=== PATIENT | male | born 1965 | race Caucasian/White ===

== ENCOUNTER 2021-03-14 15:19 | Outpatient (CLI) | payer BC, SELFPAY ==
--- NOTE | ~2021-03-14 | XR_ITS ---
XR shoulder LT min 2V DATE: 03/14/2021 15:55 INDICATION: Generalized left shoulder pain, limited range of motion TECHNIQUE: 4 views COMPARISON: None FINDINGS: No fracture or dislocation, periosteal reaction or bone destruction or abnormal soft tissue calcification. IMPRESSION: Negative left shoulder Reviewed, dictated and finalized at location B. IMPRESSION: Negative left shoulder
[2021-03-14 15:42] LABS: Hematocrit 42.2 % (40.0-54.0); Hemoglobin 14.7 g/dL (14.0-18.0); Mean Corpuscular HGB Conc 34.8 g/dL (32.0-36.0); Mean Corpuscular Hemoglobin 32.2 pg (27.0-31.0); Mean Corpuscular Volume 92.5 fL (78.0-102.0); Mean Platelet Volume 9.7 fl (8.7-11.0); Platelet Count Result 232 K/mm3 (150-420); Red Blood Count 4.56 M/mm3 (4.70-6.10); Red Cell Distribution Width 11.9 % (11.6-14.4); White Blood Count 10.5 K/mm3 (4.8-10.8)
[2021-03-14 17:17] LABS: Alanine Aminotransferase 24 U/L (16-63); Albumin Level 3.8 g/dL (3.4-5.0); Alkaline Phosphatase 96 U/L (46-116); Aspartate Amino Transferase 18 U/L (15-37); Bilirubin,Total 0.4 mg/dL (0.00-1.00); Blood Urea Nitrogen 13 mg/dL (7-18); Calcium 9.1 mg/dL (8.5-10.1); Cholesterol 177 mg/dL (0-200); Estimated Glomerular Filt Rate > 60; Glucose 88 mg/dL (70-99); HDL Direct 53 mg/dL (40-60); LDL Cholesterol Calculated 111 mg/dL (<130); Total Protein 6.8 g/dL (6.4-8.2); Triglycerides 63 mg/dL (0-150)
[2021-03-14 17:31] LABS: Anion Gap 9 mmol/L (8-16); Carbon Dioxide 27 mmol/L (21-32); Chloride 105 mmol/L (98-108); Osmolality Calculated 291 mOsm/kg (285-295); Potassium 4.1 mmol/L (3.5-5.1); Sodium 141 mmol/L (136-145)
== END 2021-03-14 15:20 | disposition home or self-care (01) ==
PROVIDERS: PCP Family Medicine; Visit Provider Family Medicine
DX: M25.512 Pain in left shoulder (principal); Z00.00 Encounter for general adult medical examination without abnormal findings; Z72.0 Tobacco use; Z12.12 Encounter for screening for malignant neoplasm of rectum; Z12.11 Encounter for screening for malignant neoplasm of colon
CPT/HCPCS: 36415; 73030; 80053; 80061; 85027

== ENCOUNTER 2024-04-15 06:55 | Outpatient (CLI) | payer BC, SELFPAY ==
[2024-04-15 07:21] LABS: Basophils Absolute Auto 0.03 K/mm3 (0.00-0.10); Basophils Percent Auto 0.2 % (0.0-1.0); Eosinophils Absolute Auto 0.18 K/mm3 (0.02-0.50); Eosinophils Percent Auto 1.5 % (1.0-6.0); Hematocrit 48.1 % (40.0-54.0); Hemoglobin 16.7 g/dL (14.0-18.0); Immature Granulocyte Absolute 0.06 K/mm3 (0.00-0.00); Immature Granulocyte Percent A 0.5 % (0.0-0.0); Lymphocytes Absolute Auto 1.78 K/mm3 (1.10-4.50); Lymphocytes Percent Auto 14.5 % (18.0-42.0); Mean Corpuscular HGB Conc 34.7 g/dL (32-36); Mean Corpuscular Hemoglobin 32.9 pg (27.0-31.0); Mean Corpuscular Volume 94.9 fL (78.0-102.0); Mean Platelet Volume 9.5 fl (8.7-11.0); Monocytes Absolute Auto 0.84 K/mm3 (0.10-0.90); Monocytes Percent Auto 6.9 % (2.0-11.0); Neutrophils Absolute Auto 9.35 K/mm3 (1.70-7.20); Neutrophils Percent Auto 76.4 % (50.0-70.0); Platelet Count Result 304 K/mm3 (150-420); Red Blood Count 5.07 M/mm3 (4.70-6.10); Red Cell Distribution Width 12.6 % (11.6-14.4); White Blood Count 12.2 K/mm3 (4.8-10.8)
[2024-04-15 08:47] LABS: Alanine Aminotransferase 25 U/L (16-63); Albumin Level 3.5 g/dL (3.4-5.0); Alkaline Phosphatase 91 U/L (46-116); Anion Gap 11 mmol/L (4-12); Aspartate Amino Transferase 28 U/L (15-37); Bilirubin,Total 0.6 mg/dL (0.00-1.00); Blood Urea Nitrogen 13 mg/dL (7-18); Calcium 9.2 mg/dL (8.5-10.1); Carbon Dioxide 26 mmol/L (21-32); Chloride 106 mmol/L (98-108); Cholesterol 208 mg/dL (0-200); Estimated Glomerular Filt Rate > 60; Free T3 3.02 pg/mL (2.18-3.98); Free T4 Free Thyroxine 0.97 ng/dL (0.76-1.46); Glucose 93 mg/dL (70-99); HDL Direct 49 mg/dL (40-60); LDL Cholesterol Calculated 139 mg/dL (<130); Osmolality Calculated 296 mOsm/kg (285-295); Potassium 4.5 mmol/L (3.5-5.1); Prostate Specific Antigen 1.5 ng/mL (< OR = 4.0); Sodium 143 mmol/L (136-145); Thyroid Stimulating Hormone 1.52 uIU/mL (0.36-3.74); Total Protein 6.8 g/dL (6.4-8.2); Triglycerides 100 mg/dL (0-150)
== END 2024-04-15 06:56 | disposition home or self-care (01) ==
LOC: CHSLAB 06:59
PROVIDERS: PCP Internal Medicine; Visit Provider Internal Medicine
DX: Z00.00 Encounter for general adult medical examination without abnormal findings (principal); I48.91 Unspecified atrial fibrillation; J44.9 Chronic obstructive pulmonary disease, unspecified
CPT/HCPCS: 36415; 80053; 80061; 84153; 84439; 84443; 84481; 85025; G0103

== ENCOUNTER 2024-04-17 08:40 | Outpatient (CLI) | payer BC, SELFPAY ==
--- NOTE | ~2024-04-17 | CT_ITS ---
CT Scan of the Chest without Contrast: Clinical Indication: Lung cancer screening, nicotine dependence Technique: Contiguous sections were acquired throughout the chest without intravenous contrast. Dose reduction technique was used on this scan by utilizing automated exposure control and iterative recon struction technique. The dose-length product (DLP) was 79.24 mGy-cm. Findings: There is no evidence of any significant mediastinal, hilar or axillary lymphadenopathy. The mediastin al soft tissues appear normal. There is no evidence of pleural or pericardial effusion. There is consolidation involving the posterior medial left upper lobe extending to the medial aspect of the left lower lobe, with mild surrounding groundglass opacity. Findings are most compatible with pneumonia. 3 mm right middle lobe pulmonary nodule present (axial images 80). Images through the upper abdomen reveal no abnormalities. Impression: Lung RADS 2-S: Benign appearance. 12 month follow-up screening CT advised. Probable pneumonia involving the left upper and lower lobes, as detailed above. Follow-up to radiogra phic resolution recommended to exclude underlying mass. Reviewed, dictated and finalized at location . Impression: Lung RADS 2-S: Benign appearance. 12 month follow-up screening CT advised. Probable pneumonia involving the left upper and lower lobes, as detailed above. Follow-up to radiographic resolution recommended to exclude underlying mass.
== END 2024-04-17 08:41 | disposition home or self-care (01) ==
LOC: CHSIMG 08:41
PROVIDERS: PCP Internal Medicine; Visit Provider Internal Medicine
DX: Z12.2 Encounter for screening for malignant neoplasm of respiratory organs (principal); Z87.891 Personal history of nicotine dependence; R91.8 Other nonspecific abnormal finding of lung field
CPT/HCPCS: 71271

== ENCOUNTER 2024-06-20 21:31 | Observation (INO) | payer BC, SELFPAY ==
[2024-06-20] VITALS (12 sets, daily range): BP systolic 113–156; BP diastolic 58–87; PULSE 60–92; RESP 16–29; TEMP 36.8; O2SAT 90–96
--- NOTE | ~2024-06-20 | CT_ITS ---
CTA chest PE protocol Ordering provider: Dameon Pierre MD History: 59 years Male with . PNEUMONIA, COUGH, SOB, R/O PE. EVALUATE MASS. . Comparison: None. Technique: CT angiogram chest was performed following timed intravenous injection of contrast. Thin s lice axial images and reformatted coronal images were obtained. Three dimensional reformatted images of the chest were also obtained using a [employer] workstation. . Automated exposure control and iterati ve reconstruction technique were employed. The dose-length product was 207.11 mGy-cm. 100 mL Omnipaqu e 350 was given IV. Findings: PULMONARY ARTERIES: No pulmonary embolus. VISUALIZED THORACIC INLET: Normal. MEDIASTINUM: Aorta/coronary arteries: The thoracic aorta is normal. Heart/other: The heart is not enlarged. Lymph nodes: No mediastinal or hilar adenopathy. LUNGS: Consolidation seen in the left upper and lower lobe.. No pulmonary nodules or masses. No effusions. N o pneumothorax. VISUALIZED UPPER ABDOMEN: the visualized upper abdomen is normal. MUSCULOSKELETAL: Soft tissues: The superficial soft tissues are normal. Bones: Age appropriate degenerative changes of the spine. IMPRESSION: 1. Consolidation in the left upper and lower lobe suggestive of pneumonia. Other differential includ e hemorrhage.. 2. No pulmonary embolism. Reviewed, dictated and finalized at location A. XML DEVELOPER IMPRESSION: 1. Consolidation in the left upper and lower lobe suggestive of pneumonia. Oth er differential include hemorrhage.. 2. No pulmonary embolism.
--- NOTE | ~2024-06-20 | XR_ITS ---
XR chest 2V Ordering provider: Dameon Pierre MD History: 59 years Male with . SHORTNESS OF BREATH. HX OF PNEUMONIA. COUGH . Comparison: None. FINDINGS: MEDIASTINUM: The cardiac silhouette is not enlarged. Prominent left hilum. Opacification in the left perihilar and left upper and lower lobes is seen sugg estive of pneumonia. Follow-up to resolution and further evaluation of the left hilum is advised to e xclude a mass. LUNGS: No effusions or pneumothorax. OTHER: No free air under the diaphragm. IMPRESSION: Left upper and lower lobes and left perihilar pneumonia. Prominent left hilum. Reviewed, dictated and finalized at location A. LE TIER
--- NOTE | 2024-06-20 21:36 | ED_ITS ---
HPI - SOB/Dyspnea General Chief Complaint: Upper Respiratory Infection Stated Complaint: upper respiratory Time Seen by Provider: 06/20/24 21:35 Source: patient Mode of arrival: ambulatory Limitations: no limitations History of Present Illness HPI Narrative: patient is a 59-year-old male with cough and congestion for the past week. He had a pneumonia a few weeks ago and was treated as an outpatient. He was post have a CT scan repeat for a mass seen on the initial radiography. MD elicited complaint: shortness of breath, cough and pain with inspiration ( Right chest wall) Pertinent past history: other ( AFib without anticoagulation) Onset (ago): week(s) (1) Context: recent illness Timing: constant Severity: moderate Exacerbating factors: exertion, movement, coughing and deep breaths Relieving factors: oxygen and rest Known history of: other ( AFib paroxysmal) Associated symptoms: pain with inspiration, cough and chest congestion Treatment prior to arrival: none Related Data Home oxygen amount: none Home Medications ?Medication ?Instructions ?Recorded ?Confirmed ?Last Taken ?Type flecainide 100 mg tablet 100 mg PO Q12H PRN afib 01/10/22 06/20/24 Unknown History aspirin 325 mg tablet,delayed 325 mg PO DAILY 05/19/24 06/20/24 Unknown History release Allergies Allergy/AdvReac Type Severity Reaction Status Date / Time No Known Allergies Allergy Unknown Verified 06/20/24 21:55 Review of Systems 2 Review of Systems: All systems reviewed & are unremarkable except as noted in HPI and below Constitutional: Constitutional: Reports no additional constitutional complaints Eyes: Eyes: Reports no additional eye complaints ENT: Reports system reviewed and no additional complaints, except as documented Cardiovascular: Cardiovascular: Reports no additional cardiovascular complaints Respiratory: Respiratory: Reports no additional respiratory complaints Gastrointestinal: Gastrointestinal: Reports no additional gastrointestinal complaints Genitourinary: Genitourinary: Reports no additional male genitourinary complaints Musculoskeletal: Musculoskeletal: Reports no additional musculoskeletal complaints Integumentary/Breasts: Skin/Breast: Reports system reviewed and no additional complaints, except as docu Neurologic: Reports system reviewed and no additional complaints, except as documented Psychiatric: Psychiatric: Reports no additional psychiatric complaints Endocrine: Endocrine: Reports no additional endocrine complaints Hematologic/Lymphatic: Hematologic/Lymphatic: Reports no additional hematologic/lymphatic complaints Allergic/Immunologic: Allergic/Immunologic: Reports no additional allergic/immunologic complaints [facility] Past Medical History Medical History Bipolar 1 disorder JEFFREY (generalized anxiety disorder) Atrial fibrillation Surgical History Surgical History No history of previous surgery Family History Family History Mother Hypertension Father , Age 43. 4 PPD smoker. Acute myocardial infarction Social History Social History Smoking packs per day: 0.5 Smoking cigarettes per day: 10.0 Years smoked: 30 Smoking pack-years: 15.00 Smoking status: Current every day smoker Tobacco type: cigarettes Exam 2 Const: General: ill appearing Nutritional Appearance: well nourished O rientation/consciousness: patient oriented x3 Limitations: no limitations HENMT: Head: normal to inspection Ears: external ears normal F ana maria/Nose/Sinus: Normal external nose present Eyes: Conjunctivae: conjunctivae normal Pupils: Equal, round and reactive pupils present EOM: EOMs intact bilaterally Neck: Neck: normal visual inspection Chest: Chest palpation & inspection: normal inspection of the chest Resp: Effort & Inspection: normal respiratory effort and not labored A uscultation: clear to auscultation bilaterally, crackles on the left, no rales, no rhonchi, no wheezes, breath sounds present and diminished lung sounds Cardio: Rate: regular rate Rhythm: regular rhythm Heart sounds: no murmurs GI: Inspection: non-distended GI Palp: Yes Soft to palpation and No Tenderness to palpation present (GI) Auscultation: normal bowel sounds : General: Yes bladder normal to palpation Back/Spine/Pelvis: Back: no CVA tenderness Skin: General skin exam: normal color Rashes: no rashes Wounds: no wounds Neuro: General: patient oriented x3 Cranial nerves: Yes Nystagmus not present Speech: normal speech Gait exam (Neuro): Normal gait present Extrem: General: normal to inspection Psych: Mental Status: mental status grossly normal Affect: normal affect Attitude: cooperative Course Vital Signs Vital signs: Vital Signs Oxygen Delivery Room Air 06/20/24 21:31 Temperature 36.8 C 06/20/24 21:34 Pulse Rate 69 06/21/24 00:01 Respiratory Rate 26 H 06/21/24 00:01 Blood Pressure 113/60 06/21/24 00:01 Pulse Oximetry 96 06/21/24 00:01 Oxygen Delivery Nasal Cannula 06/21/24 00:05 Oxygen Flow Rate 2 06/21/24 00:05 MDM - SOB/Dyspnea MDM Narrative Medical decision making narrative: patient is a 59-year-old male with cough and congestion with recent pneumonia. We will do a respiratory workup at this time. Lab Data Attestation: I reviewed the patient's lab results. 06/20/24 22:39 06/20/24 22:39 Labs: Lab Results 06/20/24 06/20/24 Range/Units 21:36 22:39 WBC 8.6 (4.8-10.8) K/mm3 RBC 4.66 L (4.70-6.10) M/mm3 Hgb 14.9 (14.0-18.0) g/dL Hct 43.3 (40.0-54.0) % MCV 92.9 (78.0-102.0) fL MCH 32.0 H (27.0-31.0) pg MCHC 34.4 (32-36) g/dL RDW 12.0 (11.6-14.4) % Plt Count 254 (150-420) K/mm3 MPV 9.5 (8.7-11.0) fl Immature Gran % (Auto) 0.2 H (0.0-0.0) % Neut % (Auto) 58.2 (50.0-70.0) % Lymph % (Auto) 31.4 (18.0-42.0) % [place] % (Auto) 8.4 (2.0-11.0) % Eos % (Auto) 1.6 (1.0-6.0) % Baso % (Auto) 0.2 (0.0-1.0) % Lymph # (Auto) 2.69 (1.10-4.50) K/mm3 [place] # (Auto) 0.72 (0.10-0.90) K/mm3 Eos # (Auto) 0.14 (0.02-0.50) K/mm3 Baso # (Auto) 0.02 (0.00-0.10) K/mm3 Abs Immat Gran (auto) 0.02 H (0.00-0.00) K/mm3 Absolute Neuts (auto) 4.97 (1.70-7.20) K/mm3 Absolute Nucleated RBC 0.00 (0.00-0.00) K/mm3 Nucleated RBC % 0.0 (0-0.0) % PT 10.1 (9.50-12.1) Seconds INR 0.9 APTT 25.1 (23.9-30.70) Sec Sodium 140 (136-145) mmol/L Potassium 4.4 (3.5-5.1) mmol/L Chloride 107 (98-108) mmol/L Carbon Dioxide 26 (21-32) mmol/L Anion Gap 7 (4-12) mmol/L BUN 18 (7-18) mg/dL Creatinine 1.05 (0.70-1.30) mg/dL Estim Creat Clear Calc 63 ml/min Estimated GFR > 60 (59 - ) Glucose 126 H (70-99) mg/dL Calculated Osmolality 293 (285-295) mOsm/kg Lactic Acid 1.0 (0.4-2.0) mmol/L Calcium 9.0 (8.5-10.1) mg/dL Total Bilirubin 0.3 (0.00-1.00) mg/dL AST 16 (15-37) U/L ALT 18 (16-63) U/L Alkaline Phosphatase 119 H (46-116) U/L Troponin I 4.5 (0.00-60.4) ng/L NT-Pro-B Natriuret Pep 75 (0-125) pg/mL Total Protein 6.8 (6.4-8.2) g/dL Albumin 3.6 (3.4-5.0) g/dL Influenza A (RT-PCR) Negative (Negative) Influenza B (RT-PCR) Negative (Negative) RSV (RT-PCR) Negative (Negative) SARS-CoV-2 RNA (RT-PCR) Negative (Negative) Imaging Data Attestation: I personally reviewed and interpreted this imaging study as follows: Radiologist's impression: CT scan of the chest PE rule out shows IMPRESSION: 1. Consolidation in the left upper and lower lobe suggestive of pneumonia. Other differential include hemorrhage.. 2. No pulmonary embolism. chest x-ray shows IMPRESSION: Left upper and lower lobes and left perihilar pneumonia. Prominent left hilum. ECG Data EKG #1: Attestation: I personally reviewed and interpreted this ECG as follows: ECG completion date: 06/21/24 ECG completion time: 00:39 EKG Interpretation: normal rate, sinus rhythm, non-specific ST changes, normal QRS, normal QT and NL axis Discharge Plan Discharge Clinical Impression: Hypoxia Pneumonia Qualifiers: Pneumonia type: due to unspecified organism Laterality: left Lung location: u nspecified part of lung Qualified Code(s): J18.9 - Pneumonia, unspecified organism Chest wall muscle strain Qualifiers: Encounter type: initial encounter Qualified Code(s): S29.011A - Strain of muscle and tendon of front wall of thorax, initial encounter Patient Disposition: Acute Care Hospital [facility] Condition: Improved Time of Disposition: 00:32
[2024-06-20] MEDS: ACETAMINOPHEN 500 MG TABLET 1000 MG PO (22:05)
[2024-06-20 22:18] LABS: SARS-CoV-2 RNA PCR Negative (Negative)
[2024-06-20 22:21] LABS: Influenza A QL RT-PCR Negative (Negative); Influenza B QL RT-PCR Negative (Negative); RSV RNA, RT-PCR Negative (Negative)
[2024-06-20 22:42] LABS: Basophils Absolute Auto 0.02 K/mm3 (0.00-0.10); Basophils Percent Auto 0.2 % (0.0-1.0); Eosinophils Absolute Auto 0.14 K/mm3 (0.02-0.50); Eosinophils Percent Auto 1.6 % (1.0-6.0); Hematocrit 43.3 % (40.0-54.0); Hemoglobin 14.9 g/dL (14.0-18.0); Immature Granulocyte Absolute 0.02 K/mm3 (0.00-0.00); Immature Granulocyte Percent A 0.2 % (0.0-0.0); Lymphocytes Absolute Auto 2.69 K/mm3 (1.10-4.50); Lymphocytes Percent Auto 31.4 % (18.0-42.0); Mean Corpuscular HGB Conc 34.4 g/dL (32-36); Mean Corpuscular Volume 92.9 fL (78.0-102.0); Mean Platelet Volume 9.5 fl (8.7-11.0); Monocytes Absolute Auto 0.72 K/mm3 (0.10-0.90); Monocytes Percent Auto 8.4 % (2.0-11.0); Neutrophils Absolute Auto 4.97 K/mm3 (1.70-7.20); Neutrophils Percent Auto 58.2 % (50.0-70.0); Platelet Count Result 254 K/mm3 (150-420); Red Blood Count 4.66 M/mm3 (4.70-6.10); White Blood Count 8.6 K/mm3 (4.8-10.8)
[2024-06-20 23:01] LABS: INR 0.9; Partial Thromboplastin Time 25.1 Sec (23.9-30.70); Prothrombin Time 10.1 Seconds (9.50-12.1)
[2024-06-20 23:05] LABS: Alanine Aminotransferase 18 U/L (16-63); Albumin Level 3.6 g/dL (3.4-5.0); Alkaline Phosphatase 119 U/L (46-116); Anion Gap 7 mmol/L (4-12); Aspartate Amino Transferase 16 U/L (15-37); Bilirubin,Total 0.3 mg/dL (0.00-1.00); Blood Urea Nitrogen 18 mg/dL (7-18); Carbon Dioxide 26 mmol/L (21-32); Chloride 107 mmol/L (98-108); Estimated CRCL calculation 63 ml/min; Estimated Glomerular Filt Rate > 60; Glucose 126 mg/dL (70-99); Osmolality Calculated 293 mOsm/kg (285-295); Potassium 4.4 mmol/L (3.5-5.1); Sodium 140 mmol/L (136-145); Total Protein 6.8 g/dL (6.4-8.2); Troponin I 4.5 ng/L (0.00-60.4)
[2024-06-20 23:06] LABS: NT Pro B Type Natriuretic Pept 75 pg/mL (0-125)
[2024-06-20] MEDS: PIPERACILLN/TAZ 3.375GM/NS50ML 3.375 GM/50 ML BAG IVPB (23:11)
[2024-06-21] VITALS (11 sets, daily range): BP systolic 106–138; BP diastolic 60–81; PULSE 56–77; RESP 19–26; TEMP 36.4–36.8; O2SAT 95–98; BMI 23.1
--- NOTE | 2024-06-21 00:31 | ECG_ITS ---
Test Date: 2024-06-21 00:40:44 Measurements Intervals [place] Rate: 66 P: 58 DE: 126 QRS: 82 QRSD: 98 T: 61 QT: 396 QTc: 415 Interpretive Statements SINUS RHYTHM No previous ECG available for comparison Electronically Signed On 06-24-2024 17:39:38 FUNERAL DIRECTOR/EMBALMER by Roula Fuller M.D.
[2024-06-21] MEDS: IBUPROFEN 400 MG TABLET PO (01:24)
[2024-06-21] MEDS: SODIUM CHLORIDE 0.9% IV 1,000 ML 100 ML IV CONT (01:32)
--- NOTE | 2024-06-21 01:32 | ADMGEN ---
This patient, Alen Spain, was admitted to 2nd Floor Room 203-2. Patient/family oriented to hospital policies and general routines including ID bracelet, bed and alarms, visiting hours, pain management, procedures, bathroom and other care routines, personal items, smoking policy, room service/diet, and visiting hours. Information on how to activate the Rapid Response Team has been discussed. Patient/Family are encouraged to report perceived risks to care and to ask questions if they do not understand what they are told or what they should do.
--- NOTE | 2024-06-21 04:38 | PC.NURSE ---
urine specimen collected and taken to lab
[2024-06-21 04:45] LABS: Add Urine Microscopic? YES; Appearance Urine Clear (Clear); Bilirubin Urine Negative (Negative); Blood Urine Negative (Negative); Color Urine Yellow (Yellow); Glucose Urine UA Negative (Negative); Ketones Urine Negative (Negative); Leukocyte Esterase Ur Negative LEU/UL (Negative); Nitrate Urine Negative (Negative); Protein Urine Trace (Negative); Urobilinogen Urine 0.2 mg/dL (0.2-1.0); pH Urine 5.5 (5.0-8.0)
[2024-06-21 04:49] LABS: Bacteria Urine Trace /hpf; RBC Urine 0-2 /hpf (0-2); Squamous Epithelial Cell Urine Rare /hpf (Few); WBC Urine 0-3 /hpf (0-3)
[2024-06-21] MEDS: ACETAMINOPHEN 325 MG TABLET 650 MG PO (04:51)
[2024-06-21] MEDS: PIPERACILLN/TAZ 3.375GM/NS50ML 3.375 GM/50 ML BAG IVPB (05:19)
[2024-06-21 05:22] LABS: Basophils Absolute Auto 0.02 K/mm3 (0.00-0.10); Basophils Percent Auto 0.3 % (0.0-1.0); Eosinophils Absolute Auto 0.17 K/mm3 (0.02-0.50); Eosinophils Percent Auto 2.2 % (1.0-6.0); Hematocrit 40.7 % (40.0-54.0); Hemoglobin 13.9 g/dL (14.0-18.0); Immature Granulocyte Absolute 0.03 K/mm3 (0.00-0.00); Immature Granulocyte Percent A 0.4 % (0.0-0.0); Lymphocytes Percent Auto 29.3 % (18.0-42.0); Mean Corpuscular HGB Conc 34.2 g/dL (32-36); Mean Corpuscular Hemoglobin 31.8 pg (27.0-31.0); Mean Corpuscular Volume 93.1 fL (78.0-102.0); Mean Platelet Volume 9.7 fl (8.7-11.0); Monocytes Absolute Auto 0.76 K/mm3 (0.10-0.90); Monocytes Percent Auto 9.7 % (2.0-11.0); Neutrophils Absolute Auto 4.58 K/mm3 (1.70-7.20); Neutrophils Percent Auto 58.1 % (50.0-70.0); Platelet Count Result 231 K/mm3 (150-420); Red Blood Count 4.37 M/mm3 (4.70-6.10); Red Cell Distribution Width 12.3 % (11.6-14.4); White Blood Count 7.9 K/mm3 (4.8-10.8)
[2024-06-21 05:40] LABS: Alanine Aminotransferase 23 U/L (16-63); Albumin Level 3.1 g/dL (3.4-5.0); Alkaline Phosphatase 132 U/L (46-116); Anion Gap 8 mmol/L (4-12); Aspartate Amino Transferase 14 U/L (15-37); Bilirubin,Total 0.3 mg/dL (0.00-1.00); Blood Urea Nitrogen 19 mg/dL (7-18); Calcium 8.4 mg/dL (8.5-10.1); Carbon Dioxide 23 mmol/L (21-32); Chloride 110 mmol/L (98-108); Estimated CRCL calculation 55 ml/min; Estimated Glomerular Filt Rate > 60; Glucose 115 mg/dL (70-99); Osmolality Calculated 295 mOsm/kg (285-295); Potassium 4.2 mmol/L (3.5-5.1); Sodium 141 mmol/L (136-145); Total Protein 6.1 g/dL (6.4-8.2)
--- NOTE | 2024-06-21 08:16 | P.HP_ITS ---
H&P: HPI History of Present Illness Date/Time: 06/21/24 08:16 Chief Complaint: SOB/ productive cough Narrative: Patient is a 59-year-old male who presented to the emergency department with worsening shortness of breath and productive cough. Patient states he had been treated for pneumonia back in March presented today with increased shortness of breath and continued cough however he came to the emergency department because right-sided chest pain and was concerned he may have broken a rib from coughing. patient reports past medical history of proximal atrial fib, anxiety, and long-time smoker. patient's labs were fairly unremarkable but he was hypoxic at low 90 on arrival and was placed on 2 L supplemental oxygen which he responded well to. CTA showed negative for PE however had consolidation in the left upper and lower lobe suggestive of pneumonia. patient was admitted to the medical unit for acute respiratory failure secondary to pneumonia possible COPD exacerbation however patient has never been diagnosed with COPD. Review of Systems Review of Systems: All systems reviewed & are unremarkable except as noted in HPI and below PMFSH Past Medical History Medical History Bipolar 1 disorder JEFFREY (generalized anxiety disorder) Atrial fibrillation Surgical History Surgical History No history of previous surgery Family History Family History Mother Hypertension Father , Age 43. 4 PPD smoker. Acute myocardial infarction Social History Social History Smoking packs per day: 0.75 Smoking cigarettes per day: 15.0 Years smoked: 30 Smoking pack-years: 22.50 Smoking status: Current every day smoker Tobacco type: cigarettes Second hand tobacco smoke exposure: Yes Alcohol intake: never Substance use: never Substance use type: marijuana Last use: 06/18/2024 Do You Feel Safe in your Home?: Yes Lack of Transportation: No Lack of Food: Never True Current Housing: I Have Housing Concerned About Future Housing: No Difficulty Paying Gas/Electric Bills: No Difficulty Paying for Meds: No Currently Unemployed: No Education: High School Diploma/GED Difficulty w/ Childcare or Family Care: No Spiritual care concerns: No Meds Home Medications and Allergies Home Medications ?Medication ?Instructions ?Recorded ?Confirmed ?Type flecainide 100 mg tablet 100 mg PO Q12H PRN afib 01/10/22 06/20/24 History escitalopram oxalate 5 mg tablet 5 mg PO DAILY #90 tabs 01/11/22 06/20/24 Rx (Lexapro) aspirin 325 mg tablet,delayed 325 mg PO DAILY 05/19/24 06/20/24 History release flecainide 100 mg tablet 100 mg PO .twice #30 tabs 05/19/24 06/20/24 Rx Allergies Allergy/AdvReac Type Severity Reaction Status Date / Time No Known Allergies Allergy Unknown Verified 06/20/24 21:55 Vital Signs Vital Signs - 24 hr 06/20/24 21:31 06/20/24 21:31 06/20/24 21:34 Temperature 98.2 F Pulse Rate 79 Respiratory Rate 18 Blood Pressure 156/87 H Pulse Oximetry 94 Oxygen Delivery Room Air Room Air Room Air Oxygen Flow Rate 06/20/24 22:29 06/20/24 22:30 06/20/24 22:45 Temperature Pulse Rate 78 66 75 Respiratory Rate 26 H 20 23 H Blood Pressure Pulse Oximetry 91 92 Oxygen Delivery Oxygen Flow Rate 06/20/24 22:53 06/20/24 23:00 06/20/24 23:01 Temperature Pulse Rate 69 83 68 Respiratory Rate 16 26 H Blood Pressure 113/58 L 131/86 Pulse Oximetry 92 90 90 Oxygen Delivery Nasal Cannula Oxygen Flow Rate 2 06/20/24 23:02 06/20/24 23:05 06/20/24 23:23 Temperature Pulse Rate 60 92 73 Respiratory Rate 24 H 21 H Blood Pressure Pulse Oximetry 92 96 95 Oxygen Delivery Nasal Cannula Oxygen Flow Rate 2 06/20/24 23:30 06/20/24 23:45 06/21/24 00:01 Temperature Pulse Rate 83 69 Respiratory Rate 29 H 26 H Blood Pressure 113/60 Pulse Oximetry 96 96 Oxygen Delivery Nasal Cannula Nasal Cannula Nasal Cannula Oxygen Flow Rate 2 2 2 06/21/24 00:05 06/21/24 00:30 06/21/24 00:34 Temperature Pulse Rate 77 Respiratory Rate 19 Blood Pressure Pulse Oximetry 95 95 Oxygen Delivery Nasal Cannula Nasal Cannula Nasal Cannula Oxygen Flow Rate 2 2 2 06/21/24 01:34 06/21/24 04:00 06/21/24 04:00 Temperature 98.3 F 98.3 F Pulse Rate 66 66 66 Respiratory Rate 20 20 Blood Pressure 138/81 106/64 Pulse Oximetry 95 98 Oxygen Delivery Nasal Cannula Nasal Cannula Oxygen Flow Rate 2 1 06/21/24 04:51 Temperature 98.3 F Pulse Rate Respiratory Rate Blood Pressure Pulse Oximetry Oxygen Delivery Oxygen Flow Rate Exam Narrative: * GENERAL: Alert and oriented x 3. Male up in chair with No acute distress. * EYES: EOMI. No scleral icterus. PERRLA. * HEENT: Moist mucous membranes. * LUNGS: Rhonchi L>R bilaterally. No accessory muscle use. * CARDIOVASCULAR: Regular rate and rhythm. No murmur. S1-S2 * ABDOMEN: Soft, non tenderness and non-distended. No palpable masses. * EXTREMITIES: No edema. Non-tender * SKIN: No rashes or lesions. Skin warm, dry. * NEUROLOGIC: No focal neurological deficits. CN II-XII grossly intact * PSYCHIATRIC: Appropriate mood and affect. Good judgement and insight. H&P: Results Labs Labs: Short CBC 06/20/24 06/21/24 Range/Units 22:39 05:07 WBC 8.6 7.9 (4.8-10.8) K/mm3 Hgb 14.9 13.9 L (14.0-18.0) g/dL Hct 43.3 40.7 (40.0-54.0) % Plt Count 254 231 (150-420) K/mm3 BMP 06/20/24 06/21/24 22:39 05:07 Sodium 140 141 Potassium 4.4 4.2 Chloride 107 110 H Carbon Dioxide 26 23 BUN 18 19 H Creatinine 1.05 1.21 Glucose 126 H 115 H Calcium 9.0 8.4 L Cardiac Enzymes 06/20/24 Range/Units 22:39 Troponin I 4.5 (0.00-60.4) ng/L Liver Function 06/20/24 06/21/24 Range/Units 22:39 05:07 Total Bilirubin 0.3 0.3 (0.00-1.00) mg/dL AST 16 14 L (15-37) U/L ALT 18 23 (16-63) U/L Alkaline Phosphatase 119 H 132 H (46-116) U/L Albumin 3.6 3.1 L (3.4-5.0) g/dL Urine 06/21/24 Range/Units 04:30 Urine Color Yellow (Yellow) Urine Appearance Clear (Clear) Urine pH 5.5 (5.0-8.0) Ur Specific [place] 1.020 (1.010-1.020) Urine Protein Trace H (Negative) Urine Glucose (UA) Negative (Negative) Assessment and Plan Assessment and plan (1) Acute respiratory failure with hypoxia: Code(s): J96.01 - Acute respiratory failure with hypoxia Status: Acute Assessment and Plan: patient presented to the emergency department with worsening shortness of breath and productive cough was found to be hypoxic at 90 in the emergency department chest x-ray showing multi lobular pneumonia and likely COPD e xacerbation however patient reports he has never been diagnosed with COPD long- term smoker * started levalbuterol patient with history of proximal atrial fibrillation * CTA: Negative PE/ consolidation in the left upper and lower lobe suggestive of pneumonia * incentive spirometry while awake. * influenza/COVID/RSV negative * azithromycin p.o./ Rocephin IV * prednisone 40 mg p.o. patient likely has COPD exacerbation but has never been formally diagnosed with COPD * supplemental oxygen therapy to maintain oxygen 92% * mucolytic * Pain Management for cough * Smoking cessation counseling done L (2) Pneumonia: Qualifiers: Laterality: left Lung location: unspecified part of lung Pneumonia type: due to unspecified organism Qualified Code(s): J18.9 - Pneumonia, unspecified organism Code(s): J18.9 - Pneumonia, unspecified organism Status: Acute Assessment and Plan: SEE ABOVE (3) Tobacco abuse: Code(s): Z72.0 - Tobacco use Status: Acute Assessment and Plan: * nicotine patch p.r.n. * remove at night * encouraged immediate smoking cessation * recommended PFT testing outpatient (4) PAF (paroxysmal atrial fibrillation): Code(s): I48.0 - Paroxysmal atrial fibrillation Status: Acute Assessment and Plan: patient currently in sinus rhythm controlled * patient has less than I would p.r.n. (5) JEFFREY (generalized anxiety disorder): Code(s): F41.1 - Generalized anxiety disorder Status: Acute Assessment and Plan: * resume Lexapro Plan Code status: Full code per patient DVT prophylaxis: Lovenox Stress ulcer prophylaxis: NA PT/OT notes: ambulatory Disposition: patient was admitted to the medical unit for further evaluation and treatment of acute respiratory failure with hypoxia secondary to pneumonia and likely COPD exacerbation. continue with antibiotics, nebulizers mucolytics and wean oxygen as tolerated. patient plans to discharge back to home when medically stable. did recommend to follow-up with primary and referral to brewing director for PFT testing. Quality VTE Prophylaxis VTE prophylaxis: pharmacologic ordered -Patient's previous records reviewed on admission -ER notes reviewed in detail on admission -discussed all findings and current treatment plan with patient/Family/POA -Consultations reviewed for recommendations -Patient's disposition for safe discharge discussed with community case manager Dictation performed by [employer] direct speech recognition software, therefore windscreen fitter variants and typographical errors may occur. Hospitalist JOVANNA Advance Care Plan I have confirmed that the patient's Advanced Care Plan is present, code status is documented, or surrogate decision maker is listed in patient medical record.: Yes Medication Reconciliation I have utilized all available resources to obtain, update and review the patients current medications (includes all prescriptions, OTC, herbals, cannabis, and nutritional supplements).: Yes The patient is not eligible for med reconciliation; the patient is in a emergent medical situation where delaying treatment would jeopardize the patients health.: No
[2024-06-21] MEDS: KETOROLAC 30 MG/ML VIAL (*BKC) IV PUSH (09:48)
[2024-06-21] MEDS: guaiFENesin 12 HR 600 MG TABCR 1200 MG PO ×2 (09:52→20:15)
[2024-06-21] MEDS: AZITHROMYCIN 250 MG TABLET 500 MG PO (09:53)
[2024-06-21] MEDS: predniSONE 20 MG TABLET 40 MG PO (09:53)
[2024-06-21] MEDS: ESCITALOPRAM OXALATE 5 MG TABLET PO (09:53)
[2024-06-21] MEDS: ASPIRIN 325 MG ENTERIC TABLET PO (09:53)
[2024-06-21] MEDS: ENOXAPARIN 40 MG/0.4 ML SYRINGE SUB-Q (09:53)
[2024-06-21] MEDS: HYDROcodone/acetaminophen (*CRX) 5-325 MG TABLET 1 TAB PO (20:15)
[2024-06-22] VITALS (7 sets, daily range): BP systolic 129–142; BP diastolic 70–79; PULSE 55–76; RESP 16–20; TEMP 36.5–36.8; O2SAT 94–97
[2024-06-22 07:19] LABS: Hematocrit 41.1 % (40.0-54.0); Hemoglobin 13.9 g/dL (14.0-18.0); Mean Corpuscular HGB Conc 33.8 g/dL (32-36); Mean Corpuscular Volume 94.7 fL (78.0-102.0); Mean Platelet Volume 9.8 fl (8.7-11.0); Platelet Count Result 243 K/mm3 (150-420); Red Blood Count 4.34 M/mm3 (4.70-6.10); Red Cell Distribution Width 12.4 % (11.6-14.4); White Blood Count 11.5 K/mm3 (4.8-10.8)
[2024-06-22 07:47] LABS: Alanine Aminotransferase 21 U/L (16-63); Albumin Level 3.3 g/dL (3.4-5.0); Alkaline Phosphatase 103 U/L (46-116); Anion Gap 8 mmol/L (4-12); Aspartate Amino Transferase 15 U/L (15-37); Bilirubin,Total 0.3 mg/dL (0.00-1.00); Blood Urea Nitrogen 13 mg/dL (7-18); Calcium 8.5 mg/dL (8.5-10.1); Carbon Dioxide 25 mmol/L (21-32); Chloride 111 mmol/L (98-108); Estimated CRCL calculation 82 ml/min; Estimated Glomerular Filt Rate > 60; Glucose 100 mg/dL (70-99); Osmolality Calculated 298 mOsm/kg (285-295); Potassium 3.9 mmol/L (3.5-5.1); Sodium 144 mmol/L (136-145); Total Protein 6.4 g/dL (6.4-8.2)
[2024-06-22] MEDS: ESCITALOPRAM OXALATE 5 MG TABLET PO (09:19)
[2024-06-22] MEDS: AZITHROMYCIN 250 MG TABLET 500 MG PO (09:19)
[2024-06-22] MEDS: guaiFENesin 12 HR 600 MG TABCR 1200 MG PO (09:19)
[2024-06-22] MEDS: HYDROcodone/acetaminophen (*CRX) 5-325 MG TABLET 1 TAB PO (09:19)
[2024-06-22] MEDS: ASPIRIN 325 MG ENTERIC TABLET PO (09:19)
[2024-06-22] MEDS: predniSONE 20 MG TABLET 40 MG PO (09:19)
--- NOTE | 2024-06-22 10:08 | P.DS_ITS ---
DS: Admitting Diagnosis Discharge Date 06/22/2024 Admitting Diagnosis acute respiratory failure with hypoxia secondary to pneumonia and likely COPD exacerbation DS: Discharge Diagnosis Discharge Diagnosis (1) Acute respiratory failure with hypoxia: Code(s): J96.01 - Acute respiratory failure with hypoxia Status: Acute Assessment and Plan: patient presented to the emergency department with worsening shortness of breath and productive cough was found to be hypoxic at 90 in the emergency department chest x-ray showing multi lobular pneumonia and likely COPD exacerbation however patient reports he has never been diagnosed with COPD long-term smoker * Discharged on Augmentin/steroids/ mucolytics * follow-up with pulmonology for PFT testing * immediate smoking cessation (2) Pneumonia: Qualifiers: Laterality: left Lung location: unspecified part of lung Pneumonia type: due to unspecified organism Qualified Code(s): J18.9 - Pneumonia, unspecified organism Code(s): J18.9 - Pneumonia, unspecified organism Status: Acute Assessment and Plan: SEE ABOVE (3) Tobacco abuse: Code(s): Z72.0 - Tobacco use Status: Acute Assessment and Plan: * smoking cessation * recommended PFT testing outpatient (4) PAF (paroxysmal atrial fibrillation): Code(s): I48.0 - Paroxysmal atrial fibrillation Status: Acute Assessment and Plan: patient currently in sinus rhythm controlled * patient has less than I would p.r.n. (5) JEFFREY (generalized anxiety disorder): Code(s): F41.1 - Generalized anxiety disorder Status: Acute Assessment and Plan: * resume Lexapro Plan Disposition: Discharged to home DS: Summary Hospital Course Reason for hospitalization: acute respiratory failure with hypoxia secondary to pneumonia and COPD exacerbation Hospital Course: Patient was a 59-year-old male who presented to the emergency department with worsening shortness of breath and productive cough. Patient states he had been treated for pneumonia back in March presented today with increased shortness of breath and continued cough however he came to the emergency department because right-sided chest pain and was concerned he may have broken a rib from coughing. patient reports past medical history of proximal atrial fib, anxiety, and long-time smoker. patient's labs were fairly unremarkable but he was hypoxic at low 90 on arrival and was placed on 2 L supplemental oxygen which he responded well to. CTA showed negative for PE however had consolidation in the left upper and lower lobe suggestive of pneumonia. patient was admitted to the medical unit for acute respiratory failure secondary to pneumonia possible COPD exacerbation however patient has never been diagnosed with COPD. Patient was wean off oxygen and had overall improvement to symptoms. Patient denied SOB, CP, N/V , Fever or chills day of discharge. It was recommended he have follow-up with pulmonology outpatient for PFT testing and immediate smoking cessation. Patient was discharged to home or oral antibiotics and steroids. Discharge and exam was completed using Virtual video with RN due to inclement weather and patient gave informed consent to proceed. Status at Discharge Functional status at discharge: independent ambulation Overall status at discharge: patient is back to baseline Time Spent with Patient Time attestation: Total time spent providing and/or coordinating discharge services: Time spent: Greater than 30 minutes Exam Narrative: Exam was completed using virtual video with RN and patient. Patient was informed and gave consent prior to video. Assessment done by visual appearance and subjective from patient as well as RN. * GENERAL: Alert and oriented x 3. Male up in chair appeared in No acute distress. * EYES: PERRLA. * HEENT: Moist mucous membranes. * LUNGS: No accessory muscle use. Unable to assess breath sounds, no tachypnea or SOB seen and productive cough improved * CARDIOVASCULAR: Regular rate and rhythm per vitals recorded * ABDOMEN: no distention visual seen, patient denied any ABD pain * EXTREMITIES: No edema. * SKIN: No rashes or lesions. Skin warm, dry. * NEUROLOGIC: No focal neurological deficits visualized * PSYCHIATRIC: Appropriate mood and affect. Good judgement and insight. DS: Data Data Completed and Pending Labs on day of discharge: Labs from last 24 hours 06/22/24 07:12 WBC 11.5 H RBC 4.34 L Hgb 13.9 L Hct 41.1 MCV 94.7 MCH 32.0 H MCHC 33.8 RDW 12.4 Plt Count 243 MPV 9.8 Sodium 144 Potassium 3.9 Chloride 111 H Carbon Dioxide 25 Anion Gap 8 BUN 13 Creatinine 0.80 Estim Creat Clear Calc 82 Estimated GFR > 60 Glucose 100 H Calculated Osmolality 298 H Calcium 8.5 Total Bilirubin 0.3 AST 15 ALT 21 Alkaline Phosphatase 103 Total Protein 6.4 Albumin 3.3 L Preliminary micro results at discharge 06/20/24 22:49 Blood Culture - Preliminary Blood 06/20/24 22:39 Blood Culture - Preliminary Blood Imaging Radiologist's impression: CTA chest PE protocol Ordering provider: Dameon Pierre MD History: 59 years Male with . PNEUMONIA, COUGH, SOB, R/O PE. EVALUATE MASS. . Comparison: None. Technique: CT angiogram chest was performed following timed intravenous injection of contrast. Thin slice axial images and reformatted coronal images were obtained. Three dimensional reformatted images of the chest were also obtai keara using a [employer] workstation. . Automated exposure control and iterative reconstruction technique were employed. The dose-length product was 207.11 mGy- cm. 100 mL Omnipaque 350 was given IV. Findings: PULMONARY ARTERIES: No pulmonary embolus. VISUALIZED THORACIC INLET: Normal. MEDIASTINUM: Aorta/coronary arteries: The thoracic aorta is normal. Heart/other: The heart is not enlarged. Lymph nodes: No mediastinal or hilar adenopathy. LUNGS: Consolidation seen in the left upper and lower lobe.. No pulmonary nodules or masses. No effusions. No pneumothorax. VISUALIZED UPPER ABDOMEN: the visualized upper abdomen is normal. MUSCULOSKELETAL: Soft tissues: The superficial soft tissues are normal. Bones: Age appropriate degenerative changes of the spine. IMPRESSION: 1. Consolidation in the left upper and lower lobe suggestive of pneumonia. Other differential include hemorrhage.. 2. No pulmonary embolism. Discharge Plan Discharge Attending physician on discharge: Tu Thorne Consulting providers: Ariadne Nesbitt Discharging Clinician: Ariadne Nesbitt Anticipated Discharge Date/Time: 06/22/24 08:52 Patient Disposition: Home, Self-Care Activity: may shower, unlimited and as tolerated Diet: regular Discharge Instructions: You were treated for Pneumonia and likely COPD exacerbation * Please take oral antibiotics as prescribed and complete even if feeling better * continue to use your Incentive spirometer * I recommend follow-up with a Tree Sapper for further PFT testing * I recommend immediate smoking cessation How can you care for yourself at home? ? Keep track of any new symptoms or changes in your symptoms. ? Rest until you feel better. ? Be safe with medicines. Take your medicines exactly as prescribed. Call your doctor if you think you are having a problem with your medicine. ? Do not drive after taking a prescription pain medicine. ? Ensure to follow-up with primary care physician as indicated and provide updated medication list provided to you at discharge. When should you call for help? Call 911 anytime you think you may need emergency care. For example, call if: ? You passed out (lost consciousness). Call your doctor now or seek immediate medical care if: ? You have new symptoms like fever, difficulty breathing, Chest pain, vomiting, or rash. ? You have new or different pain. ? You are confused and are having trouble thinking clearly. ? Your symptoms are getting worse. Watch closely for changes in your health, and be sure to contact your doctor if: ? You do not get better as expected. Patient Instructions: Antibiotic Form, Amoxicillin (By mouth), How to Stop Smoking (DC), Community Acquired Pneumonia (DC) Patient Language: Ugandan Stand Alone Forms: General Discharge Information Follow-up/Referrals: Iasiah Ruano MD [Primary Care Provider] - 4 Weeks Discharge Medications: New hydrocodone-acetaminophen 5-325 mg Tablet 1 tablet PO Q4H PRN (Reason: Moderate Pain (4-6)) Qty: 10 0RF prednisone 20 mg Tablet 40 mg PO DAILY@0800 Qty: 8 0RF guaifenesin [Mucus Relief ER] 600 mg Tablet Extended Release 12hr 1,200 mg PO Q12HR Qty: 14 0RF amoxicillin-pot clavulanate 875-125 mg tablet 1 tablet PO Q12H Qty: 12 0RF Continued aspirin 325 mg tablet,delayed release (DR/EC) 325 mg PO DAILY flecainide 100 mg tablet 100 mg PO .twice Qty: 30 0RF Rx Instructions: Take 1 tab prn for atrial fib, and 1 hour later if still in it, take second tab. flecainide 100 mg tablet 100 mg PO Q12H PRN (Reason: afib) Rx Instructions: Only takes PRN if in A-fib. escitalopram oxalate [Lexapro] 5 mg tablet 5 mg PO DAILY Qty: 90 0RF Date of admission: 06/21/24 00:33 Primary Care Provider: Isaiah Ruano Admitting Provider: Tu Thorne Attending physician on admission: Ariadne Nesbitt Condition: Stable Quality VTE Prophylaxis VTE prophylaxis: pharmacologic ordered -Patient's previous records reviewed on admission -ER notes reviewed in detail on admission -discussed all findings and current treatment plan with patient/Family/POA -Consultations reviewed for recommendations -Patient's disposition for safe discharge discussed with case investigator Dictation performed by [employer]per[employer]iki direct speech recognition software, therefore slat basket maker machine variants and typographical errors may occur. Hospitalist MIPS Heart Failure (Exclusion) Patient has history of Heart Transplant or Left Ventricular Assistive Device?: No IF YES, STOP HERE Heart Failure (Qualifier) Patient has current or prior documentation of LVEF less than or equal to 40%, or mod/servere depressed LVSF?: No IF NO, STOP HERE
--- NOTE | 2024-06-22 10:45 | PC.NURSE ---
Discharge instructions and prescriptions reviewed with patient. Verbalized understanding. Patient taken off floor per wheelchair.
--- NOTE | 2024-06-24 10:08 | PC.NURSE ---
Discharge call back attempted, no answer
== END 2024-06-22 10:45 | disposition home or self-care (01) ==
LOC: CHSED 22:13 → CHS2ND 06-21 00:33
PROVIDERS: Admitting Provider Internal Medicine; Emergency Provider Emergency Medicine; PCP Internal Medicine; Visit Provider Nurse Practitioner Family
DX: J18.9 Pneumonia, unspecified organism (principal); J96.01 Acute respiratory failure with hypoxia; I48.0 Paroxysmal atrial fibrillation; F41.1 Generalized anxiety disorder; F31.9 Bipolar disorder, unspecified; F17.210 Nicotine dependence, cigarettes, uncomplicated; S29.011A Strain of muscle and tendon of front wall of thorax, initial encounter; X58.XXXA Exposure to other specified factors, initial encounter; Z20.822 Contact with and (suspected) exposure to COVID-19; Z79.82 Long term (current) use of aspirin; Z79.899 Other long term (current) drug therapy
CPT/HCPCS: 36415; 71046; 71275; 80053; 81001; 83605; 83880; 84484; 85025; 85027; 85610; 85730; 87040; 87637; 93005; 94640; 96361; 96365; 96367; 96372; 96375; 99285; A9270; G0378; J0696; J1650; J1885; J2543; J7030; J7512; Q9967

== ENCOUNTER 2024-07-08 10:01 | Outpatient (CLI) | payer BC, SELFPAY ==
[2024-07-08 10:17] LABS: Basophils Absolute Auto 0.02 K/mm3 (0.00-0.10); Basophils Percent Auto 0.2 % (0.0-1.0); Eosinophils Absolute Auto 0.06 K/mm3 (0.02-0.50); Eosinophils Percent Auto 0.6 % (1.0-6.0); Hematocrit 45.9 % (40.0-54.0); Hemoglobin 15.6 g/dL (14.0-18.0); Immature Granulocyte Absolute 0.02 K/mm3 (0.00-0.00); Immature Granulocyte Percent A 0.2 % (0.0-0.0); Lymphocytes Absolute Auto 1.63 K/mm3 (1.10-4.50); Lymphocytes Percent Auto 16.3 % (18.0-42.0); Mean Corpuscular Hemoglobin 31.8 pg (27.0-31.0); Mean Corpuscular Volume 93.5 fL (78.0-102.0); Mean Platelet Volume 9.5 fl (8.7-11.0); Monocytes Absolute Auto 0.51 K/mm3 (0.10-0.90); Monocytes Percent Auto 5.1 % (2.0-11.0); Neutrophils Absolute Auto 7.76 K/mm3 (1.70-7.20); Neutrophils Percent Auto 77.6 % (50.0-70.0); Platelet Count Result 290 K/mm3 (150-420); Red Blood Count 4.91 M/mm3 (4.70-6.10); Red Cell Distribution Width 12.1 % (11.6-14.4)
[2024-07-08 11:14] LABS: Alanine Aminotransferase 24 U/L (16-63); Albumin Level 3.6 g/dL (3.4-5.0); Alkaline Phosphatase 106 U/L (46-116); Anion Gap 6 mmol/L (4-12); Aspartate Amino Transferase 21 U/L (15-37); Bilirubin,Total 0.4 mg/dL (0.00-1.00); Blood Urea Nitrogen 15 mg/dL (7-18); CRP < 0.5 mg/dL (0.0-0.9); Carbon Dioxide 28 mmol/L (21-32); Chloride 106 mmol/L (98-108); Estimated Glomerular Filt Rate > 60; Glucose 91 mg/dL (70-99); Osmolality Calculated 290 mOsm/kg (285-295); Potassium 4.2 mmol/L (3.5-5.1); Sodium 140 mmol/L (136-145); Total Protein 6.7 g/dL (6.4-8.2)
[2024-07-08 11:38] LABS: Add Urine Microscopic? NO; Appearance Urine Clear (Clear); Bilirubin Urine Negative (Negative); Blood Urine Negative (Negative); Color Urine Yellow (Yellow); Glucose Urine UA Negative (Negative); Ketones Urine Negative (Negative); Leukocyte Esterase Ur Negative (Negative); Nitrate Urine Negative (Negative); Protein Urine Negative (Negative); Specific Grav Ur >= 1.030 (1.010-1.020); Urobilinogen Urine 0.2 mg/dL (0.2-1.0); pH Urine 5.5 (5.0-8.0)
[2024-07-10 12:24] LABS: NIL 0.02 IU/mL; Quantiferon TB Plus, 1T NEGATIVE (NEGATIVE)
--- OUTSIDE RECORDS SUMMARY | 2024-07-10 17:11 | XMS_ITS | Clinical Summary ---
Author Organization [facility] Address [address] [facility]. [place], [place] [address] [place] [address] Care Team Providers Care Driver Manager Name Role Phone Lucas Renteria MD Primary Care Provider [phone] Eduardo Love MD Unavailable [phone] Allergies No known active allergies Medications * This document contains information received from the source organization and may not represent a complete record from that organization. aspirin 81 MG tablet Take 1 tablet by mouth daily. 07/08/2012 Active flecainide 100 MG tablet Take 1 tablet (100 mg total) by mouth 2 (two) times daily. 60 tablet 5 05/21/2017 Active Active Problems Problem Noted Date Diagnosed Date Encounter for monitoring flecainide therapy 08/16 Paroxysmal atrial fibrillation ([facility]) Family History Medical History Relation Comments [place] Father [place] Paternal Grandfather Relation Status Comments Father Paternal Grandfather Social History Tobacco Use Types Packs/Day Years Used Date Smoking Tobacco: Every Day Smokeless Tobacco: Never Comments:less pack per day Alcohol Use Standard Drinks/Week Comments No 0 (1 standard drink = 0.6 oz pur e alcohol) Sex and Gender Information Value Date Recorded Sex Assigned at Not on file Legal Sex Male 11:01 PM CDT Gender Identity Not on file Sexual Orientation Not on file 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 Not on file Not on file Last Filed Vital Signs Vital Sign Reading Time Taken Comments Blood Pressure 120/70 08/28/2016 1:01 PM CDT Pulse 77 08/28/2016 1:01 PM CDT Temperature - - Respiratory Rate 16 08/28/2016 1:01 PM CDT Oxygen Saturation - - Inhaled Oxygen Concentration - - Weight 72.6 kg (160 lb) 08/28/2016 1:01 PM CDT Height 172.7 cm (5' 8 ) 08/28/2016 1:01 PM CDT Body Mass Index 24.33 08/28/2016 1:01 PM CDT Plan of Treatment Health Maintenance Due Date Last Done Comments Colorectal Cancer Screening Colonoscopy (10 Years) 1963 Annual Physical 1966 Pneumococcal Vaccine: Pediat rics (0 to 5 Years) and At-Risk Patients (6 to 64 Years) (1 of 2 - PCV) 1969 Hepatitis C 1981 DTaP, Tdap and Td Vaccines ( 1 - Tdap) 1982 Zoster Vaccines (1 of 2) 2013 RSV Immunization or 60+ Years (1 - Risk 60-74 years 1-dose series) 2023 COVID-19 Vaccine ( - 2023-2 5 season) 2024 Influenza Adult (#1) 2024 Meningococcal B Vaccine Aged Out No l onger eligible based on patient's age to complete this topic Meningococcal Vaccine Aged Out No marisol terry eligible based on patient's age to complete this topic RSV Immunizations Under 20 Months Aged Out No longer eligible based on patient's age to complete this topic Insurance [facility] Care Teams Driver Manager Relationship Specialty Start Date End Date Lucas Renteria MD [address] [place] [address] PCP - General FAMILY PRACTICE 12/22/15 Eduardo Love MD [address] [facility] [address] [place] [id number] CLINICAL CARDIAC ELECTROPHYSIOLOGY 12/22/15
--- OUTSIDE RECORDS SUMMARY | 2024-07-10 17:11 | XMS_ITS | Encounter Summary ---
Author Organization [facility] Address [address] [place] [address] [place] [address] Care Team Providers Care Consulting Technical Manager Name Role Phone Lucas Renteria MD Primary Care Provider [phone] Eduardo Love MD Unavailable [phone] Encounter Details Date Type Department Care Team (Late st Contact Info) Description 02/25/2015 Abstract [facility] [address] [place] [address] Eduardo Love MD [address] [facility] [address] [place] [address] Social History Tobacco Use Types Packs/Day Years Used Date Smoking Tobacco: Every Day Comments:less pack per day Alcohol Use Standard Drinks/Week Comments No 0 (1 standard drink = 0.6 oz pur e alcohol) Sex and Gender Information Value Date Recorded Sex Assigned at Not on file Legal Sex Male 11:01 PM CDT Gender Identity Not on file Sexual Orientation Not on file 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
== END 2024-07-08 10:02 | disposition home or self-care (01) ==
PROVIDERS: PCP Internal Medicine; Visit Provider Internal Medicine
DX: J18.9 Pneumonia, unspecified organism (principal)
CPT/HCPCS: 36415; 80053; 81003; 85025; 86036; 86140; 86480; 86606; 86612; 86628; 86635; 86698

== ENCOUNTER 2024-10-06 13:31 | Outpatient (CLI) | payer BC, SELFPAY ==
--- NOTE | ~2024-10-06 | CT_ITS ---
CT Scan of the Chest without Contrast: Clinical Indication: Pneumonia Technique: Contiguous sections were acquired throughout the chest without intravenous contrast. Dose reduction technique was used on this scan by utilizing automated exposure control and iterative recon struction technique. The dose-length product (DLP) was 136.18 mGy-cm. COMPARISON: 06/20/2024 Findings: There is no evidence of any significant mediastinal, hilar or axillary lymphadenopathy. Coronary ildefonso ry calcifications are present. There is no evidence of pleural or pericardial effusion. There is extensive consolidation involving the posterior left upper lobe extending into the superior segment left lower lobe as well as the more posterior medial left lower lobe and left lung base. Exte nt of involvement is probably worsened as compared to prior exam, particularly at the left lower lobe . Images through the upper abdomen reveal no abnormalities. Impression: Extensive left lung pneumonia involving both left upper and lower lobes, with more extensive involvem ent as compared to prior exam, especially the left lung base. Consider alternative etiologies other t evans typical bacterial pneumonia given persistence since June. Consider tissue sampling as indicate d. Reviewed, dictated and finalized at location M. Impression: Extensive left lung pneumonia involving both left upper and lower lobes, with m ore extensive involvement as compared to prior exam, especially the left lung b ase. Consider alternative etiologies other than typical bacterial pneumonia giv en persistence since June. Consider tissue sampling as indicated.
--- OUTSIDE RECORDS SUMMARY | 2024-10-06 15:15 | XMS_ITS | Clinical Summary ---
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 on file [...] Colonoscopy (10 Years) 1963 Annual Physical 1966 Hepatitis C 1981 DTaP, Tdap and Td Vaccines ( 1 - Tdap) 1982 Pneumococcal Vaccine: 50+ Ye ars (1 of 2 - PCV) 1982 Zoster Vaccines (1 of 2) 2013 RSV Immunization or 60+ Years (1 - Risk 60-74 years 1-dose series) 2023 COVID-19 Vaccine ( - 2023-2 5 season) 2024 Meningococcal B Vaccine Aged Out No l onger eligible based on patient's age to complete this topic Meningococcal Vaccine Aged Out No marisol terry eligible based on patient's age to complete this topic RSV Immunizations Under 20 Months Aged Out No longer eligible based on patient's age to complete this topic Insurance Care Teams Rn Visiting Relationship Specialty Start Date End Date Lucas Renteria MD [address] [place] [address] PCP - General FAMILY PRACTICE 12/22/15 Eduardo Love MD [address] [facility] [address] [place] [address] CLINICAL CARDIAC ELECTROPHYSIOLOGY 12/22/15
--- OUTSIDE RECORDS SUMMARY | 2024-10-06 15:15 | XMS_ITS | Encounter Summary ---
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
== END 2024-10-06 13:32 | disposition home or self-care (01) ==
LOC: CHSIMG 13:32
PROVIDERS: PCP Internal Medicine; Visit Provider Physician Assistant
DX: J18.9 Pneumonia, unspecified organism (principal); Z72.0 Tobacco use; J96.01 Acute respiratory failure with hypoxia
CPT/HCPCS: 71250

== ENCOUNTER 2024-10-20 08:34 | Outpatient (CLI) | payer BC, SELFPAY ==
--- OUTSIDE RECORDS SUMMARY | 2024-10-20 08:53 | XMS_ITS | Encounter Summary ---
Author Organization [facility] Address [address] [place] [address] Care Team Providers Care Licensed Home Inspector Name Role Phone Lucas Renteria MD Primary Care Provider [phone] Eduardo Love MD Unavailable [phone] Encounter Details Date Type Department Care Team (Late Contact Info) Description 02/25/2015 Abstract [facility] AT [facility] [address] [place] [address] Eduardo Love MD [address] [facility] [address] [place] [address] Social History Tobacco Use Types [...] on filedocumented in this encounter Care Teams Licensed Home Inspector Relationship Specialty Start Date End Date Lucas Renteria MD [address] [place] [address] PCP - General FAMILY PRACTICE 12/22/15 Eduardo Love MD [address] [place] [address] CLINICAL CARDIAC ELECTROPHYSIOLOGY 12/22/15 documented as of this encounter
--- OUTSIDE RECORDS SUMMARY | 2024-10-20 08:53 | XMS_ITS | Clinical Summary ---
Author Organization [facility] Address [address] [place] [address] Care Team Providers Care Theatre Arts Professor Name Role Phone Lucas Renteria MD Primary Care Provider [phone] Eduardo Love MD Unavailable [phone] Allergies No known active allergies Medications * [...] monitoring flecainide therapy 08/16 Paroxysmal atrial fibrillation (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
--- NOTE | 2024-10-20 16:27 | P.PCNPFT_ITS ---
PFT Procedure Performed PFT Procedure Performed Spirometry with Pre/Post Bronchodilator Plethysmography (Lung Vol) Diffusing Cap (DLCO) Flow Vol Loop PFT Interpretation This is a pulmonary function test with pre and post-bronchodilator spirometry, plethysmography and diffusing capacity. The test was performed and results interpreted in accordance with the 2019 and 2005 ATS/ERS Task Force guidelines respectively using the Global Lung Function Initiative-2012 reference equations. Patient demonstrated good effort and cooperation. Reproducibility criteria were met. The quality of the pre bronchodilator spirometry maneuver was Grade B and post bronchodilator spirometry maneuver was Grade A. Findings: Spirometry: The contour the inspiratory and expiratory flow tracing are normal. The pre bronchodilator FVC is 3.83 L, 86% predicted. The pre bronchodilator FEV1 is 2.76 L, 80% predicted. The pre bronchodilator FEV1: FVC ratio 72%. The post bronchodilator FVC is 4.03 L, representing a 5% increase. The post bronchodilator FEV1 is 2.39 L, representing a 13% increase. The post bronchodilator FEV1: FVC ratio 60%. Plethysmography: The total lung capacity 7.15 L, 105% predicted. The functional residual capacity is 4.30 L, 122% predicted. The residual volume is 3.22 L, 151% predicted. The residual volume: Total lung capacity ratio is 46%. Diffusing capacity: The diffusing capacity unadjusted for hemoglobin and carboxyhemoglobin is 15.8, 57% predicted. The diffusing capacity adjusted for alveolar volume is 2.99, 70% predicted. Impression: The spirometry is normal without evidence of an obstructive abnormality. There is no significant improvement after inhaling a single dose of albuterol. The lung volumes are normal. The diffusing capacity is normal. Impression: There is a severe obstructive abnormality. There is a significant Decrease in the post bronchodilator FEV1 but not the post bronchodilator FVC resulting in a post bronchodilator FEV1: FVC ratio of 60% which is below the lower limit of normal and is classified as a mild obstructive abnormality. The increase in residual volume to total lung volume ratio is consistent with hyperinflation. The diffusing capacity unadjusted for hemoglobin and carboxyhemoglobin is moderately decreased and remains mildly decreased when adjusted for alveolar volume. There is a significant decrease in the post bronchodilator FEV1 consistent with a possible paradoxical bronchoconstriction after inhaled albuterol. Consider r epeating pre and post bronchodilator spirometry. Clinical correlation is recommended. There are no prior studies for comparison
== END 2024-10-20 08:35 | disposition home or self-care (01) ==
PROVIDERS: PCP Internal Medicine; Visit Provider Physician Assistant
DX: J18.9 Pneumonia, unspecified organism (principal); J96.01 Acute respiratory failure with hypoxia; Z72.0 Tobacco use; R94.2 Abnormal results of pulmonary function studies
CPT/HCPCS: 94060; 94726; 94729

== ENCOUNTER 2024-11-04 18:34 | Outpatient (CLI) | payer BC, SELFPAY ==
--- NOTE | ~2024-11-04 | XR_ITS ---
EXAMINATION: XR chest 2V Exam Date/Time: 11/04/2024 18:48 CDT HISTORY: J18.9 - Pneumonia, unspecified organism Comparison: CT chest 10/06/2024; CTPA 06/20/2024. RESULT: Lines, tubes, and devices: None. Lungs and pleura: Worsening chronic left lung airspace disease, with more confluent opacities in the medial upper and midlung, and increasing left lower lobe opacities. Cardiomediastinal silhouette: Stable. Other: No acute osseous or upper abdominal finding. IMPRESSION: Worsening chronic left lung airspace disease. The differential for chronic airspace disease includes bronchoalveolar carcinoma, chronic aspiration, TB, lymphoma, and lipoid pneumonia. Postobstructive pn eumonia should also be considered in the differential. Reviewed, dictated and finalized at location K. IMPRESSION: Worsening chronic left lung airspace disease. The differential for chronic airs pace disease includes bronchoalveolar carcinoma, chronic aspiration, TB, lympho ma, and lipoid pneumonia. Postobstructive pneumonia should also be considered i n the differential.
== END 2024-11-04 18:35 | disposition home or self-care (01) ==
LOC: CHSIMG 18:38
PROVIDERS: PCP Internal Medicine; Visit Provider Physician Assistant
DX: R06.02 Shortness of breath (principal); J18.9 Pneumonia, unspecified organism; J98.4 Other disorders of lung; R91.8 Other nonspecific abnormal finding of lung field
CPT/HCPCS: 71046

== ENCOUNTER 2024-11-05 18:55 | Outpatient (CLI) | payer BC, SELFPAY ==
[2024-11-05 19:06] LABS: Basophils Absolute Auto 0.04 K/mm3 (0.00-0.10); Basophils Percent Auto 0.3 % (0.0-1.0); Eosinophils Absolute Auto 0.31 K/mm3 (0.02-0.50); Eosinophils Percent Auto 2.4 % (1.0-6.0); Hematocrit 42.8 % (40.0-54.0); Hemoglobin 14.1 g/dL (14.0-18.0); Immature Granulocyte Absolute 0.03 K/mm3 (0.00-0.00); Immature Granulocyte Percent A 0.2 % (0.0-0.0); Lymphocytes Absolute Auto 2.84 K/mm3 (1.10-4.50); Lymphocytes Percent Auto 22.3 % (18.0-42.0); Mean Corpuscular HGB Conc 32.9 g/dL (32-36); Mean Corpuscular Volume 97.1 fL (78.0-102.0); Mean Platelet Volume 9.3 fl (8.7-11.0); Monocytes Absolute Auto 0.84 K/mm3 (0.10-0.90); Monocytes Percent Auto 6.6 % (2.0-11.0); Neutrophils Absolute Auto 8.65 K/mm3 (1.70-7.20); Neutrophils Percent Auto 68.2 % (50.0-70.0); Platelet Count Result 259 K/mm3 (150-420); Red Blood Count 4.41 M/mm3 (4.70-6.10); Red Cell Distribution Width 12.2 % (11.6-14.4); White Blood Count 12.7 K/mm3 (4.8-10.8)
[2024-11-05 19:21] LABS: INR 0.9; Partial Thromboplastin Time 29.3 Sec (23.9-30.70)
[2024-11-05 20:00] LABS: Alanine Aminotransferase 16 U/L (6-50); Albumin Level 3.5 g/dL (3.5-5.1); Alkaline Phosphatase 110 U/L (38-126); Anion Gap 4 mmol/L (4-12); Aspartate Amino Transferase 27 U/L (17-59); Bilirubin,Total 0.5 mg/dL (0.2-1.3); Blood Urea Nitrogen 15 mg/dL (9-20); Calcium 9.2 mg/dL (8.4-10.2); Carbon Dioxide 27 mmol/L (22-30); Chloride 107 mmol/L (98-107); Estimated Glomerular Filt Rate > 60; Glucose 78 mg/dL (65-110); Osmolality Calculated 285 mOsm/kg (285-295); Potassium 4.6 mmol/L (3.4-5.0); Sodium 138 mmol/L (137-145); Total Protein 6.1 g/dL (6.3-8.2)
== END 2024-11-05 18:56 | disposition home or self-care (01) ==
LOC: CHSLAB 18:56
PROVIDERS: PCP Internal Medicine; Visit Provider Internal Medicine Critical Care Medicine
DX: R91.8 Other nonspecific abnormal finding of lung field (principal)
CPT/HCPCS: 36415; 80053; 85025; 85610; 85730

== ENCOUNTER 2024-11-06 14:31 | Observation (INO) | payer BC, SELFPAY ==
[2024-11-06] VITALS (19 sets, daily range): BP systolic 75–145; BP diastolic 51–88; PULSE 68–100; RESP 16–20; TEMP 35.9–36.7; O2SAT 94–100; BMI 20.2
--- NOTE | 2024-11-06 | ECHO_ITS ---
Patient Info Name: Alen Spain Age: 59 years : 1965 Gender: Male Ht: 68 in Wt: 133 lbs BSA: 1.70 m2 HR: 72 bpm BP: 98 / 62 mmHg Heart Rhythm: Sinus Rhythm Technical Quality: Good Exam Date: 11/06/2024 4:36 PM Patient Status: unknown Admit Date: 11/06/2024 Exam Type: CA echo doppler color flow Complete two-dimensional, color flow and Doppler transthoracic echocardiogram is performed. Staff Referring Physician: Teresa Toro MD Manager Life Sciences: Michelle Gardner Attending Provider: Nahun Foster Summary 1. Complete two-dimensional, color flow and Doppler transthoracic echocardiogram is performed. 2. Left ventricular chamber dimension is normal. 3. Left ventricular systolic function is normal, estimated at 65-70. 4. The left ventricular diastolic function is grade I diastolic dysfunction. 5. E/e' 6 is not elevated. 6. Left atrial chamber dimension is mildly enlarged. 7. No pulmonary hypertension, estimated pulmonary arterial systolic pressure is 22 mmHg. Left Ventricle Left ventricular chamber dimension is normal. Left ventricular systolic function is normal, estimated at 65-70. The left ventricular diastolic function is grade I diastolic dysfunction. E/e' 6 is not elevated. Right Ventricle Right ventricular chamber dimension is normal. Right ventricular systolic function is normal and with normal TAPSE 2.5 cm. Left Atria Left atrial chamber dimension is mildly enlarged. Right Atria Right atrial chamber dimension is normal. Aortic Valve The aortic valve is trileaflet. There is no aortic valve stenosis. There is no aortic valve regurgitation. Pulmonic Valve There is no pulmonic regurgitation. Mitral Valve There is no mitral valve stenosis. There is no mitral valve regurgitation. Tricuspid Valve There is no tricuspid valve regurgitation. No pulmonary hypertension, estimated pulmonary arterial systolic pressure is 22 mmHg. Pericardium/Pleural There is no pericardial effusion. Inferior Vena Cava Normal inferior vena cava with >50% collapse upon inspiration consistent with normal right atrial pressure, 5 mmHg. Aorta The aortic root size at the sinus of Valsalva is normal. Left Ventricular Outflow Tract Name Value Normal LVOT 2D LVOT Diameter 2.0 cm LVOT Doppler LVOT Peak Velocity 122 cm/s LVOT Peak Gradient 6 mmHg LVOT Mean Gradient 3 mmHg LVOT VTI 24 cm LVOT VTI/AV VTI Ratio 0.7 LVOT Stroke Volume 75 ml Pulmonic Valve Name Value Normal RVOT Doppler RVOT Peak Velocity 63 cm/s RVOT Peak Gradient 2 mmHg PV Doppler PV Peak Velocity 80 cm/s PV Peak Gradient 3 mmHg Mitral Valve Name Value Normal MV Diastolic Function MV E Peak Velocity 73 cm/s MV A Peak Velocity 89 cm/s MV E/A 0.8 MV Decel Time (PW) 212 ms MV Annular TDI MV E/e' (Septal) 6.3 MV E/e' (Lateral) 6.6 MV E/e' (Average) 6.4 Tricuspid Valve Name Value Normal TV Regurgitation Doppler TR Peak Velocity 204 cm/s TR Peak Gradient 17 mmHg Estimated PAP/RSVP RA Pressure 5 mmHg <=5 PA Systolic Pressure 22 mmHg <36 RV Systolic Pressure 22 mmHg <36 TV Annular TDI TV Lateral Rachele s' Velocity 15.2 cm/s >=9.5 Aortic Valve Name Value Normal AV Doppler AV Peak Velocity 187 cm/s AV Peak Gradient 14 mmHg AV Mean Gradient 8 mmHg AV VTI 34 cm AV Area (Cont Eq VTI) 2.2 cm2 >=3.0 AV Area (Cont Eq Jase) 2.0 cm2 AV DI (Jase) 0.65 AV Regurgitation 2D LVOT Area 3.1 cm2 Ventricles Name Value Normal LV Dimensions 2D/MM IVS Diastolic Thickness (2D) 0.9 cm 0.6-1.0 LVID Diastole (2D) 4.2 cm 4.2-5.8 LVIW Diastolic Thickness (2D) 0.8 cm 0.6-1.0 LVID Systole (2D) 2.8 cm 2.5-4.0 LVOT Diameter 2.0 cm LV Mass (2D Cubed) 112.18 g 88.00-224.00 LV Mass Index (2D Cubed) 66 g/m2 49-115 Relative Wall Thickness (2D) 0.40 <=0.42 LV Fractional Shortening/Ejection Fraction 2D/MM LV Fractional Shortening (2D) 34 % 25-43 LV EF (2D Teichholz) 63 % LV Diastolic Volume (4C MOD) 155 ml LV EF (4C MOD) 63 % LV Diastolic Volume (2C MOD) 158 ml LV EF (2C MOD) 72 % LV Diastolic Volume (BP MOD) 158 ml 62-150 LV Diastolic Volume Index (BP MOD) 93 ml/m2 34-74 LV Systolic Volume (BP MOD) 55 ml 21-61 LV Systolic Volume Index (BP MOD) 32 ml/m2 11-31 LV EF (BP MOD) 65 % 52-72 LV Diastolic Length (4C) 8.6 cm LV Systolic Length (4C) 7.2 cm LV Stroke Volume (4C MOD) 98 ml Atria Name Value Normal LA Dimensions LA Volume (4C A-L) 45 ml LA Volume (BP A-L) 65 ml RA Dimensions RA Systolic Major [place] Length (4C) 4.8 cm 2.1-2.7 RA Area (4C) 14.9 cm2 <=18.0 Report Signatures
--- NOTE | ~2024-11-06 | XR_ITS ---
XR chest 1V portable 11/06/2024 13:21 Indication: Post bronchoscopy. Chronic pneumonia. Procedure: AP portable chest Comparison: Comparison to multiple prior studies sequentially, with oldest reviewed study dated 08/2024. Findings: There is chronic left-sided asymmetric airspace disease, consistent with pneumonia, possibl e atypical pneumonia. Consider underlying obstructing endobronchial lesion. No significant effusion. Right lung clear. The lungs are hyperinflated which is consistent with, but not diagnostic of chronic obstructive pulmonary disease. No pneumothorax. Impression: 1: Chronic unchanged asymmetric left-sided airspace disease, consistent with pneumonia. Cannot exclud e centrally obstructing mass. Reviewed, dictated and finalized at location B. Impression: 1: Chronic unchanged asymmetric left-sided airspace disease, consistent with pn eumonia. Cannot exclude centrally obstructing mass.
--- NOTE | 2024-11-06 08:49 | P.PNAN_ITS ---
Anes - Initial Pre Proc Eval Procedure: Operation Date: 11/06/24 10:00 Proposed Procedures p Flexible Bronchoscopy - Teresa Toro MD Date/Time: 11/06/24 08:49 Surgeon: Nahun Foster MD Pre Op Diagnosis: Pneumonia Patient Data Age: 59 Gender: M Height: Weight: Allergies Allergy/AdvReac Type Severity Reaction Status Date / Time No Known Allergies Allergy Unknown Verified 11/06/24 10:03 Home Medications ?Medication ?Instructions ?Recorded ?Confirmed ?Type flecainide 100 mg tablet 100 mg PO .twice #30 tabs 05/19/24 11/06/24 Rx albuterol sulfate 2.5 mg/3 mL 2.5 mg (3 mL) inhalation Q4-6H PRN 08/29/24 11/06/24 Rx (0.083 %) solution for nebulization shortness of breath or wheezing #90 mL albuterol sulfate 90 mcg/actuation 1 - 2 puff inhalation Q4-6H PRN 08/29/24 11/06/24 Rx aerosol inhaler shortness of breath or wheezing #8.5 grams budesonide 160 mcg-glycopyr 9 2 inh inhalation BID #10.7 grams 08/29/24 11/06/24 Rx mcg-formot 4.8 mcg/actuation HFA inhaler (Breztri Aerosphere) doxycycline hyclate 100 mg tablet 100 mg PO BID 7 days #14 tabs 11/03/24 11/06/24 Rx Patient hx anesthesia problems: none Family hx anesthesia problems: none Results Review: All pre-operative results and documents have been reviewed as part of the pre- operative evaluation. [facility] Past Medical History Medical History (Updated 11/06/24 @ 09:54 by Teresa Toro MD) Multiple pulmonary nodules determined by computed tomography of lung Bipolar 1 disorder JEFFREY (generalized anxiety disorder) Atrial fibrillation Surgical History Surgical History No history of previous surgery Family History Family History Mother Hypertension Father , Age 43. 4 PPD smoker. Acute myocardial infarction Social History Social History Smoking packs per day: 1 Smoking cigarettes per day: 20.0 Years smoked: 50 Smoking pack-years: 50.00 Smoking status: Current every day smoker Tobacco type: cigarettes Second hand tobacco smoke exposure: Yes Alcohol intake: former Substance use: current Substance use type: marijuana Other substance usage details: smokes/drinks Last use: 11/05/24 Do You Feel Safe in your Home?: Yes Lack of Transportation: No Lack of Food: Never True Current Housing: I Have Housing Concerned About Future Housing: No Difficulty Paying Gas/Electric Bills: No Difficulty Paying for Meds: No Currently Unemployed: No Education: Decline to Answer Difficulty w/ Childcare or Family Care: Decline to Answer Spiritual care concerns: No Anes - Eval Final PreProcedure Day of Procedure 11/06/24 08:49 Patient weight: normal Heart: regular rate and rhythm Lungs: clear to auscultation Airway: Mallampati scale class II Neurological: alert and oriented Last oral intake: >/= 8 hours ASA classification: III Emergent: no Anesthetic plan: proceed Anesthesia type and monitoring: general ETT and standard monitoring Results Review: All pre-operative results and documents have been reviewed as part of the pre- operative evaluation. Informed Consent: The patient's anesthetic plan and its attendant risks and benefits were discuss ed with the patient/family/POA. Questions were solicited and answers provided to the satisfaction of the patient/family/POA.
--- NOTE | 2024-11-06 09:17 | P.CONPL_ITS ---
Assessment and Plan Assessment and plan (1) Recurrent pneumonia: Code(s): J18.9 - Pneumonia, unspecified organism Status: Acute Assessment and Plan: Recurrent pneumonia, initial CT scan March 2024 has worsened, most recent CT scan 08/07/2024 shows likely underlying mass in the segment to the left lower lobe. Persistent infiltrates in the KENNETH and LLL. Plan is for bronchoscopy due to worsening scan and intractable coughing, shortness of breath. At times patient feels that he is suffocating. Last night he woke 5 times coughing and felt that there was a pillow over his face. (2) Tobacco abuse: Code(s): Z72.0 - Tobacco use Status: Acute Assessment and Plan: 45 pack years, now 1/2 ppd (3) Marijuana smoker, continuous: Code(s): F12.90 - Cannabis use, unspecified, uncomplicated Status: Acute Assessment and Plan: Smoked 5 times a day for the last year Plan plan: Bronchoscopy with biopsy, brushing, BAL, concern is for malignancy but also possible underlying infection. He is not immunocompromised. He does smoke but no evidence of emphysema on his imaging. Bronchodilator, empiric antibiotics for pneumonia, eventual PFTs and COPD evaluation and management Nicotine replacement therapy with nicotine gum, does not want patches. Bronchoscopy risk and benefits explained the patient wants to proceed today. History of Present Illness History of Present Illness Consult date: 11/06/24 Chief complaint: Pneumonia Narrative: November 06, 2024 9:15 in Room 320 NEW: Alen Spain is a 59-year-old man with non-resolving pneumonia, had a chest CT Oct with concern for an underlying mass. This was low does chest CT on 06/17. He tells me that he developed a cough in February and his who is a nurse insisted on evaluation. April 17, 2020 for low-dose chest CT showed consolidation in the medial left upper lobe extending to the medial aspect of the left lower lobe with ground-glass opacities, consistent with pneumonia with a concern for an underlying mass and follow-up recommended. His symptoms worsen, in June he was admitted at [facility] for pneumonia. On 06/20/2024 he had a CTA that showed no pulmonary embolus, he had consolidation in the left upper and left lower lobe suggestive of pneumonia. Over the next few months he had waxing and waning of symptoms. He was on antibiotics twice in the last few weeks, each time improve but he has persistent nagging cough with scant clear sputum and shortness of breath, can only walk 50-75 yd without having to stop to rest. 20 lb unintentional weight loss in the last 8 months. He has a intermittent wheezing. No hemoptysis. No family history of cancer. 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 He had 2 episodes of quitting for year, the last quit was attempt was several years ago, he and his stopped together, and she started smoking again. Other smoking: He smokes marijuana 5 times a day for the benefit of his mood. He could not smoke for decades because he was in aviation. 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 Alcohol: none for 18 years Social: , has 1 living child, daughter 2017 after accidental heroin OD age 19 after of baby, and went home on pain meds reactivated substance abuse which she had had years earlier. * 04/17/2024, LDCT @[facility]; There is consolidation involving the posterior medial left upper lobe extending to the medial aspect of the left lower lobe, with mild surrounding groundglass opacity. Findings are most compatible with pneumonia. 3 mm right middle lobe pulmonary nodule present (axial images 80). Images through the upper abdomen reveal no abnormalities.Impression: Lung RADS 2-S: Benign appearance. 12 month follow-up screening CT advised. Probable pneumonia involving the left upper and lower lobes, as detailed above. Follow-up to radiographic resolution recommended to exclude underlying mass. * 06/20/24 CTA @[facility]: IMPRESSION: 1. Consolidation in the left upper and lower lobe suggestive of pneumonia. Other differential include hemorrhage. 2. No pulmonary embolism * 10/06/24; chest CT @[facility]; Impression: Extensive left lung pneumonia involving both left upper and lower lobes, with more extensive involvement as compared to prior exam, especially the left lung base. Consider alternative etiologies other than typical bacterial pneumonia given persistence since June. Consider tissue sampling as indicated. * 11/04/2024 CXR :IMPRESSION: Worsening chronic left lung airspace disease. The differential for chronic airspace disease includes bronchoalveolar carcinoma, chronic aspiration, TB, lymphoma, and lipoid pneumonia. Postobstructive pneumonia should also be considered in the differential. * 11/05/24 white blood cell count 12.7; H and H 14.1/42.8%, platelet [id number] BUN 15, creatinine 0.82 sodium 138. Protime 10, PTT 29.3. Review of Systems Review of Systems: All systems reviewed & are unremarkable except as noted in HPI and below Constitutional: Comments: He is weaker over the last few months. [facility] Past Medical History Medical History (Updated 11/06/24 @ 09:54 by Teresa Toro MD) Multiple pulmonary nodules determined by computed tomography of lung Bipolar 1 disorder JEFFREY (generalized anxiety disorder) Atrial fibrillation Surgical History Surgical History No history of previous surgery Family History Family History Mother Hypertension Father , Age 43. 4 PPD smoker. Acute myocardial infarction Social History Social History Smoking packs per day: 0.75 Smoking cigarettes per day: 15.0 Years smoked: 30 Smoking pack-years: 22.50 Smoking status: Current every day smoker Tobacco type: cigarettes Second hand tobacco smoke exposure: Yes Alcohol intake: never Substance use: never Substance use type: marijuana Last use: 06/18/2024 Do You Feel Safe in your Home?: Yes Lack of Transportation: No Lack of Food: Never True Current Housing: I Have Housing Concerned About Future Housing: No Difficulty Paying Gas/Electric Bills: No Difficulty Paying for Meds: No Currently Unemployed: No Education: High School Diploma/GED Difficulty w/ Childcare or Family Care: No Spiritual care concerns: No Meds Home Medications and Allergies Home Medications ?Medication ?Instructions ?Recorded ?Confirmed ?Type flecainide 100 mg tablet 100 mg PO .twice #30 tabs 05/19/24 08/29/24 Rx albuterol sulfate 2.5 mg/3 mL 2.5 mg (3 mL) inhalation Q4-6H PRN 08/29/24 08/29/24 Rx (0.083 %) solution for nebulization shortness of breath or wheezing #90 mL albuterol sulfate 90 mcg/actuation 1 - 2 puff inhalation Q4-6H PRN 08/29/24 08/29/24 Rx aerosol inhaler shortness of breath or wheezing #8.5 grams budesonide 160 mcg-glycopyr 9 2 inh inhalation BID #10.7 grams 08/29/24 08/29/24 Rx mcg-formot 4.8 mcg/actuation HFA inhaler (Breztri Aerosphere) doxycycline hyclate 100 mg tablet 100 mg PO BID 7 days #14 tabs 11/03/24 Rx Allergies Allergy/AdvReac Type Severity Reaction Status Date / Time No Known Allergies Allergy Unknown Verified 08/29/24 11:15 Exam Narrative: GEN: Alert, oriented, not in distress. HEENT: pupils are equal, EOMI, symmetrical face; oral membranes moist, Mallampati II airway, dentition in excellent repair, no lesions NECK: Trachea is midline CHEST: Equal air entry, symmetric excursion, diminished breath sounds in the left lower lobe, occasional rhonchi CV: Regular S1S2 no m/g/r ABD : (+) bowel sounds Extremities : no clubbing, cyanosis, or edema; no calf tenderness; skin: Psoriasis right knee. He has this at times on elbows. PSYCH: normal thought and speech
--- NOTE | 2024-11-06 09:23 | ADMGEN ---
This patient, Alen Spain, was admitted to 3 [facility] Surg Room 320-01. Patient/family oriented to hospital policies and general routines including ID bracelet, bed and alarms, visiting hours, pain management, procedures, bathroom and other care routines, personal items, smoking policy, room service/diet, and visiting hours. Information on how to activate the Rapid Response Team has been discussed. Patient/Family are encouraged to report perceived risks to care and to ask questions if they do not understand what they are told or what they should do.
[2024-11-06] MEDS: LACTATED RINGERS 1,000 ML 150 ML IV CONT (10:06)
[2024-11-06] MEDS: ALBUTEROL SULFATE NEB 2.5 MG/3 ML INH INHALATION ×2 (10:10→13:42)
[2024-11-06] MEDS: SODIUM CHLORIDE 0.9% IV 500 ML BAG IRRIGATION (11:36)
[2024-11-06] MEDS: LIDOCAINE 2% JELLY 5 ML TUBE 1 APPLIC MUCOUS MEM (11:39)
[2024-11-06] MEDS: LIDOCAINE 2% LOCAL INJ 20 ML VIAL 6 ML INFILTRATE (11:44)
[2024-11-06] MEDS: SODIUM CHLORIDE 0.9% IV 250 ML IV CONT (12:55)
--- NOTE | 2024-11-06 13:02 | ECG_ITS ---
Test Date: 2024-11-06 13:14:57 Measurements Intervals [place] Rate: 74 P: 80 NM: 133 QRS: 77 QRSD: 106 T: 73 QT: 393 QTc: 437 Interpretive Statements SINUS RHYTHM POSSIBLE LEFT ATRIAL ENLARGEMENT [-0.1mV P-WAVE IN V1/V2] Compared to ECG 06/21/2024 00:40:44 No significant changes Electronically Signed On 11-06-2024 14:14:42 CDT by Gomez Greenfield M.D.
[2024-11-06 13:08] LABS: Appearance Bronchial Fluid Hazy; Color Bronchial Fluid Red; Eosinophils Bronchial Fluid 0 %; Lymphocytes Bronchial Fluid 63 %; Macrophages Bronchial Fluid 10; Neutrophils Bronchial Fluid 27 %; Other Cells Bronchial Fluid 0 %; Source Bronchial Fluid Bronchial Washings
[2024-11-06 13:09] LABS: Monocytes Bronchial Fluid 0 %
[2024-11-06 13:24] LABS: Lactic Acid Reflex 1.1 mmol/L (0.7-2.0)
[2024-11-06] MEDS: SODIUM CHLORIDE 0.9% IV 1,000 ML 100 ML IV CONT ×2 (13:30→22:41)
[2024-11-06] MEDS: ACETYLCYSTEINE 20% INHAL SOLN 800 MG/4 ML VIAL 200 MG INHALATION (13:42)
--- NOTE | 2024-11-06 16:55 | PM.IMHP ---
H&P: HPI History of Present Illness Date/Time: 11/06/24 16:55 Chief Complaint: Cough Narrative: 59 M with PMHx bipolar, AFib and recurrent pneumonia was a direct admit for bronchoscopy for biopsy of the suspicious mass. Patient has a recurrent pneumonia was treated with doxycycline which did not resolve. Chest CT 10/06/2024:Extensive left lung pneumonia involving both left upper and lower lobes, with more extensive involvement as compared to prior exam, especially the left lung base. Consider alternative etiologies other than typical bacterial pneumonia given persistence since June. Consider tissue sampling as indicated Chest x-ray 11/06/2024:1: Chronic unchanged asymmetric left-sided airspace disease, consistent with pneumonia. Cannot exclude centrally obstructing mass. Pertinent labs: WBC 12.7, hemoglobin 14.1, hematocrit 42.8, platelet 259, sodium 138, potassium 4.6, creatinine 0.8, glucose 78, lactic acid 1.1 Echocardiogram pending EKG: Sinus rhythm, possible left atrial enlargement QTC interval 437 Today patient underwent bronchoscopy with a biopsy, brushing, BA, concern for malignancy versus underlying infection. Patient reports lately he was not able to walk 50 yd without catching breath. Patient also has an unintentional 20 lb weight loss in past 8 months. Patient independent for ADL and chronic smoker 1 pack per day. Patient reports borderline hypotension. After returning from the bronchoscopy patient had blood pressure systolic in 70s. Patient was given 250 mL bolus and started maintenance at 100 mL/hr. Echocardiogram ordered . Normal lactic acid. Patient started on Mucinex and Mucomyst for cough. Review of Systems Review of Systems: All systems reviewed & are unremarkable except as noted in HPI and below PMFSH Past Medical History Medical History (Updated 11/06/24 @ 09:54 by Teresa Toro MD) Multiple pulmonary nodules determined by computed tomography of lung Bipolar 1 disorder JEFFREY (generalized anxiety disorder) Atrial fibrillation Surgical History Surgical History No history of previous surgery Family History Family History Mother Hypertension Father , Age 43. 4 PPD smoker. Acute myocardial infarction Social History Social History Smoking packs per day: 1 Smoking cigarettes per day: 20.0 Years smoked: 50 Smoking pack-years: 50.00 Smoking status: Current every day smoker Tobacco type: cigarettes Second hand tobacco smoke exposure: Yes Alcohol intake: former Substance use: current Substance use type: marijuana Other substance usage details: smokes/drinks Last use: 11/05/24 Do You Feel Safe in your Home?: Yes Lack of Transportation: No Lack of Food: Never True Current Housing: I Have Housing Concerned About Future Housing: No Difficulty Paying Gas/Electric Bills: No Difficulty Paying for Meds: No Currently Unemployed: No Education: Decline to Answer Difficulty w/ Childcare or Family Care: Decline to Answer Spiritual care concerns: No Meds Home Medications and Allergies Home Medications ?Medication ?Instructions ?Recorded ?Confirmed ?Type flecainide 100 mg tablet 100 mg PO .twice #30 tabs 05/19/24 11/06/24 Rx albuterol sulfate 2.5 mg/3 mL 2.5 mg (3 mL) inhalation Q4-6H PRN 08/29/24 11/06/24 Rx (0.083 %) solution for nebulization shortness of breath or wheezing #90 mL albuterol sulfate 90 mcg/actuation 1 - 2 puff inhalation Q4-6H PRN 08/29/24 11/06/24 Rx aerosol inhaler shortness of breath or wheezing #8.5 grams budesonide 160 mcg-glycopyr 9 2 inh inhalation BID #10.7 grams 08/29/24 11/06/24 Rx mcg-formot 4.8 mcg/actuation HFA inhaler (Breztri Aerosphere) doxycycline hyclate 100 mg tablet 100 mg PO BID 7 days #14 tabs 11/03/24 11/06/24 Rx Allergies Allergy/AdvReac Type Severity Reaction Status Date / Time No Known Allergies Allergy Unknown Verified 11/06/24 10:03 Vital Signs Vital Signs - 24 hr 11/06/24 09:09 11/06/24 10:03 11/06/24 10:10 Temperature 97.5 F L 97.2 F L Pulse Rate 80 73 69 Respiratory Rate 20 18 20 Blood Pressure 133/87 145/88 H Pulse Oximetry 96 96 Oxygen Delivery Room Air Oxygen Flow Rate 11/06/24 10:20 11/06/24 11:20 11/06/24 11:30 Temperature 98.0 F Pulse Rate 78 68 74 Respiratory Rate 20 18 18 Blood Pressure 84/51 L 84/54 L Pulse Oximetry 95 95 Oxygen Delivery Simple Face Mask Simple Face Mask Oxygen Flow Rate 4 4 11/06/24 11:40 11/06/24 11:50 11/06/24 11:57 Temperature Pulse Rate 74 76 72 Respiratory Rate 18 18 18 Blood Pressure 89/53 L 89/58 L 90/60 L Pulse Oximetry 95 96 96 Oxygen Delivery Simple Face Mask Simple Face Mask Room Air Oxygen Flow Rate 4 2 11/06/24 12:07 11/06/24 12:32 11/06/24 12:42 Temperature 97.3 F L Pulse Rate 74 78 Respiratory Rate 18 20 Blood Pressure 91/54 L 84/51 L 75/54 L Pulse Oximetry 97 95 Oxygen Delivery Room Air Oxygen Flow Rate 11/06/24 12:58 11/06/24 13:46 11/06/24 13:53 Temperature 97.3 F L Pulse Rate 78 82 78 Respiratory Rate 20 20 20 Blood Pressure 76/54 L Pulse Oximetry 95 Oxygen Delivery Room Air Oxygen Flow Rate 11/06/24 13:54 11/06/24 14:00 Temperature 96.7 F L Pulse Rate 84 Respiratory Rate 20 Blood Pressure 98/62 L 114/61 Pulse Oximetry 100 Oxygen Delivery Oxygen Flow Rate Exam Narrative: GEN: Alert, oriented, not in distress. HEENT: pupils are equal, EOMI, symmetrical face; oral membranes moist, Mallampati II airway, dentition in excellent repair, no lesions NECK: Trachea is midline CHEST: Equal air entry, symmetric excursion, diminished breath sounds in the left lower lobe, occasional rhonchi CV: Regular S1S2 no m/g/r ABD : (+) bowel sounds Extremities : no clubbing, cyanosis, or edema; no calf tenderness; skin: Psoriasis right knee. He has this at times on elbows. PSYCH: normal thought and speech Assessment and Plan Assessment and plan (1) Recurrent pneumonia: Code(s): J18.9 - Pneumonia, unspecified organism Status: Acute Assessment and Plan: (2) Tobacco abuse: Code(s): Z72.0 - Tobacco use Status: Acute Assessment and Plan: 45 pack years, now 1/2 ppd (3) Marijuana smoker, continuous: Code(s): F12.90 - Cannabis use, unspecified, uncomplicated Status: Acute Assessment and Plan: Smoked 5 times a day for the last year Plan Lung mass suspicious for mass versus infection Underwent bronchoscopy with biopsy, brushing, BAL, concern is for malignancy but also possible underlying infection. Continue Trelegy Ellipta Vital signs improved and stable RSV COVID flu pending Started on Amoxil/ clav monitor biopsy results MRSA pending encourage oral intake Oncology consulted Pulmonology following Chronic smoker Nicotine replacement therapy with nicotine gum, does not want patches. DVT prophylaxis Lovenox 40 mg subQ daily Code status: Full code Hospitalist MIPS Advance Care Plan I have confirmed that the patient's Advanced Care Plan is present, code status is documented, or surrogate decision maker is listed in patient medical record.: Yes Medication Reconciliation I have utilized all available resources to obtain, update and review the patients current medications (includes all prescriptions, OTC, herbals, cannabis, and nutritional supplements).: Yes
[2024-11-06] MEDS: guaiFENesin/CODEINE (*CRX) 200/20 MG 10 ML SYRUP PO (17:44)
--- NOTE | 2024-11-06 18:27 | P.CONONC_ITS ---
Assessment and Plan Assessment and plan (1) Multiple pulmonary nodules determined by computed tomography of lung: Code(s): R91.8 - Other nonspecific abnormal finding of lung field Status: Acute Assessment and Plan: Patient is a pleasant 59-year-old male with history of smoking 1 pack per day for more than 30 years duration has been dealing with recurrent pneumonia for the last 8 months duration. He has lost almost 50 lb weight since then. He has some cough without any hemoptysis. He denies any bone pain. Denies any headaches and seizures. He was recently admitted with recurrent of pneumonia. CT scan done on October 06 showed extensive left lung pneumonia involving both upper and lower lobes. Previous CT scan from from July 2024 showed underlying mass in the segment of the left lower lobe. Patient underwent bronchoscopy today and pathology is currently pending. I have provided him my office information for follow-up for further workup and evaluation that would include PET scan once the diagnosis of malignancy is confirmed. I have answered all the questions to patient and the satisfaction. [facility] Data of Consult Date/Time: 11/06/24 18:27 Requesting Physician: Nahun Foster MD Primary Care Provider: Isaiah Ruano MD Consult Narrative Narrative: Alen Spain is a 59 year old male with history of smoking 1 pack per day for more than 30 years duration along with atrial fibrillation, generalized anxiety disorder, bipolar disorder and multiple pulmonary nodules initially diagnosed 8 months ago came into the hospital with generalized weakness and recurrent pneumonia. CT scan from October 06 showed extensive left lung pneumonia involving both left upper and lower lobe with more extensive involvement as compared to previous examination. Patient had bronchoscopy done today and pathology report is pending. He has lost almost 50 lb weight in last 8 months duration with poor appetite. He denies any headaches and seizures. Denies any bone pain. Denies any previous history of malignancy. Patient CT scan done in July 2024 showed likely underlying mass in left lower lobe. He denies any other complaints. Review of Systems Review of Systems: Review of system as per HPI [facility] Past Medical History Medical History (Updated 11/06/24 @ 09:54 by Teresa Toro MD) Multiple pulmonary nodules determined by computed tomography of lung Bipolar 1 disorder JEFFREY (generalized anxiety disorder) Atrial fibrillation Surgical History Surgical History No history of previous surgery Family History Family History Mother Hypertension Father , Age 43. 4 PPD smoker. Acute myocardial infarction Social History Social History Smoking packs per day: 1 Smoking cigarettes per day: 20.0 Years smoked: 50 Smoking pack-years: 50.00 Smoking status: Current every day smoker Tobacco type: cigarettes Second hand tobacco smoke exposure: Yes Alcohol intake: former Substance use: current Substance use type: marijuana Other substance usage details: smokes/drinks Last use: 11/05/24 Do You Feel Safe in your Home?: Yes Lack of Transportation: No Lack of Food: Never True Current Housing: I Have Housing Concerned About Future Housing: No Difficulty Paying Gas/Electric Bills: No Difficulty Paying for Meds: No Currently Unemployed: No Education: Decline to Answer Difficulty w/ Childcare or Family Care: Decline to Answer Spiritual care concerns: No Meds Home Medications and Allergies Home Medications ?Medication ?Instructions ?Recorded ?Confirmed ?Type flecainide 100 mg tablet 100 mg PO .twice #30 tabs 05/19/24 11/06/24 Rx albuterol sulfate 2.5 mg/3 mL 2.5 mg (3 mL) inhalation Q4-6H PRN 08/29/24 11/06/24 Rx (0.083 %) solution for nebulization shortness of breath or wheezing #90 mL albuterol sulfate 90 mcg/actuation 1 - 2 puff inhalation Q4-6H PRN 08/29/24 11/06/24 Rx aerosol inhaler shortness of breath or wheezing #8.5 grams budesonide 160 mcg-glycopyr 9 2 inh inhalation BID #10.7 grams 08/29/24 11/06/24 Rx mcg-formot 4.8 mcg/actuation HFA inhaler (Breztri Aerosphere) doxycycline hyclate 100 mg tablet 100 mg PO BID 7 days #14 tabs 11/03/24 11/06/24 Rx Allergies Allergy/AdvReac Type Severity Reaction Status Date / Time No Known Allergies Allergy Unknown Verified 11/06/24 10:03 Vital Signs Vital Signs - 24 hr 11/06/24 09:09 11/06/24 10:03 11/06/24 10:10 Temperature 36.4 C L 36.2 C L Pulse Rate 80 73 69 Respiratory Rate 20 18 20 Blood Pressure 133/87 145/88 H Pulse Oximetry 96 96 Oxygen Delivery Room Air Oxygen Flow Rate 11/06/24 10:20 11/06/24 11:20 11/06/24 11:30 Temperature 36.7 C Pulse Rate 78 68 74 Respiratory Rate 20 18 18 Blood Pressure 84/51 L 84/54 L Pulse Oximetry 95 95 Oxygen Delivery Simple Face Mask Simple Face Mask Oxygen Flow Rate 4 4 11/06/24 11:40 11/06/24 11:50 11/06/24 11:57 Temperature Pulse Rate 74 76 72 Respiratory Rate 18 18 18 Blood Pressure 89/53 L 89/58 L 90/60 L Pulse Oximetry 95 96 96 Oxygen Delivery Simple Face Mask Simple Face Mask Room Air Oxygen Flow Rate 4 2 11/06/24 12:07 11/06/24 12:32 11/06/24 12:42 Temperature 36.3 C L Pulse Rate 74 78 Respiratory Rate 18 20 Blood Pressure 91/54 L 84/51 L 75/54 L Pulse Oximetry 97 95 Oxygen Delivery Room Air Oxygen Flow Rate 11/06/24 12:58 11/06/24 13:46 11/06/24 13:53 Temperature 36.3 C L Pulse Rate 78 82 78 Respiratory Rate 20 20 20 Blood Pressure 76/54 L Pulse Oximetry 95 Oxygen Delivery Room Air Oxygen Flow Rate 11/06/24 13:54 11/06/24 14:00 Temperature 35.9 C L Pulse Rate 84 Respiratory Rate 20 Blood Pressure 98/62 L 114/61 Pulse Oximetry 100 Oxygen Delivery Oxygen Flow Rate Exam Narrative: Lungs are clear to auscultation bilaterally Cardiovascular regular rate rhythm no murmurs Abdomen soft nontender nondistended Extremities no edema
[2024-11-06] MEDS: NICOTINE (*PBKC) 2 MG GUM PO (18:36)
[2024-11-06] MEDS: guaiFENesin 12 HR 600 MG TABCR 1200 MG PO (20:56)
[2024-11-06 23:16] LABS: Influenza A QL RT-PCR Negative (Negative); Influenza B QL RT-PCR Negative (Negative); RSV RNA, RT-PCR Negative (Negative); SARS-CoV-2 RNA PCR Negative (Negative)
[2024-11-06 23:51] LABS: MRSA (PCR) NOT DETECTED (NOT DETECTE)
[2024-11-07] VITALS (7 sets, daily range): BP systolic 129–141; BP diastolic 70–92; PULSE 66–96; RESP 16–20; TEMP 36–36.6; O2SAT 96–98
[2024-11-07] MEDS: guaiFENesin/CODEINE (*CRX) 200/20 MG 10 ML SYRUP PO (00:43)
[2024-11-07] MEDS: HYDROcodone/acetaminophen (*CRX) 5-325 MG TABLET 1 TAB PO (04:25)
[2024-11-07] MEDS: FLUTICASONE/UMECLIDIN/VILANTER 100-62.5-25 MCG ELLIPTA 1 PUFF INHALATION (08:43)
[2024-11-07] MEDS: guaiFENesin 12 HR 600 MG TABCR 1200 MG PO (08:56)
[2024-11-07] MEDS: SODIUM CHLORIDE 0.9% IV 1,000 ML 100 ML IV CONT (09:04)
--- NOTE | 2024-11-07 09:16 | P.PNPL_ITS ---
Progress Note: A&P Assessment and Plan (1) Recurrent pneumonia: Code(s): J18.9 - Pneumonia, unspecified organism Status: Acute Assessment and Plan: 11/06/24: Recurrent pneumonia, initial CT scan March 2024 has worsened, most recent CT scan 08/07/2024 shows likely underlying mass in the segment to the left lower lobe. Persistent infiltrates in the KENNETH and LLL. Plan is for bronchoscopy due to worsening scan and intractable coughing, shortness of breath. At times patient feels that he is suffocating. Last night he woke 5 times coughing and felt that there was a pillow over his face. plan: Bronchoscopy with biopsy, brushing, BAL, concern is for malignancy but also possible underlying infection. He is not immunocompromised. He does smoke but no evidence of emphysema on his imaging. Bronchodilator, empiric antibiotics for pneumonia, eventual PFTs and COPD evaluation and management. Nicotine replacement therapy with nicotine gum, does not want patches. Bronchoscopy risk and benefits explained the patient wants to proceed today. 11/07/24: Post bronchoscopy be patient had low blood pressure, he tells me he always runs low 110/70. Patient received IV fluids and blood pressure improved. Patient remained on room air post the procedure. Said he slept well. He has a sore throat and some pain when he takes a deep breath in the mid chest to left chest. His cough overall has an but improved. He is walking the room with no problems. Room air saturations 97%. Feels good and requesting to go home. He tells me he had improved with a doxycycline for 2 days but this has been held for greater than 24 hours due to the bronchoscopy. wash cell count differential is neutrophils 27%, lymphocytes 63%, macrophages 10%. Wash bacterial, fungal and AFB cultures pending. BAL bacterial, fungal and AFB cultures pending. pathology pending. Plan: From a pulmonary perspective patient is ready to be discharged on these pulmonary medicines: Augmentin 875-125 b.i.d. x7 days Doxycycline 100 mg p.o. b.i.d. x7 days breztri at 2 puffs b.i.d.. Rescue albuterol 2 puffs q.4-6 hours p.r.n. shortness of breath or wheezing. Rescue albuterol nebulizer 2.5 mg q.4-6 hours p.r.n. shortness of breath or wheezing. Bronchoscopy results will be followed up as an outpatient And patient will be informed. Patient has pulmonary follow-up scheduled on 11/28/2024. Patient was also provided oncology follow-up information. Discussed with Dr. Foster, will sign off, call with questions. (2) Tobacco abuse: Code(s): Z72.0 - Tobacco use Status: Acute Assessment and Plan: 45 pack years, now 1/2 to 1 ppd. Last use 11/06/2024. 11/07/24: Greater than 12 minutes tobacco cessation counseling was performed including informing the patient that smoking is detrimental to their health, education on motor techniques to mimic cigarette smoking, behavioral modification of stress to combat the cravings, and positive reinforcement for not smoking. (3) Marijuana smoker, continuous: Code(s): F12.90 - Cannabis use, unspecified, uncomplicated Status: Acute Assessment and Plan: Smoked 5 times a day for the last year. 11/07/24: cessation was discussed. Subjective Date/time seen: 11/07/24 09:16 Interval history: NEW: Alen Spain is a 59-year-old man with non-resolving pneumonia, had a chest CT Oct with concern for an underlying mass. This was low does chest CT on 06/17. He tells me that he developed a cough in February and his who is a nurse insisted on evaluation. April 17, 2020 for low-dose chest CT showed consolidation in the medial left upper lobe extending to the medial aspect of the left lower lobe with ground-glass opacities, consistent with pneumonia with a concern for an underlying mass and follow-up recommended. His symptoms worsen, in June he was admitted at [facility] for pneumonia. On 06/20/2024 he had a CTA that showed no pulmonary embolus, he had consolidation in the left upper and left lower lobe suggestive of pneumonia. Over the next few months he had waxing and waning of symptoms. He was on antibiotics twice in the last few weeks, each time improve but he has persistent nagging cough with scant clear sputum and shortness of breath, can only walk 50-75 yd without having to stop to rest. 20 lb unintentional weight loss in the last 8 months. He has a intermittent wheezing. No hemoptysis. No family history of cancer. 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 He had 2 episodes of quitting for year, the last quit was attempt was several years ago, he and his stopped together, and she started smoking again. Other smoking: He smokes marijuana 5 times a day for the benefit of his mood. He could not smoke for decades because he was in aviation. 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 Alcohol: none for 18 years Social: , has 1 living child, daughter 2016 after accidental heroin OD age 19 after of baby, and went home on pain meds reactivated substance abuse which she had had years earlier. 11/07/24: Post bronch ox could be patient had low blood pressure, he tells me he always runs low 110/70. Patient received IV fluids and blood pressure improved. Patient remained on room air post the procedure. Said he slept well. He has a sore throat and some pain when he takes a deep breath in the mid chest to left chest. His cough overall has an but improved. He is walking the room with no problems. Room air saturations 97%. Feels good and requesting to go home. DATA: * 04/17/2024, LDCT @[facility]; There is consolidation involving the posterior medial left upper lobe extending to the medial aspect of the left lower lobe, with mild surrounding groundglass opacity. Findings are most compatible with pneumonia. 3 mm right middle lobe pulmonary nodule present (axial images 80). Images through the upper abdomen reveal no abnormalities.Impression: Lung RADS 2-S: Benign appearance. 12 month follow-up screening CT advised. Probable pneumonia involving the left upper and lower lobes, as detailed above. Follow-up to radiographic resolution recommended to exclude underlying mass. * 06/20/24 CTA @[facility]: IMPRESSION: 1. Consolidation in the left upper and lower lobe suggestive of pneumonia. Other differential include hemorrhage. 2. No pulmonary embolism * 10/06/24; chest CT @[facility]; Impression: Extensive left lung pneumonia involving both left upper and lower lobes, with m ore extensive involvement as compared to prior exam, especially the left lung base. Consider alternative etiologies other than typical bacterial pneumonia given persistence since June. Consider tissue sampling as indicated. * 11/04/2024 CXR :IMPRESSION: Worsening chronic left lung airspace disease. The differential for chronic airspace disease includes bronchoalveolar carcinoma, chronic aspiration, TB, lymphoma, and lipoid pneumonia. Postobstructive pneumonia should also be considered in the differential. * 11/05/24 white blood cell count 12.7; H and H 14.1/42.8%, platelet [id number] BUN 15, creatinine 0.82 sodium 138. Protime 10, PTT 29.3. Review of Systems Constitutional: Constitutional: Reports no additional constitutional complaints Eyes: Eyes: Reports no additional eye complaints ENT: Reports system reviewed and no additional complaints, except as documented Cardiovascular: Cardiovascular: Reports no additional cardiovascular com plaints Respiratory: Respiratory: Reports no additional respiratory complaints Gastrointestinal: Gastrointestinal: Reports no additional gastrointestinal complaints Musculoskeletal: Musculoskeletal: Reports no additional musculoskeletal c omplaints Neurologic: Reports system reviewed and no additional complaints, except as documented Psychiatric: Psychiatric: Reports no additional psychiatric complaints Endocrine: Endocrine: Reports no additional endocrine complaints Hematologic/Lymphatic: Hematologic/Lymphatic: Reports no additional hematologic/lymphatic complaints Allergic/Immunologic: Allergic/Immunologic: Reports no additional allergic/immunologic complaints Exam Const: General: cooperative, healthy appearing and comfortable Orientation/consciousness: oriented to person, oriented to place and oriented to time HENMT: Head: normal to inspection Ears: hearing grossly normal bilaterally Eyes: General: appearance normal, both eyes and all related structures Neck: Neck: normal visual inspection Chest: Chest palpation & inspection: normal inspection of the chest Resp: Effort & Inspection: normal respiratory effort and able to speak in complete sentences Auscultation: crackles, no rales, no rhonchi, no wheezes and diminished lung sounds Other: Left lung Cardio: Jugular venous distension: no JVD GI: Inspection: normal to inspection GI Palp: No abdominal tenderness Skin: General skin exam: normal color Neuro: General: oriented to person, oriented to place and oriented to time Extrem: General: normal to inspection Psych: Appearance: grossly normal Objective Data Vital Signs Vital Signs: Vital Signs - 24 hr 11/06/24 10:03 11/06/24 10:10 11/06/24 10:20 Temperature 36.2 C L Pulse Rate 73 69 78 Respiratory Rate 18 20 20 Blood Pressure 145/88 H Pulse Oximetry 96 Oxygen Delivery Room Air Oxygen Flow Rate 11/06/24 11:20 11/06/24 11:30 11/06/24 11:40 Temperature 36.7 C Pulse Rate 68 74 74 Respiratory Rate 18 18 18 Blood Pressure 84/51 L 84/54 L 89/53 L Pulse Oximetry 95 95 95 Oxygen Delivery Simple Face Mask Simple Face Mask Simple Face Mask Oxygen Flow Rate 4 4 4 11/06/24 11:50 11/06/24 11:57 11/06/24 12:07 Temperature Pulse Rate 76 72 74 Respiratory Rate 18 18 18 Blood Pressure 89/58 L 90/60 L 91/54 L Pulse Oximetry 96 96 97 Oxygen Delivery Simple Face Mask Room Air Room Air Oxygen Flow Rate 2 11/06/24 12:32 11/06/24 12:42 11/06/24 12:58 Temperature 36.3 C L 36.3 C L Pulse Rate 78 78 Respiratory Rate 20 20 Blood Pressure 84/51 L 75/54 L 76/54 L Pulse Oximetry 95 95 Oxygen Delivery Room Air Oxygen Flow Rate 11/06/24 13:46 11/06/24 13:53 11/06/24 13:54 Temperature Pulse Rate 82 78 Respiratory Rate 20 20 Blood Pressure 98/62 L Pulse Oximetry Oxygen Delivery Oxygen Flow Rate 11/06/24 14:00 11/06/24 17:03 11/06/24 20:00 Temperature 35.9 C L Pulse Rate 84 100 Respiratory Rate 20 Blood Pressure 114/61 Pulse Oximetry 100 Oxygen Delivery Room Air Oxygen Flow Rate 11/06/24 21:05 11/07/24 00:00 11/07/24 01:15 Temperature 36.6 C 36.0 C L Pulse Rate 80 72 74 Respiratory Rate 16 20 Blood Pressure 119/75 129/70 Pulse Oximetry 94 97 Oxygen Delivery Oxygen Flow Rate 11/07/24 04:00 11/07/24 04:30 Temperature 36.6 C Pulse Rate 66 96 Respiratory Rate 18 Blood Pressure 141/88 H Pulse Oximetry 96 Oxygen Delivery Oxygen Flow Rate Intake/Output Intake/Output: Intake & Output 0511/05/24 11/06/24 11/07/24 23:59 23:59 23:59 23:59 Intake Total 2748.3 1390 Balance 2748.3 1390 Meds/Results Medications: Active Medications Generic Name Dose Route Start Last Admin Trade Name Freq PRN Reason Stop Dose Admin Acetaminophen 650 mg 11/07/24 03:57 Acetaminophen 325 Mg Tablet PO Q4H PRN Pain Rated 5 or Less/Fever Hydrocodone Bitart/Acetaminophen 1 tab 11/07/24 03:57 11/07/24 04:25 Hydrocodone/Acetaminophen (*Crx) 5-325 Mg Tablet PO 1 tab Q4H PRN Administration Pain Rated 6 or Greater Albuterol 2.5 mg 11/06/24 12:03 11/06/24 13:42 Albuterol Sulfate Neb 2.5 Mg/3 Ml Inh INHALATION 2.5 mg Q4HRT PRN Administration shortness of breath or wheezing Bisacodyl 5 mg 11/06/24 17:14 Bisacodyl 5 Mg Tablet Ec PO ONCE PRN Constipation Enoxaparin Sodium 40 mg 11/07/24 09:00 11/07/24 08:59 Enoxaparin 40 Mg/0.4 Ml Syringe SUB-Q Not Given DAILY CARMEN Flecainide Acetate 100 mg 11/06/24 12:05 Flecainide Acetate 100 Mg Tablet PO Q1H PRN FOR A-FIB Fluticasone/Umeclidinium/Vilanterol 1 puff 11/07/24 09:00 11/07/24 08:43 Fluticasone/Umeclidin/Vilanter 100-62.5-25 Mcg Ellipta INHALATION 1 puff DAILY CARMEN Administration Guaifenesin 1,200 mg 11/06/24 21:00 11/07/24 08:56 Guaifenesin 12 Hr 600 Mg Tabcr PO 1,200 mg Q12HR CARMEN Administration Guaifenesin/Codeine Phosphate 10 ml 11/06/24 13:02 11/07/24 00:43 Guaifenesin/Codeine (*Crx) 200/20 Mg 10 Ml Syrup PO 10 ml Q6HR PRN Administration Cough Sodium Chloride 1,000 mls @ 100 mls/hr 11/06/24 12:55 11/07/24 09:04 Normal Saline Iv IV CONT 100 mls/hr .Q10H CARMEN Administration Ceftriaxone Sodium 1 gm in 50 mls @ 100 mls/hr 11/06/24 18:00 11/06/24 18:14 Rocephin 1 Gm/Ns 50 Ml IVPB Infused Q24H CARMEN Infusion Nicotine Polacrilex 2 mg 11/06/24 09:14 11/06/24 18:36 Nicotine (*Pbkc) 2 Mg Gum PO 2 mg PRN PRN Administration Nicotine Cravings Perflutren Lipid Microsphere 0 ml 11/06/24 12:55 Perflutren Lipid Microspheres 1.5 Ml Vial Diluted To 10 Ml Total Volume IV PUSH 11/09/24 12:55 ONCE PRN adequate visualization Protocol Radiology Results: ITS Impressions Chest X-Ray 11/06/24 15:06 Impression: 1: Chronic unchanged asymmetric left-sided airspace disease, consistent with pneumonia. Cannot exclude centrally obstructing mass. Labs Labs: Laboratory Results - last 24 hr 11/06/24 11/06/24 11/06/24 10:49 13:07 22:31 Lactic Acid 1.1 Nasal MRSA (PCR) Not detected Bronch Specimen Source Bronchial washings Bronchial Fluid Color Red Bronchial Fluid Appearance Hazy Bronchial Neutrophils 27 Bronchial Lymphocytes 63 Bronchial Monocytes 0 Bronchial Eosinophils 0 Bronchial Macrophages 10 Bronchial Other Cells 0 Influenza A (RT-PCR) Influenza B (RT-PCR) RSV (RT-PCR) SARS-CoV-2 RNA (RT-PCR) 11/06/24 22:32 Lactic Acid Nasal MRSA (PCR) Bronch Specimen Source Bronchial Fluid Color Bronchial Fluid Appearance Bronchial Neutrophils Bronchial Lymphocytes Bronchial Monocytes Bronchial Eosinophils Bronchial Macrophages Bronchial Other Cells Influenza A (RT-PCR) Negative Influenza B (RT-PCR) Negative RSV (RT-PCR) Negative SARS-CoV-2 RNA (RT-PCR) Negative
--- NOTE | 2024-11-07 09:27 | P.DS_ITS ---
DS: Admitting Diagnosis Discharge Date 11/07/2024 Admitting Diagnosis Suspicious lung mass DS: Discharge Diagnosis Discharge Diagnosis (1) Recurrent pneumonia: Code(s): J18.9 - Pneumonia, unspecified organism Status: Acute Assessment and Plan: (2) Tobacco abuse: Code(s): Z72.0 - Tobacco use Status: Acute Assessment and Plan: 45 pack years, now / ppd (3) Marijuana smoker, continuous: Code(s): F12.90 - Cannabis use, unspecified, uncomplicated Status: Acute Assessment and Plan: Smoked 5 times a day for the last year Plan Lung mass suspicious for mass versus infection Underwent bronchoscopy with biopsy, brushing, BAL, concern is for malignancy but also possible underlying infection. Continue Trelegy Ellipta Vital signs improved and stable RSV COVID flu pending Started on Amoxil/ clav monitor biopsy results MRSA pending encourage oral intake Oncology consulted Pulmonology following Chronic smoker Nicotine replacement therapy with nicotine gum, does not want patches. DVT prophylaxis Lovenox 40 mg subQ daily Code status: Full code DS: Summary Hospital Course Hospital Course: 59 M with PMHx bipolar, AFib and recurrent pneumonia was a direct admit for bronchoscopy for biopsy of the suspicious mass. Patient has a recurrent pneumonia was treated with doxycycline which did not resolve. Chest CT 10/06/2024:Extensive left lung pneumonia involving both left upper and lower lobes, with more extensive involvement as compared to prior exam, especially the left lung base. Consider alternative etiologies other than typical bacterial pneumonia given persistence since June. Consider tissue sampling as indicated Chest x-ray 11/06/2024:1: Chronic unchanged asymmetric left-sided airspace disease, consistent with pneumonia. Cannot exclude centrally obstructing mass. Pertinent labs: WBC 12.7, hemoglobin 14.1, hematocrit 42.8, platelet 259, sodium 138, potassium 4.6, creatinine 0.8, glucose 78, lactic acid 1.1 Echocardiogram pending EKG: Sinus rhythm, possible left atrial enlargement QTC interval 437 Today patient underwent bronchoscopy with a biopsy, brushing, BA, concern for malignancy versus underlying infection. Patient reports lately he was not able to walk 50 yd without catching breath. Patient also has an unintentional 20 lb weight loss in past 8 months. Patient independent for ADL and chronic smoker 1 pack per day. Patient reports borderline hypotension. After returning from the bronchoscopy patient had blood pressure systolic in 70s. Patient was given 250 mL bolus and started maintenance at 100 mL/hr. Echocardiogram ordered . Normal lactic acid. Patient started on Mucinex and Mucomyst for cough. Patient is currently doing well. Patient needs to follow-up with Dr. Mcclain in the clinic after the biopsy results. Patient will be discharged with doxycycline and Augmentin for 7 days. On the day of discharge, the patient was seen and examined. Vital signs were stable. Physical exam were stable and labs were reviewed at length. Discharge instructions, medications, and follow-up appointments were discussed with the patient at length and all day questions were answered. ER warnings were given. Status at Discharge Cognitive/behavioral status at discharge: Stable Time Spent with Patient Time attestation: Total time spent providing and/or coordinating discharge services: 45 minute Exam Narrative: GEN: Alert, oriented, not in distress. HEENT: pupils are equal, EOMI, symmetrical face; oral membranes moist, Mallampati II airway, dentition in excellent repair, no lesions NECK: Trachea is midline CHEST: Equal air entry, symmetric excursion, diminished breath sounds in the left lower lobe, occasional rhonchi CV: Regular S1S2 no m/g/r ABD : (+) bowel sounds Extremities : no clubbing, cyanosis, or edema; no calf tenderness; skin: Psoriasis right knee. He has this at times on elbows. PSYCH: normal thought and speech DS: Data Data Completed and Pending Pending studies at discharge: Pending at discharge 11/06/24 11:18 Cytology [PTH] Routine Cytology [PTH] Routine Labs on day of discharge: Labs from last 24 hours 11/06/24 11/06/24 11/06/24 22:32 22:31 13:07 Lactic Acid 1.1 Nasal MRSA (PCR) Not detected Bronch Specimen Source Bronchial Fluid Color Bronchial Fluid Appearance Bronchial Neutrophils Bronchial Lymphocytes Bronchial Monocytes Bronchial Eosinophils Bronchial Macrophages Bronchial Other Cells Influenza A (RT-PCR) Negative Influenza B (RT-PCR) Negative L. pneumophila DFA RSV (RT-PCR) Negative SARS-CoV-2 RNA (RT-PCR) Negative 11/06/24 10:49 Lactic Acid Nasal MRSA (PCR) Bronch Specimen Source Bronchial washings Bronchial Fluid Color Red Bronchial Fluid Appearance Hazy Bronchial Neutrophils 27 Bronchial Lymphocytes 63 Bronchial Monocytes 0 Bronchial Eosinophils 0 Bronchial Macrophages 10 Bronchial Other Cells 0 Influenza A (RT-PCR) Influenza B (RT-PCR) L. pneumophila DFA Pending RSV (RT-PCR) SARS-CoV-2 RNA (RT-PCR) Additional Comments Additional comments: ITS Impressions Chest X-Ray 11/06/24 15:06 Impression: 1: Chronic unchanged asymmetric left-sided airspace disease, consistent with pneumonia. Cannot exclude centrally obstructing mass. Discharge Plan Discharge Attending physician on discharge: Nahun Foster Consulting providers: Thomas Matamoros; Teresa Toro; Dinesh Keys; Jose Manuel Mccain; Farshad Snell; Gomez Greenfield; Milind Baumann; Dheeraj Muniz Discharging Clinician: Nahun Foster Anticipated Discharge Date/Time: 11/07/24 09:29 Patient Disposition: Home Activity: as tolerated Diet: as tolerated Discharge Instructions: Please follow-up with statistical engineer and visual specialist/oncologist for the biopsy results. Check blood pressure 1 to 2 times a day. Record and bring into your doctor for review. Call your doctor if your blood pressure is greater than 180/110 or less than 90/45. Walk with cane or other assist device. Take precautions to avoid falls. Rise slowly from a lying or sitting position. Pause before standing or walking. Contact your doctor or call 911 and come to the Emergency Room if you have any type of trauma, lightheadedness with standing or other worrisome symptoms. Avoid NSAIDs (ibuprofen, naproxen, Aleve). Tylenol is safe to take. Follow-up with your primary care provider in 1-2 weeks. Please call for appointment. Follow-up with Cardiology in 2-4 weeks. Please call for an appointment. Thank you for using [facility] for your health care needs. Patient Instructions: Antibiotic Form, How to Stop Smoking (DC), Cigarette Smoking and Your Health (GEN) Patient Language: Congolese Stand Alone Forms: General Discharge Information Follow-up/Referrals: Thomas Matamoros MD [Physician] - Isaiah Ruano MD [Primary Care Provider] - Jose Manuel Mccain MD [Physician] - 11/28/24 Discharge Medications: New nicotine (polacrilex) 2 mg Gum 2 mg PO PRN PRN (Reason: Nicotine Cravings) Qty: 30 0RF guaifenesin [Mucus Relief ER] 600 mg Tablet Extended Release 12hr 1,200 mg PO Q12HR Qty: 30 0RF amoxicillin-pot clavulanate 875-125 mg tablet 1 tablet PO Q12H Qty: 14 0RF Rx Instructions: Please complete the course for 7 days Continued flecainide 100 mg tablet 100 mg PO .twice Qty: 30 0RF Rx Instructions: Take 1 tab prn for atrial fib, and 1 hour later if still in it, take second tab. Breztri Aerosphere 160-9-4.8 mcg/actuation HFA aerosol inhaler 2 inh inhalation BID Qty: 10.7 2RF Rx Instructions: Rinse mouth and spit after each use. albuterol sulfate 90 mcg/actuation HFA aerosol inhaler 1 - 2 puff inhalation Q4-6H PRN (Reason: shortness of breath or wheezing) Qty: 8.5 2RF albuterol sulfate 2.5 mg /3 mL (0.083 %) solution for nebulization 2.5 mg inhalation Q4-6H PRN (Reason: shortness of breath or wheezing) Qty: 90 3RF doxycycline hyclate 100 mg tablet 100 mg PO BID 7 Days Qty: 14 0RF Date of admission: 11/06/24 14:31 Primary Care Provider: Isaiah Ruano Admitting Provider: Nahun Foster Attending physician on admission: Nahun Foster Condition: Stable
== END 2024-11-07 12:25 | disposition home or self-care (01) ==
PROVIDERS: Internal Medicine Critical Care Medicine; Admitting Provider General Practice; PCP Internal Medicine; Visit Provider General Practice
PROC: 0BJ08ZZ Inspection of Tracheobronchial Tree, Via Natural or Artificial Opening Endoscopic (ICD-10-PCS; CPT 31622; principal; 2024-11-06 10:00)
DX: C34.32 Malignant neoplasm of lower lobe, left bronchus or lung (principal); J18.9 Pneumonia, unspecified organism; F17.210 Nicotine dependence, cigarettes, uncomplicated; F12.90 Cannabis use, unspecified, uncomplicated; I48.91 Unspecified atrial fibrillation; F31.9 Bipolar disorder, unspecified; F41.1 Generalized anxiety disorder; Z20.822 Contact with and (suspected) exposure to COVID-19; Z79.51 Long term (current) use of inhaled steroids; Z79.899 Other long term (current) drug therapy
CPT/HCPCS: 31623; 36415; 71045; 83605; 85999; 87015; 87070; 87102; 87116; 87205; 87206; 87279; 87637; 87641; 88108; 88160; 88305; 88342; 93005; 93306; 94640; 94667; A9270; G0378; J0330; J0696; J1100; J1650; J2003; J2004; J2405; J2704; J7030; J7040; J7050; J7120

== ENCOUNTER 2024-11-27 10:31 | Outpatient (CLI) | payer BC, SELFPAY ==
--- NOTE | ~2024-11-27 | PE_ITS ---
EXAMINATION: PET skull to mid thigh DATE: 11/27/2024 12:27 INDICATION: Malignant neoplasm of the left lung TECHNIQUE: Blood glucose level was 99 mg/dL. 10.139 mCi of 18-fluorodeoxyglucose (18-FDG) was adminis tered i.v. Low dose computed tomography (CT) images were acquired from the base of the brain to the p roximal thighs for attenuation correction and anatomic localization. Positron emission tomography (PE T) images were acquired in the same distribution beginning 66 minutes after injection. Images includi ng fused PET/CT images were reconstructed in axial, coronal, and sagittal planes. Automated exposure control technique was employed. The dose-length product was 481.20mGy-cm. COMPARISON: None FINDINGS: Head/neck: There is symmetric increased activity in the oral cavity, palatine tonsils, parotid glands, submandi bular glands, laryngeal muscles, scalene muscles and ocular muscles without CT correlate, likely phys iologic. No pathologically enlarged cervical lymphadenopathy or suspicious foci of increased FDG upta ke in the visualized head or neck. Chest: There is diffuse increased uptake with maximal SUV measuring up to 6.7 associated with a large region of consolidation at the posterior medial aspect of the left upper and lower lobes with patchy ground glass opacities and small centrilobular groundglass nodules with tree-in-bud pattern extending throug hout much of the remaining left lower lobe consistent with pneumonia most consistent with pneumonia. Difficult to exclude and underlying malignancy obscured by the pneumonia. Additional patchy groundgla ss opacities without significant increased FDG uptake in the right upper, middle and lower lobes also consistent with pneumonia. No pleural effusion. Heart size is normal. Atherosclerotic coronary arter y calcific location. No pericardial effusion. Thoracic aorta is normal in caliber. No pathologically enlarged or FDG avid thoracic lymphadenopathy. There is mild diffuse likely physiologic uptake in the bilateral upper thoracic intercostal musculature. Abdomen/pelvis/proximal thighs: Physiologic renal accumulation and excretion of FDG activity in the kidneys, bladder and along portio ns of ureters. There are calcifications in the enlarged prostate which measures 4.9 x 4.7 cm. Normal degree and heterogenous pattern of increased uptake throughout the liver without radiologic correlate or dominant FDG avid lesion. The gallbladder, pancreas, spleen and bilateral adrenal glands are norm al. Mild uptake scattered throughout the bowels without radiologic correlate, also likely physiologic . No other abnormal foci of increased FDG uptake or pathologically enlarged lymphadenopathy in the ab domen, pelvis or proximal thighs. Musculoskeletal: There is mild increased uptake associated with healing fractures of the anterolateral right fifth-sev enth ribs. And lumbar and mild thoracic spondylosis. A few sclerotic bone islands without abnormal FD G uptake in the pelvis. No other suspicious lytic, blastic or abnormally FDG avid bone lesions. IMPRESSION: 1. Diffuse mild increased FDG uptake throughout a large region of dense consolidation in the posterio r medial right upper and lower lobes with extensive less dense groundglass opacities and small centri lobular groundglass nodules in both lungs consistent with multifocal pneumonia. Difficult to exclude an underlying malignancy obscured by the pneumonia. No lesions suspicious for metastatic disease. Reviewed, dictated and finalized at location A. IMPRESSION: 1. Diffuse mild increased FDG uptake throughout a large region of dense consoli dation in the posterior medial right upper and lower lobes with extensive less dense groundglass opacities and small centrilobular groundglass nodules in both lungs consistent with multifocal pneumonia. Difficult to exclude an underlying malignancy obscured by the pneumonia. No lesions suspicious for metastatic dis ease.
[2024-11-27 10:56] LABS: Glucose Point of Care 99 mg/dl (65-105)
--- OUTSIDE RECORDS SUMMARY | 2024-11-27 11:35 | XMS_ITS | Encounter Summary ---
Author Organization [facility] Address [address] [place] [address] Care Team Providers Care [employer] As[employer]er Name Role Phone Unavailable Primary Care Provider Unavailabl e Encounter Details Date Type Department Care Team (Late st Contact Info) Description 11/25/2024 External Device Data [facility] ABSTRACTION Provider, Abstract NO ADDRESS ON FILE Social History Tobacco Use Types Packs/Day Years Used Date Smoking Tobacco: Every Day Cigarettes 0.5 45.4 Started: 06/18/1979 Smokeless Tobacco: Never Alcohol Use Standard Drinks/Week Comments Never 0 (1 standard drink = 0.6 oz pur e alcohol) Sex and Gender Information Value Date Recorded Sex Assigned at Not on file Legal Sex Male 12:17 PM CDT Gender Identity Not on file Sexual Orientation Not on file documented as of this encounter Plan of Treatment Upcoming Encounters Date Type Department Care Team (Late st Contact Info) Description 12/03/2024 4:30 PM CDT Telephone Check Up [facility] [place] [address] [place] [address] [facility] [address] [place] [address] Thomas Matamoros MD [address] [facility] [address] [place] [address] documented as of this encounter Visit Diagnoses Not on filedocumented in this encounter
--- OUTSIDE RECORDS SUMMARY | 2024-11-27 11:35 | XMS_ITS | Clinical Summary ---
[facility] Organization [facility] Address [address] [place] [address] [place] [address] Care Team Providers Care Braid Folder Name Role Phone Unavailable Primary Care Provider Unavailabl e Allergies No known active allergies Medications ALBUTEROL SULFATE ORAL Take by mouth. Active budesonide/glyco pyr/formoterol (BREZTRI AEROSPHERE INHALATION) Take by inhalation . Active Active Problems No known active problems Encounters Date Type Department Care Team Description 11/25/2024 External Device Data [facility] ABSTRACTION Provider, Abstract 11/25/2024 External Device Data [facility] ABSTRACTION Provider, Abstract 11/25/2024 External Device Data [facility] ABSTRACTION Provider, Abstract 11/19/2024 3:00 PM CDT Office Visit [facility] Oncology and Hematology - [place] [address] [facility] [address] [facility] [address] [place] [address] Thomas Matamoros MD Malignant neoplasm of lower lobe of left lung (CMS/HCC) (Primary Dx) from Last 3 Months Family History Medical History Relation Name Comments No Known Problems Brother 1 No Known Problems Brother 2 No Known Problems Brother 3 No Known Problems Child 2 Heart Disease Father No Known Problems Mother Relation Name Status Comments Brother 1 Alive Brother 2 Alive Brother 3 Alive Child 1 Alive Child 2 Father Mother Alive Social History Tobacco Use Types Packs/Day Years [...] on file Sexual Orientation Not on file Last Filed Vital Signs Vital Sign Reading Time Taken Comments Blood Pressure 114/73 11/19/2024 3:07 PM CDT Pulse 88 11/19/2024 3:07 PM CDT Temperature 36.2 C (97.1 F) 11/19/2024 3:07 PM CDT Respiratory Rate 15 11/19/2024 3:07 PM CDT Oxygen Saturation 92% 11/19/2024 3:07 PM CDT Inhaled Oxygen Concentration - - Weight 61.1 kg (134 lb 12.8 oz) 11/19/2024 3:07 PM CDT Height 175.3 cm (5' 9) 11/19/2024 3:07 PM CDT Body Mass Index 19.91 11/19/2024 3:07 PM CDT Plan of Treatment Upcoming Encounters Date Type Department Care Team (Late st Contact Info) Description 12/03/2024 4:30 PM CDT Telephone Check Up [facility] Oncology and Hematology [facility] [address] [facility] [address] [facility] [address] [place] [address] Thomas Matamoros MD [address] [facility] [address] [place] [address] Health Maintenance Due Date Last Done Comments DTAP/TDAP/TD VACCINES (1 - Tdap) 1982 COLORECTAL SCREENING 2008 Colorectal Cancer Screening 2008 FIT-DNA Q 3 years 2008 FIT/FOBT Q 1 year 2008 Flex Sig/CT Colonography Q 5 years 2008 ZOSTER VACCINE (1 of 2) 2013 INFLUENZA VACCINE (#1) 2024 RSV VACCINE (60+ or ) (1 - 1-dose 75+ series) 2038 [facility]TRUE BLUE PPO [facility]
== END 2024-11-27 10:32 | disposition home or self-care (01) ==
PROVIDERS: PCP Internal Medicine; Visit Provider Internal Medicine Hematology & Oncology
DX: C34.32 Malignant neoplasm of lower lobe, left bronchus or lung (principal)
CPT/HCPCS: 78815; A9552

== ENCOUNTER 2025-01-19 12:18 | Emergency (ER) | payer BC, SELFPAY ==
[2025-01-19] VITALS (36 sets, daily range): BP systolic 94–147; BP diastolic 64–96; PULSE 60–106; RESP 16–29; TEMP 36.5–36.8; O2SAT 88–97
--- NOTE | ~2025-01-19 | XR_ITS ---
XR chest 1V portable 01/19/2025 12:43 Indication: Shortness of breath Procedure: AP portable chest Comparison: 11/06/2024 Findings: There is asymmetric left-sided airspace disease, compatible with pneumonia. Small left pleu ral effusion. No pneumothorax. Impression: 1: Asymmetric left-sided airspace disease, compatible with pneumonia which has progressed since 2024. Asymmetric edema less favored. Reviewed, dictated and finalized at location A. Impression: 1: Asymmetric left-sided airspace disease, compatible with pneumonia which has progressed since 11/06/2024. Asymmetric edema less favored.
--- OUTSIDE RECORDS SUMMARY | 2025-01-19 12:26 | XMS_ITS | Encounter Summary ---
Author Organization [facility] Address [address] [place] [address] Care Team Providers Care Student Loan Counselor Name Role Phone Lucas Renteria MD Primary Care Provider [phone] Eduardo Love MD Unavailable [phone] Encounter Details Date Type Department Care Team (Late Contact Info) Description 02/25/2015 Abstract [facility] [address] [place] [address] Eduardo Love MD [address] 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
--- OUTSIDE RECORDS SUMMARY | 2025-01-19 12:26 | XMS_ITS | Clinical Summary ---
Author Organization [facility] Address [address] [place] [address] Care Team Providers Care Parliamentary Counsel Name Role Phone Lucas Renteria MD Primary Care Provider [phone] Eduardo Love MD Unavailable [phone] Allergies No known active allergies Medications * [...] monitoring flecainide therapy 08/16 Paroxysmal atrial fibrillation ([facility]) Family History Medical History Relation Comments DC Father DC Paternal Grandfather Relation Status Comments Father Paternal [...] 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
--- OUTSIDE RECORDS SUMMARY | 2025-01-19 12:26 | XMS_ITS | Encounter Summary ---
Author Organization [facility] Address [address] [place] [address] Care Team Providers Care Small Equipment Operator Name Role Phone Unavailable Primary Care Provider Unavailabl e Reason for Visit * Reason Onset Date Comments Procedure 01/14/2025 Encounter Details Date Type Department Care Team (Late st Contact Info) Description 01/14/2025 Telephone [facility] Pulmonology [facility] [address] [place] [address] Dewayne West MD [address] [place] [address] Procedure Social History Tobacco Use Types Packs/Day Years Used Date Smoking Tobacco: Every Day Cigarettes 1 45.6 Started: 06/18/1979 Smokeless Tobacco: Never Alcohol Use Standard Drinks/Week Comments Never 0 (1 standard drink = 0.6 oz pur e alcohol) Sex and Gender Information Value Date Recorded Sex Assigned at Not on file Legal Sex Male 12:17 PM CDT Gender Identity Not on file Sexual Orientation Not on file documented as of this encounter Miscellaneous Notes * Telephone Encounter - Ariadne Martinez - 01/16/2025 1:28 PM CDT LMOM for patient to call me back to go over Bronch Instructions * Telephone Encounter - Chen Martinez - 01/15/2025 7:35 AM CDT Bronch Linear and radial EBUS with Fluoro and SAM scheduled 02/16/25 at 1:30. * Telephone Encounter - Dewayne West MD - 01/14/2025 3:12 PM CDT Please call patient and schedule a bronchoscopy linear and radial EBUS with fluoroscopy and SAM on02/16/2025 at 1.30 pm. NPO from 7:30 AM on day of procedure, may take morning medications with breakfast before 7:30 AM that day documented in this encounter Plan of Treatment Upcoming Encounters Date Type Department Care Team (Late st Contact Info) Description 01/27/2025 10:45 AM CDT Appointment [facility] Nuclear Medicine [address] [place] [address] [id number] Thomas Matamoros MD [address] [place] [address] documented as of this encounter Visit Diagnoses Not on filedocumented in this encounter
--- OUTSIDE RECORDS SUMMARY | 2025-01-19 12:26 | XMS_ITS | Clinical Summary ---
Author Organization [facility] Tejal Amaya Address [address] [place] [address] Care Team Providers Care Project Intern Name Role Phone Unavailable Primary Care Provider Unavailabl e Allergies No known active allergies Medications ALBUTEROL SULFATE ORAL Take by mouth. Ac tive fluticasone-um eclidinium-cooper anterol (Trelegy Ellipta) 100-62.5-25 mcg Disk with Device Take 1 Puff by inhalation daily. Active flecainide (TAMBOCOR) 100 mg tablet Take 100 mg by mouth 2 times daily. Pt takes PRN Active DOXYCYCLINE CALCIUM ORAL Take by mouth. Ac tive prednisoLONE 5 mg tablet Take 30 mg by mouth daily. Active budesonide/gly copyr/formoter ol (BREZTRI AEROSPHERE INHALATION) Take by inhalation. 01/01/20 25 Discontinu ed(Alterna te therapy prescribed ) Active Problems Problem Noted Date Diagnosed Date Multilobar lung infiltrate 01/16/2025 Cancer of lower lobe of left lung 01/16/2025 Mediastinal lymphadenopathy 01/16/2025 Paroxysmal atrial fibrillation 12/31/2024 Chronic pneumonia 04/01/2024 Overview (12/31/2024): Started with bad cough. My finally got me to go to Doctor sometime in April for the first diagnosis of pneumonia. Encounter for monitoring flecainide therapy 08/16 Encounters Date Type Department Care Team Description 01/16/2025 1:20 PM CDT - 01/16/2025 6:00 PM CDT Hospital Encounter [facility] Interventional Care [facility] [place] [address] Dewayne West MD Multilobar lung infiltrate Discharge Disposition: Home or Self Care 01/14/2025 Telephone [facility] Pulmonology [address] [facility] [place] [address] Dewayne West MD Procedure 01/13/2025 Telephone [facility] Cardiovas and Thor Surg at [address] [phone] Jc Duran MD Question 01/09/2025 9:30 AM CDT Office Visit [facility] Pulmonology [address] [place] [phone] Dewayne West MD Adenocarcinoma, lung, left (CMS/HCC) (Primary Dx); Recurrent pneumonia; PAF (paroxysmal atrial fibrillation) (CMS/HCC); Tobacco abuse disorder 01/05/2025 Telephone [facility] Cardiovas and Thor Surg at [address] [address] Jc Duran MD Question 12/31/2024 12:45 PM CDT Office Visit [facility] Cardiovas and Thor Surg at [address] [phone] Jc Duran MD Chronic pneumonia (Primary Dx) 12/31/2024 External Device Data STL ABSTRACTION Provider, Abstract 12/03/2024 4:30 PM CDT Telephone Check Up [facility] Oncology and Hematology - [address] [place] [address] Thomas Matamoros MD Malignant neoplasm of lower lobe of left lung (CMS/HCC) (Primary Dx) 12/01/2024 Orders Only [facility] Oncology and Hematology - [address] [place] [phone] Thomas Matamoros MD 11/25/2024 External Device Data STL ABSTRACTION Provider, Abstract 11/25/2024 External Device Data STL ABSTRACTION Provider, Abstract 11/25/2024 External Device Data STL ABSTRACTION Provider, Abstract 11/19/2024 3:00 PM CDT Office Visit [facility] Oncology and Hematology [facility] [address] [place] [address] Thomas Matamoros MD Malignant neoplasm [...] 1 45.6 Started: 06/18/1979 Smokeless Tobacco: Never Tobacco Cessation:Ready to Q uit: No; Counseling Given: Yes Alcohol Use Standard Drinks/Week Comments Never 0 (1 standard drink = 0.6 oz pur e alcohol) Sex and Gender Information Value Date Recorded Sex Assigned at Not on file Legal Sex Male 12:17 PM CDT Gender Identity Not on file Sexual Orientation Not on file Last Filed Vital Signs Vital Sign Reading Time Taken Comments Blood Pressure 99/71 01/16/2025 5:30 PM CDT Pulse 53 01/16/2025 5:43 PM CDT Temperature 36.2 C (97.1 F) 11/19/2024 3:07 PM CDT Respiratory Rate 19 01/16/2025 5:43 PM CDT Oxygen Saturation 90% 01/16/2025 5:43 PM CDT Inhaled Oxygen Concentration - - Weight 60.8 kg (134 lb) 01/09/2025 9:28 AM CDT Height 172.7 cm (5' 8) 01/09/2025 9:28 AM CDT Body Mass Index 20.37 01/09/2025 9:28 AM CDT Plan of Treatment Upcoming Encounters Date Type Department Care Team (Late st Contact Info) Description 01/27/2025 10:45 AM CDT Appointment [facility] Nuclear Medicine [address] [place] [phone] Thomas Matamoros MD [address] [facility] [address] [place] [phone] Health Maintenance Due Date Last Done Comments DTAP/TDAP/TD VACCINES (1 - Tdap) 1982 COLORECTAL SCREENING 2008 Colorectal Cancer Screening 2008 FIT-DNA Q 3 years 2008 FIT/FOBT Q 1 year 2008 Flex Sig/CT Colonography Q 5 years 2008 ZOSTER VACCINE (1 of 2) 2013 Preventative Visit- Commercial 06/18/2024 INFLUENZA VACCINE (#1) 2025 RSV VACCINE (60+ or ) (1 - 1-dose 75+ series) 2038 Procedures Procedure Name Priority Date/Time Associated Diagnosis Comments PROCEDURE REPORT 01/16/2025 4:47 PM CDT XR CHEST PA OR AP 1 VW Stat 01/16/2025 3:40 PM CDT FUNGUS STAIN Routine 01/16/2025 3:31 PM CDT FUNGUS CULTURE, OTHER Routine 01/16/2025 3:31 PM CDT RESPIRATORY CULTURE WITH GRAM STAIN Routine 01/16/2025 3:31 PM CDT FUNGUS STAIN Routine 01/16/2025 3:31 PM CDT PNEUMONIA PATHOGEN PCR PANEL Routine 01/16/2025 3:31 PM CDT FUNGUS CULTURE, OTHER Routine 01/16/2025 3:31 PM CDT FUNGUS CULTURE, OTHER Routine 01/16/2025 3:31 PM CDT RESPIRATORY CULTURE WITH GRAM STAIN Routine 01/16/2025 3:31 PM CDT RESPIRATORY CULTURE WITH GRAM STAIN Routine 01/16/2025 3:31 PM CDT XR FLUORO LESS THAN 1 HOUR Routine 01/16/2025 3:14 PM CDT PET BONE IMG W CT SKL BSE MID THG Routine 11/28/2024 10:47 AM CDT from Last 3 Months Results * PROCEDURE REPORT (01/16/2025 4:47 PM CDT) Narrative Procedure Note Dewayne West MD - 01/16/2025 4:47 PM CDT [facility] Pulmonology Patient Name: Alen Spain Procedure Date: 01/16/2025 Date of : 1965 Admit Type: Outpatient Attending MD: Dewayne West MD, Procedure: Bronchoscopy Indications: Bilateral infiltrates, Known lung cancer of the left lower lobe Providers: Dewayne West MD (Doctor) Referring MD: Jc Duran MD Requesting Physician: Medicines: Midazolam 18 mg IV, Fentanyl 450 mcg IV Complications: No immediate complications Procedure: Informed consent was obtained for the procedure, including sedation. Risks of hypoxia, dental injury, lung injury/perforation, hemorrhage, infection, arrhythmia, and adverse drug reaction were discussed. A time-out process was performed and verified patient identification, procedure, correct patient position, as well as special equipment available. The patient was brought to the bronchoscopy suite. 2% lidocaine was used for topical anesthesia of the tracheobronchial tree. Oxygen saturation and vital signs were monitored continuously. The scope was introduced through the mouth, via the endotracheal tube (the patient was intubated for the procedure) and advanced to the tracheobronchial tree. The procedure was accomplished without difficulty. The patient tolerated the procedure fairly well. Moderate sedation start time 2:24 PM Moderate sedation end time 3:21 PM Findings: The jorge itself was sharp with no mucosal abnormalities, thereafter a comprehensive inspection of the entire bronchial tree was performed to the subsegmental level without any visualized endobronchial lesions or mucosal irregularities. A radial ultrasound probe was introduced into the apicoposterior segment of the left upper lobe and radial ultrasound imaging was performed to localize an area of abnormal echogenicity. The probe was withdrawn following which a bronchoalveolar lavage, cytology brushings, multiple transbronchial needle aspirates as well as multiple transbronchial forceps biopsies were obtained under fluoroscopic guidance; additional transbronchial needle aspirates, transbronchial forceps biopsies and a bronchoalveolar lavage were obtained from the left lower lobe under fluoroscopic guidance after localization with radial ultrasound imaging. Multiple therapeutic modalities were utilized to improve the diagnostic yield. Finally, a third bronchoalveolar lavage was obtained from the anterior basilar segment of the right lower lobe following which the bronchoscope was withdrawn without incident. An EBUS-bronchoscope was inserted via the indwelling airway and advanced to the left secondary jorge; linear ultrasound imaging demonstrated lymphadenopathy corresponding to station 11L. Multiple EBUS-guided needle aspirations were performed. The bronchoscope was sequentially retracted at which time further ultrasound imaging demonstrated lymphadenopathy at stations 7 and 10R, additional needle aspirates were obtained. Specimens: 1.Transbronchial needle aspirates from the KENNETH and LLL 2.Bronchoalveolar lavage from the KENNETH, LLL and RLL 3.Cytology brushings from the KENNETH 4.Transbronchial forceps biopsies from the KENNETH and LLL 5.Needle aspirates from lymph node stations 11L, 7 and 10R Impression: - Bilateral infiltrates - Known lung cancer of the left lower lobe - Mediastinal adenopathy Recommendation: - Await test results. - Chest X-ray post-procedure. Dewayne West MD 01/16/2025 4:43:06 PM Number of Addenda: 0 Note Initiated On: 01/16/2025 11:[address]; [place] [address] Dewayne West MD PROCEDURE/MINOR SURGICAL ORDE RABRADHA Final Result * XR CHEST PA OR AP 1 VW (01/16/2025 3:40 PM CDT) Anatomical Region Laterality Modality Chest Computed Radiogr aphy 01/16/2025 3:43 PM CDT Impressions 01/16/2025 3:54 PM CDT IMPRESSION: 1. Diffuse lung disease, left worse than right, consistent with pulmonary edema versus pneumonia. DICTATION LOCATION: Location 4. Narrative 01/16/2025 3:54 PM CDT EXAMINATION: XR CHEST PA OR AP 1 VW DATE: 01/16/2025 3:40 PM INDICATION: Postoperative. TECHNIQUE: A single frontal view of the chest was obtained. COMPARISON: None. FINDINGS: There is a diffuse interstitial pattern in the lungs. There are airspace opacities in all left lung zones. No pleural effusion or pneumothorax. The heart is normal. The endotracheal tube tip is 5.9 cm above the jorge. Procedure Note Biju Palm MD - 01/16/2025 EXAMINATION: XR CHEST PA OR AP 1 VW DATE: 01/16/2025 3:40 PM INDICATION: Postoperative. TECHNIQUE: A single frontal view of the chest was obtained. COMPARISON: None. FINDINGS: There is a diffuse interstitial pattern in the lungs. There are airspace opacities in all left lung zones. No pleural effusion or pneumothorax. The heart is normal. The endotracheal tube tip is 5.9 cm above the jorge. IMPRESSION: 1. Diffuse lung disease, left worse than right, consistent with pulmonary edema versus pneumonia. DICTATION LOCATION: Location 4. Dewayne West MD DIAGNOSTIC IMAGING ORDERABLES Final Result * PNEUMONIA PATHOGEN PCR PANEL (01/16/2025 3:31 PM CDT) Pathologist [facility] Pneumonia Pathogen PCR Panel NOT DETECTED No nucleic acids detected. 01/16/2025 7:05 PM CDT [facility] Wash[place] (Lung, bilateral) Collection / Unknown 01/16/2025 3:31 PM CDT 01/16/2025 3:49 PM CDT Narrative [facility] - 01/16/2025 7:05 PM CDT A negative result does not exclude the possibility of infection. A semi-quantitative (copies/mL) result is provided for bacteria. This panel does not distinguish between nucleic acid from live or bacteria or virus. Culture is needed for recovery of bacterial isolates and antimicrobial susceptibility testing. The Film Array Pneumonia Pathogen PCR Panel is a multiplexed nucleic acid detection test for 33 targets of bacteria, viruses, and resistance markers in respiratory specimens that cause pneumonia. Bacteria: Acinetobacter calcoaceticus-baumannii complex Enterobacter cloacae complex Escherichia coli Haemophilus influenzae Klebsiella aerogenes Klebsiella oxytoca Klebsiella pneumoniae group Moraxella catarrhalis Proteus spp. Pseudomonas aeruginosa Serratia marcescens Staphylococcus aureus Streptococcus agalactiae Streptococcus pneumoniae Streptococcus pyogenes Atypical Bacteria: Chlamydia pneumoniae Legionella pneumophila Mycoplasma pneumoniae Viruses: Adenovirus Coronavirus (229E, OC43, HKU1, NL63) Human Metapneumovirus Human Rhinovirus/Enterovirus Influenza A Influenza B Parainfluenza Virus Respiratory Syncytial Virus Antimicrobial Resistance Genes: CTX-M IMP KPC NDM OXA-48-like VIM mecA/C and MREJ Dewayne West MD MICROBIOLOGY - GENERAL ORDERA BLES Final Result Performing Organization Address City/[facility]/ZIP Co de Phone Number [facility]# [id number] [address] [place] [address] * RESPIRATORY CULTURE WITH GRAM STAIN (01/16/2025 3:31 PM CDT) Only the most recent of3 resultswithin the time period is included. CULTURE <10,000 cfu/mL Normal upper respiratory kamryn 01/18/2025 7:35 AM CDT [facility] GRAM STAIN Non diagnostic pattern 01/18/2025 7:35 AM CDT [facility] GRAM STAIN 2+ (Few) Polymorphonuclear WBC 01/18/2025 7:35 AM CDT [facility] GRAM STAIN Intracellular organisms absent 01/18/2025 7:35 AM CDT [facility] BAL (Lung, RLL) Collection / Unknown 01/16/2025 3:31 PM CDT 01/16/2025 3:48 PM CDT Dewayne West MD MICROBIOLOGY - GENERAL ORDERA BLES Final Result Performing Organization Address [facility]/ZIP Co de Phone Number [facility]# [id number] [address] [place], [place] [id number] * FUNGUS STAIN (01/16/2025 3:31 PM CDT) Only the most recent of2 resultswithin the time period is included. FUNGUS STAIN No fungal elements observed No yeast or fungal elements observed 01/16/2025 5:19 PM CDT [facility] BAL (Lung, RLL) Collection / Unknown 01/16/2025 3:31 PM CDT 01/16/2025 3:48 PM CDT Result [facility] Dewayne West MD MICROBIOLOGY - GENERAL ORDERA BLES Final Result [facility] [place] [facility] CLIA# [id number] [address] [facility] [place] [address] * XR FLUORO LESS THAN 1 HOUR (01/16/2025 3:14 PM CDT) Narrative 01/16/2025 3:14 PM CDT Order information only. Exam was auto-finalized. Result [facility] Dewayne West MD DIAGNOSTIC IMAGING ORDERABLES Final Result * PET BONE IMG W CT SKB MD (11/28/2024 10:47 AM CDT) Anatomical Region Laterality Modality Positron Emissio n Tomography (PET) Thomas Matamoros MD PE ORDERABLES Final Result from Last 3 Months Insurance BCBS BLUE ACCESS/TRUE BLUE PPO BCBS [facility]
--- NOTE | 2025-01-19 12:32 | ECG_ITS ---
Test Date: 2025-01-19 12:42:01 Measurements Intervals [place] Rate: 89 P: 79 CO: 128 QRS: 74 QRSD: 89 T: 60 QT: 357 QTc: 437 Interpretive Statements SINUS RHYTHM POSSIBLE LEFT ATRIAL ENLARGEMENT BASELINE ARTIFACT- I, II, III BORDERLINE ECG Compared to ECG 11/06/2024 13:14:57 No significant changes Electronically Signed On 01-19-2025 12:51:11 CDT by Farshad Snell D.O.
--- NOTE | 2025-01-19 12:33 | ED_ITS ---
HPI - SOB/Dyspnea General Chief Complaint: Shortness of Breath/Dyspnea Stated Complaint: shortness of breath Time Seen by Provider: 01/19/25 12:32 History of Present Illness HPI Narrative: Pt presents with worsening SOB over last few weeks. Pt says he is having trouble lying flat now due to SOB. Pt has clear sputum production but no LE swelling or CP. Pt says he says he had a bronchoscopy by Dr Rothman at [facility] kl week and it showed pulmonary edema. 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 Pt deneis fever. Pt called Dr Toro today due to SOB and was instructed to come here. Pt also has Stage 1 lung cancer in his LLL also being treated at [facility]. Related Data Home Medications ?Medication ?Instructions ?Recorded ?Confirmed ?Last Taken ?Type hydrocodone 5 mg-acetaminophen 325 tablet 01/19/25 Unknown History mg tablet Allergies Allergy/AdvReac Type Severity Reaction Status Date / Time No Known Allergies Allergy Unknown Verified 01/19/25 12:26 Review of Systems 2 Review of Systems: All systems reviewed & are unremarkable except as noted in HPI and below PMFSH Past Medical History Medical History Multiple pulmonary nodules determined by computed tomography of lung Bipolar 1 disorder JEFFREY (generalized anxiety disorder) Atrial fibrillation Surgical History Surgical History No history of previous surgery Family History Family History Mother Hypertension Father , Age 43. 4 PPD smoker. Acute myocardial infarction Social History Social History Smoking packs per day: 1 Smoking cigarettes per day: 20.0 Years smoked: 50 Smoking pack-years: 50.00 Smoking status: Current every day smoker Tobacco type: cigarettes Second hand tobacco smoke exposure: Yes Alcohol intake: former Substance use: current Substance use type: marijuana Other substance usage details: smokes/drinks Last use: 11/05/24 Do You Feel Safe in your Home?: Yes Lack of Transportation: No Lack of Food: Never True Current Housing: I Have Housing Concerned About Future Housing: No Difficulty Paying Gas/Electric Bills: No Difficulty Paying for Meds: No Currently Unemployed: No Education: Decline to Answer Difficulty w/ Childcare or Family Care: Decline to Answer Spiritual care concerns: No Exam 2 Const: General: no acute distress Nutritional Appearance: thin O rientation/consciousness: patient oriented x3 Limitations: no limitations HENMT: Mouth: Yes Normal oral and palatal mucosa present Throat: posterior oropharynx normal Eyes: EOM: EOMs intact bilaterally Neck: Neck: normal visual inspection and no lymphadenopathy Chest: Chest palpation & inspection: normal inspection of the chest Resp: Effort & Inspection: labored and tachypneic Auscultation: crackles and diminished lung sounds Cardio: Rate: regular rate Rhythm: regular rhythm GI: GI Palp: Yes Soft to palpation Auscultation: normal bowel sounds Skin: General skin exam: normal color Wounds: no wounds Neuro: General: patient oriented x3, moves all extremities, no meningeal signs, no focal motor deficits and CN's II-XI intact bilaterally Speech: n ormal speech Extrem: General: normal to inspection and no clubbing, cyanosis or edema Psych: Mental Status: mental status grossly normal Affect: normal affect Attitude: cooperative Course Vital Signs Vital signs: Vital Signs Temperature 97.7 F 01/19/25 12:18 Pulse Rate 90 01/19/25 12:18 Respiratory Rate 22 H 01/19/25 12:18 Blood Pressure 105/80 01/19/25 12:18 Pulse Oximetry 89 L 01/19/25 12:18 Oxygen Delivery Room Air 01/19/25 12:18 Temperature 97.7 F 01/19/25 12:18 Pulse Rate 72 01/19/25 18:01 Respiratory Rate 24 H 01/19/25 18:01 Blood Pressure 121/75 01/19/25 18:01 Pulse Oximetry 91 01/19/25 18:01 Oxygen Delivery Nasal Cannula 01/19/25 12:28 Oxygen Flow Rate 3 01/19/25 12:28 MDM - SOB/Dyspnea MDM Narrative Medical decision making narrative: Pt had recent bronchoscopy at [facility] and diagnosed with pulmonary edema non cardiac. Pt initial oxygen sat here 88 up to 93% on 3 L. will assess degree of pulmonary edema with cxr and get some labs and ekg to assess renal function and infectious possibility like pneumonia. will call Dr Toro after results and determine if pt needs transfer to [facility] or [facility]. Dr Toro said that the broch at [facility] did not show pulmonary edema. Dr Toro said she would consult on him at [facility] so will contact about transfer to [facility].She did not recommend antibiotics at this time due to findings on recent bronchoscopy. will defer to accepting providers. Discussed with James Saleh, MOBILITY MANAGER at [facility] who accepts for observation. he said he talked with Dr Toro and they do want to start antibiotics cefipime and zithromax and add procalcitonin. Will turn over to Dr Erazo at 1900 awaiting bed at [facility]. Lab Data 01/19/25 12:45 01/19/25 12:45 Labs: Lab Results 01/19/25 01/19/25 Range/Units 12:33 12:45 WBC 12.0 H (4.8-10.8) K/mm3 RBC 4.57 L (4.70-6.10) M/mm3 Hgb 14.4 (14.0-18.0) g/dL Hct 42.3 (40.0-54.0) % MCV 92.6 (78.0-102.0) fL MCH 31.5 H (27.0-31.0) pg MCHC 34.0 (32-36) g/dL RDW 13.1 (11.6-14.4) % Plt Count 403 (150-420) K/mm3 MPV 9.0 (8.7-11.0) fl Immature Gran % (Auto) 0.5 H (0.0-0.0) % Neut % (Auto) 81.9 H (50.0-70.0) % Lymph % (Auto) 12.2 L (18.0-42.0) % Sullivan % (Auto) 5.2 (2.0-11.0) % Eos % (Auto) 0.1 L (1.0-6.0) % Baso % (Auto) 0.1 (0.0-1.0) % Lymph # (Auto) 1.47 (1.10-4.50) K/mm3 Sullivan # (Auto) 0.63 (0.10-0.90) K/mm3 Eos # (Auto) 0.01 L (0.02-0.50) K/mm3 Baso # (Auto) 0.01 (0.00-0.10) K/mm3 Abs Immat Gran (auto) 0.06 H (0.00-0.00) K/mm3 Absolute Neuts (auto) 9.84 H (1.70-7.20) K/mm3 Absolute Nucleated RBC 0.00 (0.00-0.00) K/mm3 Nucleated RBC % 0.0 (0-0.0) % Sodium 138 (137-145) mmol/L Potassium 4.0 (3.4-5.0) mmol/L Chloride 109 H (98-107) mmol/L Carbon Dioxide 22 (22-30) mmol/L Anion Gap 7 (4-12) mmol/L BUN 17 (9-20) mg/dL Creatinine 0.91 (0.7-1.3) mg/dL Estim Creat Clear Calc 63 ml/min Estimated GFR > 60 (59 - ) Glucose 125 H (65-110) mg/dL Calculated Osmolality 288 (285-295) mOsm/kg Calcium 9.1 (8.4-10.2) mg/dL Magnesium 1.9 (1.6-2.3) mg/dL Total Bilirubin 0.5 (0.2-1.3) mg/dL AST 31 (17-59) U/L ALT 25 (6-50) U/L Alkaline Phosphatase 121 (38-126) U/L Troponin I < 0.012 (0.000-0.034) ng/mL NT-Pro-B Natriuret Pep 74 (19.9-100) pg/mL Total Protein 7.1 (6.3-8.2) g/dL Albumin 4.0 (3.5-5.1) g/dL Procalcitonin 0.0 ng/mL ECG Data EKG #1: Interpretation: nsr rate [address] axis no st or t wave changes Discharge Plan Discharge Clinical Impression: Hypoxia, Recurrent pneumonia Patient Disposition: Acute Care [facility] Condition: Improved Patient Language: Citizen Of [place] Prescriptions: No Action hydrocodone-acetaminophen 5-325 mg tablet albuterol sulfate 90 mcg/actuation HFA aerosol inhaler 1 - 2 puff inhalation Q4-6H PRN (Reason: shortness of breath or wheezing) Qty: 8.5 2RF albuterol sulfate 2.5 mg /3 mL (0.083 %) solution for nebulization 2.5 mg inhalation Q4-6H PRN (Reason: shortness of breath or wheezing) Qty: 90 3RF flecainide 100 mg tablet 100 mg PO .twice Qty: 30 0RF Rx Instructions: Take 1 tab prn for atrial fib, and 1 hour later if still in it, take second tab. nicotine (polacrilex) 2 mg Gum 2 mg PO PRN PRN (Reason: Nicotine Cravings) Qty: 30 0RF Trelegy Ellipta 100-62.5-25 mcg blister with device 1 inh inhalation Q24H 30 Days Qty: 60 5RF Rx Instructions: Take one puff same time daily, rinse and spit after use. Follow-up/Referrals: Isaiah Ruano MD [Primary Care Provider] -
[2025-01-19 12:50] LABS: Hematocrit 42.3 % (40.0-54.0); Hemoglobin 14.4 g/dL (14.0-18.0); Immature Granulocyte Percent A 0.5 % (0.0-0.0); Lymphocytes Absolute Auto 1.47 K/mm3 (1.10-4.50); Mean Corpuscular HGB Conc 34.0 g/dL (32-36); Mean Corpuscular Hemoglobin 31.5 pg (27.0-31.0); Mean Corpuscular Volume 92.6 fL (78.0-102.0); Nucleated Red Blood Cells Absolute Auto 0.00 K/mm3 (0.00-0.00); Nucleated Red Blood Cells Perc 0.0 % (0-0.0); Platelet Count Result 403 K/mm3 (150-420); Red Blood Count 4.57 M/mm3 (4.70-6.10); White Blood Count 12.0 K/mm3 (4.8-10.8)
--- OUTSIDE RECORDS SUMMARY | 2025-01-19 12:54 | XMS_ITS | Clinical Summary ---
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
--- OUTSIDE RECORDS SUMMARY | 2025-01-19 12:54 | XMS_ITS | Encounter Summary ---
Author Organization 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
--- OUTSIDE RECORDS SUMMARY | 2025-01-19 12:54 | XMS_ITS | Encounter Summary ---
Author Organization [facility] Address [address] [place] [address] Care Team Providers Care Ton Container Shipper Name Role Phone Unavailable Primary Care Provider Unavailabl e Reason for Visit * Reason Onset Date Comments Procedure 01/14/2025 Encounter Details Date Type Department Care Team (Late st Contact Info) Description 01/14/2025 Telephone [facility] Pulmonology [facility] [address] [place] [address] Dewayen West MD [address] [place] [address] Procedure Social History Tobacco Use [...] [facility] [address] [place] [address] [id number] Thomas Matamoros MD [address] [place] [phone] documented as of this encounter Visit Diagnoses Not on filedocumented in this encounter
--- OUTSIDE RECORDS SUMMARY | 2025-01-19 12:54 | XMS_ITS | Clinical Summary ---
Author Organization [facility] Tejal Amaya Address [address] [place] [address] Care Team Providers Care Vegetable Inspector Name Role Phone Unavailable Primary Care Provider [...] - 01/16/2025 6:00 PM CDT Hospital Encounter [facility] Interventional Care [facility] [place] [address] Dewayne West MD Multilobar lung infiltrate Discharge Disposition: Home or Self Care 01/14/2025 Telephone [facility] Pulmonology [address] [facility] [place] [address] Dewayne West MD Procedure 01/13/2025 Telephone [facility] Cardiovas and Thor Surg at [address] [address] Jc Duran MD Question 01/09/2025 9:30 AM CDT Office Visit [facility] Pulmonology [address] [place] [address] Dewayne West MD Adenocarcinoma, lung, left (CMS/HCC) (Primary Dx); Recurrent pneumonia; PAF (paroxysmal atrial fibrillation) (CMS/HCC); Tobacco abuse disorder 01/05/2025 Telephone [facility] Cardiovas and Thor Surg at [address] [address] Jc Duran MD Question 12/31/2024 12:45 PM CDT Office Visit [facility] Cardiovas and Thor Surg at [address] [address] Jc Duran MD Chronic pneumonia (Primary Dx) 12/31/2024 External Device Data STL ABSTRACTION Provider, Abstract 12/03/2024 4:30 PM CDT Telephone Check Up [facility] Oncology and Hematology - [address] [place] [address] Thomas Matamoros MD Malignant neoplasm of lower lobe of left lung (CMS/HCC) (Primary Dx) 12/01/2024 Orders Only [facility] Oncology and Hematology - [address] [place] [address] Thomas Matamoros MD 11/25/2024 External Device Data STL ABSTRACTION Provider, Abstract 11/25/2024 External Device Data STL ABSTRACTION Provider, Abstract 11/25/2024 External Device Data STL ABSTRACTION Provider, Abstract 11/19/2024 3:00 PM CDT Office Visit [facility] Oncology and Hematology [facility] [address] [place] [address] Thomas Matamoros MD Malignant neoplasm [...] [facility] [address] [place] [address] [id number] Thomas Matamoros MD [address] [facility] [address] [place] [address] Health Maintenance Due Date Last Done [...] West MD - 01/16/2025 4:47 PM CDT [facility] Pulmonology Patient Name: Alen Spain Procedure Date: [...] 01/16/2025 11:[address]; [place] [address] Dewayne West MD PROCEDURE/MINOR SURGICAL ORDE RABRADHA [...] PCR PANEL (01/16/2025 3:31 PM CDT) Pathologist [facility] Pneumonia Pathogen PCR Panel NOT DETECTED No nucleic acids detected. 01/16/2025 7:05 PM CDT [facility] Washings (Lung, bilateral) Collection / Unknown 01/16/2025 3:31 PM CDT 01/16/2025 3:49 PM CDT Narrative [facility] - 01/16/2025 7:05 PM CDT A negative [...] ORDERA BLES Final Result Performing Organization Address City/[facility]/ZIP Co de Phone Number [facility]# [id number] [address] [place] [address] * RESPIRATORY CULTURE WITH GRAM STAIN (01/16/2025 3:31 PM CDT) Only the most recent of3 resultswithin the time period is included. CULTURE <10,000 cfu/mL Normal upper respiratory kamryn 01/18/2025 7:[address] [facility] GRAM STAIN Non diagnostic pattern 01/18/2025 7:[address] [facility] GRAM STAIN 2+ (Few) Polymorphonuclear WBC 01/18/2025 7:[address] [facility] GRAM STAIN Intracellular organisms absent 01/18/2025 7:[address] [facility] BAL (Lung, RLL) Collection / Unknown 01/16/2025 3:31 PM CDT 01/16/2025 3:48 PM CDT Dewayne West MD MICROBIOLOGY - GENERAL ORDERA BLES Final Result Performing Organization Address [facility]/ZIP Co de Phone Number [facility]# [id number] [address] [place], [place] [id number] * FUNGUS STAIN (01/16/2025 3:31 PM CDT) Only the most recent of2 resultswithin the time period is included. FUNGUS STAIN No fungal elements observed No yeast or fungal elements observed 01/16/2025 5:[address] [facility] BAL (Lung, RLL) Collection / Unknown 01/16/2025 3:31 PM CDT 01/16/2025 3:[address] [facility] Dewayne West MD MICROBIOLOGY - GENERAL ORDERA BLES Final Result [facility] [employer] [facility] CLIA# [id number] [address] [facility] [place] [address] * XR FLUORO LESS THAN 1 HOUR (01/16/2025 3:14 PM CDT) Narrative 01/16/2025 3:14 PM CDT Order information only. Exam was auto-finalized. Result [facility] Dewayne West MD DIAGNOSTIC IMAGING ORDERABLES Final Result * PET BONE IMG W CT SKB MD (11/28/2024 10:47 AM CDT) Anatomical Region Laterality Modality Positron Emissio n Tomography (PET) Thomas Matamoros MD PE ORDERABLES Final Result from Last 3 Months Insurance BCBS BLUE ACCESS/TRUE BLUE PPO [facility]BS [facility]
[2025-01-19 13:03] LABS: Alanine Aminotransferase 25 U/L (6-50); Albumin Level 4.0 g/dL (3.5-5.1); Alkaline Phosphatase 121 U/L (38-126); Anion Gap 7 mmol/L (4-12); Aspartate Amino Transferase 31 U/L (17-59); Bilirubin,Total 0.5 mg/dL (0.2-1.3); Blood Urea Nitrogen 17 mg/dL (9-20); Calcium 9.1 mg/dL (8.4-10.2); Carbon Dioxide 22 mmol/L (22-30); Chloride 109 mmol/L (98-107); Estimated CRCL calculation 63 ml/min; Estimated Glomerular Filt Rate > 60; Glucose 125 mg/dL (65-110); Magnesium 1.9 mg/dL (1.6-2.3); Osmolality Calculated 288 mOsm/kg (285-295); Potassium 4.0 mmol/L (3.4-5.0); Sodium 138 mmol/L (137-145); Total Protein 7.1 g/dL (6.3-8.2)
[2025-01-19 13:19] LABS: NT Pro B Type Natriuretic Pept 74 pg/mL (19.9-100); Troponin I < 0.012 ng/mL (0.000-0.034)
[2025-01-19] MEDS: BENZONATATE 100 MG CAPSULE 200 MG PO (17:25)
[2025-01-19] MEDS: CEFEPIME 2 GM in SODIUM CHLORIDE 0.9% IV 50 ML 100 ML IVPB (17:28)
[2025-01-19 17:58] LABS: Procalcitonin 0.0 ng/mL
[2025-01-19] MEDS: AZITHROMYCIN IV 500 MG in SODIUM CHLORIDE 0.9% IV 250 ML IVPB (18:00)
--- NOTE | 2025-01-19 19:01 | PC.NURSE ---
Report given to AUDELIA Crum
--- NOTE | 2025-01-19 19:22 | PC.NURSE ---
Pt assisted to readjusting his bed and placed in gown. Pt VSS, explained to pt and family still awaiting call back for a bed assignment. Pt resting and watching TV, continuing to monitor.
--- NOTE | 2025-01-19 20:05 | PC.NURSE ---
Report given to AUDELIA Wilson at [facility]. Paged for [facility] for transfer.
== END 2025-01-19 20:31 | disposition short-term general hospital (02) ==
PROVIDERS: Emergency Provider Emergency Medicine; PCP Internal Medicine
DX: J18.9 Pneumonia, unspecified organism (principal); R09.02 Hypoxemia; I48.91 Unspecified atrial fibrillation; F17.210 Nicotine dependence, cigarettes, uncomplicated; Z79.891 Long term (current) use of opiate analgesic; Z79.899 Other long term (current) drug therapy
CPT/HCPCS: 36415; 71045; 80053; 83735; 83880; 84145; 84484; 85025; 93005; 96365; 96367; 99285; A9270; J0456; J0692; J7050

== ENCOUNTER 2025-01-19 21:42 | Inpatient (IN) | payer BC, SELFPAY ==
--- NOTE | ~2025-01-19 | XR_ITS ---
XR chest 1V portable 01/22/2025 09:07 Indication: Lung cancer. Pneumonia. Procedure: AP portable chest Comparison: Comparison to multiple prior studies sequentially, with oldest reviewed study dated 08/2024. Findings: Heart size normal. There is asymmetric left-sided airspace disease, compatible with pneumon ia which has progressed over time. Cannot exclude bronchioloalveolar cell carcinoma. Prominent left h ilum, suspicious for lymphadenopathy. No significant effusion. No pneumothorax. Impression: 1: Chronic progressive unilateral left-sided airspace disease with likely associated left hilar lymph adenopathy. Findings raises concern for underlying neoplastic process including bronchogenic carcinom a particularly adenocarcinoma or squamous cell carcinoma. Differential diagnosis includes chronic gra nulomatous infection (e.g. tuberculosis, fungal infection) or less likely organizing pneumonia. Diffe rential diagnosis includes lymphoma, post obstructive pneumonitis and chronic ileus and a filling pne umonia. Consider tissue diagnosis with bronchoscopy. PET/CT for metabolic activity and staging if mal ignancy is a concern. Reviewed, dictated and finalized at location A. Impression: 1: Chronic progressive unilateral left-sided airspace disease with likely assoc iated left hilar lymphadenopathy. Findings raises concern for underlying neopla stic process including bronchogenic carcinoma particularly adenocarcinoma or sq uamous cell carcinoma. Differential diagnosis includes chronic granulomatous in fection (e.g. tuberculosis, fungal infection) or less likely organizing pneumon ia. Differential diagnosis includes lymphoma, post obstructive pneumonitis and chronic ileus and a filling pneumonia. Consider tissue diagnosis with bronchosc opy. PET/CT for metabolic activity and staging if malignancy is a concern.
--- NOTE | ~2025-01-19 | CT_ITS ---
EXAMINATION: CT diagnostic chest wo con DATE: 01/20/2025 10:27 INDICATION: Left pneumonia. TECHNIQUE: Computed tomography (CT) of the chest was performed without intravenous contrast. The dose -length product was 138.60 mGy-cm. Automated exposure control and iterative reconstruction technique were employed. COMPARISON: CT dated 10/06/2014 FINDINGS: There is extensive consolidation of the left upper and lower lobe which has progressed sinc e prior examination. There are developing groundglass opacities in the right upper, middle and lower lobe as well, consistent with multifocal pneumonia. No endobronchial lesions. No significant pleural or pericardial effusion. Multiple healed right rib fractures. No focal lytic or blastic lesions. No t horacic lymphadenopathy. IMPRESSION: 1. Significant progression of multifocal pneumonia bilaterally most confluent in the left upper and l ower lobe. Reviewed, dictated and finalized at location A. IMPRESSION: 1. Significant progression of multifocal pneumonia bilaterally most confluent i n the left upper and lower lobe.
--- NOTE | ~2025-01-19 | XR_ITS ---
CHEST RADIOGRAPH CLINICAL HISTORY: POST INSERTION PORT CATH . COMPARISON: 01/22/2025 TECHNIQUE: Single portable view of the chest. FINDINGS Interval placement of a right internal jugular central venous power port catheter, in good position w ith its tip projecting over the cavoatrial junction and the catheter demonstrating a smooth curve cou rsing towards the reservoir. The remainder of the cardiomediastinal silhouette is otherwise unremarkable. Redemonstration of hazy opacification of the left hemithorax with dense opacification of the paraspin ous soft tissues, to the left of midline, unchanged from prior imaging. The right hemithorax is clear. Redemonstration of multiple prior right-sided lateral rib fractures with expansile callus formation. IMPRESSION: Power port catheter in good position and ready for immediate use. Redemonstration of medial left-sided consolidation with hazy opacification of the remainder of the le ft hemithorax. The right hemithorax is clear. Reviewed, dictated and finalized at location A. IMPRESSION: Power port catheter in good position and ready for immediate use. Redemonstration of medial left-sided consolidation with hazy opacification of t he remainder of the left hemithorax. The right hemithorax is clear.
--- NOTE | ~2025-01-19 | XR_ITS ---
INTRAOPERATIVE FLUOROSCOPY: CLINICAL HISTORY: 59 years old Male; INSERTION MERARY CATH PROCEDURE COMMENTS: Limited intraoperative fluoroscopy of the chest was performed. CUMULATIVE DOSE: 2.15 mGy FLUOROSCOPY TIME: 22 seconds FINDINGS/IMPRESSION: Please refer to operative note for further details. Reviewed, dictated and finalized at location A.
--- OUTSIDE RECORDS SUMMARY | 2025-01-19 21:18 | XMS_ITS | Clinical Summary ---
Author Organization [facility] Tejal Amaya Address [address] [place] [address] Care Team Providers Care Hired Hand Name Role Phone Unavailable Primary Care Provider [...] - 01/16/2025 6:00 PM CDT Hospital Encounter [facility] Interventional Care [facility] [place] [address] Dewayne West MD Multilobar lung infiltrate Discharge Disposition: Home or Self Care 01/14/2025 Telephone [facility] Pulmonology [address] [facility] [place] [address] Dewayne West MD Procedure 01/13/2025 Telephone [facility] Cardiovas and Thor Surg at [address] [address] Jc Duran MD Question 01/09/2025 9:30 AM CDT Office Visit [facility] Pulmonology [address] [place] [phone] Dewayne West MD Adenocarcinoma, lung, left (CMS/HCC) (Primary Dx); Recurrent pneumonia; PAF (paroxysmal atrial fibrillation) (CMS/HCC); Tobacco abuse disorder 01/05/2025 Telephone [facility] Cardiovas and Thor Surg at [address] [address] Jc Duran MD Question 12/31/2024 12:45 PM CDT Office Visit [facility] Cardiovas and Thor Surg at [address] [address] Jc Duran MD Chronic pneumonia (Primary Dx) 12/31/2024 External Device Data STL ABSTRACTION Provider, Abstract 12/03/2024 4:30 PM CDT Telephone Check Up [facility] Oncology and Hematology - [address] [place] [address] Thomas Matamoros MD Malignant neoplasm of lower lobe of left lung (CMS/HCC) (Primary Dx) 12/01/2024 Orders Only [facility] Oncology and Hematology - [address] [place] [address] Thomas Matamoros MD 11/25/2024 External Device Data STL ABSTRACTION Provider, Abstract 11/25/2024 External Device Data STL ABSTRACTION Provider, Abstract 11/25/2024 External Device Data STL ABSTRACTION Provider, Abstract 11/19/2024 3:00 PM CDT Office Visit [facility] Oncology and Hematology [facility] [address] [place] [address] Thomas Matamoros MD Malignant neoplasm [...] [facility] [address] [place] [address] [id number] Thomas Matamoros MD [address] [facility] [address] [place] [address] Health Maintenance Due Date Last Done [...] CULTURE, OTHER Routine 01/16/2025 3:31 PM CDT AFB CULTURE WITH STAIN Routine 01/16/2025 3:31 PM CDT RESPIRATORY CULTURE WITH GRAM STAIN Routine 01/16/2025 3:31 PM CDT FUNGUS STAIN Routine 01/16/2025 3:31 PM CDT PNEUMONIA PATHOGEN PCR PANEL Routine 01/16/2025 3:31 PM CDT FUNGUS CULTURE, OTHER Routine 01/16/2025 3:31 PM CDT FUNGUS CULTURE, OTHER Routine 01/16/2025 3:31 PM CDT AFB CULTURE WITH STAIN Routine 01/16/2025 3:31 PM CDT AFB CULTURE WITH STAIN Routine 01/16/2025 3:31 PM CDT RESPIRATORY [...] West MD - 01/16/2025 4:47 PM CDT [facility] Pulmonology Patient Name: Alen Spain Procedure Date: [...] Note Initiated On: 01/16/2025 11:[address]; [place] [address] Dewayne West MD PROCEDURE/MINOR SURGICAL ORDE RABLES Final Result * XR CHEST PA OR [...] PATHOGEN PCR PANEL (01/16/2025 3:31 PM CDT) Pneumonia Pathogen PCR Panel NOT DETECTED No nucleic acids detected. 01/16/2025 7:05 PM CDT [facility] Washings (Lung, bilateral) Collection / Unknown 01/16/2025 3:31 PM CDT 01/16/2025 3:49 PM CDT Narrative [facility] - 01/16/2025 7:05 PM CDT A [...] ORDERA BLES Final Result Performing Organization Address City/[facility]/ZIP Co de Phone Number [facility]# [id number] [address] [place] [address] * RESPIRATORY CULTURE WITH GRAM STAIN (01/16/2025 3:31 PM CDT) Only the most recent of3 resultswithin the time period is included. CULTURE <10,000 cfu/mL Normal upper respiratory kamryn 01/18/2025 7:35 AM CDT [facility] GRAM STAIN Non diagnostic pattern 01/18/2025 7:35 AM CDT [facility] GRAM STAIN 2+ (Few) Polymorphonuclear WBC 01/18/2025 7:35 AM CDT [facility] GRAM STAIN Intracellular organisms absent 01/18/2025 7:35 AM CDT [facility] BAL (Lung, RLL) Collection / Unknown 01/16/2025 3:31 PM CDT 01/16/2025 3:48 PM CDT Dewayne West MD MICROBIOLOGY - GENERAL ORDERA BLES Final Result Performing Organization Address [facility]/ZIP Co de Phone Number [facility]# [id number] [address] [place] [address] * FUNGUS STAIN (01/16/2025 3:31 PM CDT) Only the most recent of2 resultswithin the time period is included. FUNGUS STAIN No fungal elements observed No yeast or fungal elements observed 01/16/2025 5:19 PM CDT [facility] BAL (Lung, RLL) Collection / Unknown 01/16/2025 3:31 PM CDT 01/16/2025 3:48 PM CDT Dewayne West MD MICROBIOLOGY - GENERAL ORDERA BLES Final Result [facility] CLIA# [id number] [address] [place] [address] * XR FLUORO LESS THAN 1 HOUR (01/16/2025 3:14 PM CDT) Narrative 01/16/2025 3:14 PM CDT Order information only. Exam was auto-finalized. Dewayne West MD DIAGNOSTIC IMAGING ORDERABLES Final Result * PET BONE IMG W CT SKB MD (11/28/2024 10:47 AM CDT) Anatomical Region Laterality Modality Positron Emissio n Tomography (PET) Thomas Matamoros MD PE ORDERABLES Final Result from Last 3 Months Insurance BCBS BLUE ACCESS/TRUE BLUE PPO BCBS OUT OF STATE
--- OUTSIDE RECORDS SUMMARY | 2025-01-19 21:18 | XMS_ITS | Encounter Summary ---
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
--- OUTSIDE RECORDS SUMMARY | 2025-01-19 21:18 | XMS_ITS | Encounter Summary ---
Author Organization [facility] Address [address] [place] [address] Care Team Providers Care Backend Tester Name Role Phone Unavailable Primary Care Provider Unavailabl e Reason for Visit * Reason Onset Date Comments Procedure 01/14/2025 Encounter Details Date Type Department Care Team (Late st Contact Info) Description 01/14/2025 Telephone [facility] Pulmonology [facility] [address] [facility] [address] [facility] [address] [place] [address] Dewayne West MD [address] [address] [place] [address] Procedure Social History Tobacco Use [...] [facility] [address] [place] [address] [id number] Thomas Matamoros MD [address] [place] [phone] documented as of this encounter Visit Diagnoses Not on filedocumented in this encounter
--- OUTSIDE RECORDS SUMMARY | 2025-01-19 21:18 | XMS_ITS | Clinical Summary ---
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
--- NOTE | 2025-01-19 21:19 | ADMGEN ---
This patient, Alen Spain, was admitted to Medical Room 347-. Patient/family oriented to hospital policies and general routines including ID bracelet, bed and alarms, visiting hours, pain management, procedures, bathroom and other care routines, personal items, smoking policy, room service/diet, and visiting hours. Information on how to activate the Rapid Response Team has been discussed. Patient/Family are encouraged to report perceived risks to care and to ask questions if they do not understand what they are told or what they should do.
[2025-01-19 21:32] VITALS: BMI 19.4
[2025-01-19 21:35] VITALS: O2SAT 92
[2025-01-19 21:47] VITALS: PULSE 83
--- OUTSIDE RECORDS SUMMARY | 2025-01-19 21:54 | XMS_ITS | Clinical Summary ---
Author Organization [facility] Tejal Amaya Address [address] [place] [address] Care Team Providers Care Market Survey Representative Name Role Phone Unavailable Primary Care Provider [...] - 01/16/2025 6:00 PM CDT Hospital Encounter [facility] Interventional Care [facility] [place] [address] Dewayne West MD Multilobar lung infiltrate Discharge Disposition: Home or Self Care 01/14/2025 Telephone [facility] Pulmonology [address] [facility] [facility] [place] [address] Dewayne West MD Procedure 01/13/2025 Telephone [facility] Cardiovas and Thor Surg at [address] [address] Jc Duran MD Question 01/09/2025 9:30 AM CDT Office Visit [facility] Pulmonology [address] [place] [address] Dewayne West MD Adenocarcinoma, lung, left (CMS/HCC) (Primary Dx); Recurrent pneumonia; PAF (paroxysmal atrial fibrillation) (CMS/HCC); Tobacco abuse disorder 01/05/2025 Telephone [facility] Cardiovas and Thor Surg at [address] [address] Jc Duran MD Question 12/31/2024 12:45 PM CDT Office Visit [facility] Cardiovas and Thor Surg at [address] [address] Jc Duran MD Chronic pneumonia (Primary Dx) 12/31/2024 External Device Data STL ABSTRACTION Provider, Abstract 12/03/2024 4:30 PM CDT Telephone Check Up [facility] Oncology and Hematology - [address] [place] [address] Thomas Matamoros MD Malignant neoplasm of lower lobe of left lung (CMS/HCC) (Primary Dx) 12/01/2024 Orders Only [facility] Oncology and Hematology - [address] [place] [address] Thomas Matamoros MD 11/25/2024 External Device Data STL ABSTRACTION Provider, Abstract 11/25/2024 External Device Data STL ABSTRACTION Provider, Abstract 11/25/2024 External Device Data STL ABSTRACTION Provider, Abstract 11/19/2024 3:00 PM CDT Office Visit [facility] Oncology and Hematology [facility] [address] [place] [address] Thomas Matamoros MD Malignant neoplasm [...] [facility] [address] [place] [address] [id number] Thomas Matamoros MD [address] [facility] [address] [place] [phone] Health Maintenance Due Date Last Done [...] West MD - 01/16/2025 4:47 PM CDT [facility] Pulmonology Patient Name: Alen Spain Procedure Date: 01/16/2025 Date of : 1965 Admit Type: Outpatient Attending MD: Dewayne West MD, Procedure: Bronchoscopy Indications: Bilateral infiltrates, Known lung cancer of the left lower lobe Providers: eDwayne West MD (Doctor) Referring MD: Jc Duran [...] 01/16/2025 11:[address]; [place] [address] Dewayne Wset MD PROCEDURE/MINOR SURGICAL ORDE RABLES Final Result [...] nucleic acids detected. 01/16/2025 7:05 PM CDT [facility] Washings (Lung, bilateral) Collection / Unknown 01/16/2025 3:31 PM CDT 01/16/2025 3:[address] [facility] - 01/16/2025 7:05 PM CDT A negative [...] ORDERA BLES Final Result Performing Organization Address City/[facility]/ZIP Co de Phone Number [facility]# [id number] [address] [place] [address] * RESPIRATORY CULTURE WITH GRAM STAIN (01/16/2025 3:31 PM CDT) Only the most recent of3 resultswithin the time period is included. CULTURE <10,000 cfu/mL Normal upper respiratory kamryn 01/18/2025 7:[address] [facility] GRAM STAIN Non diagnostic pattern 01/18/2025 7:[address] [facility] GRAM STAIN 2+ (Few) Polymorphonuclear WBC 01/18/2025 7:[address] [facility] GRAM STAIN Intracellular organisms absent 01/18/2025 7:[address] [facility] BAL (Lung, RLL) Collection / Unknown 01/16/2025 3:31 PM CDT 01/16/2025 3:48 PM CDT Dewayne West MD MICROBIOLOGY - GENERAL ORDERA BLES Final Result Performing Organization Address [facility]/ZIP Co de Phone Number [facility]# [id number] [address] [place] [address] * FUNGUS STAIN (01/16/2025 3:31 PM CDT) Only the most recent of2 resultswithin the time period is included. FUNGUS STAIN No fungal elements observed No yeast or fungal elements observed 01/16/2025 5:[address] [facility] BAL (Lung, RLL) Collection / Unknown 01/16/2025 3:31 PM CDT 01/16/2025 3:48 PM CDT Dewayne West MD MICROBIOLOGY - GENERAL ORDERA BLES Final Result [facility] CLIA# [id number] [address] [place] [address] * XR FLUORO LESS THAN 1 HOUR [...]
--- OUTSIDE RECORDS SUMMARY | 2025-01-19 21:54 | XMS_ITS | Clinical Summary ---
Author Organization [facility] Address [address] [place] [address] Care Team Providers Care Logistics Manager Name Role Phone Lucas Renteria MD Primary Care Provider Eduardo Love MD Unavailable [phone] Allergies No known active allergies Medications * [...] monitoring flecainide therapy 08/16 Paroxysmal atrial fibrillation (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
--- OUTSIDE RECORDS SUMMARY | 2025-01-19 21:54 | XMS_ITS | Encounter Summary ---
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
--- OUTSIDE RECORDS SUMMARY | 2025-01-19 21:54 | XMS_ITS | Encounter Summary ---
Author Organization [facility] Address [address] [place] [address] Care Team Providers Care Sand Molder Name Role Phone Unavailable Primary Care Provider Unavailabl e Reason for Visit * Reason Onset Date Comments Procedure 01/14/2025 Encounter Details Date Type Department Care Team (Late st Contact Info) Description 01/14/2025 Telephone [facility] Pulmonology [facility] [address] [place] [address] Dewayne West MD [address] [place] [address] Procedure Social History Tobacco Use [...] over Bronch Instructions * Telephone Encounter - Cehn Martinez - 01/15/2025 7:35 AM CDT Bronch [...] [facility] [address] [place] [address] [id number] Thomas Matamoros MD [address] [place] [phone] documented as of this encounter Visit Diagnoses Not on filedocumented in this encounter
[2025-01-19 22:42] VITALS: BP 122/87; PULSE 76; RESP 22; TEMP 36.4; O2SAT 95
[2025-01-20] VITALS (17 sets, daily range): BP systolic 103–128; BP diastolic 55–91; PULSE 61–97; RESP 18–24; TEMP 36.4–36.8; O2SAT 90–95; BMI 19.4
--- NOTE | 2025-01-20 | ECHO_ITS ---
Patient Info Name: Alen Spain Age: 59 years : 1965 Gender: Male Ht: 69 in Wt: 131 lbs BSA: 1.69 m2 HR: 66 bpm BP: 122 / 87 mmHg Heart Rhythm: Sinus Rhythm Technical Quality: Fair Exam Date: 01/20/2025 8:29 AM Patient Status: I Admit Date: 01/19/2025 Exam Type: CA echo doppler color flow Complete two-dimensional, color flow and Doppler transthoracic echocardiogram is performed. Staff Referring Physician: Jose Manuel Mccain Chronometer Repairer: Kallie Jane Attending Provider: Lucía Hanna Summary 1. Complete two-dimensional, color flow and Doppler transthoracic echocardiogram is performed. 2. Left ventricular chamber dimension is normal. 3. Left ventricular systolic function is normal, estimated at 60-65. 4. The left ventricular diastolic function is grade I diastolic dysfunction. 5. E/e' 12 is mildly elevated. 6. There is mild aortic valve sclerosis. 7. No pulmonary hypertension, estimated pulmonary arterial systolic pressure is 17 mmHg. Left Ventricle E/e' 12 is mildly elevated. Left ventricular chamber dimension is normal. Left ventricular systolic function is normal, estimated at 60-65. The left ventricular diastolic function is grade I diastolic dysfunction. Right Ventricle Right ventricular chamber dimension is not well visualized. Left Atria Left atrial chamber dimension is normal. Right Atria Right atrial chamber dimension is normal. Aortic Valve The aortic valve is probable trileaflet. There is mild aortic valve sclerosis. There is no aortic valve stenosis. There is no aortic valve regurgitation. Pulmonic Valve There is no pulmonic regurgitation. Mitral Valve There is no mitral valve stenosis. There is no mitral valve regurgitation. Tricuspid Valve There is no tricuspid valve regurgitation. No pulmonary hypertension, estimated pulmonary arterial systolic pressure is 17 mmHg. Pericardium/Pleural There is no pericardial effusion. Inferior Vena Cava Normal inferior vena cava with >50% collapse upon inspiration consistent with normal right atrial pressure, 5 mmHg. Aorta The aortic root size at the sinus of Valsalva is normal. Left Ventricular Outflow Tract Name Value Normal LVOT 2D LVOT Diameter 2.0 cm LVOT Doppler LVOT Peak Velocity 102 cm/s LVOT Peak Gradient 4 mmHg LVOT Mean Gradient 2 mmHg LVOT VTI 15 cm LVOT VTI/AV VTI Ratio 0.9 LVOT Stroke Volume 48 ml LVOT CO 3.9 l/min LVOT CI 2.3 l/min/m2 Pulmonic Valve Name Value Normal RVOT Doppler RVOT Peak Velocity 63 cm/s RVOT Peak Gradient 2 mmHg PV Doppler PV Peak Velocity 93 cm/s PV Peak Gradient 3 mmHg Mitral Valve Name Value Normal MV Diastolic Function MV E Peak Velocity 61 cm/s MV A Peak Velocity 69 cm/s MV E/A 0.9 MV Decel Time (PW) 153 ms MV Annular TDI MV E/e' (Septal) 11.5 MV E/e' (Lateral) 13.6 MV E/e' (Average) 12.6 Tricuspid Valve Name Value Normal TV Regurgitation Doppler TR Peak Velocity 171 cm/s TR Peak Gradient 12 mmHg Estimated PAP/RSVP RA Pressure 5 mmHg <=5 PA Systolic Pressure 17 mmHg <36 RV Systolic Pressure 17 mmHg <36 TV Annular TDI TV Lateral Rachele s' Velocity 4.1 cm/s >=9.5 Aortic Valve Name Value Normal AV Doppler AV Peak Velocity 132 cm/s AV Peak Gradient 7 mmHg AV Mean Gradient 3 mmHg AV VTI 17 cm AV Area (Cont Eq VTI) 2.9 cm2 >=3.0 AV Area (Cont Eq Jase) 2.5 cm2 AV DI (Jase) 0.78 AV Regurgitation 2D LVOT Area 3.2 cm2 Ventricles Name Value Normal LV Dimensions 2D/MM IVS Diastolic Thickness (2D) 0.8 cm 0.6-1.0 LVID Diastole (2D) 4.2 cm 4.2-5.8 LVIW Diastolic Thickness (2D) 0.7 cm 0.6-1.0 LVID Systole (2D) 2.6 cm 2.5-4.0 LVOT Diameter 2.0 cm LV Mass (2D Cubed) 86.59 g 88.00-224.00 LV Mass Index (2D Cubed) 51 g/m2 49-115 Relative Wall Thickness (2D) 0.32 <=0.42 LV Fractional Shortening/Ejection Fraction 2D/MM LV Fractional Shortening (2D) 38 % 25-43 LV EF (2D Teichholz) 68 % LV Diastolic Volume (4C MOD) 73 ml LV EF (4C MOD) 69 % LV Diastolic Volume (2C MOD) 71 ml LV EF (2C MOD) 65 % LV Diastolic Volume (BP MOD) 72 ml 62-150 LV Diastolic Volume Index (BP MOD) 43 ml/m2 34-74 LV Systolic Volume (BP MOD) 26 ml 21-61 LV Systolic Volume Index (BP MOD) 15 ml/m2 11-31 LV EF (BP MOD) 65 % 52-72 LV Diastolic Length (4C) 7.3 cm LV Systolic Length (4C) 5.4 cm LV Stroke Volume (4C MOD) 50 ml Atria Name Value Normal LA Dimensions LA Volume (4C A-L) 15 ml Report Signatures
[2025-01-20] MEDS: IPRATROPIUM 0.5 MG/ALBUTEROL SULFATE 2.5 MG AMPUL.NEB 3 ML INHALATION ×4 (02:36→20:08)
--- NOTE | 2025-01-20 02:37 | PCRTNOTE ---
Pt refused breathing treatment. States they don't do anything for him.
[2025-01-20] MEDS: HYDROcodone/acetaminophen (*CRX) 5-325 MG TABLET 2 TAB PO ×2 (05:14→22:04)
[2025-01-20 05:52] LABS: Hematocrit 44.6 % (42.0-52.0); Hemoglobin 15.3 g/dL (14.0-18.0); Immature Granulocyte Percent A 0.5 % (0-0.5); Lymphocytes Absolute Auto 2.81 K/mm3 (0.9-3.2); Mean Corpuscular HGB Conc 34.3 g/dl (32-36); Mean Corpuscular Hemoglobin 32.1 pg (26-34); Mean Corpuscular Volume 93.5 fl (80-100); Nucleated Red Blood Cells Absolute Auto 0.000 K/mm3 (0.0-0.012); Nucleated Red Blood Cells Perc 0.0 % (0.0-0.2); Platelet Count Result 391 k/mm3 (150-375); Red Blood Count 4.77 M/mm3 (4.6-6.20); White Blood Count 13.2 K/mm3 (4.5-10.0)
[2025-01-20 06:12] LABS: Anion Gap 7 mmol/L (4-12); Blood Urea Nitrogen 16 mg/dL (9-20); Calcium 9.6 mg/dL (8.4-10.2); Carbon Dioxide 22 mmol/L (22-30); Chloride 110 mmol/L (98-107); Estimated CRCL calculation 65 ml/min; Estimated Glomerular Filt Rate > 60; Glucose 98 mg/dL (65-110); Potassium 4.0 mmol/L (3.4-5.0); Sodium 139 mmol/L (137-145)
[2025-01-20 06:17] LABS: CRP < 0.5 mg/dL (<1.0)
--- OUTSIDE RECORDS SUMMARY | 2025-01-20 07:24 | XMS_ITS | Patient Health Record ---
Author Organization [facility] Address [address] [address] Support Name Relationship Address Phone PONCHO SALDANA Guarantor Unknown [phone] Reason For Referral No Information Plan Of Treatment No Information
--- OUTSIDE RECORDS SUMMARY | 2025-01-20 07:24 | XMS_ITS | Encounter Summary ---
Author Organization [facility] Address [address] [place] [address] Care Team Providers Care Java Spring Developer Name Role Phone Lucas Renteria MD Primary Care Provider [phone] Eduardo Love MD Unavailable [phone] Encounter Details Date Type Department Care Team (Late Contact Info) Description 02/25/2015 Abstract [facility] [address] [place] [address] Eduardo Love MD [address] [facility] [address] [place] [address] Social History Tobacco Use Types [...] 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
--- OUTSIDE RECORDS SUMMARY | 2025-01-20 07:24 | XMS_ITS | Encounter Summary ---
Author Organization [facility] Address [address] [place] [address] Care Team Providers Care Digital Marketing Associate Name Role Phone Unavailable Primary Care Provider Unavailabl e Reason for Visit * Reason Onset Date Comments Procedure 01/14/2025 Encounter Details Date Type Department Care Team (Late st Contact Info) Description 01/14/2025 Telephone [facility] Pulmonology [facility] [address] [place] [address] Dewayne West MD [address] [place] [address] Procedure Social History Tobacco Use [...] [facility] [address] [place] [address] [id number] Thomas Matamoros MD [address] [place] [phone] documented as of this encounter Visit Diagnoses Not on filedocumented in this encounter
--- OUTSIDE RECORDS SUMMARY | 2025-01-20 07:25 | XMS_ITS | Clinical Summary ---
Author Organization [facility] Tejal Amaya Address [address] [place] [address] Care Team Providers Care Sanding Machine Operator Name Role Phone Unavailable Primary Care [...] (BREZTRI AEROSPHERE INHALATION) Take by inhalation. 01/01/20 Discontinu ed(Alterna te therapy prescribed ) Active [...] - 01/16/2025 6:00 PM CDT Hospital Encounter [facility] Interventional Care [facility] [place] [address] Dewayne West MD Multilobar lung infiltrate Discharge Disposition: Home or Self Care 01/14/2025 Telephone [facility] Pulmonology [address] [facility] [place] [address] Dewayne West MD Procedure 01/13/2025 Telephone [facility] Cardiovas and Thor Surg at [address] [address] Jc Duran MD Question 01/09/2025 9:30 AM CDT Office Visit [facility] Pulmonology [address] [place] [phone] Dewayne West MD Adenocarcinoma, lung, left (CMS/HCC) (Primary Dx); Recurrent pneumonia; PAF (paroxysmal atrial fibrillation) (CMS/HCC); Tobacco abuse disorder 01/05/2025 Telephone [facility] Cardiovas and Thor Surg at [address] [address] Jc Duran MD Question 12/31/2024 12:45 PM CDT Office Visit [facility] Cardiovas and Thor Surg at [address] [address] Jc Duran MD Chronic pneumonia (Primary Dx) 12/31/2024 External Device Data STL ABSTRACTION Provider, Abstract 12/03/2024 4:30 PM CDT Telephone Check Up [facility] Oncology and Hematology - [address] [place] [address] Thomas Matamoros MD Malignant neoplasm of lower lobe of left lung (CMS/HCC) (Primary Dx) 12/01/2024 Orders Only [facility] Oncology and Hematology - [address] [place] [address] Thomas Matamoros MD 11/25/2024 External Device Data STL ABSTRACTION Provider, Abstract 11/25/2024 External Device Data STL ABSTRACTION Provider, Abstract 11/25/2024 External Device Data STL ABSTRACTION Provider, Abstract 11/19/2024 3:00 PM CDT Office Visit [facility] Oncology and Hematology [facility] [address] [place] [address] Thomas Matamoros MD Malignant neoplasm [...] [facility] [address] [place] [address] [id number] Thomas Matamoros MD [address] [facility] [address] [place] [phone] Health Maintenance Due Date Last Done [...] West MD - 01/16/2025 4:47 PM CDT [facility] Pulmonology Patient Name: Alen Spain [...] 01/16/2025 11:[address]; [place] [address] Dewayne West MD PROCEDURE/MINOR SURGICAL ORDE RABLES [...] nucleic acids detected. 01/16/2025 7:05 PM CDT [facility] Washings (Lung, bilateral) Collection / Unknown 01/16/2025 3:31 PM CDT 01/16/2025 3:49 PM CDT Narrative [facility] - 01/16/2025 7:05 PM CDT A [...] ORDERA BLES Final Result Performing Organization Address City/[facility]/ZIP Co de Phone Number [facility]# [id number] [address] [place] [address] * RESPIRATORY CULTURE WITH GRAM STAIN (01/16/2025 3:31 PM CDT) Only the most recent of3 resultswithin the time period is included. CULTURE <10,000 cfu/mL Normal upper respiratory kamryn 01/18/2025 7:35 AM CDT [facility] SERVICES [facility] GRAM STAIN Non diagnostic pattern 01/18/2025 7:35 AM CDT [facility] GRAM STAIN 2+ (Few) Polymorphonuclear WBC 01/18/2025 7:35 AM CDT [facility] GRAM STAIN Intracellular organisms absent 01/18/2025 7:35 AM CDT [facility] BAL (Lung, RLL) Collection / Unknown 01/16/2025 3:31 PM CDT 01/16/2025 3:48 PM CDT Dewayne West MD MICROBIOLOGY - GENERAL ORDERA BLES Final Result Performing Organization Address [facility]/ZIP Co de Phone Number [facility]# [id number] [address] [place] [address] * FUNGUS STAIN (01/16/2025 3:31 PM CDT) Only the most recent of2 resultswithin the time period is included. FUNGUS STAIN No fungal elements observed No yeast or fungal elements observed 01/16/2025 5:19 PM CDT [facility] BAL (Lung, RLL) Collection / Unknown 01/16/2025 3:31 PM CDT 01/16/2025 3:48 PM CDT Dewayne West MD MICROBIOLOGY - GENERAL ORDERA BLES Final Result [facility] CLIA# [id number] [address] [place] [address] * XR FLUORO LESS THAN 1 HOUR [...]
--- OUTSIDE RECORDS SUMMARY | 2025-01-20 07:25 | XMS_ITS | Clinical Summary ---
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
--- NOTE | 2025-01-20 07:38 | P.HP_ITS ---
H&P: HPI History of Present Illness Date/Time: 01/20/25 07:38 Chief Complaint: Shortness of Breath Narrative: Alen Spain is a 59-year-old male with a past medical history of adenocarcinoma of the left lung, atrial fibrillation, recurrent pneumonia, 30-year smoking history and bipolar disorder who presents to the hospital with shortness of breath. Recently diagnosed with adenocarcinoma of the left lower lung. Patient follows with the pulmonology clinic and was last seen on 11/28/2024. At that time he was switched from [facility] to [facility]. On 01/16/2025 he had a bronchoscopy with EB EUS at [facility] for staging of adenocarcinoma of the left lower lobe. On 01/18 he started feeling tired, worse than usual with worsening dyspnea on exertion and shortness of breath. On 01/19 he struck his elbow and lost his breath and has not been able to feel as though he can fully breathe since then. Endorses chills at home. For the past 2 days he has also complained of a productive white cough with white phlegm, denies any hemoptysis. Denies any chest pain, nausea/vomiting, abdominal pain, or urinary/bowel changes. He recently finished a course of prednisone and antibiotics on 01/16 for recurrent pneumonia. Denies any recent travel, known sick contacts. Patient states that he called Dr. Toro who recommended that he come in for treatment of pneumonia. Recommended starting cefepime and azithromycin for empiric treatment of recurrent pneumonia. ED workup: 97.7? F, 90 HR, 22 RR, 105/80, 89% on room air, placed on 3 L NC, increased to 93% WBC 12.0, HGB 14.4, HCT 42.3, PLT count 403, Na 138, K 4.0, carbon dioxide 22, anion gap 7, creatinine 0.91, LFTs were WNL Troponin negative, BNP WNL EKG: NSR rate of 89, LAD normal axis, no ST/T wave changes Chest XR: Asymmetric left-sided airspace disease, compatible with pneumonia which has progressed since 11/06/2024. Asymmetric edema less favored Chest CT: Significant progression of multifocal pneumonia bilaterally most confluent in the left upper and lower lobe. Review of Systems Review of Systems: All systems reviewed & are unremarkable except as noted in HPI and below PMFSH Past Medical History Medical History Multiple pulmonary nodules determined by computed tomography of lung Bipolar 1 disorder JEFFREY (generalized anxiety disorder) Atrial fibrillation Surgical History Surgical History No history of previous surgery Family History Family History Mother Hypertension Father , Age 43. 4 PPD smoker. Acute myocardial infarction Social History Social History Smoking packs per day: 1 Smoking cigarettes per day: 20.0 Years smoked: 50 Smoking pack-years: 50.00 Smoking status: Current every day smoker Tobacco type: cigarettes Second hand tobacco smoke exposure: Yes Alcohol intake: former Substance use: current Substance use type: marijuana Other substance usage details: THC Last use: 11/05/24 Do You Feel Safe in your Home?: Yes Lack of Transportation: No Lack of Food: Never True Current Housing: I Have Housing Concerned About Future Housing: No Difficulty Paying Gas/Electric Bills: No Difficulty Paying for Meds: No Currently Unemployed: No Education: High School Diploma/GED Difficulty w/ Childcare or Family Care: No Spiritual care concerns: No Meds Home Medications and Allergies Home Medications ?Medication ?Instructions ?Recorded ?Confirmed ?Type albuterol sulfate 2.5 mg/3 mL 2.5 mg (3 mL) inhalation Q4-6H PRN 08/29/24 01/19/25 Rx (0.083 %) solution for nebulization shortness of breath or wheezing #90 mL albuterol sulfate 90 mcg/actuation 1 - 2 puff inhalation Q4-6H PRN 08/29/24 01/19/25 Rx aerosol inhaler shortness of breath or wheezing #8.5 grams fluticasone fur. 100 mcg-umeclid 1 inh inhalation Q24H COPD 1 month 11/26/24 01/19/25 Rx 62.5 mcg-vilant 25 mcg #60 ea inhalat.powder (Trelegy Ellipta) hydrocodone 5 mg-acetaminophen 325 2 tablet PO Q6-8H PRN pain 01/19/25 01/19/25 History mg tablet Allergies Allergy/AdvReac Type Severity Reaction Status Date / Time No Known Allergies Allergy Unknown Verified 01/19/25 12:26 Vital Signs Vital Signs - 24 hr 01/19/25 21:35 01/19/25 21:47 01/19/25 22:42 Temperature 97.5 F L Pulse Rate 83 76 Respiratory Rate 22 H Blood Pressure 122/87 Pulse Oximetry 92 95 Oxygen Delivery Nasal Cannula Oxygen Flow Rate 3 01/20/25 00:00 01/20/25 04:00 Temperature Pulse Rate 63 66 Respiratory Rate Blood Pressure Pulse Oximetry Oxygen Delivery Oxygen Flow Rate Exam Narrative: Gen - Chronically ill appearing male in no acute respiratory distress who is nontoxic-appearing lying semi recumbent in bed HEENT - normocephalic. Atraumatic. Pupils equal round and reactive. Extraocular motions intact. Sclera clear and anicteric. Nares patent. Oropharynx was clear. Moist mucous membranes. No facial asymmetry. Neck - neck was supple. No dominant adenopathy, thyromegaly or masses. Chest - normal respiratory effort and able to speak in complete sentences crackles and diminished lung sounds throughout. CV - heart was regular rate and rhythm. S1-S2. No murmurs gallops or rubs. Abd - abdomen was soft. Nontender. Nondistended. Positive bowel sounds. No organomegaly or masses. Ext - no clubbing, cyanosis or edema. 2+ DP pulses bilaterally. Neuro - patient is alert and oriented x4. Strength is 5/5 in both upper and lower extremities. Cranial nerves 2-12 are intact. Speech is clear. Psych - normal mood and affect. Patient is pleasant and cooperative. Skin - warm and dry. No rashes noted. H&P: Results Labs Labs: Short CBC 01/20/25 Range/Units 05:34 WBC 13.2 H (4.5-10.0) K/mm3 Hgb 15.3 (14.0-18.0) g/dL Hct 44.6 (42.0-52.0) % Plt Count 391 H (150-375) k/mm3 [facility] 01/20/25 05:34 Sodium 139 Potassium 4.0 Chloride 110 H Carbon Dioxide 22 BUN 16 Creatinine 0.88 Glucose 98 Calcium 9.6 Assessment and Plan Assessment and plan (1) Acute respiratory failure with hypoxia: Code(s): J96.01 - Acute respiratory failure with hypoxia Status: Acute Assessment and Plan: * Symptoms: Tachypnea, SOB * SpO2: 95% * Oxygen supplementation: 3L NC * EKHR, sinus rhythm, possible LA enlargement * Chest XR: Asymmetric left-sided airspace disease, compatible with pneumonia which has progressed since 11/06/2024. Asymmetric edema less favored. (2) Pneumonia: Qualifiers: Laterality: left Lung location: unspecified part of lung Pneumonia type: due to unspecified organism Qualified Code(s): J18.9 - Pneumonia, unspecified organism Code(s): J18.9 - Pneumonia, unspecified organism Status: Acute Assessment and Plan: * CXR: Asymmetric left-sided airspace disease, compatible with pneumonia which has progressed since 11/06/2024. Asymmetric edema less favored. * Chest CT: Significant progression of multifocal pneumonia bilaterally most confluent in the left upper and lower lobe * Risk Factors: Hx of recurrent pneumonia * Complicating Factors: Adenocarcinoma of left lung * started on Cefepime & Azithromax * Viral PCR: negative for Flu/COVID/RSV * Ordering legionella, mycoplasma and pneumococcal * Currently on 3L NC * supportive treatment * trend labs * Monitor vital signs, I&Os, neuro status and patient is a fall risk * Follow WBC, serum electrolytes, temperature curves and cultures * Send sputum cultures * Gentle IV fluid resuscitation. * Continue IV antibiotics (3) Adenocarcinoma of left lung: Code(s): C34.92 - Malignant neoplasm of unspecified part of left bronchus or lung Status: Acute Assessment and Plan: * Had Bronchoscopy performed on 11/06/2024 which showed adenocarcinoma of the left lower lobe * Saw Dr. Matamoros on 11/19/2024 and had PET scan * Counseled on the importance of abstinence from tobacco smoking (4) PAF (paroxysmal atrial fibrillation): Code(s): I48.0 - Paroxysmal atrial fibrillation Status: Acute Assessment and Plan: * Keep serum potassium >4 and keep magnesium >2 * Not current requiring rate/rhythm control * EKG: NSR (5) Severe protein-calorie malnutrition: Code(s): E43 - Unspecified severe protein-calorie malnutrition Status: Acute Assessment and Plan: * Per Dietary: Severe Protein Calorie Malnutrition as related to inadequate protein energy intake with increased protein-energy needs in setting of chronic disease or condition as evidenced by significant weight loss of 18 ibs (12%) in 7 months; moderate subcutaneous fat loss (orbital fat pads) and moderate muscle wasting (temporalis/clavicle). Please specify severity if known: Quality VTE Prophylaxis VTE prophylaxis: mechanical ordered
[2025-01-20] MEDS: FLUTICASONE/UMECLIDIN/VILANTER 100-62.5-25 MCG ELLIPTA 1 PUFF INHALATION (09:00)
--- NOTE | 2025-01-20 09:17 | P.CONPL_ITS ---
Assessment and Plan Assessment and plan (1) Pneumonia: Qualifiers: Laterality: left Lung location: unspecified part of lung Pneumonia type: due to unspecified organism Qualified Code(s): J18.9 - Pneumonia, unspecified organism Code(s): J18.9 - Pneumonia, unspecified organism Status: Acute Assessment and Plan: 01/20/25: Patient with a history of left lung adenocarcinoma, COPD exacerbation finished prednisone, doxycycline and Augmentin on 01/16/2025. status post bronchoscopy with EBUS on 01/16/2025. on 01/18/2025 developed fatigue, shortness of breath, sweating. Presented to the emergency department on 01/20 with worsening respiratory symptoms, cough, wet cough with white phlegm, leukocytosis of 12,000, and chest x-ray with left lung infiltrate. Currently on 1 L with saturation 92%. Plan: Agree with treatment for pneumonia in patient with cancer, recent bronchoscopy and recent outpatient antibiotics with cefepime, flagyl and azithromycin. I will obtain CT scan of the chest to further assess infiltrates. I will order COVID, RSV, influenza RT PCR and extended respiratory pathogen panel. Urine for Legionella, urine for pneumococcal and serum mycoplasma IgM. Goal saturation 90-94%, wean as tolerated. Discussed with Dr. Howe, will follow with you (2) Adenocarcinoma of left lung: Code(s): C34.92 - Malignant neoplasm of unspecified part of left bronchus or lung Status: Acute Assessment and Plan: Patient with left lung adenocarcinoma status post bronchoscopy with EBUS on 01/16/2025 for further staging. Follows with Oncology, Dr. Matamoros. History of Present Illness History of Present Illness Consult date: 01/20/25 Chief complaint: Acute resp. failure Narrative: 01/20/2025: This is a new pulmonary consult for lung cancer and hypoxemia 59-year-old with a history of adenocarcinoma left lower lobe, COPD, PAF. patient is followed in the Pulmonary Clinic in last seen on 11/28/2024. at that time he was changed from breztri to trelegy, still coughing up clear sputum with a few bubbles no blood. on 01/09/2025 patient called the clinic stating he was getting sick again and was prescribed prednisone taper, doxycycline and Augmentin. On 01/16/2025 patient had bronchoscopy with EBUS at [facility] To further stage the patient. patient did well with the bronchoscopy and was discharged on that day. On 01/18/2025 patient felt exhausted, worsening dyspnea on exertion and shortness of breath and sweating episode. On 01/19/2025 the patient hit his elbow and has severe pain in this initiated shortness of breath which then got worse. He also developed worsening dyspnea on exertion from his baseline at 50 ft to 20 ft, rest shortness of breath, wet cough with white phlegm and no hemoptysis. He had finished his prednisone and antibiotics on 01/16. 01/19/2025: Patient presented to the emergency room with shortness of breath. Blood pressure 105/80, respiratory rate 22, heart rate 90, room air saturations 89%. Placed on 3 L with saturations 91%. Crackles with diminished breath sounds. White blood cell count 12.0 eosinophils 0.1% creatinine 0.91 BNP 74, procalcitonin 0.0. Chest x-ray with diffuse left infiltrate. patient started on cefepime and azithromycin and transferred to [facility]. 01/20/2025: The patient tells me that overall he feels better. His cough is better 90% back to his normal. His foot phlegm volume has decreased and he feels that his back to his normal. He still has dyspnea on exertion walking to the bathroom. When I enter the room he was on 2 L with saturations 94%. I decreased him to 1 L and his saturations were 92%. White blood cell count 13.2, creatinine 0.88, CRP less than 0.5. DATA: 11/27/24: EXAMINATION: PET skull to mid thigh INDICATION: Malignant neoplasm of the left lung TECHNIQUE: Blood glucose level was 99 mg/dL. 10.139 mCi of 18-fluorodeoxyglucose (18-FDG) was administered i.v. Low dose computed tomography (CT) images were acquired from the base of the brain to the proximal thighs for attenuation correction and anatomic localization. Positron emission tomography (PET) images were acquired in the same distribution beginning 66 minutes after injection. Images including fused PET/CT images were reconstructed in axial, coronal, and sagittal planes. Automated exposure control technique was employed. The dose- length product was 481.20mGy-cm. COMPARISON: None FINDINGS: Head/neck: There is symmetric increased activity in the oral cavity, palatine tonsils, parotid glands, submandibular glands, laryngeal muscles, scalene muscles and ocular muscles without CT correlate, likely physiologic. No pathologically enlarged cervical lymphadenopathy or suspicious foci of increased FDG uptake in the visualized head or neck. Chest: There is diffuse increased uptake with maximal SUV measuring up to 6.7 associated with a large region of consolidation at the posterior medial aspect of the left upper and lower lobes with patchy groundglass opacities and small centrilobular groundglass nodules with tree-in-bud pattern extending throughout much of the remaining left lower lobe consistent with pneumonia most consistent with pneumonia. Difficult to exclude and underlying malignancy obscured by the pneumonia. Additional patchy groundglass opacities without significant increased FDG uptake in the right upper, middle and lower lobes also consistent with pneumonia. No pleural effusion. Heart size is normal. Atherosclerotic coronary artery calcific location. No pericardial effusion. Thoracic aorta is normal in caliber. No pathologically enlarged or FDG avid thoracic lymphadenopathy. There is mild diffuse likely physiologic uptake in the bilateral upper thoracic intercostal musculature. Abdomen/pelvis/proximal thighs: Physiologic renal accumulation and excretion of FDG activity in the kidneys, bladder and along portions of ureters. There are calcifications in the enlarged prostate which measures 4.9 x 4.7 cm. Normal degree and heterogenous pattern of increased uptake throughout the liver without radiologic correlate or dominant FDG avid lesion. The gallbladder, pancreas, spleen and bilateral adrenal glands are normal. Mild uptake scattered throughout the bowels without radiologic correlate, also likely physiologic. No other abnormal foci of increased FDG uptake or pathologically enlarged lymphadenopathy in the abdomen, pelvis or proximal thighs. Musculoskeletal: There is mild increased uptake associated with healing fractures of the anterolateral right fifth-seventh ribs. And lumbar and mild thoracic spondylosis. A few sclerotic bone islands without abnormal FDG uptake in the pelvis. No other suspicious lytic, blastic or abnormally FDG avid bone lesions. IMPRESSION: 1. Diffuse mild increased FDG uptake throughout a large region of dense consolidation in the posterior medial right upper and lower lobes with extensive less dense groundglass opacities and small centrilobular groundglass nodules in both lungs consistent with multifocal pneumonia. Difficult to exclude an underlying malignancy obscured by the pneumonia. No lesions suspicious for metastatic disease. Path = (+) adenocarcinoma from bronchoscopy on 11/06/2024, left lower lobe * Additional marker from [facility] 11/25/24: Negative for EGFR mutation No rearrangement of ROS1 gene was detected. PD-L1 22C3 immunohistochemistry analysis: Not evaluable Negative for RET gene rearrangement Negative for aV600 BRAF mutation No evidence of ALK gene rearrangement detected by FISH nuc yi(ALKx2) KRAS mutation detection by PCR-snapshot analysis Interpretation: Positive- KRAS mutation was detected in Exon 2 [id number](35G>C) Comment: Results should be interpreted in conjunction with clinical and other laboratory findings for the most accurate interpretation. * 04/17/2024, LDCT @[facility]; There is consolidation involving the posterior medial left upper lobe extending to the medial aspect of the left lower lobe, with mild surrounding groundglass opacity. Findings are most compatible with pneumonia. 3 mm right middle lobe pulmonary nodule present (axial images 80). Images through the upper abdomen reveal no abnormalities.Impression: Lung RADS 2-S: Benign appearance. 12 month follow-up screening CT advised. Probable pneumonia involving the left upper and lower lobes, as detailed above. Follow-up to radiographic resolution recommended to exclude underlying mass. * 06/20/24 CTA @[facility]: IMPRESSION: 1. Consolidation in the left upper and lower lobe suggestive of pneumonia. Other differential include hemorrhage. 2. No pulmonary embolism * 10/06/24; chest CT @[facility]; Impression: Extensive left lung pneumonia involving both left upper and lower lobes, with more extensive involvement as compared to prior exam, especially the left lung base. Consider alternative etiologies other than typical bacterial pneumonia given persistence since June. Consider tissue sampling as indicated. * 11/04/2024 CXR : IMPRESSION: Worsening chronic left lung airspace disease. The differential for chronic airspace disease includes bronchoalveolar carcinoma, chronic aspiration, TB, lymphoma, and lipoid pneumonia. Postobstructive pneumonia should also be considered in the differential. * 11/05/24 white blood cell count 12.7; H and H 14.1/42.8%, platelet [id number] BUN 15, creatinine 0.82 sodium 138. Protime 10, PTT 29.3. Review of Systems 2 Constitutional: Constitutional: Reports no additional constitutional complaints Eyes: Eyes: Reports no additional eye complaints ENT: Reports system reviewed and no additional complaints, except as documented Cardiovascular: Cardiovascular: Reports no additional cardiovascular complaints Respiratory: Respiratory: Reports no additional respiratory complaints Gastrointestinal: Gastrointestinal: Reports no additional gastrointestinal complaints Musculoskeletal: Musculoskeletal: Reports no additional musculoskeletal complaints Neurologic: Reports system reviewed and no additional complaints, except as documented Psychiatric: Psychiatric: Reports no additional psychiatric complaints Endocrine: Endocrine: Reports no additional endocrine complaints Hematologic/Lymphatic: Hematologic/Lymphatic: Reports no additional hematologic/lymphatic complaints Allergic/Immunologic: Allergic/Immunologic: Reports no additional allergic/immunologic complaints [facility] Past Medical History Medical History Multiple pulmonary nodules determined by computed tomography of lung Bipolar 1 disorder JEFFREY (generalized anxiety disorder) Atrial fibrillation Surgical History Surgical History No history of previous surgery Family History Family History Mother Hypertension Father , Age 43. 4 PPD smoker. Acute myocardial infarction Social History Social History Smoking packs per day: 1 Smoking cigarettes per day: 20.0 Years smoked: 50 Smoking pack-years: 50.00 Smoking status: Current every day smoker Tobacco type: cigarettes Second hand tobacco smoke exposure: Yes Alcohol intake: former Substance use: current Substance use type: marijuana Other substance usage details: THC Last use: 11/05/24 Do You Feel Safe in your Home?: Yes Lack of Transportation: No Lack of Food: Never True Current Housing: I Have Housing Concerned About Future Housing: No Difficulty Paying Gas/Electric Bills: No Difficulty Paying for Meds: No Currently Unemployed: No Education: High School Diploma/GED Difficulty w/ Childcare or Family Care: No Spiritual care concerns: No Meds Home Medications and Allergies Home Medications ?Medication ?Instructions ?Recorded ?Confirmed ?Type albuterol sulfate 2.5 mg/3 mL 2.5 mg (3 mL) inhalation Q4-6H PRN 08/29/24 01/19/25 Rx (0.083 %) solution for nebulization shortness of breath or wheezing #90 mL albuterol sulfate 90 mcg/actuation 1 - 2 puff inhalation Q4-6H PRN 08/29/24 01/19/25 Rx aerosol inhaler shortness of breath or wheezing #8.5 grams fluticasone fur. 100 mcg-umeclid 1 inh inhalation Q24H COPD 1 month 11/26/24 01/19/25 Rx 62.5 mcg-vilant 25 mcg #60 ea inhalat.powder (Trelegy Ellipta) hydrocodone 5 mg-acetaminophen 325 2 tablet PO Q6-8H PRN pain 01/19/25 01/19/25 History mg tablet Allergies Allergy/AdvReac Type Severity Reaction Status Date / Time No Known Allergies Allergy Unknown Verified 01/19/25 12:26 Vital Signs Vital Signs - 24 hr 01/19/25 21:35 01/19/25 21:47 01/19/25 22:42 Temperature 36.4 C L Pulse Rate 83 76 Respiratory Rate 22 H Blood Pressure 122/87 Pulse Oximetry 92 95 Oxygen Delivery Nasal Cannula Oxygen Flow Rate 3 01/20/25 00:00 01/20/25 04:00 01/20/25 06:00 Temperature 36.4 C L Pulse Rate 63 66 63 Respiratory Rate 24 H Blood Pressure 128/91 H Pulse Oximetry 90 Oxygen Delivery Oxygen Flow Rate 01/20/25 09:00 Temperature Pulse Rate 66 Respiratory Rate 19 Blood Pressure Pulse Oximetry Oxygen Delivery Oxygen Flow Rate Exam 2 Const: General: cooperative, healthy appearing and comfortable O rientation/consciousness: oriented to person, oriented to place and oriented to time HENMT: Head: normal to inspection Ears: hearing grossly normal bilaterally Eyes: General: appearance normal, both eyes and all related structures Neck: Neck: normal visual inspection Chest: Chest palpation & inspection: normal inspection of the chest Resp: Effort & Inspection: normal respiratory effort and able to speak in complete sentences Auscultation: crackles, no rales, no rhonchi, no wheezes and lung sounds not diminished Other: left lung Cardio: Jugular venous distension: no JVD GI: Inspection: normal to inspection GI Palp: No abdominal tenderness Skin: General skin exam: normal color Neuro: General: oriented to person, oriented to place and oriented to time Extrem: General: normal to inspection and no edema Psych: Appearance: grossly normal Results Laboratory Findings 01/20/25 05:34 01/20/25 05:34 Abnormal lab findings: Abnormal Labs 01/20/25 05:34 WBC 13.2 H Plt Count 391 H [place] # (Auto) 1.0 H Eos # (Auto) 0.4 H Abs Immat Gran (auto) 0.06 H Absolute Neuts (auto) 8.9 H ESR 29 H Chloride 110 H Diagnostic Findings Additional studies: Impression: 1: Asymmetric left-sided airspace disease, compatible with pneumonia which has progressed since 11/06/2024. Asymmetric edema less favored.
[2025-01-20] MEDS: ENOXAPARIN 40 MG/0.4 ML SYRINGE SUB-Q (09:45)
[2025-01-20 10:56] LABS: Influenza A QL RT-PCR Negative (Negative); Influenza B QL RT-PCR Negative (Negative); RSV RNA, RT-PCR Negative (Negative); SARS-CoV-2 RNA PCR Negative (Negative)
[2025-01-20 11:33] LABS: MRSA (PCR) NOT DETECTED (NOT DETECTE)
[2025-01-20] MEDS: CEFEPIME 2 GM in SODIUM CHLORIDE 0.9% IV 50 ML 100 ML IVPB ×2 (12:06→20:23)
[2025-01-20] MEDS: AZITHROMYCIN IV 500 MG in SODIUM CHLORIDE 0.9% IV 250 ML IVPB (12:07)
--- NOTE | 2025-01-20 13:28 | P.CDI_ITS ---
CDI Query Clarification Request BMI: 19.4 Nutritional Diagnostic Statement: Please refer to the comprehensive nutrition assessment for further information. If you agree with diagnosis of Severe Protein Calorie Malnutrition as related to inadequate protein energy intake with increased protein-energy needs in setting of chronic disease or condition as evidenced by significant weight loss of 18 ibs (12%) in 7 months; moderate subcutaneous fat loss (orbital fat pads) and moderate muscle wasting (temporalis/clavicle). Please specify severity if known: * Mild * Moderate * Severe * Other/Unknown <Rosey Neville RN - Last Filed: 01/20/25 13:28> Clarified Diagnosis Clarified Diagnosis: Agree with diagnosis of Severe Protein Calorie Malnutrition - follow dietary recommendations <Abdulaziz Howe PA-C - Last Filed: 01/20/25 14:34>
[2025-01-20] MEDS: metroNIDAZOLE 500 MG/ISO 100ML 500 MG/100 ML BAG 100 MG IVPB ×2 (14:14→21:00)
[2025-01-21] VITALS (21 sets, daily range): BP systolic 113–138; BP diastolic 60–91; PULSE 55–82; RESP 16–22; TEMP 36.1–37.2; O2SAT 92–98
[2025-01-21] MEDS: IPRATROPIUM 0.5 MG/ALBUTEROL SULFATE 2.5 MG AMPUL.NEB 3 ML INHALATION ×4 (01:36→20:19)
[2025-01-21] MEDS: metroNIDAZOLE 500 MG/ISO 100ML 500 MG/100 ML BAG 100 MG IVPB ×3 (05:26→21:36)
--- NOTE | 2025-01-21 07:48 | P.PNIM_ITS ---
Progress Note: A&P Assessment and Plan (1) Acute respiratory failure with hypoxia: Code(s): J96.01 - Acute respiratory failure with hypoxia Status: Acute Assessment and Plan: * Symptoms: Tachypnea, SOB * SpO2: 95% * Oxygen supplementation: 3L NC * EKHR, sinus rhythm, possible LA enlargement * Chest XR: Asymmetric left-sided airspace disease, compatible with pneumonia which has progressed since 11/06/2024. Asymmetric edema less favored. * Viral panel (-) * MRSA (-) * Monitor vital signs, I&Os, neuro status and patient is a fall risk * Follow WBC, serum electrolytes, temperature curves and cultures * Continue IV abx - Cefepime, flagyl, azithromycin * Weaned off O2 supplementation - % in the 90s on RA Resolved (2) Pneumonia: Qualifiers: Laterality: left Lung location: unspecified part of lung Pneumonia type: due to unspecified organism Qualified Code(s): J18.9 - Pneumonia, unspecified organism Code(s): J18.9 - Pneumonia, unspecified organism Status: Acute Assessment and Plan: * CXR: Asymmetric left-sided airspace disease, compatible with pneumonia which has progressed since 11/06/2024. Asymmetric edema less favored. * Chest CT: Significant progression of multifocal pneumonia bilaterally most confluent in the left upper and lower lobe * Risk Factors: Hx of recurrent pneumonia * Complicating Factors: Adenocarcinoma of left lung * started on Cefepime & Azithromax * Viral PCR: negative for Flu/COVID/RSV * Legionella, mycoplasma and pneumococcal - pending * supportive treatment * Monitor vital signs, I&Os, neuro status and patient is a fall risk * Follow WBC, serum electrolytes, temperature curves and cultures * Sputum/blood cultures pending * Gentle IV fluid resuscitation. * Continue IV antibiotics - will switch to Oral upon discharge (3) Adenocarcinoma of left lung: Code(s): C34.92 - Malignant neoplasm of unspecified part of left bronchus or lung Status: Acute Assessment and Plan: * Had Bronchoscopy performed on 11/06/2024 which showed adenocarcinoma of the left lower lobe * Saw Dr. Matamoros on 11/19/2024 and had PET scan * Counseled on the importance of abstinence from tobacco smoking (4) PAF (paroxysmal atrial fibrillation): Code(s): I48.0 - Paroxysmal atrial fibrillation Status: Acute Assessment and Plan: * Keep serum potassium >4 and keep magnesium >2 * Not current requiring rate/rhythm control * EKG: NSR (5) Severe protein-calorie malnutrition: Code(s): E43 - Unspecified severe protein-calorie malnutrition Status: Acute Assessment and Plan: * Per Dietary: Severe Protein Calorie Malnutrition as related to inadequate protein energy intake with increased protein-energy needs in setting of chronic disease or condition as evidenced by significant weight loss of 18 ibs (12%) in 7 months; moderate subcutaneous fat loss (orbital fat pads) and moderate muscle wasting (temporalis/clavicle). * Consult to warehouse driver - appreciate further recommendations Subjective Date/time seen: 01/21/25 07:48 Interval history: 59-year-old male with a past medical history of adenocarcinoma of the left lung, atrial fibrillation, recurrent pneumonia, 30-year smoking history and bipolar disorder who presents to the hospital with shortness of breath. Recently diagnosed with adenocarcinoma of the left lower lung. 3 01/21/2025 Patient sitting comfortably in bed at time of exam. States that he feels much better today. Still has some crackles at bases of lungs bilaterally, cough still present but less frequent. Remains afebrile but WBC still elevated @ 12.2. Sputum/blood cultures, legionella, strept ag screenings still pending. No major electrolyte abnormalities. Physical exam is reassuring but given concurrent cancer diagnosis we will look to remain cautious and continue IV antibiotics until cultures can come back. Pt in good spirits though and feels better today. Review of Systems Review of Systems: All systems reviewed & are unremarkable except as noted in HPI and below Exam Narrative: Gen - Chronically ill appearing male in no acute respiratory distress who is nontoxic-appearing lying semi recumbent in bed HEENT - normocephalic. Atraumatic. Pupils equal round and reactive. Extraocular motions intact. Sclera clear and anicteric. Nares patent. Oropharynx was clear. Moist mucous membranes. No facial asymmetry. Neck - neck was supple. No dominant adenopathy, thyromegaly or masses. Chest - normal respiratory effort and able to speak in complete sentences, crackles now only noticeable in lower lobes. cough still present CV - heart was regular rate and rhythm. S1-S2. No murmurs gallops or rubs. Abd - abdomen was soft. Nontender. Nondistended. Positive bowel sounds. No organomegaly or masses. Ext - no clubbing, cyanosis or edema. 2+ DP pulses bilaterally. Neuro - patient is alert and oriented x4. Strength is 5/5 in both upper and lower extremities. Cranial nerves 2-12 are intact. Speech is clear. Psych - normal mood and affect. Patient is pleasant and cooperative. Skin - warm and dry. No rashes noted. Objective Data Vital Signs Vital Signs: Vital Signs - 24 hr 01/20/25 09:00 01/20/25 09:15 01/20/25 09:20 Temperature Pulse Rate 66 65 65 Respiratory Rate 19 19 Blood Pressure Pulse Oximetry 94 Oxygen Delivery Nasal Cannula Oxygen Flow Rate 1 Fraction of Inspired Oxygen 24 01/20/25 09:20 01/20/25 09:27 01/20/25 09:51 Temperature 98.2 F Pulse Rate 82 Respiratory Rate 18 Blood Pressure 118/63 Pulse Oximetry 93 92 93 Oxygen Delivery Room Air Room Air Oxygen Flow Rate Fraction of Inspired Oxygen 21 01/20/25 09:51 01/20/25 12:00 01/20/25 12:00 Temperature 97.9 F Pulse Rate 97 80 76 Respiratory Rate 18 Blood Pressure 104/70 Pulse Oximetry 92 Oxygen Delivery Oxygen Flow Rate Fraction of Inspired Oxygen 01/20/25 14:15 01/20/25 14:22 01/20/25 16:00 Temperature 98.2 F Pulse Rate 82 76 68 Respiratory Rate 20 20 18 Blood Pressure 104/68 Pulse Oximetry 93 Oxygen Delivery Oxygen Flow Rate Fraction of Inspired Oxygen 01/20/25 16:00 01/20/25 20:00 01/20/25 20:08 Temperature Pulse Rate 70 61 80 Respiratory Rate 20 Blood Pressure Pulse Oximetry Oxygen Delivery Oxygen Flow Rate Fraction of Inspired Oxygen 01/20/25 20:09 01/20/25 20:19 01/20/25 22:06 Temperature 97.9 F Pulse Rate 80 82 81 Respiratory Rate 20 20 18 Blood Pressure 103/55 L Pulse Oximetry 95 95 Oxygen Delivery Nasal Cannula Oxygen Flow Rate 1 Fraction of Inspired Oxygen 01/21/25 00:00 01/21/25 00:55 01/21/25 01:37 Temperature 97.0 F L Pulse Rate 69 63 80 Respiratory Rate 16 20 Blood Pressure 126/72 Pulse Oximetry 93 Oxygen Delivery Oxygen Flow Rate Fraction of Inspired Oxygen 01/21/25 04:00 01/21/25 05:55 Temperature 97.7 F Pulse Rate 61 69 Respiratory Rate 16 Blood Pressure 134/73 Pulse Oximetry 93 Oxygen Delivery Oxygen Flow Rate Fraction of Inspired Oxygen Intake/Output Intake/Output: Intake & Output 01/18/25 01/19/25 01/20/25 01/21/25 23:59 23:59 23:59 23:59 Intake Total 2190 500 Output Total 3 Balance 2190 497 Meds/Results Medications: Active Medications Generic Name Dose Route Start Last Admin Trade Name Freq PRN Reason Stop Dose Admin Acetaminophen 650 mg 01/19/25 21:42 Acetaminophen 325 Mg Tablet PO Q4H PRN Mild Pain (1-3) or Fever Hydrocodone Bitart/Acetaminophen 2 tab 01/19/25 21:50 01/20/25 22:04 Hydrocodone/Acetaminophen (*Crx) 5-325 Mg Tablet PO 2 tab Q6H PRN Administration Pain 4-10 Al Hydrox/Mg Hydrox/Simethicone 30 ml 01/19/25 21:42 Mag Hydrox/Al Hydrox/Simeth 30 Ml Udc PO QID PRN Dyspepsia Albuterol/Ipratropium 3 ml 01/20/25 02:00 01/21/25 01:36 Ipratropium 0.5 Mg/Albuterol Sulfate 2.5 Mg Ampul.Neb 3 Ml INHALATION 3 ml Q6HRT CARMEN Administration Bisacodyl 5 mg 01/19/25 21:42 Bisacodyl 5 Mg Tablet Ec PO DAILY PRN Constipation Enoxaparin Sodium 40 mg 01/20/25 09:00 01/20/25 09:45 Enoxaparin 40 Mg/0.4 Ml Syringe SUB-Q 40 mg DAILY CARMEN Administration Metronidazole 500 mg in 100 mls @ 100 mls/hr 01/20/25 12:00 01/21/25 05:26 Flagyl 500 Mg/Iso Soln 100 Ml IVPB 100 mls/hr Q8HR CARMEN Administration Azithromycin 500 mg/ Sodium 250 mls @ 250 mls/hr 01/20/25 11:00 01/20/25 13:07 Chloride IVPB Infused Q24H CARMEN Infusion Cefepime HCl 2 gm/ Sodium 50 mls @ 100 mls/hr 01/20/25 10:05 01/20/25 20:53 Chloride IVPB Infused Q12HR CARMEN Infusion Ondansetron HCl 4 mg 01/19/25 21:42 Ondansetron Inj 4 Mg/2 Ml Vial IV PUSH Q6H PRN Nausea And Vomiting Perflutren Lipid Microsphere 0 ml 01/19/25 21:52 Perflutren Lipid Microspheres 1.5 Ml Vial Diluted To 10 Ml Total Volume IV PUSH 01/22/25 21:52 ONCE PRN adequate visualization Protocol Radiology Results: ITS Impressions Chest CT 01/20/25 11:51 IMPRESSION: 1. Significant progression of multifocal pneumonia bilaterally most confluent in the left upper and lower lobe. Labs Labs: Laboratory Results - last 24 hr 01/20/25 01/20/25 08:57 09:48 Nasal MRSA (PCR) Not detected Influenza A (RT-PCR) Negative Influenza B (RT-PCR) Negative RSV (RT-PCR) Negative SARS-CoV-2 RNA (RT-PCR) Negative Urine Pneumococcal Ag Cancelled Quality VTE Prophylaxis VTE prophylaxis: mechanical ordered
[2025-01-21 08:06] LABS: Hematocrit 41.7 % (42.0-52.0); Hemoglobin 14.2 g/dL (14.0-18.0); Immature Granulocyte Percent A 0.4 % (0-0.5); Lymphocytes Absolute Auto 1.83 K/mm3 (0.9-3.2); Mean Corpuscular HGB Conc 34.1 g/dl (32-36); Mean Corpuscular Hemoglobin 32.3 pg (26-34); Mean Corpuscular Volume 94.8 fl (80-100); Nucleated Red Blood Cells Absolute Auto 0.000 K/mm3 (0.0-0.012); Nucleated Red Blood Cells Perc 0.0 % (0.0-0.2); Platelet Count Result 367 k/mm3 (150-375); Red Blood Count 4.40 M/mm3 (4.6-6.20); White Blood Count 12.2 K/mm3 (4.5-10.0)
[2025-01-21] MEDS: CEFEPIME 2 GM in SODIUM CHLORIDE 0.9% IV 50 ML 100 ML IVPB ×2 (08:21→20:46)
[2025-01-21] MEDS: ENOXAPARIN 40 MG/0.4 ML SYRINGE SUB-Q (08:22)
[2025-01-21 09:51] LABS: Alanine Aminotransferase 22 U/L (6-50); Albumin Level 3.3 g/dL (3.5-5.1); Alkaline Phosphatase 127 U/L (38-126); Anion Gap 9 mmol/L (4-12); Aspartate Amino Transferase 28 U/L (17-59); Bilirubin,Total 0.3 mg/dL (0.2-1.3); Blood Urea Nitrogen 14 mg/dL (9-20); Calcium 9.1 mg/dL (8.4-10.2); Carbon Dioxide 21 mmol/L (22-30); Chloride 109 mmol/L (98-107); Estimated CRCL calculation 72 ml/min; Estimated Glomerular Filt Rate > 60; Glucose 103 mg/dL (65-110); Potassium 4.0 mmol/L (3.4-5.0); Sodium 139 mmol/L (137-145); Total Protein 6.3 g/dL (6.3-8.2)
--- NOTE | 2025-01-21 10:30 | P.PNPL_ITS ---
Progress Note: A&P Assessment and Plan (1) Pneumonia: Qualifiers: Laterality: left Lung location: unspecified part of lung Pneumonia type: due to unspecified organism Qualified Code(s): J18.9 - Pneumonia, unspecified organism Code(s): J18.9 - Pneumonia, unspecified organism Status: Acute Assessment and Plan: 01/20/25: Patient with a history of left lung adenocarcinoma, COPD exacerbation finished prednisone, doxycycline and Augmentin on 01/16/2025. status post bronchoscopy with EBUS on 01/16/2025. on 01/18/2025 developed fatigue, shortness of breath, sweating. Presented to the emergency department on 01/20 with worsening respiratory symptoms, cough, wet cough with white phlegm, leukocytosis of 12,000, and chest x-ray with left lung infiltrate. Currently on 1 L with saturation 92%. Plan: Agree with treatment for pneumonia in patient with cancer, recent bronchoscopy and recent outpatient antibiotics with cefepime, flagyl and azithromycin. I will obtain CT scan of the chest to further assess infiltrates. I will order COVID, RSV, influenza RT PCR and extended respiratory pathogen panel. Urine for Legionella, urine for pneumococcal and serum mycoplasma IgM. Goal saturation 90-94%, wean as tolerated. Later in the day patient had a CT scan of the chest and compared to 10/06/2024 that demonstrated progressive consolidation left upper lobe and superior segment of the left lower lobe with progressive patchy nodular and consolidative infiltrates in the left lower lobe and ground-glass opacities in the right upper middle and lower lobe. later in the day patient had echocardiogram demonstrating LVEF 60 65%, grade 1 diastolic dysfunction, normal right atrial size, RV could not be assessed, PASP 17. 8: Patient tells me overall he is feeling better. His appetite is better. He is breathing back to a baseline of 1 month ago. He denies fever, his phlegm production is normal with no hemoptysis. He is afebrile. Room air saturation 95%. White blood cell count 12.2, creatinine 0.82. Plan: Patient has progressive consolidation at the side of his primary lung cancer with progressive nodular patchy consolidative infiltrates in the left lower lobe and now patchy ground-glass infiltrates peripherally in airway centered location on the right lung. Most likely consistent with a pneumonia. He has received multiple courses of antibiotics without clearance. Continue cefepime and azithromycin, both day 3 and Flagyl, day 2. Respiratory pathogen panel pending, urine for Legionella, urine for pneumococcal, mycoplasma IgM pending. Reviewed CT scans with Radiology and this does not appear to be lymphangitic spread of his cancer. 11/06/2024: BAL: AFB smear negative, culture negative at 6 weeks. 11/06/2024: BAL fungal smear negative, no fungal growth at 4 weeks. 11/06/2024: Bronchial wash AFB smear negative, culture negative at 6 weeks 11/06/2024: Second BAL specimen: no fungal elements seen, penicillium species isolated. 11/06/2024: BAL Gram stain moderate white blood cells, rare epithelial cells, no organism seen, growth of normal kamryn 11/06/2024: Sputum Gram stain white blood cells, no epithelial cells, no organisms, no growth. QuantiFERON gold is negative on 07/08/2024 and will repeat. Will induce sputum for AFB q.day x3. Will send sputum for Gram stain and culture. Will send sputum for Fungal stain and culture. Will order histo plasma galactomannan urine antigen. Discussed with Dr. Howe, will follow with you (2) Adenocarcinoma of left lung: Code(s): C34.92 - Malignant neoplasm of unspecified part of left bronchus or lung Status: Acute Assessment and Plan: Patient with left lung adenocarcinoma status post bronchoscopy with EBUS on 01/16/2025 for further staging. Follows with Oncology, Dr. Matamoros. Subjective Date/time seen: 01/21/25 10:30 Interval history: 01/20/2025: This is a new pulmonary consult for lung cancer and hypoxemia 59-year-old with a history of adenocarcinoma left lower lobe, COPD, PAF. patient is followed in the Pulmonary Clinic in last seen on 11/28/2024. at that time he was changed from breztri to trelegy, still coughing up clear sputum with a few bubbles no blood. on 01/09/2025 patient called the clinic stating he was getting sick again and was prescribed prednisone taper, doxycycline and Augmentin. On 01/16/2025 patient had bronchoscopy with EBUS at [facility] To further stage the patient. patient did well with the bronchoscopy and was discharged on that day. On 01/18/2025 patient felt exhausted, worsening dyspnea on exertion and shortness of breath and sweating episode. On 01/19/2025 the patient hit his elbow and has severe pain in this initiated shortness of breath which then got worse. He also developed worsening dyspnea on exertion from his baseline at 50 ft to 20 ft, rest shortness of breath, wet cough with white phlegm and no hemoptysis. He had finished his prednisone and antibiotics on 01/16. 01/19/2025: Patient presented to the emergency room with shortness of breath. Blood pressure 105/80, respiratory rate 22, heart rate 90, room air saturations 89%. Placed on 3 L with saturations 91%. Crackles with diminished breath sounds. White blood cell count 12.0 eosinophils 0.1% creatinine 0.91 BNP 74, procalcitonin 0.0. Chest x-ray with diffuse left infiltrate. patient started on cefepime and azithromycin and transferred to [facility]. 01/20/2025: The patient tells me that overall he feels better. His cough is better 90% back to his normal. His foot phlegm volume has decreased and he feels that his back to his normal. He still has dyspnea on exertion walking to the bathroom. When I enter the room he was on 2 L with saturations 94%. I decreased him to 1 L and his saturations were 92%. White blood cell count 13.2, creatinine 0.88, CRP less than 0.5. Later in the day patient had a CT scan of the chest and compared to 10/06/2024 that demonstrated progressive consolidation left upper lobe and superior segment of the left lower lobe with progressive patchy nodular and consolidative infiltrates in the left lower lobe and ground-glass opacities in the right upper middle and lower lobe. later in the day patient had echocardiogram demonstrating LVEF 60 65%, grade 1 diastolic dysfunction, normal right atrial size, RV could not be assessed, PASP 17. 01/21/25: Patient tells me overall he is feeling better. His appetite is better. He is breathing back to a baseline of 1 month ago. He denies fever, his phlegm production is normal with no hemoptysis. He is afebrile. Room air saturation 95%. White blood cell count 12.2, creatinine 0.82. DATA: 01/20/25: EXAMINATION: CT diagnostic chest wo con INDICATION: Left pneumonia. COMPARISON: CT dated 10/06/2014 FINDINGS: There is extensive consolidation of the left upper and lower lobe which has progressed since prior examination. There are developing groundglass opacities in the right upper, middle and lower lobe as well, consistent with multifocal pneumonia. No endobronchial lesions. No significant pleural or pericardial effusion. Multiple healed right rib fractures. No focal lytic or blastic lesions. No thoracic lymphadenopathy. IMPRESSION: 1. Significant progression of multifocal pneumonia bilaterally most confluent in the left upper and lower lobe. 01/20/25: Summary 1. Complete two-dimensional, color flow and Doppler transthoracic echocardiogram is performed. 2. Left ventricular chamber dimension is normal. 3. Left ventricular systolic function is normal, estimated at 60-65. 4. The left ventricular diastolic function is grade I diastolic dysfunction. 5. E/e' 12 is mildly elevated. 6. There is mild aortic valve sclerosis. 7. No pulmonary hypertension, estimated pulmonary arterial systolic pressure is 17 mmHg. Left Ventricle E/e' 12 is mildly elevated. Left ventricular chamber dimension is normal. Left ventricular systolic function is normal, estimated at 60-65. The left ventricular diastolic function is grade I diastolic dysfunction. Right Ventricle Right ventricular chamber dimension is not well visualized. Left Atria Left atrial chamber dimension is normal. Right Atria Right atrial chamber dimension is normal. 11/27/24: EXAMINATION: PET skull to mid thigh INDICATION: Malignant neoplasm of the left lung TECHNIQUE: Blood glucose level was 99 mg/dL. 10.139 mCi of 18-fluorodeoxyglucose (18-FDG) was administered i.v. Low dose computed tomography (CT) images were acquired from the base of the brain to the proximal thighs for attenuation correction and anatomic localization. Positron emission tomography (PET) images were acquired in the same distribution beginning 66 minutes after injection. Images including fused PET/CT images were reconstructed in axial, coronal, and sagittal planes. Automated exposure control technique was employed. The dose- length product was 481.20mGy-cm. COMPARISON: None FINDINGS: Head/neck: There is symmetric increased activity in the oral cavity, palatine tonsils, parotid glands, submandibular glands, laryngeal muscles, scalene muscles and ocular muscles without CT correlate, likely physiologic. No pathologically enlarged cervical lymphadenopathy or suspicious foci of increased FDG uptake in the visualized head or neck. Chest: There is diffuse increased uptake with maximal SUV measuring up to 6.7 associated with a large region of consolidation at the posterior medial aspect of the left upper and lower lobes with patchy groundglass opacities and small centrilobular groundglass nodules with tree-in-bud pattern extending throughout much of the remaining left lower lobe consistent with pneumonia most consistent with pneumonia. Difficult to exclude and underlying malignancy obscured by the pneumonia. Additional patchy groundglass opacities without significant increased FDG uptake in the right upper, middle and lower lobes also consistent with pneumonia. No pleural effusion. Heart size is normal. Atherosclerotic coronary artery calcific location. No pericardial effusion. Thoracic aorta is normal in caliber. No pathologically enlarged or FDG avid thoracic lymphadenopathy. There is mild diffuse likely physiologic uptake in the bilateral upper thoracic intercostal musculature. Abdomen/pelvis/proximal thighs: Physiologic renal accumulation and excretion of FDG activity in the kidneys, bladder and along portions of ureters. There are calcifications in the enlarged prostate which measures 4.9 x 4.7 cm. Normal degree and heterogenous pattern of increased uptake throughout the liver without radiologic correlate or dominant FDG avid lesion. The gallbladder, pancreas, spleen and bilateral adrenal glands are normal. Mild uptake scattered throughout the bowels without radiologic correlate, also likely physiologic. No other abnormal foci of increased FDG uptake or pathologically enlarged lymphadenopathy in the abdomen, pelvis or proximal thighs. Musculoskeletal: There is mild increased uptake associated with healing fractures of the anterolateral right fifth-seventh ribs. And lumbar and mild thoracic spondylosis. A few sclerotic bone islands without abnormal FDG uptake in the pelvis. No other suspicious lytic, blastic or abnormally FDG avid bone lesions. IMPRESSION: 1. Diffuse mild increased FDG uptake throughout a large region of dense consolidation in the posterior medial right upper and lower lobes with extensive less dense groundglass opacities and small centrilobular groundglass nodules in both lungs consistent with multifocal pneumonia. Difficult to exclude an underlying malignancy obscured by the pneumonia. No lesions suspicious for metastatic disease. Path = (+) adenocarcinoma from bronchoscopy on 11/06/2024, left lower lobe * Additional marker from [facility] 11/25/24: Negative for EGFR mutation No rearrangement of ROS1 gene was detected. PD-L1 22C3 immunohistochemistry analysis: Not evaluable Negative for RET gene rearrangement Negative for aV600 BRAF mutation No evidence of ALK gene rearrangement detected by FISH nuc yi(ALKx2) KRAS mutation detection by PCR-snapshot analysis Interpretation: Positive- KRAS mutation was detected in Exon 2 [id number](35G>C) Comment: Results should be interpreted in conjunction with clinical and other laboratory findings for the most accurate interpretation. * 04/17/2024, LDCT @[place] [facility]; There is consolidation involving the posterior medial left upper lobe extending to the medial aspect of the left lower lobe, with mild surrounding groundglass opacity. Findings are most compatible with pneumonia. 3 mm right middle lobe pulmonary nodule present (axial images 80). Images through the upper abdomen reveal no abnormalities.Impression: Lung RADS 2-S: Benign appearance. 12 month follow-up screening CT advised. Probable pneumonia involving the left upper and lower lobes, as detailed above. Follow-up to radiographic resolution recommended to exclude underlying mass. * 06/20/24 CTA @[place] [facility]: IMPRESSION: 1. Consolidation in the left upper and lower lobe suggestive of pneumonia. Other differential include hemorrhage. 2. No pulmonary embolism * 10/06/24; chest CT @[place] [facility]; Impression: Extensive left lung pneumonia involving both left upper and lower lobes, with more extensive involvement as compared to prior exam, especially the left lung base. Consider alternative etiologies other than typical bacterial pneumonia given persistence since June. Consider tissue sampling as indicated. * 11/04/2024 CXR : IMPRESSION: Worsening chronic left lung airspace disease. The differential for chronic airspace disease includes bronchoalveolar carcinoma, chronic aspiration, TB, lymphoma, and lipoid pneumonia. Postobstructive pneumonia should also be considered in the differential. * 11/05/24 white blood cell count 12.7; H and H 14.1/42.8%, platelet [id number] BUN 15, creatinine 0.82 sodium 138. Protime 10, PTT 29.3. Review of Systems Constitutional: Constitutional: Reports no additional constitutional complaints Eyes: Eyes: Reports no additional eye complaints ENT: Reports system reviewed and no additional complaints, except as documented Cardiovascular: Cardiovascular: Reports no additional cardiovascular complaints Respiratory: Respiratory: Reports no additional respiratory complaints Gastrointestinal: Gastrointestinal: Reports no additional gastrointestinal complaints Musculoskeletal: Musculoskeletal: Reports no additional musculoskeletal complaints Neurologic: Reports system reviewed and no additional complaints, except as documented Psychiatric: Psychiatric: Reports no additional psychiatric complaints Endocrine: Endocrine: Reports no additional endocrine complaints Hematologic/Lymphatic: Hematologic/Lymphatic: Reports no additional hematologic/lymphatic complaints Allergic/Immunologic: Allergic/Immunologic: Reports no additional allergic/immunologic complaints Exam Const: General: cooperative, healthy appearing and comfortable Orientation/consciousness: oriented to person, oriented to place and oriented to time HENMT: Head: normal to inspection Ears: hearing grossly normal bilaterally Eyes: General: appearance normal, both eyes and all related structures Neck: Neck: normal visual inspection Chest: Chest palpation & inspection: normal inspection of the chest Resp: Effort & Inspection: normal respiratory effort and able to speak in complete sentences Auscultation: crackles, no rales, no rhonchi, no wheezes and lung sounds not diminished Other: left lung Cardio: Jugular venous distension: no JVD GI: Inspection: normal to inspection Skin: General skin exam: normal color Neuro: General: oriented to person, oriented to place and oriented to time Extrem: General: normal to inspection and no edema Psych: Appearance: grossly normal Objective Data Vital Signs Vital Signs: Vital Signs - 24 hr 01/20/25 12:00 01/20/25 12:00 01/20/25 14:15 Temperature 36.6 C Pulse Rate 80 76 82 Respiratory Rate 18 20 Blood Pressure 104/70 Pulse Oximetry 92 Oxygen Delivery Oxygen Flow Rate Fraction of Inspired Oxygen 01/20/25 14:22 01/20/25 16:00 01/20/25 16:00 Temperature 36.8 C Pulse Rate 76 68 70 Respiratory Rate 20 18 Blood Pressure 104/68 Pulse Oximetry 93 Oxygen Delivery Oxygen Flow Rate Fraction of Inspired Oxygen 01/20/25 20:00 01/20/25 20:08 01/20/25 20:09 Temperature Pulse Rate 61 80 80 Respiratory Rate 20 20 Blood Pressure Pulse Oximetry 95 Oxygen Delivery Nasal Cannula Oxygen Flow Rate 1 Fraction of Inspired Oxygen 24 01/20/25 20:19 01/20/25 22:06 01/21/25 00:00 Temperature 36.6 C Pulse Rate 82 81 69 Respiratory Rate 20 18 Blood Pressure 103/55 L Pulse Oximetry 95 Oxygen Delivery Oxygen Flow Rate Fraction of Inspired Oxygen 01/21/25 00:55 01/21/25 01:37 01/21/25 04:00 Temperature 36.1 C L Pulse Rate 63 80 61 Respiratory Rate 16 20 Blood Pressure 126/72 Pulse Oximetry 93 Oxygen Delivery Oxygen Flow Rate Fraction of Inspired Oxygen 01/21/25 05:55 01/21/25 07:56 01/21/25 07:56 Temperature 36.5 C Pulse Rate 69 77 Respiratory Rate 16 20 Blood Pressure 134/73 Pulse Oximetry 93 95 Oxygen Delivery Room Air Oxygen Flow Rate Fraction of Inspired Oxygen 01/21/25 08:00 01/21/25 08:04 01/21/25 08:05 Temperature 37.2 C Pulse Rate 82 73 55 L Respiratory Rate 20 20 Blood Pressure 138/60 Pulse Oximetry 96 Oxygen Delivery Oxygen Flow Rate Fraction of Inspired Oxygen 01/21/25 08:20 Temperature Pulse Rate Respiratory Rate Blood Pressure Pulse Oximetry 98 Oxygen Delivery Room Air Oxygen Flow Rate Fraction of Inspired Oxygen Intake/Output Intake/Output: Intake & Output 01/18/25 01/19/25 01/20/25 01/21/25 23:59 23:59 23:59 23:59 Intake Total 2190 500 Output Total 3 Balance 2190 497 Meds/Results Medications: Active Medications Generic Name Dose Route Start Last Admin Trade Name Freq PRN Reason Stop Dose Admin Acetaminophen 650 mg 01/19/25 21:42 Acetaminophen 325 Mg Tablet PO Q4H PRN Mild Pain (1-3) or Fever Hydrocodone Bitart/Acetaminophen 2 tab 01/19/25 21:50 01/20/25 22:04 Hydrocodone/Acetaminophen (*Crx) 5-325 Mg Tablet PO 2 tab Q6H PRN Administration Pain 4-10 Al Hydrox/Mg Hydrox/Simethicone 30 ml 01/19/25 21:42 Mag Hydrox/Al Hydrox/Simeth 30 Ml Udc PO QID PRN Dyspepsia Albuterol/Ipratropium 3 ml 01/20/25 02:00 01/21/25 07:56 Ipratropium 0.5 Mg/Albuterol Sulfate 2.5 Mg Ampul.Neb 3 Ml INHALATION 3 ml Q6HRT CARMEN Administration Bisacodyl 5 mg 01/19/25 21:42 Bisacodyl 5 Mg Tablet Ec PO DAILY PRN Constipation Enoxaparin Sodium 40 mg 01/20/25 09:00 01/21/25 08:22 Enoxaparin 40 Mg/0.4 Ml Syringe SUB-Q 40 mg DAILY COUNTS INCLUDE 234 BEDS AT THE [facility] Administration Metronidazole 500 mg in 100 mls @ 100 mls/hr 01/20/25 12:00 01/21/25 05:26 Flagyl 500 Mg/Iso Soln 100 Ml IVPB 100 mls/hr Q8HR CARMEN Administration Azithromycin 500 mg/ Sodium 250 mls @ 250 mls/hr 01/20/25 11:00 01/20/25 13:07 Chloride IVPB Infused Q24H CARMEN Infusion Cefepime HCl 2 gm/ Sodium 50 mls @ 100 mls/hr 01/20/25 10:05 01/21/25 08:21 Chloride IVPB 100 mls/hr Q12HR CARMEN Administration Ondansetron HCl 4 mg 01/19/25 21:42 Ondansetron Inj 4 Mg/2 Ml Vial IV PUSH Q6H PRN Nausea And Vomiting Perflutren Lipid Microsphere 0 ml 01/19/25 21:52 Perflutren Lipid Microspheres 1.5 Ml Vial Diluted To 10 Ml Total Volume IV PUSH 01/22/25 21:52 ONCE PRN adequate visualization Protocol Sodium Chloride 6 ml 01/22/25 05:00 Sodium Chlor 3% 15 Ml Neb (Respiratory Therapy) INHALATION 01/24/25 05:01 DAILY@0500 COUNTS INCLUDE 234 BEDS AT THE [facility] Radiology Results: ITS Impressions Chest CT 01/20/25 11:51 IMPRESSION: 1. Significant progression of multifocal pneumonia bilaterally most confluent in the left upper and lower lobe. Labs Labs: Laboratory Results - last 24 hr 01/20/25 01/21/25 09:48 06:00 WBC 12.2 H RBC 4.40 L Hgb 14.2 Hct 41.7 L MCV 94.8 MCH 32.3 MCHC 34.1 RDW 13.6 Plt Count 367 MPV 9.6 Immature Gran % (Auto) 0.4 Neut % (Auto) 74.8 H Lymph % (Auto) 15.0 L Hettinger % (Auto) 7.0 Eos % (Auto) 2.6 Baso % (Auto) 0.2 Lymph # (Auto) 1.83 Het[place]er # (Auto) 0.9 H Eos # (Auto) 0.3 Baso # (Auto) 0.0 Abs Immat Gran (auto) 0.05 H Absolute Neuts (auto) 9.1 H Absolute Nucleated RBC 0.000 Nucleated RBC % 0.0 Sodium 139 Potassium 4.0 Chloride 109 H Carbon Dioxide 21 L Anion Gap 9 BUN 14 Creatinine 0.82 Estim Creat Clear Calc 72 Estimated GFR > 60 Glucose 103 Calcium 9.1 Total Bilirubin 0.3 AST 28 ALT 22 Alkaline Phosphatase 127 H Total Protein 6.3 Albumin 3.3 L Nasal MRSA (PCR) Not detected Influenza A (RT-PCR) Negative Influenza B (RT-PCR) Negative RSV (RT-PCR) Negative SARS-CoV-2 RNA (RT-PCR) Negative
[2025-01-21] MEDS: AZITHROMYCIN IV 500 MG in SODIUM CHLORIDE 0.9% IV 250 ML IVPB (11:00)
[2025-01-21] MEDS: HYDROcodone/acetaminophen (*CRX) 5-325 MG TABLET 2 TAB PO (18:02)
--- NOTE | 2025-01-21 18:48 | P.CONONC_ITS ---
Assessment and Plan Assessment and plan (1) Adenocarcinoma of left lung: Code(s): C34.92 - Malignant neoplasm of unspecified part of left bronchus or lung Status: Acute Assessment and Plan: Metastatic lung cancer with bilateral lung involvement status post bronchoscopy and biopsy that showed extensive adenocarcinoma involving the left upper lobe, left lower lobe, right lower lobe and bilateral hilar lymph nodes. PET scan was done on November 29 that showed no extrathoracic metastasis. I have discussed these finding with patient and the in detail today. I have also discussed this finding with today. Patient is interested in getting palliative chemotherapy. We will order MediPort placement and start chemotherapy with carboplatin Alimta and Keytruda as an outpatient. We will consult surgery for port placement. HPI Data of Consult Date/Time: 01/21/25 18:48 Requesting Physician: Lucía Hanna MD Primary Care Provider: Isaiah Ruano MD Consult Narrative Narrative: Alen Spain is a 59 year old male with history of recurrent pneumonia head CT scan chest done in March 2024 showed consolidation in the medial left upper lobe extending to the medial aspect of the left lower lobe consistent with pneumonia with underlying mass. In June [address] chest done that showed no evidence of pulmonary embolism but consolidation in the left upper lobe and left lower lobe suggestive of pneumonia. Patient had bronchoscopy and biopsy done on November 06, 2024 came back positive for adenocarcinoma from the left lower lobe mass. I referred this patient for surgery consultation but due to the extensive consolidation and concern for the bilateral lung involvement patient was referred to Dr. Hinkle for biopsy. Patient had bronchoscopy and biopsy done that showed extensive adenocarcinoma involving the left upper lobe, left lower lobe, right lower lobe and bilateral hilar lymph nodes. He has been admitted to the hospital with shortness of breath. CT chest showed significant progression of the multifocal pneumonia. Patient had PET scan done on November 29 that showed diffuse mild increased FDG uptake throughout the large region of the dense consolidation in the posterior medial right upper lobe and lower lobes. There was no other suspicious lesion for metastatic disease. Review of Systems 2 Review of Systems: Twelve point review of system was reviewed [facility] Past Medical History Medical History Multiple pulmonary nodules determined by computed tomography of lung Bipolar 1 disorder JEFFREY (generalized anxiety disorder) Atrial fibrillation Surgical History Surgical History No history of previous surgery Family History Family History Mother Hypertension Father , Age 43. 4 PPD smoker. Acute myocardial infarction Social History Social History Smoking packs per day: 1 Smoking cigarettes per day: 20.0 Years smoked: 50 Smoking pack-years: 50.00 Smoking status: Current every day smoker Tobacco type: cigarettes Second hand tobacco smoke exposure: Yes Alcohol intake: former Substance use: current Substance use type: marijuana Other substance usage details: THC Last use: 11/05/24 Do You Feel Safe in your Home?: Yes Lack of Transportation: No Lack of Food: Never True Current Housing: I Have Housing Concerned About Future Housing: No Difficulty Paying Gas/Electric Bills: No Difficulty Paying for Meds: No Currently Unemployed: No Education: High School Diploma/GED Difficulty w/ Childcare or Family Care: No Spiritual care concerns: No Meds Home Medications and Allergies Home Medications ?Medication ?Instructions ?Recorded ?Confirmed ?Type albuterol sulfate 2.5 mg/3 mL 2.5 mg (3 mL) inhalation Q4-6H PRN 08/29/24 01/19/25 Rx (0.083 %) solution for nebulization shortness of breath or wheezing #90 mL albuterol sulfate 90 mcg/actuation 1 - 2 puff inhalation Q4-6H PRN 08/29/24 01/19/25 Rx aerosol inhaler shortness of breath or wheezing #8.5 grams fluticasone fur. 100 mcg-umeclid 1 inh inhalation Q24H COPD 1 month 11/26/24 01/19/25 Rx 62.5 mcg-vilant 25 mcg #60 ea inhalat.powder (Trelegy Ellipta) hydrocodone 5 mg-acetaminophen 325 2 tablet PO Q6-8H PRN pain 01/19/25 01/19/25 History mg tablet Allergies Allergy/AdvReac Type Severity Reaction Status Date / Time No Known Allergies Allergy Unknown Verified 01/19/25 12:26 Vital Signs Vital Signs - 24 hr 01/20/25 20:00 01/20/25 20:08 01/20/25 20:09 Temperature Pulse Rate 61 80 80 Respiratory Rate 20 20 Blood Pressure Pulse Oximetry 95 Oxygen Delivery Nasal Cannula Oxygen Flow Rate 1 Fraction of Inspired Oxygen 24 01/20/25 20:19 01/20/25 22:06 01/21/25 00:00 Temperature 36.6 C Pulse Rate 82 81 69 Respiratory Rate 20 18 Blood Pressure 103/55 L Pulse Oximetry 95 Oxygen Delivery Oxygen Flow Rate Fraction of Inspired Oxygen 01/21/25 00:55 01/21/25 01:37 01/21/25 04:00 Temperature 36.1 C L Pulse Rate 63 80 61 Respiratory Rate 16 20 Blood Pressure 126/72 Pulse Oximetry 93 Oxygen Delivery Oxygen Flow Rate Fraction of Inspired Oxygen 01/21/25 05:55 01/21/25 07:56 01/21/25 07:56 Temperature 36.5 C Pulse Rate 69 77 Respiratory Rate 16 20 Blood Pressure 134/73 Pulse Oximetry 93 95 Oxygen Delivery Room Air Oxygen Flow Rate Fraction of Inspired Oxygen 01/21/25 08:00 01/21/25 08:04 01/21/25 08:05 Temperature 37.2 C Pulse Rate 82 73 55 L Respiratory Rate 20 20 Blood Pressure 138/60 Pulse Oximetry 96 Oxygen Delivery Oxygen Flow Rate Fraction of Inspired Oxygen 01/21/25 08:20 01/21/25 12:00 01/21/25 12:05 Temperature 36.5 C Pulse Rate 80 80 Respiratory Rate 20 Blood Pressure 122/82 Pulse Oximetry 98 96 Oxygen Delivery Room Air Oxygen Flow Rate Fraction of Inspired Oxygen 01/21/25 14:20 01/21/25 14:26 01/21/25 16:00 Temperature 37.0 C Pulse Rate 63 75 81 Respiratory Rate 20 20 19 Blood Pressure 113/91 H Pulse Oximetry 94 Oxygen Delivery Oxygen Flow Rate Fraction of Inspired Oxygen 01/21/25 16:05 Temperature Pulse Rate 77 Respiratory Rate Blood Pressure Pulse Oximetry Oxygen Delivery Oxygen Flow Rate Fraction of Inspired Oxygen Exam 2 Narrative: Lungs congested with some occasional wheezing Cardiovascular regular rate rhythm no murmurs Abdomen soft nontender nondistended bowel sounds are positive Extremities no edema Results Labs 01/21/25 06:00 01/21/25 06:00 Labs: Short CBC 01/21/25 Range/Units 06:00 WBC 12.2 H (4.5-10.0) K/mm3 Hgb 14.2 (14.0-18.0) g/dL Hct 41.7 L (42.0-52.0) % Plt Count 367 (150-375) k/mm3 BMP 01/21/25 06:00 Sodium 139 Potassium 4.0 Chloride 109 H Carbon Dioxide 21 L BUN 14 Creatinine 0.82 Glucose 103 Calcium 9.1 Liver Function 01/21/25 Range/Units 06:00 Total Bilirubin 0.3 (0.2-1.3) mg/dL AST 28 (17-59) U/L ALT 22 (6-50) U/L Alkaline Phosphatase 127 H (38-126) U/L Albumin 3.3 L (3.5-5.1) g/dL
[2025-01-22] VITALS (11 sets, daily range): BP systolic 129–138; BP diastolic 78–83; PULSE 67–85; RESP 16–24; TEMP 36.5–36.7; O2SAT 90–96
[2025-01-22] MEDS: HYDROcodone/acetaminophen (*CRX) 5-325 MG TABLET 2 TAB PO ×2 (02:18→23:33)
[2025-01-22] MEDS: IPRATROPIUM 0.5 MG/ALBUTEROL SULFATE 2.5 MG AMPUL.NEB 3 ML INHALATION ×4 (02:55→21:22)
[2025-01-22] MEDS: metroNIDAZOLE 500 MG/ISO 100ML 500 MG/100 ML BAG 100 MG IVPB (05:14)
[2025-01-22 05:47] LABS: Hematocrit 43.7 % (42.0-52.0); Hemoglobin 14.5 g/dL (14.0-18.0); Immature Granulocyte Percent A 0.3 % (0-0.5); Lymphocytes Absolute Auto 2.02 K/mm3 (0.9-3.2); Mean Corpuscular HGB Conc 33.2 g/dl (32-36); Mean Corpuscular Hemoglobin 31.7 pg (26-34); Mean Corpuscular Volume 95.6 fl (80-100); Nucleated Red Blood Cells Absolute Auto 0.000 K/mm3 (0.0-0.012); Nucleated Red Blood Cells Perc 0.0 % (0.0-0.2); Platelet Count Result 343 k/mm3 (150-375); Red Blood Count 4.57 M/mm3 (4.6-6.20); White Blood Count 12.0 K/mm3 (4.5-10.0)
[2025-01-22 06:03] LABS: Alanine Aminotransferase 20 U/L (6-50); Albumin Level 3.6 g/dL (3.5-5.1); Alkaline Phosphatase 105 U/L (38-126); Anion Gap 9 mmol/L (4-12); Aspartate Amino Transferase 29 U/L (17-59); Bilirubin,Total 0.5 mg/dL (0.2-1.3); Blood Urea Nitrogen 12 mg/dL (9-20); Calcium 9.1 mg/dL (8.4-10.2); Carbon Dioxide 19 mmol/L (22-30); Chloride 111 mmol/L (98-107); Estimated CRCL calculation 77 ml/min; Estimated Glomerular Filt Rate > 60; Glucose 98 mg/dL (65-110); Potassium 4.3 mmol/L (3.4-5.0); Sodium 139 mmol/L (137-145); Total Protein 6.8 g/dL (6.3-8.2)
[2025-01-22] MEDS: ENOXAPARIN 40 MG/0.4 ML SYRINGE SUB-Q (09:07)
[2025-01-22] MEDS: CEFEPIME 2 GM in SODIUM CHLORIDE 0.9% IV 50 ML 100 ML IVPB (09:07)
--- NOTE | 2025-01-22 09:42 | P.PNPL_ITS ---
Progress Note: A&P Assessment and Plan (1) Pneumonia: Qualifiers: Laterality: left Lung location: unspecified part of lung Pneumonia type: due to unspecified organism Qualified Code(s): J18.9 - Pneumonia, unspecified organism Code(s): J18.9 - Pneumonia, unspecified organism Status: Acute Assessment and Plan: 01/20/25: Patient with a history of left lung adenocarcinoma, COPD exacerbation finished prednisone, doxycycline and Augmentin on 01/16/2025. status post bronchoscopy with EBUS on 01/16/2025. on 01/18/2025 developed fatigue, shortness of breath, sweating. Presented to the emergency department on 01/20 with worsening respiratory symptoms, cough, wet cough with white phlegm, leukocytosis of 12,000, and chest x-ray with left lung infiltrate. Currently on 1 L with saturation 92%. Plan: Agree with treatment for pneumonia in patient with cancer, recent bronchoscopy and recent outpatient antibiotics with cefepime, flagyl and azithromycin. I will obtain CT scan of the chest to further assess infiltrates. I will order COVID, RSV, influenza RT PCR and extended respiratory pathogen panel. Urine for Legionella, urine for pneumococcal and serum mycoplasma IgM. Goal saturation 90-94%, wean as tolerated. Later in the day patient had a CT scan of the chest and compared to 10/06/2024 that demonstrated progressive consolidation left upper lobe and superior segment of the left lower lobe with progressive patchy nodular and consolidative infiltrates in the left lower lobe and ground-glass opacities in the right upper middle and lower lobe. later in the day patient had echocardiogram demonstrating LVEF 60 65%, grade 1 diastolic dysfunction, normal right atrial size, RV could not be assessed, PASP 17. 8: Patient tells me overall he is feeling better. His appetite is better. He is breathing back to a baseline of 1 month ago. He denies fever, his phlegm production is normal with no hemoptysis. He is afebrile. Room air saturation 95%. White blood cell count 12.2, creatinine 0.82. Plan: Patient has progressive consolidation at the side of his primary lung cancer with progressive nodular patchy consolidative infiltrates in the left lower lobe and now patchy ground-glass infiltrates peripherally in airway centered location on the right lung. Most likely consistent with a pneumonia. He has received multiple courses of antibiotics without clearance. Continue cefepime and azithromycin, both day 3 and Flagyl, day 2. Respiratory pathogen panel pending, urine for Legionella, urine for pneumococcal, mycoplasma IgM pending. Reviewed CT scans with Radiology and this does not appear to be lymphangitic spread of his cancer. 11/06/2024: BAL: AFB smear negative, culture negative at 6 weeks. 11/06/2024: BAL fungal smear negative, no fungal growth at 4 weeks. 11/06/2024: Bronchial wash AFB smear negative, culture negative at 6 weeks 11/06/2024: Second BAL specimen: no fungal elements seen, penicillium species isolated. 11/06/2024: BAL Gram stain moderate white blood cells, rare epithelial cells, no organism seen, growth of normal kamryn 11/06/2024: Sputum Gram stain white blood cells, no epithelial cells, no organisms, no growth. QuantiFERON gold is negative on 07/08/2024 and will repeat. Will induce sputum for AFB q.day x3. Will send sputum for Gram stain and culture. Will send sputum for Fungal stain and culture. Will order histo plasma galactomannan urine antigen. Later in the day found out patient had bronchoscopy with extensive cancer involving left upper lobe, left lower lobe, right lower lobe and bilateral hilar adenopathy. Extensive infiltrates likely representing cancer and not fungal or mycobacterial disease. 01/22/2025: Patient tells me that he is breathing better than he has in the last 3 months. No dyspnea on exertion walking 50 ft. Denied fever, chills, rigors. His phlegm is normal. He is afebrile. Room air saturation 95%. White blood cell count 12.9, creatinine 0.77. Weight 62 kg. Respiratory pathogen panel neg ative. States he is ready to go home today. From a pulmonary perspective patient is ready to be discharged on these pulmonary medications: Levaquin 750 mg p.o. q.day x7 days Flagyl 500 mg p.o. q.day x7 days Trelegy 100 at 1 puff q.day Rescue albuterol 2 puffs q.4 hours p.r.n. shortness of breath or wheezing Rescue albuterol nebulizer 2.5 mg q.4 hours p.r.n. shortness of breath or wheezing. Follow-up in the Pulmonary Clinic in 3-4 weeks. I gave him our business card and informed our senior scheduler. Discussed with Kimberlyn Keen, will sign off, call with questions. (2) Adenocarcinoma of left lung: Code(s): C34.92 - Malignant neoplasm of unspecified part of left bronchus or lung Status: Acute Assessment and Plan: Patient with left lung adenocarcinoma status post bronchoscopy with EBUS on 01/16/2025 for further staging. Follows with Oncology, Dr. Matamoros. 01/21/25: Additional information obtained from oncology consult: Metastatic lung cancer with bilateral lung involvement status post bronchoscopy and biopsy that showed extensive adenocarcinoma involving the left upper lobe, left lower lobe, right lower lobe and bilateral hilar lymph nodes. PET scan was done on November 29 that showed no extrathoracic metastasis. I have discussed these finding with patient and the in detail today. I have also discussed this finding with today. Patient is interested in getting palliative chemotherapy. We will order MediPort placement and start chemotherapy with carboplatin Alimta and Keytruda as an outpatient. We will consult surgery for port placement. 01/22/25: Follow-up with Dr. Matamoros. Subjective Date/time seen: 01/22/25 09:42 Interval history: 01/20/2025: This is a new pulmonary consult for lung cancer and hypoxemia 59-year-old with a history of adenocarcinoma left lower lobe, COPD, PAF. patient is followed in the Pulmonary Clinic in last seen on 11/28/2024. at that time he was changed from breztri to trelegy, still coughing up clear sputum with a few bubbles no blood. on 01/09/2025 patient called the clinic stating he was getting sick again and was prescribed prednisone taper, doxycycline and Augmentin. On 01/16/2025 patient had bronchoscopy with EBUS at [facility] To further stage the patient. patient did well with the bronchoscopy and was discharged on that day. On 01/18/2025 patient felt exhausted, worsening dyspnea on exertion and shortness of breath and sweating episode. On 01/19/2025 the patient hit his elbow and has severe pain in this initiated shortness of breath which then got worse. He also developed worsening dyspnea on exertion from his baseline at 50 ft to 20 ft, rest shortness of breath, wet cough with white phlegm and no hemoptysis. He had finished his prednisone and antibiotics on 01/16. 01/19/2025: Patient presented to the emergency room with shortness of breath. Blood pressure 105/80, respiratory rate 22, heart rate 90, room air saturations 89%. Placed on 3 L with saturations 91%. Crackles with diminished breath sounds. White blood cell count 12.0 eosinophils 0.1% creatinine 0.91 BNP 74, procalcitonin 0.0. Chest x-ray with diffuse left infiltrate. patient started on cefepime and azithromycin and transferred to [facility]. 01/20/2025: The patient tells me that overall he feels better. His cough is better 90% back to his normal. His foot phlegm volume has decreased and he feels that his back to his normal. He still has dyspnea on exertion walking to the bathroom. When I enter the room he was on 2 L with saturations 94%. I decreased him to 1 L and his saturations were 92%. White blood cell count 13.2, creatinine 0.88, CRP less than 0.5. Later in the day patient had a CT scan of the chest and compared to 10/06/2024 that demonstrated progressive consolidation left upper lobe and superior segment of the left lower lobe with progressive patchy nodular and consolidative infiltrates in the left lower lobe and ground-glass opacities in the right upper middle and lower lobe. later in the day patient had echocardiogram demonstrating LVEF 60 65%, grade 1 diastolic dysfunction, normal right atrial size, RV could not be assessed, PASP 17. 8/12/10: Patient tells me overall he is feeling better. His appetite is better. He is breathing back to a baseline of 1 month ago. He denies fever, his phlegm production is normal with no hemoptysis. He is afebrile. Room air saturation 95%. White blood cell count 12.2, creatinine 0.82. Additional information obtained from oncology consult note later in the day: Metastatic lung cancer with bilateral lung involvement status post bronchoscopy and biopsy that showed extensive adenocarcinoma involving the left upper lobe, left lower lobe, right lower lobe and bilateral hilar lymph nodes. PET scan was done on November 29 that showed no extrathoracic metastasis. I have discussed these finding with patient and the in detail today. I have also discussed this finding with today. Patient is interested in getting palliative chemotherapy. We will order MediPort placement and start chemotherapy with carboplatin Alimta and Keytruda as an outpatient. We will consult surgery for port placement. 01/22/2025: Patient tells me that he is breathing better than he has in the last 3 months. No dyspnea on exertion walking 50 ft. Denied fever, chills, rigors. His phlegm is normal. He is afebrile. Room air saturation 95%. White blood cell count 12.9, creatinine 0.77. Weight 62 kg. Respiratory pathogen panel negative. States he is ready to go home today. DATA: 01/20/25: EXAMINATION: CT diagnostic chest wo con INDICATION: Left pneumonia. COMPARISON: CT dated 10/06/2014 FINDINGS: There is extensive consolidation of the left upper and lower lobe which has progressed since prior examination. There are developing groundglass opacities in the right upper, middle and lower lobe as well, consistent with multifocal pneumonia. No endobronchial lesions. No significant pleural or pericardial effusion. Multiple healed right rib fractures. No focal lytic or blastic lesions. No thoracic lymphadenopathy. IMPRESSION: 1. Significant progression of multifocal pneumonia bilaterally most confluent in the left upper and lower lobe. 01/20/25: Summary 1. Complete two-dimensional, color flow and Doppler transthoracic echocardiogram is performed. 2. Left ventricular chamber dimension is normal. 3. Left ventricular systolic function is normal, estimated at 60-65. 4. The left ventricular diastolic function is grade I diastolic dysfunction. 5. E/e' 12 is mildly elevated. 6. There is mild aortic valve sclerosis. 7. No pulmonary hypertension, estimated pulmonary arterial systolic pressure is 17 mmHg. Left Ventricle E/e' 12 is mildly elevated. Left ventricular chamber dimension is normal. Left ventricular systolic function is normal, estimated at 60-65. The left ventricular diastolic function is grade I diastolic dysfunction. Right Ventricle Right ventricular chamber dimension is not well visualized. Left Atria Left atrial chamber dimension is normal. Right Atria Right atrial chamber dimension is normal. 11/27/24: EXAMINATION: PET skull to mid thigh INDICATION: Malignant neoplasm of the left lung TECHNIQUE: Blood glucose level was 99 mg/dL. 10.139 mCi of 18-fluorodeoxyglucose (18-FDG) was administered i.v. Low dose computed tomography (CT) images were acquired from the base of the brain to the proximal thighs for attenuation correction and anatomic localization. Positron emission tomography (PET) images were acquired in the same distribution beginning 66 minutes after injection. Images including fused PET/CT images were reconstructed in axial, coronal, and sagittal planes. Automated exposure control technique was employed. The dose- length product was 481.20mGy-cm. COMPARISON: None FINDINGS: Head/neck: There is symmetric increased activity in the oral cavity, palatine tonsils, parotid glands, submandibular glands, laryngeal muscles, scalene muscles and ocular muscles without CT correlate, likely physiologic. No pathologically enlarged cervical lymphadenopathy or suspicious foci of increased FDG uptake in the visualized head or neck. Chest: There is diffuse increased uptake with maximal SUV measuring up to 6.7 associated with a large region of consolidation at the posterior medial aspect of the left upper and lower lobes with patchy groundglass opacities and small centrilobular groundglass nodules with tree-in-bud pattern extending throughout much of the remaining left lower lobe consistent with pneumonia most consistent with pneumonia. Difficult to exclude and underlying malignancy obscured by the pneumonia. Additional patchy groundglass opacities without significant increased FDG uptake in the right upper, middle and lower lobes also consistent with pneumonia. No pleural effusion. Heart size is normal. Atherosclerotic coronary artery calcific location. No pericardial effusion. Thoracic aorta is normal in caliber. No pathologically enlarged or FDG avid thoracic lymphadenopathy. There is mild diffuse likely physiologic uptake in the bilateral upper thoracic intercostal musculature. Abdomen/pelvis/proximal thighs: Physiologic renal accumulation and excretion of FDG activity in the kidneys, bladder and along portions of ureters. There are calcifications in the enlarged prostate which measures 4.9 x 4.7 cm. Normal degree and heterogenous pattern of increased uptake throughout the liver without radiologic correlate or dominant FDG avid lesion. The gallbladder, pancreas, spleen and bilateral adrenal glands are normal. Mild uptake scattered throughout the bowels without radiologic correlate, also likely physiologic. No other abnormal foci of increased FDG uptake or pathologically enlarged lymphadenopathy in the abdomen, pelvis or proximal thighs. Musculoskeletal: There is mild increased uptake associated with healing fractures of the anterolateral right fifth-seventh ribs. And lumbar and mild thoracic spondylosis. A few sclerotic bone islands without abnormal FDG uptake in the pelvis. No other suspicious lytic, blastic or abnormally FDG avid bone lesions. IMPRESSION: 1. Diffuse mild increased FDG uptake throughout a large region of dense consolidation in the posterior medial right upper and lower lobes with extensive less dense groundglass opacities and small centrilobular groundglass nodules in both lungs consistent with multifocal pneumonia. Difficult to exclude an underlying malignancy obscured by the pneumonia. No lesions suspicious for me tastatic disease. Path = (+) adenocarcinoma from bronchoscopy on 11/06/2024, left lower lobe * Additional marker from [facility] 11/25/24: Negative for EGFR mutation No rearrangement of ROS1 gene was detected. PD-L1 22C3 immunohistochemistry analysis: Not evaluable Negative for RET gene rearrangement Negative for aV600 BRAF mutation No evidence of ALK gene rearrangement detected by FISH nuc yi(ALKx2) KRAS mutation detection by PCR-snapshot analysis Interpretation: Positive- KRAS mutation was detected in Exon 2 [id number](35G>C) Comment: Results should be interpreted in conjunction with clinical and other laboratory findings for the most accurate interpretation. * 04/17/2024, LDCT @[place] [facility]; There is consolidation involving the posterior medial left upper lobe extending to the medial aspect of the left lower lobe, with mild surrounding groundglass opacity. Findings are most compatible with pneumonia. 3 mm right middle lobe pulmonary nodule present (axial images 80). Images through the upper abdomen reveal no abnormalities.Impression: Lung RADS 2-S: Benign appearance. 12 month follow-up screening CT advised. Probable pneumonia involving the left upper and lower lobes, as detailed above. Follow-up to radiographic resolution recommended to exclude underlying mass. * 06/20/24 CTA @[place] [facility]: IMPRESSION: 1. Consolidation in the left upper and lower lobe suggestive of pneumonia. Other differential include hemorrhage. 2. No pulmonary embolism * 10/06/24; chest CT @[place]; Impression: Extensive left lung pneumonia involving both left upper and lower lobes, with more extensive involvement as compared to prior exam, especially the left lung base. Consider alternative etiologies other than typical bacterial pneumonia given persistence since June. Consider tissue sampling as indicated. * 11/04/2024 CXR : IMPRESSION: Worsening chronic left lung airspace disease. The differential for chronic airspace disease includes bronchoalveolar carcinoma, chronic aspiration, TB, lymphoma, and lipoid pneumonia. Postobstructive pneumonia should also be considered in the differential. * 11/05/24 white blood cell count 12.7; H and H 14.1/42.8%, platelet [id number] BUN 15, creatinine 0.82 sodium 138. Protime 10, PTT 29.3. Review of Systems Constitutional: Constitutional: Reports no additional constitutional complaints Eyes: Eyes: Reports no additional eye complaints ENT: Reports system reviewed and no additional complaints, except as documented Cardiovascular: Cardiovascular: Reports no additional cardiovascular complaints Respiratory: Respiratory: Reports no additional respiratory complaints Gastrointestinal: Gastrointestinal: Reports no additional gastrointestinal complaints Musculoskeletal: Musculoskeletal: Reports no additional musculoskeletal complaints Neurologic: Reports system reviewed and no additional complaints, except as documented Psychiatric: Psychiatric: Reports no additional psychiatric complaints Endocrine: Endocrine: Reports no additional endocrine complaints Hematologic/Lymphatic: Hematologic/Lymphatic: Reports no additional hematologic/lymphatic complaints Allergic/Immunologic: Allergic/Immunologic: Reports no additional allergic/immunologic complaints Exam Const: General: cooperative, healthy appearing and comfortable Orientation/consciousness: oriented to person, oriented to place and oriented to time HENMT: Head: normal to inspection Ears: hearing grossly normal bilaterally Eyes: General: appearance normal, both eyes and all related structures Neck: Neck: normal visual inspection Chest: Chest palpation & inspection: normal inspection of the chest Resp: Effort & Inspection: normal respiratory effort and able to speak in complete sentences Auscultation: crackles, no rales, no rhonchi, no wheezes and lung sounds not diminished Other: left lung Cardio: Jugular venous distension: no JVD GI: Inspection: normal to inspection Skin: General skin exam: normal color Neuro: General: oriented to person, oriented to place and oriented to time Extrem: General: normal to inspection and no edema Psych: Appearance: grossly normal Objective Data Vital Signs Vital Signs: Vital Signs - 24 hr 01/21/25 12:00 01/21/25 12:05 01/21/25 14:20 Temperature 36.5 C Pulse Rate 80 80 63 Respiratory Rate 20 20 Blood Pressure 122/82 Pulse Oximetry 96 Oxygen Delivery 01/21/25 14:26 01/21/25 16:00 01/21/25 16:05 Temperature 37.0 C Pulse Rate 75 81 77 Respiratory Rate 20 19 Blood Pressure 113/91 H Pulse Oximetry 94 Oxygen Delivery 01/21/25 20:00 01/21/25 20:20 01/21/25 20:27 Temperature Pulse Rate 66 77 79 Respiratory Rate 20 22 H Blood Pressure Pulse Oximetry Oxygen Delivery 01/21/25 20:30 01/21/25 21:13 01/22/25 00:00 Temperature 36.6 C Pulse Rate 77 65 73 Respiratory Rate 20 16 Blood Pressure 119/67 Pulse Oximetry 93 92 Oxygen Delivery Room Air 01/22/25 02:56 01/22/25 04:00 01/22/25 05:24 Temperature 36.5 C Pulse Rate 85 67 83 Respiratory Rate 24 H 18 Blood Pressure 138/83 Pulse Oximetry 96 Oxygen Delivery 01/22/25 08:38 01/22/25 08:48 Temperature Pulse Rate 76 76 Respiratory Rate 16 16 Blood Pressure Pulse Oximetry Oxygen Delivery Intake/Output Intake/Output: Intake & Output 01/19/25 01/20/25 01/21/25 01/22/25 23:59 23:59 23:59 23:59 Intake Total 2190 3490 650 Output Total 3 Balance 2190 3487 650 Meds/Results Medications: Active Medications Generic Name Dose Route Start Last Admin Trade Name Freq PRN Reason Stop Dose Admin Acetaminophen 650 mg 01/19/25 21:42 Acetaminophen 325 Mg Tablet PO Q4H PRN Mild Pain (1-3) or Fever Hydrocodone Bitart/Acetaminophen 2 tab 01/19/25 21:50 01/22/25 02:18 Hydrocodone/Acetaminophen (*Crx) 5-325 Mg Tablet PO 2 tab Q6H PRN Administration Pain 4-10 Al Hydrox/Mg Hydrox/Simethicone 30 ml 01/19/25 21:42 Mag Hydrox/Al Hydrox/Simeth 30 Ml Udc PO QID PRN Dyspepsia Albuterol/Ipratropium 3 ml 01/20/25 02:00 01/22/25 08:42 Ipratropium 0.5 Mg/Albuterol Sulfate 2.5 Mg Ampul.Neb 3 Ml INHALATION 3 ml Q6HRT CARMEN Administration Bisacodyl 5 mg 01/19/25 21:42 Bisacodyl 5 Mg Tablet Ec PO DAILY PRN Constipation Enoxaparin Sodium 40 mg 01/20/25 09:00 01/22/25 09:07 Enoxaparin 40 Mg/0.4 Ml Syringe SUB-Q 40 mg DAILY REPLACED BY [facility] Administration Levofloxacin 750 mg 01/22/25 21:00 Levofloxacin 750 Mg Tablet PO 01/28/25 21:01 QHS REPLACED BY [facility] Metronidazole 500 mg 01/22/25 14:00 Metronidazole 500 Mg Tablet PO 01/28/25 22:01 Q8HR REPLACED BY [facility] Ondansetron HCl 4 mg 01/19/25 21:42 Ondansetron Inj 4 Mg/2 Ml Vial IV PUSH Q6H PRN Nausea And Vomiting Perflutren Lipid Microsphere 0 ml 01/19/25 21:52 Perflutren Lipid Microspheres 1.5 Ml Vial Diluted To 10 Ml Total Volume IV PU SH 01/22/25 21:52 ONCE PRN adequate visualization Protocol Sodium Chloride 6 ml 01/22/25 05:00 Sodium Chlor 3% 15 Ml Neb (Respiratory Therapy) INHALATION 01/24/25 05:01 DAILY@0500 REPLACED BY [facility] Radiology Results: ITS Impressions Chest CT 01/20/25 11:51 IMPRESSION: 1. Significant progression of multifocal pneumonia bilaterally most confluent in the left upper and lower lobe. Chest X-Ray 01/22/25 09:23 Impression: 1: Chronic progressive unilateral left-sided airspace disease with likely associated left hilar lymphadenopathy. Findings raises concern for underlying neoplastic process including bronchogenic carcinoma particularly adenocarcinoma or squamous cell carcinoma. Differential diagnosis includes chronic granulomatous infection (e.g. tuberculosis, fungal infection) or less likely organizing pneumonia. Differential diagnosis includes lymphoma, post obstructive pneumonitis and chronic ileus and a filling pneumonia. Consider tissue diagnosis with bronchoscopy. PET/CT for metabolic activity and staging if malignancy is a concern. Labs Labs: Laboratory Results - last 24 hr 01/20/25 01/21/25 01/22/25 09:44 06:00 05:19 WBC 12.0 H RBC 4.57 L Hgb 14.5 Hct 43.7 MCV 95.6 MCH 31.7 MCHC 33.2 RDW 13.3 Plt Count 343 MPV 9.1 Immature Gran % (Auto) 0.3 Neut % (Auto) 72.1 Lymph % (Auto) 16.9 L [place] % (Auto) 7.5 Eos % (Auto) 2.9 Baso % (Auto) 0.3 Lymph # (Auto) 2.02 [place] # (Auto) 0.9 H Eos # (Auto) 0.4 H Baso # (Auto) 0.0 Abs Immat Gran (auto) 0.04 H Absolute Neuts (auto) 8.6 H Absolute Nucleated RBC 0.000 Nucleated RBC % 0.0 Sodium 139 139 Potassium 4.0 4.3 Chloride 109 H 111 H Carbon Dioxide 21 L 19 L Anion Gap 9 9 BUN 14 12 Creatinine 0.82 0.77 Estim Creat Clear Calc 72 77 Estimated GFR > 60 > 60 Glucose 103 98 Calcium 9.1 9.1 Total Bilirubin 0.3 0.5 AST 28 29 ALT 22 20 Alkaline Phosphatase 127 H 105 Total Protein 6.3 6.8 Albumin 3.3 L 3.6 Chlamy pneumoniae PCR Not detected Adenovirus (PCR) Not detected B. pertussis DNA (PCR) Not detected B.parapertussis DNA PCR Not detected Coronavirus OC43 (PCR) Not detected Coronavirus HKU1 (PCR) Not detected Coronavirus 229E (PCR) Not detected Coronavirus NL63 (PCR) Not detected Human Metapneumovir PCR Not detected Influenza A (H1) PCR Not detected Influ A (H1/09) PCR Not detected Influenza A (H3) PCR Not detected Influenza Type A (PCR) Not detected Influenza Type B (PCR) Not detected M. pneumoniae (PCR) Not detected Parainfluenza 1 (PCR) Not detected Parainfluenza 2 (PCR) Not detected Parainfluenza 3 (PCR) Not detected Parainfluenza 4 (PCR) Not detected RSV (PCR) Not detected Entero/Rhino (PCR) Not detected SARS-CoV-2 (PCR) Not detected
--- NOTE | 2025-01-22 10:32 | P.CONGS_ITS ---
Assessment and Plan Assessment and plan (1) Adenocarcinoma of left lung: Code(s): C34.92 - Malignant neoplasm of unspecified part of left bronchus or lung Status: Acute Assessment and Plan: * Patient with metastatic lung cancer with bilateral lung involvement. Oncology planning to start palliative chemotherapy and requested Port-A-Cath placement. Description of the procedure, risks, benefits, alternatives, and expected recovery were discussed with the patient in detail. We discussed risks of infection, bleeding, vascular/cardiac/pulmonary injury, malposition, longer term risk of catheter dysfunction/migration, and thrombosis. Patient understands and agrees to proceed. We will make him NPO after midnight and add him onto the surgery schedule tomorrow for Insertion of Port-A-Cath by Dr. Kaur. (2) Pneumonia: Qualifiers: Laterality: left Lung location: unspecified part of lung Pneumonia type: due to unspecified organism Qualified Code(s): J18.9 - Pneumonia, unspecified organism Code(s): J18.9 - Pneumonia, unspecified organism Status: Acute Assessment and Plan: * Pneumonia improved. Pulmonology following and recommended transition to oral antibiotics and signed off. (3) PAF (paroxysmal atrial fibrillation): Code(s): I48.0 - Paroxysmal atrial fibrillation Status: Acute (4) Severe protein-calorie malnutrition: Code(s): E43 - Unspecified severe protein-calorie malnutrition Status: Acute Plan I have discussed the patient's case and plan of care with Dr. Kaur. History of Present Illness Consult details Consult date: 01/22/25 Reason for consult: other (Port placement) Requesting physician: Thomas Matamoros MD Narrative: This is a 59-year-old man with recent diagnosis of left lung cancer, atrial fibrillation, recurrent pneumonia, and 30 year smoking history with cough poor disorder, who we have been asked to see for port placement. Patient presented to the ED 3 days ago with progressive shortness of breath and was admitted for pneumonia. Oncology was also consulted and he was found to have metastatic lung cancer with bilateral lung involvement status post bronchoscopy and biopsy that showed extensive adenocarcinoma involving the left upper lobe, left lower lobe, and right lower lobe and bilateral hilar lymph nodes. Oncology consulted our service for Port-A-Cath placement to initiate palliative chemotherapy. He is now seen on the medical floor. No previous surgeries on his neck or chest and denies any previous central line placement. Only previous surgery was the bronchoscopy. Review of Systems 2 Review of Systems: All systems reviewed & are unremarkable except as noted in HPI and below PMFSH Past Medical History Medical History Multiple pulmonary nodules determined by computed tomography of lung Bipolar 1 disorder JEFFREY (generalized anxiety disorder) Atrial fibrillation Surgical History Surgical History No history of previous surgery Family History Family History Mother Hypertension Father , Age 43. 4 PPD smoker. Acute myocardial infarction Social History Social History Smoking packs per day: 1 Smoking cigarettes per day: 20.0 Years smoked: 50 Smoking pack-years: 50.00 Smoking status: Current every day smoker Tobacco type: cigarettes Second hand tobacco smoke exposure: Yes Alcohol intake: former Substance use: current Substance use type: marijuana Other substance usage details: THC Last use: 11/05/24 Do You Feel Safe in your Home?: Yes Lack of Transportation: No Lack of Food: Never True Current Housing: I Have Housing Concerned About Future Housing: No Difficulty Paying Gas/Electric Bills: No Difficulty Paying for Meds: No Currently Unemployed: No Education: High School Diploma/GED Difficulty w/ Childcare or Family Care: No Spiritual care concerns: No Meds Home Medications and Allergies Home Medications ?Medication ?Instructions ?Recorded ?Confirmed ?Type albuterol sulfate 2.5 mg/3 mL 2.5 mg (3 mL) inhalation Q4-6H PRN 08/29/24 01/19/25 Rx (0.083 %) solution for nebulization shortness of breath or wheezing #90 mL albuterol sulfate 90 mcg/actuation 1 - 2 puff inhalation Q4-6H PRN 08/29/24 01/19/25 Rx aerosol inhaler shortness of breath or wheezing #8.5 grams fluticasone fur. 100 mcg-umeclid 1 inh inhalation Q24H COPD 1 month 11/26/24 01/19/25 Rx 62.5 mcg-vilant 25 mcg #60 ea inhalat.powder (Trelegy Ellipta) hydrocodone 5 mg-acetaminophen 325 2 tablet PO Q6-8H PRN pain 01/19/25 01/19/25 History mg tablet Allergies Allergy/AdvReac Type Severity Reaction Status Date / Time No Known Allergies Allergy Unknown Verified 01/19/25 12:26 Vital Signs Vital Signs - 24 hr 01/21/25 12:00 01/21/25 12:05 01/21/25 14:20 Temperature 97.7 F Pulse Rate 80 80 63 Respiratory Rate 20 20 Blood Pressure 122/82 Pulse Oximetry 96 Oxygen Delivery 01/21/25 14:26 01/21/25 16:00 01/21/25 16:05 Temperature 98.6 F Pulse Rate 75 81 77 Respiratory Rate 20 19 Blood Pressure 113/91 H Pulse Oximetry 94 Oxygen Delivery 01/21/25 20:00 01/21/25 20:20 01/21/25 20:27 Temperature Pulse Rate 66 77 79 Respiratory Rate 20 22 H Blood Pressure Pulse Oximetry Oxygen Delivery 01/21/25 20:30 01/21/25 21:13 01/22/25 00:00 Temperature 98 F Pulse Rate 77 65 73 Respiratory Rate 20 16 Blood Pressure 119/67 Pulse Oximetry 93 92 Oxygen Delivery Room Air 01/22/25 02:56 01/22/25 04:00 01/22/25 05:24 Temperature 97.7 F Pulse Rate 85 67 83 Respiratory Rate 24 H 18 Blood Pressure 138/83 Pulse Oximetry 96 Oxygen Delivery 01/22/25 08:00 01/22/25 08:38 01/22/25 08:48 Temperature Pulse Rate 76 76 Respiratory Rate 16 16 Blood Pressure Pulse Oximetry Oxygen Delivery Room Air Exam 2 Const: General: no acute distress Nutritional Appearance: malnourished and thin Orientation/consciousness: patient oriented x3 HENMT: Head: normal to inspection, normocephalic and atraumatic Ears: h earing grossly normal bilaterally Mouth: Yes moist mucous membranes Eyes: General: appearance normal, both eyes and all related structures P upils: Equal, round and reactive pupils present Neck: Neck: normal visual inspection and full ROM Resp: Effort & Inspection: no respiratory distress Auscultation: clear to auscultation bilaterally Cardio: Rate: regular rate Rhythm: regular rhythm Peripheral pulses: P eripheral pulses 2+ throughout GI: Inspection: non-distended GI Palp: Yes Soft to palpation, No Tenderness to palpation present (GI), No Guarding due to palpation present (GI) and No Rebound tenderness present Auscultation: normal bowel sounds Skin: General skin exam: normal color Neuro: General: moves all extremities and no focal motor deficits Speech: n ormal speech Motor exam (neuro): 5/5 motor strength present throughout Extrem: General: normal to inspection and no edema Psych: Mental Status: mental status grossly normal Attitude: cooperative Insight: Good insight present (Psych) Judgement: Good judgement present (Psych) Results Labs 01/22/25 05:19 01/22/25 05:19 Labs: Abnormal lab results 01/22/25 Range/Units 05:19 WBC 12.0 H (4.5-10.0) K/mm3 RBC 4.57 L (4.6-6.20) M/mm3 Lymph % (Auto) 16.9 L (18.3-44.2) % [place] # (Auto) 0.9 H (0.1-0.6) K/mm3 Eos # (Auto) 0.4 H (0-0.3) K/mm3 Abs Immat Gran (auto) 0.04 H (0.00-0.031) K/mm3 Absolute Neuts (auto) 8.6 H (1.3-6.7) K/mm3 Chloride 111 H (98-107) mmol/L Carbon Dioxide 19 L (22-30) mmol/L Diabetes panel 01/22/25 Range/Units 05:19 Sodium 139 (137-145) mmol/L Potassium 4.3 (3.4-5.0) mmol/L Chloride 111 H (98-107) mmol/L Carbon Dioxide 19 L (22-30) mmol/L BUN 12 (9-20) mg/dL Creatinine 0.77 (0.7-1.3) mg/dL Glucose 98 (65-110) mg/dL Calcium 9.1 (8.4-10.2) mg/dL AST 29 (17-59) U/L ALT 20 (6-50) U/L Alkaline Phosphatase 105 (38-126) U/L Total Protein 6.8 (6.3-8.2) g/dL Albumin 3.6 (3.5-5.1) g/dL Calcium panel 01/22/25 Range/Units 05:19 Calcium 9.1 (8.4-10.2) mg/dL Albumin 3.6 (3.5-5.1) g/dL Pituitary panel 01/22/25 Range/Units 05:19 Sodium 139 (137-145) mmol/L Potassium 4.3 (3.4-5.0) mmol/L Chloride 111 H (98-107) mmol/L Carbon Dioxide 19 L (22-30) mmol/L BUN 12 (9-20) mg/dL Creatinine 0.77 (0.7-1.3) mg/dL Glucose 98 (65-110) mg/dL Calcium 9.1 (8.4-10.2) mg/dL Adrenal panel 01/22/25 Range/Units 05:19 Sodium 139 (137-145) mmol/L Potassium 4.3 (3.4-5.0) mmol/L Chloride 111 H (98-107) mmol/L Carbon Dioxide 19 L (22-30) mmol/L BUN 12 (9-20) mg/dL Creatinine 0.77 (0.7-1.3) mg/dL Glucose 98 (65-110) mg/dL Calcium 9.1 (8.4-10.2) mg/dL Total Bilirubin 0.5 (0.2-1.3) mg/dL AST 29 (17-59) U/L ALT 20 (6-50) U/L Alkaline Phosphatase 105 (38-126) U/L Total Protein 6.8 (6.3-8.2) g/dL Albumin 3.6 (3.5-5.1) g/dL All other labs normal. Imaging Additional studies: ITS Impressions Chest CT 01/20/25 11:51 IMPRESSION: 1. Significant progression of multifocal pneumonia bilaterally most confluent in the left upper and lower lobe. Chest X-Ray 01/22/25 09:23 Impression: 1: Chronic progressive unilateral left-sided airspace disease with likely associated left hilar lymphadenopathy. Findings raises concern for underlying neoplastic process including bronchogenic carcinoma particularly adenocarcinoma or squamous cell carcinoma. Differential diagnosis includes chronic granulomatous infection (e.g. tuberculosis, fungal infection) or less likely organizing pneumonia. Differential diagnosis includes lymphoma, post obstructive pneumonitis and chronic ileus and a filling pneumonia. Consider tissue diagnosis with bronchoscopy. PET/CT for metabolic activity and staging if malignancy is a concern.
--- NOTE | 2025-01-22 13:16 | P.PNIM_ITS ---
Progress Note: A&P Assessment and Plan (1) Acute respiratory failure with hypoxia: Code(s): J96.01 - Acute respiratory failure with hypoxia Status: Acute Assessment and Plan: * Symptoms: Tachypnea, SOB * SpO2: 95% * Oxygen supplementation: 3L NC * EKHR, sinus rhythm, possible LA enlargement * Chest XR: Asymmetric left-sided airspace disease, compatible with pneumonia which has progressed since 11/06/2024. Asymmetric edema less favored. * Viral panel (-) * MRSA (-) * Monitor vital signs, I&Os, neuro status and patient is a fall risk * Follow WBC, serum electrolytes, temperature curves and cultures * Continue IV abx - Cefepime, flagyl, azithromycin * Weaned off O2 supplementation - % in the 90s on RA Resolved (2) Pneumonia: Qualifiers: Laterality: left Lung location: unspecified part of lung Pneumonia type: due to unspecified organism Qualified Code(s): J18.9 - Pneumonia, unspecified organism Code(s): J18.9 - Pneumonia, unspecified organism Status: Acute Assessment and Plan: * CXR: Asymmetric left-sided airspace disease, compatible with pneumonia which has progressed since 11/06/2024. Asymmetric edema less favored. * Chest CT: Significant progression of multifocal pneumonia bilaterally most confluent in the left upper and lower lobe * Risk Factors: Hx of recurrent pneumonia * Complicating Factors: Adenocarcinoma of left lung * started on Cefepime & Azithromax * Viral PCR: negative for Flu/COVID/RSV * Legionella, mycoplasma and pneumococcal - pending * supportive treatment * Monitor vital signs, I&Os, neuro status and patient is a fall risk * Follow WBC, serum electrolytes, temperature curves and cultures * Sputum/blood cultures pending * Gentle IV fluid resuscitation. * Continue IV antibiotics - will switch to Oral upon discharge 01/22 see pulm note for instructions for treatment: From a pulmonary perspective patient is ready to be discharged on these pulmonary medications: Levaquin 750 mg p.o. q.day x7 days Flagyl 500 mg p.o. q.day x7 days Trelegy 100 at 1 puff q.day Rescue albuterol 2 puffs q.4 hours p.r.n. shortness of breath or wheezing Rescue albuterol nebulizer 2.5 mg q.4 hours p.r.n. shortness of breath or wheezing. Follow-up in the Pulmonary Clinic in 3-4 weeks. I gave him our business card and informed our youth services librarian. (3) Adenocarcinoma of left lung: Code(s): C34.92 - Malignant neoplasm of unspecified part of left bronchus or lung Status: Acute Assessment and Plan: * Had Bronchoscopy performed on 11/06/2024 which showed adenocarcinoma of the left lower lobe * Saw Dr. Matamoros on 11/19/2024 and had PET scan * Counseled on the importance of abstinence from tobacco smoking 01/22 port placement 01/23 in am-then dishcarge home (4) PAF (paroxysmal atrial fibrillation): Code(s): I48.0 - Paroxysmal atrial fibrillation Status: Acute Assessment and Plan: * Keep serum potassium >4 and keep magnesium >2 * Not current requiring rate/rhythm control * EKG: NSR (5) Severe protein-calorie malnutrition: Code(s): E43 - Unspecified severe protein-calorie malnutrition Status: Acute Assessment and Plan: * Per Dietary: Severe Protein Calorie Malnutrition as related to inadequate protein energy intake with increased protein-energy needs in setting of chronic disease or condition as evidenced by significant weight loss of 18 ibs (12%) in 7 months; moderate subcutaneous fat loss (orbital fat pads) and moderate muscle wasting (temporalis/clavicle). * Consult to accounting technician - appreciate further recommendations Time Spent With Patient Time with patient: 25 - 35 minutes Subjective Date/time seen: 01/22/25 13:16 Interval history: 59-year-old male with a past medical history of adenocarcinoma of the left lung, atrial fibrillation, recurrent pneumonia, 30-year smoking history and bipolar disorder who presents to the hospital with shortness of breath. Recently diagnosed with adenocarcinoma of the left lower lung. 3 01/21/2025 Patient sitting comfortably in bed at time of exam. States that he feels much better today. Still has some crackles at bases of lungs bilaterally, cough still present but less frequent. Remains afebrile but WBC still elevated @ 12.2. Sputum/blood cultures, legionella, strept ag screenings still pending. No major electrolyte abnormalities. Physical exam is reassuring but given concurrent cancer diagnosis we will look to remain cautious and continue IV antibiotics until cultures can come back. Pt in good spirits though and feels better today. 01/22 assuming care today. pt is seen and examined. he is cleared for d/c with Dr Mccain but Dr wanted him to get port inserted while in the hospital so eh can start therapy as an outpt. Pt is ok with staying overnight and getting port in am. He is resting in bed, voicing no complains, denies n/v/d. Review of Systems Review of Systems: All systems reviewed & are unremarkable except as noted in HPI and below Exam Narrative: Gen - Chronically ill appearing male in no acute respiratory distress who is nontoxic-appearing. HEENT - normocephalic. Atraumatic. Pupils equal round and reactive. Extraocular motions intact. Sclera clear and anicteric. Nares patent. Oropharynx was clear. Moist mucous membranes. No facial asymmetry. Neck - neck was supple. No dominant adenopathy, thyromegaly or masses. Chest - normal respiratory effort and able to speak in complete sentences, crackles now only noticeable in lower lobes. cough still present CV - heart was regular rate and rhythm. S1-S2. No murmurs gallops or rubs. Abd - abdomen was soft. Nontender. Nondistended. Positive bowel sounds. No organomegaly or masses. Ext - no clubbing, cyanosis or edema. 2+ DP pulses bilaterally. Neuro - patient is alert and oriented x4. Strength is 5/5 in both upper and lower extremities. Cranial nerves 2-12 are intact. Speech is clear. Psych - normal mood and affect. Patient is pleasant and cooperative. Skin - warm and dry. No rashes noted. Const: General: comfortable Objective Data Vital Signs Vital Signs: Vital Signs - 24 hr 01/21/25 14:20 01/21/25 14:26 01/21/25 16:00 Temperature 98.6 F Pulse Rate 63 75 81 Respiratory Rate 20 20 19 Blood Pressure 113/91 H Pulse Oximetry 94 Oxygen Delivery 01/21/25 16:05 01/21/25 20:00 01/21/25 20:20 Temperature Pulse Rate 77 66 77 Respiratory Rate 20 Blood Pressure Pulse Oximetry Oxygen Delivery 01/21/25 20:27 01/21/25 20:30 01/21/25 21:13 Temperature 98 F Pulse Rate 79 77 65 Respiratory Rate 22 H 20 16 Blood Pressure 119/67 Pulse Oximetry 93 92 Oxygen Delivery Room Air 01/22/25 00:00 01/22/25 02:56 01/22/25 04:00 Temperature Pulse Rate 73 85 67 Respiratory Rate 24 H Blood Pressure Pulse Oximetry Oxygen Delivery 01/22/25 05:24 01/22/25 08:00 01/22/25 08:05 Temperature 97.7 F Pulse Rate 83 82 Respiratory Rate 18 Blood Pressure 138/83 Pulse Oximetry 96 Oxygen Delivery Room Air 01/22/25 08:38 01/22/25 08:48 Temperature Pulse Rate 76 76 Respiratory Rate 16 16 Blood Pressure Pulse Oximetry Oxygen Delivery Intake/Output Intake/Output: Intake & Output 01/19/25 01/20/25 01/21/25 01/22/25 23:59 23:59 23:59 23:59 Intake Total 2190 3490 650 Output Total 3 Balance 2190 3487 650 Meds/Results Medications: Active Medications Generic Name Dose Route Start Last Admin Trade Name Freq PRN Reason Stop Dose Admin Acetaminophen 650 mg 01/19/25 21:42 Acetaminophen 325 Mg Tablet PO Q4H PRN Mild Pain (1-3) or Fever Hydrocodone Bitart/Acetaminophen 2 tab 01/19/25 21:50 01/22/25 02:18 Hydrocodone/Acetaminophen (*Crx) 5-325 Mg Tablet PO 2 tab Q6H PRN Administration Pain 4-10 Al Hydrox/Mg Hydrox/Simethicone 30 ml 01/19/25 21:42 Mag Hydrox/Al Hydrox/Simeth 30 Ml Udc PO QID PRN Dyspepsia Albuterol/Ipratropium 3 ml 01/20/25 02:00 01/22/25 08:42 Ipratropium 0.5 Mg/Albuterol Sulfate 2.5 Mg Ampul.Neb 3 Ml INHALATION 3 ml Q6HRT CARMEN Administration Bisacodyl 5 mg 01/19/25 21:42 Bisacodyl 5 Mg Tablet Ec PO DAILY PRN Constipation Enoxaparin Sodium 40 mg 01/20/25 09:00 01/22/25 09:07 Enoxaparin 40 Mg/0.4 Ml Syringe SUB-Q 40 mg DAILY CARMEN Administration Levofloxacin 750 mg 01/22/25 21:00 Levofloxacin 750 Mg Tablet PO 01/28/25 21:01 QHS CARMEN Metronidazole 500 mg 01/22/25 14:00 01/22/25 13:14 Metronidazole 500 Mg Tablet PO 01/28/25 22:01 500 mg Q8HR CARMEN Administration Ondansetron HCl 4 mg 01/19/25 21:42 Ondansetron Inj 4 Mg/2 Ml Vial IV PUSH Q6H PRN Nausea And Vomiting Perflutren Lipid Microsphere 0 ml 01/19/25 21:52 Perflutren Lipid Microspheres 1.5 Ml Vial Diluted To 10 Ml Total Volume IV PUSH 01/22/25 21:52 ONCE PRN adequate visualization Protocol Sodium Chloride 6 ml 01/22/25 05:00 Sodium Chlor 3% 15 Ml Neb (Respiratory Therapy) INHALATION 01/24/25 05:01 DAILY@0500 [facility] Radiology Results: ITS Impressions Chest CT 01/20/25 11:51 IMPRESSION: 1. Significant progression of multifocal pneumonia bilaterally most confluent in the left upper and lower lobe. Chest X-Ray 01/22/25 09:23 Impression: 1: Chronic progressive unilateral left-sided airspace disease with likely associated left hilar lymphadenopathy. Findings raises concern for underlying neoplastic process including bronchogenic carcinoma particularly adenocarcinoma or squamous cell carcinoma. Differential diagnosis includes chronic granulomatous infection (e.g. tuberculosis, fungal infection) or less likely organizing pneumonia. Differential diagnosis includes lymphoma, post obstructive pneumonitis and chronic ileus and a filling pneumonia. Consider tissue diagnosis with bronchoscopy. PET/CT for metabolic activity and staging if malignancy is a concern. Labs Labs: Laboratory Results - last 24 hr 01/20/25 01/22/25 09:44 05:19 WBC 12.0 H RBC 4.57 L Hgb 14.5 Hct 43.7 MCV 95.6 MCH 31.7 MCHC 33.2 RDW 13.3 Plt Count 343 MPV 9.1 Immature Gran % (Auto) 0.3 Neut % (Auto) 72.1 Lymph % (Auto) 16.9 L [place] % (Auto) 7.5 Eos % (Auto) 2.9 Baso % (Auto) 0.3 Lymph # (Auto) 2.02 [place] # (Auto) 0.9 H Eos # (Auto) 0.4 H Baso # (Auto) 0.0 Abs Immat Gran (auto) 0.04 H Absolute Neuts (auto) 8.6 H Absolute Nucleated RBC 0.000 Nucleated RBC % 0.0 Sodium 139 Potassium 4.3 Chloride 111 H Carbon Dioxide 19 L Anion Gap 9 BUN 12 Creatinine 0.77 Estim Creat Clear Calc 77 Estimated GFR > 60 Glucose 98 Calcium 9.1 Total Bilirubin 0.5 AST 29 ALT 20 Alkaline Phosphatase 105 Total Protein 6.8 Albumin 3.6 Chlamy pneumoniae PCR Not detected Adenovirus (PCR) Not detected B. pertussis DNA (PCR) Not detected B.parapertussis DNA PCR Not detected Coronavirus OC43 (PCR) Not detected Coronavirus HKU1 (PCR) Not detected Coronavirus 229E (PCR) Not detected Coronavirus NL63 (PCR) Not detected Human Metapneumovir PCR Not detected Influenza A (H1) PCR Not detected Influ A (H1/09) PCR Not detected Influenza A (H3) PCR Not detected Influenza Type A (PCR) Not detected Influenza Type B (PCR) Not detected M. pneumoniae (PCR) Not detected Parainfluenza 1 (PCR) Not detected Parainfluenza 2 (PCR) Not detected Parainfluenza 3 (PCR) Not detected Parainfluenza 4 (PCR) Not detected RSV (PCR) Not detected Entero/Rhino (PCR) Not detected SARS-CoV-2 (PCR) Not detected Quality VTE Prophylaxis VTE prophylaxis: mechanical ordered
[2025-01-23] VITALS (10 sets, daily range): BP systolic 107–136; BP diastolic 66–94; PULSE 69–91; RESP 16–22; TEMP 36.3–36.9; O2SAT 92–98
[2025-01-23 06:00] LABS: Hematocrit 44.7 % (42.0-52.0); Hemoglobin 14.9 g/dL (14.0-18.0); Immature Granulocyte Percent A 0.3 % (0-0.5); Lymphocytes Absolute Auto 2.18 K/mm3 (0.9-3.2); Mean Corpuscular HGB Conc 33.3 g/dl (32-36); Mean Corpuscular Hemoglobin 31.4 pg (26-34); Mean Corpuscular Volume 94.1 fl (80-100); Nucleated Red Blood Cells Absolute Auto 0.000 K/mm3 (0.0-0.012); Nucleated Red Blood Cells Perc 0.0 % (0.0-0.2); Platelet Count Result 348 k/mm3 (150-375); Red Blood Count 4.75 M/mm3 (4.6-6.20); White Blood Count 9.5 K/mm3 (4.5-10.0)
[2025-01-23 06:14] LABS: INR 1.0; Partial Thromboplastin Time 24.9 Seconds (22.3-36.8); Prothrombin Time 13.2 Seconds (11.1-14.7)
[2025-01-23 06:46] LABS: Alanine Aminotransferase 22 U/L (6-50); Albumin Level 3.8 g/dL (3.5-5.1); Alkaline Phosphatase 115 U/L (38-126); Anion Gap 9 mmol/L (4-12); Aspartate Amino Transferase 29 U/L (17-59); Bilirubin,Total 0.5 mg/dL (0.2-1.3); Blood Urea Nitrogen 15 mg/dL (9-20); Calcium 9.4 mg/dL (8.4-10.2); Carbon Dioxide 20 mmol/L (22-30); Chloride 109 mmol/L (98-107); Estimated CRCL calculation 65 ml/min; Estimated Glomerular Filt Rate > 60; Glucose 95 mg/dL (65-110); Potassium 4.3 mmol/L (3.4-5.0); Sodium 138 mmol/L (137-145); Total Protein 7.1 g/dL (6.3-8.2)
[2025-01-23] MEDS: SODIUM CHLOR 3% 15 ML NEB (RESPIRATORY THERAPY) 6 ML INHALATION (07:37)
[2025-01-23] MEDS: IPRATROPIUM 0.5 MG/ALBUTEROL SULFATE 2.5 MG AMPUL.NEB 3 ML INHALATION (07:37)
--- NOTE | 2025-01-23 12:52 | P.PNIM_ITS ---
Progress Note: A&P Assessment and Plan (1) Acute respiratory failure with hypoxia: Code(s): J96.01 - Acute respiratory failure with hypoxia Status: Acute Assessment and Plan: * Symptoms: Tachypnea, SOB * SpO2: 95% * Oxygen supplementation: 3L NC * EKHR, sinus rhythm, possible LA enlargement * Chest XR: Asymmetric left-sided airspace disease, compatible with pneumonia which has progressed since 11/06/2024. Asymmetric edema less favored. * Viral panel (-) * MRSA (-) * Monitor vital signs, I&Os, neuro status and patient is a fall risk * Follow WBC, serum electrolytes, temperature curves and cultures * Continue IV abx - Cefepime, flagyl, azithromycin * Weaned off O2 supplementation - % in the 90s on RA Resolved (2) Pneumonia: Qualifiers: Laterality: left Lung location: unspecified part of lung Pneumonia type: due to unspecified organism Qualified Code(s): J18.9 - Pneumonia, unspecified organism Code(s): J18.9 - Pneumonia, unspecified organism Status: Acute Assessment and Plan: * CXR: Asymmetric left-sided airspace disease, compatible with pneumonia which has progressed since 11/06/2024. Asymmetric edema less favored. * Chest CT: Significant progression of multifocal pneumonia bilaterally most confluent in the left upper and lower lobe * Risk Factors: Hx of recurrent pneumonia * Complicating Factors: Adenocarcinoma of left lung * started on Cefepime & Azithromax * Viral PCR: negative for Flu/COVID/RSV * Legionella, mycoplasma and pneumococcal - pending * supportive treatment * Monitor vital signs, I&Os, neuro status and patient is a fall risk * Follow WBC, serum electrolytes, temperature curves and cultures * Sputum/blood cultures pending * Gentle IV fluid resuscitation. * Continue IV antibiotics - will switch to Oral upon discharge 01/22 see pulm note for instructions for treatment: From a pulmonary perspective patient is ready to be discharged on these pulmonary medications: Levaquin 750 mg p.o. q.day x7 days Flagyl 500 mg p.o. q.day x7 days Trelegy 100 at 1 puff q.day Rescue albuterol 2 puffs q.4 hours p.r.n. shortness of breath or wheezing Rescue albuterol nebulizer 2.5 mg q.4 hours p.r.n. shortness of breath or wheezing. Follow-up in the Pulmonary Clinic in 3-4 weeks. I gave him our business card and informed our wheel alignment mechanic. (3) Adenocarcinoma of left lung: Code(s): C34.92 - Malignant neoplasm of unspecified part of left bronchus or lung Status: Acute Assessment and Plan: * Had Bronchoscopy performed on 11/06/2024 which showed adenocarcinoma of the left lower lobe * Saw Dr. Matamoros on 11/19/2024 and had PET scan * Counseled on the importance of abstinence from tobacco smoking 01/22 port placement 01/23 in am-then dishcarge home (4) PAF (paroxysmal atrial fibrillation): Code(s): I48.0 - Paroxysmal atrial fibrillation Status: Acute Assessment and Plan: * Keep serum potassium >4 and keep magnesium >2 * Not current requiring rate/rhythm control * EKG: NSR (5) Severe protein-calorie malnutrition: Code(s): E43 - Unspecified severe protein-calorie malnutrition Status: Acute Assessment and Plan: * Per Dietary: Severe Protein Calorie Malnutrition as related to inadequate protein energy intake with increased protein-energy needs in setting of chronic disease or condition as evidenced by significant weight loss of 18 ibs (12%) in 7 months; moderate subcutaneous fat loss (orbital fat pads) and moderate muscle wasting (temporalis/clavicle). * Consult to military aircraft designer - appreciate further recommendations Subjective Date/time seen: 01/23/25 12:52 Interval history: 59-year-old male with a past medical history of adenocarcinoma of the left lung, atrial fibrillation, recurrent pneumonia, 30-year smoking history and bipolar disorder who presents to the hospital with shortness of breath. Recently diagnosed with adenocarcinoma of the left lower lung. 3 01/21/2025 Patient sitting comfortably in bed at time of exam. States that he feels much better today. Still has some crackles at bases of lungs bilaterally, cough still present but less frequent. Remains afebrile but WBC still elevated @ 12.2. Sputum/blood cultures, legionella, strept ag screenings still pending. No major electrolyte abnormalities. Physical exam is reassuring but given concurrent cancer diagnosis we will look to remain cautious and continue IV antibiotics until cultures can come back. Pt in good spirits though and feels better today. 01/22 assuming care today. pt is seen and examined. he is cleared for d/c with Dr Mccain but Dr wanted him to get port inserted while in the hospital so eh can start therapy as an outpt. Pt is ok with staying overnight and getting port in am. He is resting in bed, voicing no complains, denies n/v/d. Exam Narrative: Gen - Chronically ill appearing male in no acute respiratory distress who is nontoxic-appearing. HEENT - normocephalic. Atraumatic. Pupils equal round and reactive. Extraocular motions intact. Sclera clear and anicteric. Nares patent. Oropharynx was clear. Moist mucous membranes. No facial asymmetry. Neck - neck was supple. No dominant adenopathy, thyromegaly or masses. Chest - normal respiratory effort and able to speak in complete sentences, crackles now only noticeable in lower lobes. cough still present CV - heart was regular rate and rhythm. S1-S2. No murmurs gallops or rubs. Abd - abdomen was soft. Nontender. Nondistended. Positive bowel sounds. No organomegaly or masses. Ext - no clubbing, cyanosis or edema. 2+ DP pulses bilaterally. Neuro - patient is alert and oriented x4. Strength is 5/5 in both upper and lower extremities. Cranial nerves 2-12 are intact. Speech is clear. Psych - normal mood and affect. Patient is pleasant and cooperative. Skin - warm and dry. No rashes noted. Const: General: comfortable Objective Data Vital Signs Vital Signs: Vital Signs - 24 hr 01/22/25 14:48 01/22/25 14:51 01/22/25 14:53 Temperature Pulse Rate 84 84 67 Respiratory Rate 20 20 20 Blood Pressure Pulse Oximetry 90 Oxygen Delivery Room Air 01/22/25 20:00 01/23/25 00:55 01/23/25 06:00 Temperature 98.1 F 98.0 F 98.0 F Pulse Rate 73 69 74 Respiratory Rate 16 16 16 Blood Pressure 129/78 114/66 107/68 Pulse Oximetry 93 94 94 Oxygen Delivery 01/23/25 07:40 01/23/25 07:43 01/23/25 07:52 Temperature Pulse Rate 84 86 Respiratory Rate 22 H Blood Pressure Pulse Oximetry 92 Oxygen Delivery Room Air 01/23/25 08:50 Temperature Pulse Rate Respiratory Rate Blood Pressure Pulse Oximetry Oxygen Delivery Room Air Intake/Output Intake/Output: Intake & Output 01/20/25 01/21/25 01/22/25 01/23/25 23:59 23:59 23:59 23:59 Intake Total 2190 3490 2090 Output Total 3 Balance 2190 3487 2090 Meds/Results Medications: Active Medications Generic Name Dose Route Start Last Admin Trade Name Freq PRN Reason Stop Dose Admin Acetaminophen 650 mg 01/19/25 21:42 Acetaminophen 325 Mg Tablet PO Q4H PRN Mild Pain (1-3) or Fever Hydrocodone Bitart/Acetaminophen 2 tab 01/19/25 21:50 01/22/25 23:33 Hydrocodone/Acetaminophen (*Crx) 5-325 Mg Tablet PO 2 tab Q6H PRN Administration Pain 4-10 Al Hydrox/Mg Hydrox/Simethicone 30 ml 01/19/25 21:42 Mag Hydrox/Al Hydrox/Simeth 30 Ml Udc PO QID PRN Dyspepsia Albuterol/Ipratropium 3 ml 01/20/25 02:00 01/23/25 07:37 Ipratropium 0.5 Mg/Albuterol Sulfate 2.5 Mg Ampul.Neb 3 Ml INHALATION 3 ml Q6HRT CARMEN Administration Bisacodyl 5 mg 01/19/25 21:42 Bisacodyl 5 Mg Tablet Ec PO DAILY PRN Constipation Enoxaparin Sodium 40 mg 01/20/25 09:00 01/23/25 08:52 Enoxaparin 40 Mg/0.4 Ml Syringe SUB-Q Not Given DAILY CARMEN Levofloxacin 750 mg 01/22/25 21:00 01/22/25 20:40 Levofloxacin 750 Mg Tablet PO 01/28/25 21:01 750 mg QHS CARMEN Administration Metronidazole 500 mg 01/22/25 14:00 01/23/25 05:32 Metronidazole 500 Mg Tablet PO 01/28/25 22:01 500 mg Q8HR CARMEN Administration Ondansetron HCl 4 mg 01/19/25 21:42 Ondansetron Inj 4 Mg/2 Ml Vial IV PUSH Q6H PRN Nausea And Vomiting Sodium Chloride 6 ml 01/22/25 05:00 01/23/25 07:37 Sodium Chlor 3% 15 Ml Neb (Respiratory Therapy) INHALATION 01/24/25 05:01 6 ml DAILY@0500 CARMEN Administration Radiology Results: ITS Impressions Chest CT 01/20/25 11:51 IMPRESSION: 1. Significant progression of multifocal pneumonia bilaterally most confluent in the left upper and lower lobe. Chest X-Ray 01/22/25 09:23 Impression: 1: Chronic progressive unilateral left-sided airspace disease with likely associated left hilar lymphadenopathy. Findings raises concern for underlying neoplastic process including bronchogenic carcinoma particularly adenocarcinoma or squamous cell carcinoma. Differential diagnosis includes chronic granulomatous infection (e.g. tuberculosis, fungal infection) or less likely organizing pneumonia. Differential diagnosis includes lymphoma, post obstructive pneumonitis and chronic ileus and a filling pneumonia. Consider tissue diagnosis with bronchoscopy. PET/CT for metabolic activity and staging if malignancy is a concern. Labs Labs: Laboratory Results - last 24 hr 01/21/25 01/21/25 01/23/25 06:00 10:54 05:41 WBC 9.5 RBC 4.75 Hgb 14.9 Hct 44.7 MCV 94.1 MCH 31.4 MCHC 33.3 RDW 13.2 Plt Count 348 MPV 9.2 Immature Gran % (Auto) 0.3 Neut % (Auto) 62.4 Lymph % (Auto) 23.0 Porter % (Auto) 9.5 H Eos % (Auto) 4.4 Baso % (Auto) 0.4 Lymph # (Auto) 2.18 Porter # (Auto) 0.9 H Eos # (Auto) 0.4 H Baso # (Auto) 0.0 Abs Immat Gran (auto) 0.03 Absolute Neuts (auto) 5.9 Absolute Nucleated RBC 0.000 Nucleated RBC % 0.0 PT 13.2 INR 1.0 APTT 24.9 Sodium 138 Potassium 4.3 Chloride 109 H Carbon Dioxide 20 L Anion Gap 9 BUN 15 Creatinine 0.87 Estim Creat Clear Calc 65 Estimated GFR > 60 Glucose 95 Calcium 9.4 Total Bilirubin 0.5 AST 29 ALT 22 Alkaline Phosphatase 115 Total Protein 7.1 Albumin 3.8 M.pneumoniae IgM Titer <770 TB Test (QFT) Gold Plus Negative TB (QFT) Incubation TB Test (QFT) Nil 0.02 TB Test (QFT) Mitogen >10.00 TB Test (QFT) +TB1 -NIL 0.03 TB Test (QFT) +TB2 -NIL 0.04 TB Test (QFT) Criteria Comment Blood Type B Positive Antibody Screen Negative
--- NOTE | 2025-01-23 12:57 | P.DS_ITS ---
DS: Admitting Diagnosis Discharge Date 01/23/25 Admitting Diagnosis Pneumonia Adeno carcinoma of left lung Acute respiratory failure DS: Discharge Diagnosis Discharge Diagnosis (1) Acute respiratory failure with hypoxia: Code(s): J96.01 - Acute respiratory failure with hypoxia Status: Acute Assessment and Plan: * (2) Pneumonia: Qualifiers: Laterality: left Lung location: unspecified part of lung Pneumonia type: due to unspecified organism Qualified Code(s): J18.9 - Pneumonia, unspecified organism Code(s): J18.9 - Pneumonia, unspecified organism Status: Acute (3) Adenocarcinoma of left lung: Code(s): C34.92 - Malignant neoplasm of unspecified part of left bronchus or lung Status: Acute Assessment and Plan: * (4) PAF (paroxysmal atrial fibrillation): Code(s): I48.0 - Paroxysmal atrial fibrillation Status: Acute (5) Severe protein-calorie malnutrition: Code(s): E43 - Unspecified severe protein-calorie malnutrition Status: Acute Assessment and Plan: * DS: Summary Hospital Course Hospital Course: Per H&P: Alen Spain is a 59-year-old male with a past medical history of adenocarcinoma of the left lung, atrial fibrillation, recurrent pneumonia, 30- year smoking history and bipolar disorder who presents to the hospital with shortness of breath. Recently diagnosed with adenocarcinoma of the left lower lung. Patient follows with the pulmonology clinic and was last seen on 11/28/2024. At that time he was switched from [facility] to [facility]. On 01/16/2025 he had a bronchoscopy with EB EUS at [facility] for staging of adenocarcin lang of the left lower lobe. On 01/18 he started feeling tired, worse than usual with worsening dyspnea on exertion and shortness of breath. On 01/19 he struck his elbow and lost his breath and has not been able to feel as though he can fully breathe since then. Endorses chills at home. For the past 2 days he has also complained of a productive white cough with white phlegm, denies any hemoptysis. Denies any chest pain, nausea/vomiting, abdominal pain, or urinary/bowel changes. He recently finished a course of prednisone and antibiotics on 01/16 for recurrent pneumonia. Denies any recent travel, known sick contacts. Patient states that he called Dr. Toro who recommended that he come in for treatment of pneumonia. Recommended starting cefepime and azithromycin for empiric treatment of recurrent pneumonia. ED workup: 97.7? F, 90 HR, 22 RR, 105/80, 89% on room air, placed on 3 L NC, increased to 93% WBC 12.0, HGB 14.4, HCT 42.3, PLT count 403, Na 138, K 4.0, carbon dioxide 22, anion gap 7, creatinine 0.91, LFTs were WNL Troponin negative, BNP WNL EKG: NSR rate of 89, LAD normal axis, no ST/T wave changes Chest XR: Asymmetric left-sided airspace disease, compatible with pneumonia which has progressed since 11/06/2024. Asymmetric edema less favored Chest CT: Significant progression of multifocal pneumonia bilaterally most confluent in the left upper and lower lobe. The following med issues have been addressed during hospitalization (1) Acute respiratory failure with hypoxia: Code(s): J96.01 - Acute respiratory failure with hypoxia Status: Acute Assessment and Plan: * Symptoms: Tachypnea, SOB * SpO2: 95% * Oxygen supplementation: 3L NC * EKHR, sinus rhythm, possible LA enlargement * Chest XR: Asymmetric left-sided airspace disease, compatible with pneumonia which has progressed since 11/06/2024. Asymmetric edema less favored. * Viral panel (-) * MRSA (-) * Monitor vital signs, I&Os, neuro status and patient is a fall risk * Follow WBC, serum electrolytes, temperature curves and cultures * Continue IV abx - Cefepime, flagyl, azithromycin * Weaned off O2 supplementation - % in the 90s on RAResolved (2) Pneumonia: Qualifiers: Laterality: left Lung location: unspecified part of lung Pneumonia type: due to unspecified organism Qualified Code(s): J18.9 - Pneumonia, unspecified organism Code(s): J18.9 - Pneumonia, unspecified organism Status: Acute Assessment and Plan: * CXR: Asymmetric left-sided airspace disease, compatible with pneumonia which has progressed since 11/06/2024. Asymmetric edema less favored. * Chest CT: Significant progression of multifocal pneumonia bilaterally most confluent in the left upper and lower lobe * Risk Factors: Hx of recurrent pneumonia * Complicating Factors: Adenocarcinoma of left lung * started on Cefepime & Azithromax * Viral PCR: negative for Flu/COVID/RSV * Legionella, mycoplasma and pneumococcal - pending * supportive treatment * Monitor vital signs, I&Os, neuro status and patient is a fall risk * Follow WBC, serum electrolytes, temperature curves and cultures * Sputum/blood cultures pending * Gentle IV fluid resuscitation. * Continue IV antibiotics - will switch to Oral upon discharge01/22 see pulm note for instructions for treatment: From a pulmonary perspective patient is ready to be discharged on these pulmonary medications: Levaquin 750 mg p.o. q.day x7 days Flagyl 500 mg p.o. q.day x7 days Trelegy 100 at 1 puff q.day Rescue albuterol 2 puffs q.4 hours p.r.n. shortness of breath or wheezing Rescue albuterol nebulizer 2.5 mg q.4 hours p.r.n. shortness of breath or wheezing. Follow-up in the Pulmonary Clinic in 3-4 weeks. I gave him our business card and informed our microwave remote sensing scientist. (3) Adenocarcinoma of left lung: Code(s): C34.92 - Malignant neoplasm of unspecified part of left bronchus or lung Status: Acute Assessment and Plan: * Had Bronchoscopy performed on 11/06/2024 which showed adenocarcinoma of the left lower lobe * Saw Dr. Matamoros on 11/19/2024 and had PET scan * Counseled on the importance of abstinence from tobacco smoking 01/22 port placement 01/23 in am-then dishcarge home (4) PAF (paroxysmal atrial fibrillation): Code(s): I48.0 - Paroxysmal atrial fibrillation Status: Acute Assessment and Plan: * Keep serum potassium >4 and keep magnesium >2 * Not current requiring rate/rhythm control * EKG: NSR(5) Severe protein-calorie malnutrition: Code(s): E43 - Unspecified severe protein-calorie malnutrition Status: Acute Assessment and Plan: * Per Dietary: Severe Protein Calorie Malnutrition as related to inadequate protein energy intake with increased protein-energy needs in setting of chronic disease or condition as evidenced by significant weight loss of 18 ibs (12%) in 7 months; moderate subcutaneous fat loss (orbital fat pads) and moderate muscle wasting (temporalis/clavicle). * Consult to shank tapper - appreciate further recommendations Time Spent with Patient Time attestation: Total time spent providing and/or coordinating discharge services: Exam Narrative: Gen - Chronically ill appearing male in no acute respiratory distress who is nontoxic-appearing. HEENT - normocephalic. Atraumatic. Pupils equal round and reactive. Extraocular motions intact. Sclera clear and anicteric. Nares patent. Oropharynx was clear. Moist mucous membranes. No facial asymmetry. Neck - neck was supple. No dominant adenopathy, thyromegaly or masses. Chest - normal respiratory effort and able to speak in complete sentences, crackles now only noticeable in lower lobes. cough still present CV - heart was regular rate and rhythm. S1-S2. No murmurs gallops or rubs. Abd - abdomen was soft. Nontender. Nondistended. Positive bowel sounds. No organomegaly or masses. Ext - no clubbing, cyanosis or edema. 2+ DP pulses bilaterally. Neuro - patient is alert and oriented x4. Strength is 5/5 in both upper and lower extremities. Cranial nerves 2-12 are intact. Speech is clear. Psych - normal mood and affect. Patient is pleasant and cooperative. Skin - warm and dry. No rashes noted. DS: Data Data Completed and Pending Labs on day of discharge: Labs from last 24 hours 01/23/25 01/21/25 01/21/25 05:41 10:54 06:00 WBC 9.5 RBC 4.75 Hgb 14.9 Hct 44.7 MCV 94.1 MCH 31.4 MCHC 33.3 RDW 13.2 Plt Count 348 MPV 9.2 Immature Gran % (Auto) 0.3 Neut % (Auto) 62.4 Lymph % (Auto) 23.0 Hendry % (Auto) 9.5 H Eos % (Auto) 4.4 Baso % (Auto) 0.4 Lymph # (Auto) 2.18 [place] # (Auto) 0.9 H Eos # (Auto) 0.4 H Baso # (Auto) 0.0 Abs Immat Gran (auto) 0.03 Absolute Neuts (auto) 5.9 Absolute Nucleated RBC 0.000 Nucleated RBC % 0.0 PT 13.2 INR 1.0 APTT 24.9 Sodium 138 Potassium 4.3 Chloride 109 H Carbon Dioxide 20 L Anion Gap 9 BUN 15 Creatinine 0.87 Estim Creat Clear Calc 65 Estimated GFR > 60 Glucose 95 Calcium 9.4 Total Bilirubin 0.5 AST 29 ALT 22 Alkaline Phosphatase 115 Total Protein 7.1 Albumin 3.8 M.pneumoniae IgM Titer <770 TB Test (QFT) Gold Plus Negative TB (QFT) Incubation TB Test (QFT) Nil 0.02 TB Test (QFT) Mitogen >10.00 TB Test (QFT) +TB1 -NIL 0.03 TB Test (QFT) +TB2 -NIL 0.04 TB Test (QFT) Criteria Comment Blood Type B Positive Antibody Screen Negative Preliminary micro results at discharge 01/21/25 13:28 Sputum Culture - Preliminary Sputum 01/20/25 18:05 Sputum Culture - Preliminary Sputum 01/21/25 10:32 Blood Culture - Preliminary Blood 01/21/25 10:40 Blood Culture - Preliminary Blood Discharge Plan Discharge Attending physician on discharge: Prema Gonzalez Consulting providers: Abdulaziz Howe; Jose Manuel Mccain; Thomas Matamoros; Peter Kaur Discharging Clinician: Prema Gonzalez Anticipated Discharge Date/Time: 01/23/25 16:02 Patient Disposition: Home Activity: as tolerated Diet: as tolerated and heart healthy Discharge Instructions: Patient may discharge home today at discretion of primary team. Follow-up with Oncology to begin chemotherapy treatments. No need to follow-up with General surgery after discharge unless issues with port or incision. Discharge meds as per primary team. Patient may shower but do not soak the incision under water for 2 weeks. Protect the right upper chest and port site from trauma. Patient Instructions: Antibiotic Form Patient Language: Khmer Stand Alone Forms: General Discharge Information Follow-up/Referrals: Thomas Matamoros MD [Physician] - (Patient needs to see heme oncologist at scheduled appointment) Isaiah Ruano MD [Primary Care Provider] - (Patient needs to see primary care doctor in 1 week) Jose Manuel Mccain MD [Physician] - (Patient needs to see detective captain at scheduled appointment) Discharge Medications: New metronidazole 500 mg Tablet 500 mg PO Q8HR Qty: 16 0RF levofloxacin 750 mg tablet 750 mg PO DAILY Qty: 5 0RF Continued hydrocodone-acetaminophen 5-325 mg tablet 2 tablet PO Q6-8H PRN (Reason: pain) albuterol sulfate 90 mcg/actuation HFA aerosol inhaler 1 - 2 puff inhalation Q4-6H PRN (Reason: shortness of breath or wheezing) Qty: 8.5 2RF albuterol sulfate 2.5 mg /3 mL (0.083 %) solution for nebulization 2.5 mg inhalation Q4-6H PRN (Reason: shortness of breath or wheezing) Qty: 90 3RF Trelegy Ellipta 100-62.5-25 mcg blister with device 1 inh inhalation Q24H 30 Days Qty: 60 5RF Rx Instructions: Take one puff same time daily, rinse and spit after use. Date of admission: 01/19/25 21:42 Primary Care Provider: Isaiah Ruano Admitting Provider: Lucía Hanna Attending physician on admission: Lucía Hanna Condition: Stable
--- NOTE | 2025-01-23 13:29 | WPDANESEPPF ---
Anes - Initial Pre Proc Eval Procedure: Operation Date: 01/23/25 14:00 Proposed Procedures p Insertion Jen Cath - Peter Kaur MD Date/Time: 01/23/25 13:29 Surgeon: Lucía Hanna MD Pre Op Diagnosis: Acute resp. failure Patient Data Age: 59 Gender: M Height: 1.75 m Weight: 58.6 kg Last Vital Signs Temp 36.9 C 01/23/25 12:59 Pulse 78 01/23/25 12:59 Resp 22 H 01/23/25 07:40 BP 131/82 01/23/25 12:59 Pulse Ox 93 01/23/25 12:59 O2 Del Method Room Air 01/23/25 12:59 O2 Flow Rate 1 01/20/25 20:09 FiO2 24 01/20/25 20:09 Allergies Allergy/AdvReac Type Severity Reaction Status Date / Time No Known Allergies Allergy Unknown Verified 01/23/25 12:58 Home Medications ?Medication ?Instructions ?Recorded ?Confirmed ?Type albuterol sulfate 2.5 mg/3 mL 2.5 mg (3 mL) inhalation Q4-6H PRN 08/29/24 01/19/25 Rx (0.083 %) solution for nebulization shortness of breath or wheezing #90 mL albuterol sulfate 90 mcg/actuation 1 - 2 puff inhalation Q4-6H PRN 08/29/24 01/19/25 Rx aerosol inhaler shortness of breath or wheezing #8.5 grams fluticasone fur. 100 mcg-umeclid 1 inh inhalation Q24H COPD 1 month 11/26/24 01/19/25 Rx 62.5 mcg-vilant 25 mcg #60 ea inhalat.powder (Trelegy Ellipta) hydrocodone 5 mg-acetaminophen 325 2 tablet PO Q6-8H PRN pain 01/19/25 01/19/25 History mg tablet Laboratory Tests 01/21/25 01/21/25 01/23/25 06:00 10:54 05:41 WBC 9.5 K/mm3 (4.5-10.0) RBC 4.75 M/mm3 (4.6-6.20) Hgb 14.9 g/dL (14.0-18.0) Hct 44.7 % (42.0-52.0) MCV 94.1 fl (80-100) MCH 31.4 pg (26-34) MCHC 33.3 g/dl (32-36) RDW 13.2 % (11.5-14.5) Plt Count 348 k/mm3 (150-375) MPV 9.2 fl (7.4-10.4) Immature Gran % (Auto) 0.3 % (0-0.5) Neut % (Auto) 62.4 % (45.5-73.1) Lymph % (Auto) 23.0 % (18.3-44.2) [place] % (Auto) 9.5 H % (2.6-8.5) Eos % (Auto) 4.4 % (0-4.4) Baso % (Auto) 0.4 % (0.2-1.2) Lymph # (Auto) 2.18 K/mm3 (0.9-3.2) [place] # (Auto) 0.9 H K/mm3 (0.1-0.6) Eos # (Auto) 0.4 H K/mm3 (0-0.3) Baso # (Auto) 0.0 K/mm3 (0.0-0.1) Abs Immat Gran (auto) 0.03 K/mm3 (0.00-0.031) Absolute Neuts (auto) 5.9 K/mm3 (1.3-6.7) Absolute Nucleated RBC 0.000 K/mm3 (0.0-0.012) Nucleated RBC % 0.0 % (0.0-0.2) PT 13.2 Seconds (11.1-14.7) INR 1.0 APTT 24.9 Seconds (22.3-36.8) Sodium 138 mmol/L (137-145) Potassium 4.3 mmol/L (3.4-5.0) Chloride 109 H mmol/L (98-107) Carbon Dioxide 20 L mmol/L (22-30) Anion Gap 9 mmol/L (4-12) BUN 15 mg/dL (9-20) Creatinine 0.87 mg/dL (0.7-1.3) Estim Creat Clear Calc 65 ml/min Estimated GFR > 60 (59 - ) Glucose 95 mg/dL (65-110) Calcium 9.4 mg/dL (8.4-10.2) Total Bilirubin 0.5 mg/dL (0.2-1.3) AST 29 U/L (17-59) ALT 22 U/L (6-50) Alkaline Phosphatase 115 U/L (38-126) Total Protein 7.1 g/dL (6.3-8.2) Albumin 3.8 g/dL (3.5-5.1) M.pneumoniae IgM Titer <770 U/mL (0-769) TB Test (QFT) Gold Plus Negative (Negative) TB (QFT) Incubation (.) TB Test (QFT) Nil 0.02 IU/mL (.) TB Test (QFT) Mitogen >10.00 IU/mL (.) TB Test (QFT) +TB1 -NIL 0.03 IU/mL (.) TB Test (QFT) +TB2 -NIL 0.04 IU/mL (.) TB Test (QFT) Criteria Comment (.) Blood Type B Positive Antibody Screen Negative Patient hx anesthesia problems: none Family hx anesthesia problems: none Results Review: All pre-operative results and documents have been reviewed as part of the pre-operative evaluation. [facility] Past Medical History Medical History Multiple pulmonary nodules determined by computed tomography of lung Bipolar 1 disorder JEFFREY (generalized anxiety disorder) Atrial fibrillation Surgical History Surgical History No history of previous surgery Family History Family History Mother Hypertension Father , Age 43. 4 PPD smoker. Acute myocardial infarction Social History Social History Smoking packs per day: 1 Smoking cigarettes per day: 20.0 Years smoked: 50 Smoking pack-years: 50.00 Smoking status: Current every day smoker Tobacco type: cigarettes Second hand tobacco smoke exposure: Yes Alcohol intake: former Substance use: current Substance use type: marijuana Other substance usage details: THC Last use: 11/05/24 Do You Feel Safe in your Home?: Yes Lack of Transportation: No Lack of Food: Never True Current Housing: I Have Housing Concerned About Future Housing: No Difficulty Paying Gas/Electric Bills: No Difficulty Paying for Meds: No Currently Unemployed: No Education: High School Diploma/GED Difficulty w/ Childcare or Family Care: No Spiritual care concerns: No Anes - Eval Final PreProcedure Day of Procedure 01/23/25 13:29 Patient weight: normal Heart: regular rate and rhythm Lungs: clear to auscultation and normal air movement Airway: Mallampati scale class II Neurological: alert and oriented Last oral intake: >/= 8 hours ASA classification: IV Emergent: no Anesthetic plan: proceed Anesthesia type and monitoring: general GIVS and standard monitoring Results Review: All pre-operative results and documents have been reviewed as part of the pre-operative evaluation. Informed Consent: The patient's anesthetic plan and its attendant risks and benefits were discussed with the patient/family/POA. Questions were solicited and answers provided to the satisfaction of the patient/family/POA.
[2025-01-23] MEDS: LACTATED RINGERS 1,000 ML 30 ML IV CONT (14:07)
--- NOTE | 2025-01-23 14:15 | WPDHPUPDATE1 ---
History and Physical Update Update Date/Time: 01/23/25 14:15 History and Physical has been reviewed, including an updated exam of the patient. There are NO changes in the patient's condition. Risks, benefits, and alternatives have been discussed and questions answered. Patient agrees to proceed with procedure.
[2025-01-23] MEDS: HEPARIN SODIUM, PORCINE 10,000 UNITS/10 ML VIAL 5000 UNITS XX (15:17)
--- NOTE | 2025-01-23 15:48 | W.PM.PROC2 ---
Procedure Note - Detailed Date of Procedure 01/23/25 Pre-op Diagnosis Primary lung cancer with metastatic disease. Post-op Diagnosis Same Procedure Performed Placement of right internal jugular vein single-lumen port a catheter with intraoperative fluoroscopy Surgeon Peter Kaur MD [employer]opedic [employer] Specialist MAEVE Perez Anesthesia MAC and Local Indications Patient is a 59-year-old gentleman who was admitted to the hospital with shortness of breath. By workup he was found to have what appears to be primary lung cancer with metastasis to local regional lymph nodes. He also appears to have metastasis to the contralateral lung. Oncology evaluated the patient and there is a plan to proceed with chemotherapy. He presents now for placement of a cruz catheter for chemotherapy. Findings None significant Description of Procedure After informed consent was obtained the patient was then brought to the operating room was placed supine position and then IV sedation was administered by anesthesia. The bilateral upper anterior neck and chest was then prepped draped usual sterile fashion. A time-out was then performed correctly identifying the patient as well as procedure to be performed. He was on already on scheduled IV antibiotics on admission. The patient was then placed in the head-down Trendelenburg position and then anesthetized between the 2 heads of the right sternocleidomastoid muscle with some 1% lidocaine mixed with 0.5% Marcaine. Then utilizing a long 18gauge needle I proceeded to percutaneously cannulate the right internal jugular vein on the 2nd pass without any difficulty. There was prompt return of dark venous appearing blood. A guidewire was advanced through the needle into the right internal jugular venous subsequent down into the superior vena cava without difficulty. The proper placement of the tip of the guidewire was confirmed with intraoperative fluoroscopy. I then anesthetized an area just below the medial 3rd of the right clavicle on the upper anterior chest with 1% lidocaine mixed with 0.5% Marcaine with some epinephrine. I then made a transverse incision in this area the scalp was then dissected down through the dermis skin with a scalpel. I then dissected in the subcutaneous tissues and created a subcutaneous port pocket just above the anterior pectoralis major muscle. I then enlarged the small incision at the guidewire insertion site with a scalpel and then tunneled a 9.6 [place] single-lumen catheter between the chest incision and the neck incision. I then advanced a dilator and breakaway sheath over the guidewire and then removed the guidewire and dilator leaving the sheath in place. The catheter was then advanced through the sheath into the right internal jugular vein subsequent down into the right atrium of the heart. The sheath was then torn away leaving the catheter in place. Intraoperative fluoroscopy was then used to visualize the tip of the guidewire and then I pulled back on the catheter externals the chest wall to the tip was in the distal superior vena cava on fluoroscopy. I then cut the catheter to the appropriate length at the skin level and then attached it to the titanium Smart Port. The port was then secured the subcu port pocket on 3 sides utilizing a 3-0 Prolene suture. I then irrigated out the subcutaneous port pocket with sterile saline solution hemostasis was good. The port was then accessed and aspirated blood easily and then it was flushed with heparinized saline solution. The incision was then closed utilizing interrupted 3-0 Vicryl sutures in the subcutaneous tissues. The skin edges were approximated utilizing a running subcuticular 4 Monocryl suture. The small neck incision was closed with a running subcuticular 4-0 Monocryl suture as well. Skin glue was then applied to both incisions. The port was then accessed percutaneously 1 last time and again aspirated blood easily and was flushed with 5000units of IV heparin. The patient tolerated the procedure well no complications. All sponges, needles, and instrument counts were correct at the end procedure. EBL was _10__cc. The patient was awakened and taken to recovery in stable and satisfactory condition. Portable chest x-ray is pending at time of dictation. Implants 9.6 [place] single-lumen silastic catheter attached to titanium Smart Port placed via right internal jugular vein. Estimated Blood Loss 10 Urine Output 3 Drains No Packing No Pathology None sent Complications No immediate complications Condition Stable Disposition PACU [facility] Billing Surgery - Charge Forward: Surgery Billing
[2025-01-27 09:08] LABS: Histoplasma Gal'mannan Ag, Ur Negative (<0.2 ng/mL)
--- OUTSIDE RECORDS SUMMARY | 2025-02-17 06:40 | XMS_ITS | Clinical Summary ---
Author Organization [facility] (Formerly [facility]) Tejal Amaya Address [address] [place] [address] Care Team Providers Care Nurse Wound Name Role Phone Unavailable Primary Care Provider Unavailabl e Allergies No known active allergies Medications ALBUTEROL SULFATE ORAL Take by mouth. Ac tive fluticasone-ume clidinium-vilan terol (Trelegy Ellipta) 100-62.5-25 mcg Disk with Device Take 1 Puff by inhalation daily. 5 Active flecainide (TAMBOCOR) 100 mg tablet Take 100 mg by mouth 2 times daily. Pt takes PRN Active DOXYCYCLINE CALCIUM ORAL Take by mouth. Ac tive prednisoLONE 5 mg tablet Take 30 mg by mouth daily. Active lidocaine-prilo daniel (EMLA) 2.5-2.5 % Cream Apply a quarter size amount to port site 30 minutes before access. 30 Gram 1 5 Active folic acid (FOLVITE) 1 mg tablet Take 1 tablet by mouth starting today and continuing 21 days after last dose of pemetrexed. 90 Tablet 1 5 Active ondansetron (ZOFRAN ODT) 8 mg Tablet, Rapid Dissolve Dissolve 1 tablet on top of tongue then swallow with saliva every 8 hours as needed for nausea or vomiting 30 Tablet 1 5 Active dexAMETHasone (DECADRON) 4 mg tablet Take 1 Tablet (4 mg) by mouth 2 times daily day before, day of, day after treatment with Pemetrexed. 6 Tablet 4 5 Active HYDROcodone-ana maria taminophen (NORCO) 7.5-325 mg Tablet 5 Active Active Problems Problem Noted Date Diagnosed [...] Encounters Date Type Department Care Team Description 02/16/2025 Orders Only [facility] ([facility]) Oncology and Hematology - [address] [place] [phone] Thomas Matamoros MD Malignant neoplasm of lower lobe of left lung (CMS/HCC); Benign hypertension 02/13/2025 11:00 AM CDT Office Visit [facility] INFECTIOUS DISEASE READINGER [address] [facility] [address] [place] [phone] Mian Acevedo MD Multilobar lung infiltrate (Primary Dx) 02/11/2025 Abstract [facility] ([facility] Oncology and Hematology [facility] [address] [place] [phone] Thomas Matamoros MD 02/09/2025 Orders Only [facility] Oncology and Hematology - [address] [place] [phone] Thomas Matamoros MD 02/06/2025 Orders Only [facility] ([facility] Oncology and Hematology - [address] [place] [address] Thomas Matamoros MD Malignant neoplasm of lower lobe of left lung (CMS/HCC) (Primary Dx); Benign hypertension 02/04/2025 External Device Data STL ABSTRACTION Provider, Abstract 02/02/2025 Refill [facility] ([facility] Oncology and Hematology [facility] [address] [place] [phone] Thomas Matamoros MD 02/02/2025 Orders Only [facility] Oncology and Hematology - [address] [place] [address] Thomas Matamoros MD Need for hepatitis B screening test (Primary Dx) 01/30/2025 Abstract [facility] ([facility]) Pulmonology [address] [place] [address] Dewayne West MD 01/28/2025 4:30 PM CDT Telephone Check Up [facility] ([facility] Oncology and Hematology [facility] [address] [place] [address] Thomas Matamoros MD 01/28/2025 Telephone [facility] Oncology and Hematology [facility] [address] [place] [phone] Thomas Matamoros MD Follow up Visit 01/27/2025 Orders Only [facility] Oncology and Hematology [facility] [address] [place] [address] Thomas Matamoros MD Malignant neoplasm of lower lobe of left lung (CMS/HCC) (Primary Dx) 01/21/2025 External Device Data STL ABSTRACTION Provider, Abstract 01/21/2025 Telephone [facility] Pulmonology [address] [place] [address] Dewayne West MD Results 01/20/2025 External Device Data STL ABSTRACTION Provider, Abstract 01/20/2025 External Device Data STL ABSTRACTION Provider, Abstract 01/16/2025 1:20 PM CDT - 01/16/2025 6:00 PM CDT Hospital Encounter [facility] Interventional Care [address] [place] [phone] Dewayne West MD Multilobar lung infiltrate Discharge Disposition: Home or Self Care 01/14/2025 Telephone [facility] Pulmonology [address] [place] [address] Dewayne West MD Procedure 01/13/2025 Telephone [facility] Cardiovas and Thor Surg at [address] [place] [address] Jc Duran MD Question 01/09/2025 9:30 AM CDT Office Visit [facility] Pulmonology [facility] [address] [facility] [address] [place] [address] Dewayne West MD Adenocarcinoma, lung, left (CMS/HCC) (Primary Dx); Recurrent pneumonia; PAF (paroxysmal atrial fibrillation) (CMS/HCC); Tobacco abuse disorder 01/05/2025 Telephone [facility] Cardiovas and Thor Surg at [address] [place] [phone] Jc Duran MD Question 12/31/2024 12:45 PM CDT Office Visit [facility] Cardiovas and Thor Surg at [address] [place] [phone] Jc Duran MD Chronic pneumonia (Primary Dx) 12/31/2024 External Device Data STL ABSTRACTION Provider, Abstract 12/03/2024 4:30 PM CDT Telephone Check Up [facility] Oncology and Hematology [facility] [address] [place] [phone] Thomas Matamoros MD Malignant neoplasm of lower lobe of left lung (CMS/HCC) (Primary Dx) 12/01/2024 Orders Only [facility] Oncology and Hematology [address] [place] [address] Thomas Matamoros MD 11/25/2024 External Device Data STL ABSTRACTION Provider, Abstract 11/25/2024 External Device Data STL ABSTRACTION Provider, Abstract 11/25/2024 External Device Data STL ABSTRACTION Provider, Abstract 11/19/2024 3:00 PM CDT Office Visit [facility] ([facility]) Oncology and Hematology - [address] [place] [address] Thomas Matamoros MD Malignant neoplasm of lower lobe of left lung (CMS/HCC) (Primary Dx) from Last 3 Months Immunizations Immunization Administration Dates Next Due (PFIZER JEFFERSON)(12 YR UP PRIMA RY SERIES) COVID-19 VACCINE - EMERGENCY USE AUTHORIZATION, MRNA, JEFFERSON(PF) 30 MCG/0.3 ML IM SUSP 11/28/2021 (PFIZER)(12 YR UP) COVID-19 VACCINE - EMERGENCY USE AUTHORIZATION, MRNA, [id number](PF) 30 MCG/0.3 ML IM SUSP 04/08/2021,03/18/2021 (PNEUMOVAX 23)(50 YRS UP) PN EUMOCOCCAL POLYSACCHARIDE (PPV23) 0.5 ML, IM 02/26/2020 (SPIKEVAX) (12 YRS UP PRIMAR Y SERIES) COVID-19 VACCINE - MRNA-1273(PF) 100 MCG/0.5 ML IM SUSP 09/27/2020,08/29/2020 INFLUENZA VACCINE QUADRIVALENT 6 MOS UP IM 03/28 INFLUENZA VACCINE QUADRIVALENT 6 MOS UP PF IM ,02/26/2020 Influenza Seasonal Unspecified Formulation IM Influenza Seasonal Unspecified Formulation PF IM 04/14/2024 Family History Medical History Relation Name Comments [...] Date Smoking Tobacco: Every Day Cigarettes 1 45.7 Started: 06/18/1979 Smokeless Tobacco: Never Tobacco Cessation:Ready [...] Sign Reading Time Taken Comments Blood Pressure 124/82 02/13/2025 11:09 AM CDT Pulse 88 02/13/2025 11:09 AM CDT Temperature 36.7 C (98 F) 02/13/2025 11:09 AM CDT Respiratory Rate 19 01/16/2025 5:43 PM CDT Oxygen Saturation 90% 01/16/2025 5:43 PM CDT Inhaled Oxygen Concentration - - Weight 57.4 kg (126 lb 9.6 oz) 02/13/2025 11:09 AM CDT Height 172.7 cm (5' 8) 02/13/2025 11:09 AM CDT Body Mass Index 19.25 02/13/2025 11:09 AM CDT Plan of Treatment Upcoming Encounters Date Type Department Care Team (Late st Contact Info) Description 03/02/2025 8:45 AM CDT Office Visit [facility] ([facility] Oncology and Hematology - [address] [facility] [address] [place] [address] Thomas Matamoros MD [address] [facility] [address] [place] [address] Health Maintenance Due Date Last Done Comments DTAP/TDAP/TD VACCINES (1 - Tdap) 1982 COLORECTAL SCREENING 2008 Colorectal Cancer Screening 2008 FIT-DNA Q 3 years 2008 FIT/FOBT Q 1 year 2008 Flex Sig/CT Colonography Q 5 years 2008 ZOSTER VACCINE (1 of 2) 2013 COVID-19 Vaccine (2023-2 5 season) 2024 11/28/2021, 04/08/2021, 03/18/2021, Additional history exists INFLUENZA VACCINE (#1) 2025 4, 03/19/2020, 02/26/2020, Additional history exists RSV VACCINE (60+ or ) (1 - 1-dose 75+ series) 2038 Procedures Procedure Name Priority Date/Time Associated Diagnosis Comments BASIC METABOLIC PANEL Routine 02/09/2025 2:34 PM CDT COMPREHENSIVE METABOLIC PANEL Routine 02/09/2025 2:22 PM CDT PROCEDURE REPORT 01/16/2025 4:47 PM CDT XR CHEST PA OR AP 1 VW Stat 3:40 PM CDT PATHOLOGY Pathology 01/16/2025 3:31 PM CDT CYTOLOGY, NON GYNE Pathology 01/16/2025 3: 31 PM CDT FUNGUS STAIN Routine 01/16/2025 3:31 PM CDT FUNGUS CULTURE, OTHER Routine 01/16/2025 3:31 PM CDT AFB CULTURE WITH STAIN Routine 3:31 PM CDT RESPIRATORY CULTURE WITH GRAM STAIN Routine 01/16/2025 3:31 PM CDT FUNGUS STAIN Routine 01/16/2025 3:31 PM CDT PNEUMONIA PATHOGEN PCR PANEL Routine 01/16/2025 3:31 PM CDT ASPERGILLUS ANTIGEN, BRONCHOALVEOLAR LAVAGE Routine 01/16/2025 3:31 PM CDT FUNGUS CULTURE, OTHER Routine 01/16/2025 3:31 PM CDT FUNGUS CULTURE, OTHER Routine 01/16/2025 3:31 PM CDT AFB CULTURE WITH STAIN Routine 3:31 PM CDT AFB CULTURE WITH STAIN Routine 3:31 PM CDT RESPIRATORY CULTURE WITH GRAM STAIN Routine 01/16/2025 3:31 PM CDT RESPIRATORY CULTURE WITH GRAM STAIN Routine 01/16/2025 3:31 PM CDT XR FLUORO LESS THAN 1 HOUR Routine 01/16/2025 3:14 PM CDT PET BONE IMG W CT SKL BSE MID THG Routine 11/28/2024 10:47 AM CDT from Last 3 Months Results * BASIC METABOLIC PANEL (02/09/2025 2:34 PM CDT) Blood us Thomas Matamoros MD CHEMISTRY ORDERABLES Final Resu lt * COMPREHENSIVE METABOLIC PANEL (02/09/2025 2:22 PM CDT) Blood us Thomas Matamoros MD CHEMISTRY ORDERABLES Final Resu lt * PROCEDURE REPORT (01/16/2025 4:47 PM CDT) Narrative Procedure Note Dewayne West MD - 01/16/2025 4:47 PM CDT [facility] Pulmonology Patient Name: Alen Spain Procedure Date: [...] 0 Note Initiated On: 01/16/2025 11:[address]; [place] [address] us Dewayne West MD PROCEDURE/MINOR SURGICAL ORDE RABLES [...] nucleic acids detected. 01/16/2025 7:05 PM CDT [facility] Washings (Lung, bilateral) Collection / Unknown 01/16/2025 3:31 PM CDT 01/16/2025 3:49 PM CDT [facility] - 01/16/2025 7:05 PM CDT A negative [...] ORDERA BLES Final Result Performing Organization Address City/State/[facility] Co de Phone Number [facility]# [id number] [address] [place] [address] * ASPERGILLUS ANTIGEN, BRONCHOALVEOLAR LAVAGE (01/16/2025 3:31 PM CDT) [facility] ASPERGILLUS GALACTOMANAN INDEX <0.50 01/22/2025 5:01 PM CDT [facility] ASPERGILLUS GALACTOMANNAN AG NOT DETECTED 01/22/2025 5:01 PM CDT [facility] Comment: REFERENCE RANGE: <0.50 NOT DETECTED RESULT INTERPRETATION: An Index <0.50 is considered to be negative. An Index >=0.50 is considered to be positive. A positive result for patients being treated with piperacillin-tazobactam and other beta-lactam antibiotics such as amoxicillin-clavulanate may be false positive due to cross reactivity and should be viewed in conjunction with all clinical findings. Positive results with this assay has also been reported in patients infected with Penicillium marneffei and Cryptococcus. BAL (Lung, KENNETH) Collection / Unknown 01/16/2025 3:31 PM CDT 01/16/2025 3:48 PM CDT Narrative [facility] - 01/22/2025 5:01 PM CDT Performing Organization Information: Site ID: [id number] Name: [employer], Address: [address] [place] [id number] Director: Sybil Estevez MD,PhD,GAIL Dewayne West MD MICROBIOLOGY - GENERAL ORDERA BLES Final Result [facility] KENNETH [phone] * PATHOLOGY (01/16/2025 3:31 PM CDT) CASE REPORT Surgical Pathology Report Case: [id number] Authorizing Provider: Dewayne West MD Collected: 01/16/2025 03:31 PM Ordering Location: [facility] Received: 01/16/2025 03:48 PM [facility] Interventional Care Pathologist: Tia Garcia MD Specimens: A) - Lung, KENNETH, Transbronchial bx B) - Lung, LLL, Transbronchial bx 4:15 PM CDT [facility] FINAL DIAGNOSIS Lung, left upper lobe, transbronchial biopsy: - Adenocarcinoma. Lung, left lower lobe, transbronchial biopsy: - Adenocarcinoma. 4:15 PM CDT [facility] at 1614 CDT GROSS DESCRIPTION Two containers are received labeled Alen Spain. Received in the first container additionally labeled transbronchial biopsy left upper lobe are 5 fragments of pink-ayala to red-ayala tissue ranging from less than 0.1 to 0.2 cm in greatest dimension. The specimen is submitted entirely in cassettes A1 and A2. Received in the second container additionally labeled transbronchial biopsy left lower lobe are 3 fragments of pink-ayala to red-ayala tissue ranging from less than 0.1 to 0.2 cm in greatest dimension. The specimen is submitted entirely in cassettes B1 and B2. KA 4:15 PM CDT [facility] MICROSCOPIC DESCRIPTION The slides are labeled [id number] and Alen Spain. Both biopsies show similar appearing adenocarcinomas with papillary architecture, lined by columnar cells with monotonous nuclei and prominent nucleoli. Based on review of the electronic medical record, the patient has a history of adenocarcinoma. Those prior samples are not available for comparative review. Clinical and radiologic correlation is suggested. Molecular studies (e.g. ALK, ROS1, and EGFR) will be performed upon request. 4:15 PM CDT [facility] CLINICAL INFORMATION Lung cancer, infiltrates, adenopathy No Dx found. 4:15 PM CDT [facility] COMMENT Special stain, immunohistochemical, and/or in situ hybridization results are interpreted with controls that demonstrate appropriate staining reactions. Note on use of immunohistochemistry reagents and in situ hybridization probes: These tests were developed and their performance characteristics determined by [facility], Department of Laboratory Medicine. It has not been cleared or approved by the U.S. Food and Drug Administration. The FDA has determined that such clearance or approval is not necessary. The test is used for clinical purposes. It should not be regarded as investigational or for research. This laboratory is certified to perform high complexity testing. Frozen section/operating room consultation, gross examination and dissection, and case sign out may have been performed in part or completely in the following laboratories: [facility], [place] #[id number] [address] [place] [address] [facility], [place] #[id number] [address] [place] [address] [facility], [place] #[id number] [address] [place] [address] This report was created with the [employer] voice-activated dictation system. Inherent to this system is the possibility of syntax, grammar, punctuation and other errors that could impact the interpretation of the report. If there are interpretative questions about aspects of this report, please contact the performing pathologist. 4:15 PM CDT [facility] Tissue (Lung, KENNETH) Collection / Unknown 01/16/2025 3:31 PM CDT 01/16/2025 3:48 PM CDT Tissue specimen (specimen) (Lung, LLL) Collection / Unknown 01/16/2025 3:31 PM CDT 01/16/2025 3:48 PM CDT Dewayne West MD PATHOLOGY/CYTOLOGY ORDERABLES Final Result Performing Organization Address [facility] Co de Phone Number [facility] CLWV# [id number] [address] [place] [address] * RESPIRATORY CULTURE WITH GRAM STAIN (01/16/2025 3:31 PM CDT) Only the most recent of3 resultswithin the time period is included. CULTURE <10,000 cfu/mL Normal upper respiratory kamryn 01/18/2025 7:35 AM CDT [facility] GRAM STAIN Non diagnostic pattern 01/18/2025 7:35 AM CDT [facility] GRAM STAIN 2+ (Few) Polymorphonuclear WBC 01/18/2025 7:35 AM CDT [facility] GRAM STAIN Intracellular organisms absent 01/18/2025 7:35 AM CDT [facility] BAL (Lung, RLL) Collection / Unknown 01/16/2025 3:31 PM CDT 01/16/2025 3:48 PM CDT Dewayne West MD MICROBIOLOGY - GENERAL ORDERA BLES Final Result Performing Organization Address [facility] de Phone Number [facility]# [id number] [address] [place] [address] * FUNGUS STAIN (01/16/2025 3:31 PM CDT) Only the most recent of2 resultswithin the time period is included. FUNGUS STAIN No fungal elements observed No yeast or fungal elements observed 01/16/2025 5:19 PM CDT [facility] BAL (Lung, RLL) Collection / Unknown 01/16/2025 3:31 PM CDT 01/16/2025 3:48 PM CDT Dewayne West MD MICROBIOLOGY - GENERAL ORDERA BLES Final Result Performing Organization Address [facility] Co de Phone Number [facility]# [id number] [address] [place] [address] * FUNGUS CULTURE, OTHER (01/16/2025 3:31 PM CDT) Only the most recent of3 resultswithin the time period is included. CULTURE No fungus isolated. 02/10/2025 9:59 AM CDT [facility] BAL (Lung, RLL) Collection / Unknown 01/16/2025 3:31 PM CDT 01/16/2025 3:48 PM CDT Narrative [facility] - 02/10/2025 9:59 AM CDT Culture is held for a minimum of 4 weeks. Dewayne West MD MICROBIOLOGY - GENERAL ORDERA BLES Final Result [facility]# [id number] [address] [place] [address] * CYTOLOGY, NON GYNE (01/16/2025 3:31 PM CDT) CASE REPORT Medical Cytology Report Case: [id number] Authorizing Provider: Dewayne West MD Collected: 01/16/2025 03:31 PM Ordering Location: [facility] Received: 01/19/2025 07:29 AM [facility] Interventional Care Pathologist: Tia Garcia MD Specimens: A) - Fine needle aspirate, lung, KENNETH B) - Fine needle aspirate, lung, LLL C) - BAL, left upper lobe, KENNETH D) - BAL, left lower lobe, LLL E) - BAL, right lower lobe, RLL F) - Fine needle aspirate, lymph node, Station 11L G) - Fine needle aspirate, lymph node, Station 7 H) - Fine needle aspirate, lymph node, Station 10R I) - Bronchial brushing, KENNETH 4:14 PM CDT [facility] FINAL DIAGNOSIS Lung, left upper lobe, endobronchial ultrasound-guided fine-needle aspiration: - Adenocarcinoma. Lung, left lower lobe, fine-needle aspiration: - Adenocarcinoma. Lung, left upper lobe, bronchoalveolar lavage: - Adenocarcinoma. Lung, left lower lobe, bronchoalveolar lavage: - Adenocarcinoma. Lung, right lower lobe, bronchoalveolar lavage: - Adenocarcinoma. Lymph node, 11L, endobronchial ultrasound-guided fine-needle aspiration: - Metastatic adenocarcinoma. Lymph node, station 7, endobronchial ultrasound-guided fine-needle aspiration: - Rare TTF-1 positive cells in the cellblock, suspicious for metastatic adenocarcinoma. Lymph node, station 10R, endobronchial ultrasound-guided fine-needle aspiration: - Metastatic adenocarcinoma. Lung, left upper lobe, bronchial brush: - Adenocarcinoma. 4:14 PM CDT [facility] at 1614 CDT GROSS DESCRIPTION Received are 9 containers all labeled Alen Spain. The first container (A) is additionally labeled KENNETH FNA. It holds 30 mL of slightly cloudy dark pink CytoLyt fluid. One ThinPrep and one cell block made. The second container (B) is additionally labeled LLL FNA. It holds 30 mL of slightly cloudy light pink CytoLyt fluid. One ThinPrep and one cell block made. The third container (C ) is additionally labeled KENNETH BAL. It contains 5 mL of cloudy red fluid. One ThinPrep made. The fourth container (D) is additionally labeled LLL BAL. It contains 10 mL of cloudy red fluid. One ThinPrep made. The fifth container (E) is additionally labeled RLL BAL. It contains 5 mL of clear colorless fluid. One ThinPrep made. The sixth container (F) is additionally labeled station 11L FNA. It holds 30 mL of cloudy red CytoLyt fluid. One ThinPrep and one cell block made. The seventh container (G) is additionally labeled station 7 FNA. It holds 30 mL of slightly cloudy red CytoLyt fluid. One ThinPrep and one cell block made. The eighth container (H) is additionally labeled station 10R FNA. It holds 30 mL of clear red CytoLyt fluid. One ThinPrep and one cell block made. The ninth container (I) is additionally labeled KENNETH brush. It holds 1 brush(s) in 30 mL of CytoLyt fluid. One ThinPrep made. SK 5 4:14 PM [facility] MICROSCOPIC DESCRIPTION The slides are labeled [id number] and Alen Spain. The left upper lobe and the left lower lobe aspirates appear similar with numerous papillary clusters of tightly packed cells with prominent nucleoli. The cell blocks for both sites show abundant tumor cells. A limited panel of immunohistochemical stains was applied to the left upper lobe aspirate and shows the tumor cells are positive for TTF-1 and Napsin A and negative for PAX8. The station 11L lymph node shows scattered groups of adenocarcinoma. No definite tumor cells cells are identified in the cellblock. The station 7 aspirate shows polymorphous appearing lymphocytes. No malignant cells are identified on the H&E stained cellblock slides. A TTF-1 was applied to the cellblock and strongly highlights fewer than 10 large cells suspicious for metastatic adenocarcinoma. The 10R lymph node shows clusters of adenocarcinoma. Scattered clusters are also present in the cellblock. The background shows lymphocytes. Molecular studies (e.g. ALK, ROS1, and EGFR) will be performed upon request. 5 4:14 PM [facility] CLINICAL INFORMATION Lung cancer, infiltrates, adenopathy No Dx found. 5 4:14 PM [facility] COMMENT Special stain, immunohistochemical, and/or in situ hybridization results are interpreted with controls that demonstrate appropriate staining reactions. Note on use of immunohistochemistry reagents and in situ hybridization probes: These tests were developed and their performance characteristics determined by [facility], Department of Laboratory Medicine. It has not been cleared or approved by the U.S. Food and Drug Administration. The FDA has determined that such clearance or approval is not necessary. The test is used for clinical purposes. It should not be regarded as investigational or for research. This laboratory is certified to perform high complexity testing. Cases may have been signed out in part or completely in the following laboratories: [facility], CLIA #[id number] [address] [place] [address] Lydia Osborne/Jennifer, CLIA #[id number] [address] [place] [address]. 4:14 PM CDT [facility] Body fluid (Fine needle aspirate, lung) Collection / Unknown 01/16/2025 3:31 PM CDT 01/19/2025 7:29 AM CDT Body fluid specimen (specimen) (Fine needle aspirate, lung) Collection / Unknown 01/16/2025 3:31 PM CDT 01/19/2025 7:29 AM CDT Body fluid specimen (specimen) (BAL, left upper lobe) 01/16/2025 3:31 PM CDT 01/19/2025 7:29 AM CDT Body fluid specimen (specimen) (BAL, left lower lobe) 01/16/2025 3:31 PM CDT 01/19/2025 7:29 AM CDT Body fluid specimen (specimen) (BAL, right lower lobe) 01/16/2025 3:31 PM CDT 01/19/2025 7:29 AM CDT Body fluid specimen (specimen) SPECIMEN FROM LYMPH NODE OBTAINED BY FINE NEEDLE ASPIRATION BIOPSY / Unknown 01/16/2025 3:31 PM CDT 01/19/2025 7:29 AM CDT Body fluid specimen (specimen) SPECIMEN FROM LYMPH NODE OBTAINED BY FINE NEEDLE ASPIRATION BIOPSY / Unknown 01/16/2025 3:31 PM CDT 01/19/2025 7:29 AM CDT Body fluid specimen (specimen) SPECIMEN FROM LYMPH NODE OBTAINED BY FINE NEEDLE ASPIRATION BIOPSY / Unknown 01/16/2025 3:31 PM CDT 01/19/2025 7:29 AM CDT Body fluid specimen (specimen) (Bronchial brushing) 01/16/2025 3:31 PM CDT 01/19/2025 7:29 AM CDT Dewayne West MD PATHOLOGY/CYTOLOGY ORDERABLES Final Result [facility] CLIA# [id number] [address] [place] [address] * XR FLUORO LESS THAN 1 HOUR (01/16/2025 3:14 PM CDT) Narrative 01/16/2025 3:14 PM CDT Order information only. Exam was auto-finalized. Dewayne West MD DIAGNOSTIC IMAGING ORDERABLES Final Result * PET BONE IMG W CT SKB (11/28/2024 10:47 AM CDT) Anatomical Region Laterality Modality Positron Emissio n Tomography (PET) Thomas Matamoros MD PE ORDERABLES Final Result from Last 3 Months Insurance BC OUT OF STATE BC OUT OF STATE
--- OUTSIDE RECORDS SUMMARY | 2025-02-17 06:40 | XMS_ITS | Encounter Summary ---
Author Organization [facility] [employer] [facility] Address [address] [place] [address] Care Team Providers Care Mold Holder Name Role Phone Unavailable Primary Care Provider Unavailabl e Encounter Details Date Type Department Care Team (Late Contact Info) Description 02/16/2025 Orders Only [facility] Oncology and Hematology [facility] [address] [place] [address] Thomas Matamoros MD [facility] [employer] [address] [place] [address] Malignant neoplasm of lower lobe of left lung (CMS/HCC); Benign hypertension Social History Tobacco Use Types Packs/Day Years Used Date Smoking Tobacco: Every Day Cigarettes 1 45.7 Started: 06/18/1979 Smokeless Tobacco: Never Alcohol Use [...] Encounters Date Type Department Care Team (Late Contact Info) Description 03/02/2025 8:45 AM CDT Office Visit [facility] Oncology and Hematology [facility] [address] [place] [address] Thomas Matamoros MD [address] [address] [place] [address] documented as of this encounter Visit Diagnoses Diagnosis Malignant neoplasm of lower lobe of left lung (CMS/HCC) Benign hypertension Essential hypertension, benign documented in this encounter
--- OUTSIDE RECORDS SUMMARY | 2025-02-17 06:40 | XMS_ITS | Clinical Summary ---
Author Organization [facility] Address [address] [place] [address] Care Team Providers Care Hot Top Liner Helper Name Role Phone Lucas Renteria MD Primary Care Provider [phone] Eduardo Love MD Unavailable [phone] Allergies No known active allergies Medications * [...] monitoring flecainide therapy 08/16 Paroxysmal atrial fibrillation ([facility]) Family History Medical History Relation Comments [place] Father [place] Paternal Grandfather Relation Status Comments Father Paternal [...] 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
--- OUTSIDE RECORDS SUMMARY | 2025-02-17 06:40 | XMS_ITS | Encounter Summary ---
Author Organization [facility] Address [address] [place] [address] Care Team Providers Care Bulk Tank Driver Name Role Phone Unavailable Primary Care Provider Unavailabl e Reason for Visit * Reason Onset Date Comments Procedure 01/14/2025 Encounter Details Date Type Department Care Team (Late st Contact Info) Description 01/14/2025 Telephone [facility] Pulmonology [facility] [address] [place] [address] Dewayne West MD [address] [place] [address] Procedure Social History Tobacco Use [...] * Telephone Encounter - Ariadne Martinez - 02/03/2025 2:15 PM CDT I have tried this patient 3 times to go over Bronch instructions * Telephone Encounter - Ariadne Martinez - 02/03/2025 10:45 AM CDT LMOM for patient to call back to go over Bronch instructions * Telephone Encounter - Ariadne Martinez - 01/29/2025 1:12 PM CDT LMOM for patient to call back to go over Bronch Instructions * Telephone Encounter - Ariadne Martinez - [...] Description 03/02/2025 8:45 AM CDT Office Visit [facility] Oncology and Hematology - [place] [address] [facility] [[email or web address] [address] [place] [address] Thomas Matamoros MD [address] [place] [address] documented as of this encounter Visit Diagnoses Not on filedocumented in this encounter
--- OUTSIDE RECORDS SUMMARY | 2025-02-17 06:40 | XMS_ITS | Patient Health Record ---
Author Organization [facility] [employer] Address [address] [address] Support Name Relationship Address Phone PONCHO SALDANA Guarantor Unknown [phone] Reason For Referral No Information Plan Of Treatment No Information
== END 2025-01-23 17:35 | disposition home or self-care (01) | DRG 193 ==
PROVIDERS: Internal Medicine Pulmonary Disease; Nurse Practitioner Family; Physician Assistant; Surgery; Admitting Provider Internal Medicine; PCP Internal Medicine; Visit Provider Hospitalist
PROC: 0JH63WZ Insertion of Totally Implantable Vascular Access Device into Chest Subcutaneous Tissue and Fascia, Percutaneous Approach (ICD-10-PCS; principal; 2025-01-23 14:00)
DX: J18.9 Pneumonia, unspecified organism (principal); E43 Unspecified severe protein-calorie malnutrition; J96.01 Acute respiratory failure with hypoxia; C34.32 Malignant neoplasm of lower lobe, left bronchus or lung; Z68.1 Body mass index [BMI] 19.9 or less, adult; J44.0 Chronic obstructive pulmonary disease with (acute) lower respiratory infection; C77.1 Secondary and unspecified malignant neoplasm of intrathoracic lymph nodes; C78.01 Secondary malignant neoplasm of right lung; I48.0 Paroxysmal atrial fibrillation; F17.210 Nicotine dependence, cigarettes, uncomplicated; F31.9 Bipolar disorder, unspecified; F41.1 Generalized anxiety disorder; Z20.822 Contact with and (suspected) exposure to COVID-19; Z79.51 Long term (current) use of inhaled steroids
CPT/HCPCS: 36415; 71045; 71250; 77001; 80048; 80053; 85025; 85610; 85652; 85730; 86140; 86480; 86738; 86850; 86900; 86901; 87040; 87070; 87205; 87385; 87449; 87637; 87641; 87899; 93306; 94640; A9270; C1788; J0456; J0692; J1644; J1650; J1836; J2003; J2004; J2704; J3010; J7030; J7050; J7120

== ENCOUNTER 2025-04-27 09:03 | Outpatient (CLI) | payer BC, SELFPAY ==
--- NOTE | ~2025-04-27 | CT_ITS ---
EXAM/PROCEDURE: CT chest abdomen pelvis w con HISTORY: malignant neoplasm of lower lobe LT lung COMPARISON: January 20, 2025 TECHNIQUE: IV contrast enhanced chest CT performed FINDINGS: Continued progression or worsening in alveolar changes and of both lung guillaume since the January 20 exam. No effusion or pneumothorax. Central and large airways are patent. No bulky lymphadenopathy or masses. Moderately pathologic size lymph nodes left hilar region image 69 series 3, and right hilar region image 64 series 3. No central large pulmonary emboli or thoracic aortic aneurysm/dissection. In the abdomen and pelvis, no gross evidence of metastatic disease identified. Nonobstructive bowel gas pattern with no free air or pneumatosis seen. Trace amount of free fluid may be present in the lower pelvis. Gallbladder pancreas spleen stomach and adrenal glands and liver appear normal. Small cysts in the kidneys which otherwise appear normal. The bones intact. Urinary bladder normal for technique. Prostate mildly enlarged. IMPRESSION: 1. Multifocal consolidative process in the lungs has worsened mildly since the January 20 exam. Bilateral mildly pathologic sized lymph nodes present. 2. Other findings as above. Reviewed, dictated and finalized at location A. UCTION LINE SOLDERER
--- OUTSIDE RECORDS SUMMARY | 2025-04-27 09:32 | XMS_ITS | Encounter Summary ---
Author Organization [facility] [employer] Address [address] [place] [address] Care Team Providers Care Engineer/Conductor Name Role Phone Unavailable Primary Care Provider Unavailabl e Encounter Details Date Type Department Care Team (Late Contact Info) Description 04/27/2025 Orders Only [facility] Oncology and Hematology [facility] [address] [place] [address] Thomas Matamoros MD [address] [facility] [address] [place] [address] Malignant neoplasm of lower lobe of left lung (CMS/HCC); Benign hypertension Social History Tobacco Use Types Packs/Day Years Used Date Smoking Tobacco: Every Day Cigarettes 1 45.9 Started: 06/18/1979 Smokeless Tobacco: Never Alcohol Use [...] Department Care Team (Late Contact Info) Description 05/05/2025 9:00 AM EXTRUSION PROCESS OPERATOR Office Visit [facility] Oncology and Hematology [facility] [address] [place] [address] Shea Oliva MD [address] [place] [address] documented as of this encounter Visit Diagnoses Diagnosis Malignant neoplasm of lower lobe of left lung (CMS/HCC) Benign hypertension Essential hypertension, benign documented in this encounter
--- OUTSIDE RECORDS SUMMARY | 2025-04-27 09:33 | XMS_ITS | Encounter Summary ---
Author Organization [facility] Address [address] [place] [address] Care Team Providers Care Nail Specialist Name Role Phone Unavailable Primary Care Provider Unavailabl e Reason for Visit * Reason Onset Date Comments Procedure 01/14/2025 Encounter Details Date Type Department Care Team (Late st Contact Info) Description 01/14/2025 Telephone [facility] Pulmonology [facility] [address] [place] [address] Dewayne West MD 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
--- OUTSIDE RECORDS SUMMARY | 2025-04-27 09:33 | XMS_ITS | Patient Health Record ---
Author Organization [facility] Address [address] [address] Support Name Relationship Address Phone PONCHO SALDANA Guarantor Unknown [phone] Reason For Referral No Information Plan Of Treatment No Information
--- OUTSIDE RECORDS SUMMARY | 2025-04-27 09:33 | XMS_ITS | Clinical Summary ---
Author Organization [facility] [employer] Address [address] [place] [address] Care Team Providers Care Chronic Care Nurse Name Role Phone Unavailable Primary Care Provider [...] taminophen (NORCO) 7.5-325 mg Tablet 5 Active megestroL (MEGACE) 400 mg/10 mL (40 mg/mL) suspension Take 5 mL (200 mg) by mouth daily. 150 mL 1 Active benzonatate (TESSALON) 200 mg capsule Take 1 Capsule (200 mg) by mouth 3 times daily. 30 Capsule Active Active Problems Problem Noted Date Diagnosed [...] Encounters Date Type Department Care Team Description 04/27/2025 Orders Only [facility] Oncology and Hematology - [place] [address] [place] [address] Thomas Matamoros MD Malignant neoplasm of lower lobe of left lung (CMS/HCC); Benign hypertension 04/14/2025 Orders Only [facility] Oncology and Hematology - [place] [address] [place] [address] Thomas Matamoros MD 04/13/2025 1:00 PM CDT Office Visit [facility] Oncology and Hematology - [place] [address] [place] [address] Thomas Matamoros MD Malignant neoplasm of lower lobe of left lung (CMS/HCC) (Primary Dx) 04/13/2025 Orders Only [facility] Oncology and Hematology - [place] [address] [place] [address] Thomas Matamoros MD Malignant neoplasm of lower lobe of left lung (CMS/HCC); Benign hypertension 03/30/2025 Orders Only [facility] Oncology and Hematology - [place] [address] [place] [address] Thomas Matamoros MD Malignant neoplasm of lower lobe of left lung (CMS/HCC); Benign hypertension 03/24/2025 External Device Data STL ABSTRACTION Provider, Abstract 03/23/2025 9:30 AM CDT Office Visit [facility]cology [facility] Hematology [facility] [address] [place] [address] Thomas Matamoros MD Malignant neoplasm of lower lobe of left lung (CMS/HCC) (Primary Dx) 03/16/2025 Orders Only [facility] Oncology [facility] Hematology [facility] [address] [place] [address] Thomas Matamoros MD Malignant neoplasm of lower lobe of left lung (CMS/HCC); Benign hypertension 03/12/2025 Telephone [facility] Oncology [facility] Hematology [facility] [address] [place] [address] Thomas Matamoros MD Cough 03/03/2025 External Device Data STL ABSTRACTION Provider, Abstract 03/03/2025 Orders Only [facility] Oncology and Hematology [facility] [address] [place] [address] Thomas Matamoros MD 03/02/2025 8:45 AM CDT Office Visit [facility] Oncology [facility] Hematology [facility] [address] [place] [address] Thomas Matamoros MD Malignant neoplasm of lower lobe of left lung (CMS/HCC); Benign hypertension 03/02/2025 Orders Only [facility] Oncology and Hematology [facility] [address] [place] [address] Thomas Matamoros MD 02/24/2025 External Device Data STL ABSTRACTION Provider, Abstract 02/18/2025 External Device Data STL ABSTRACTION Provider, Abstract 02/16/2025 Orders Only [facility] Oncology and Hematology [facility] [address] [place] [address] Thomas Matamoros MD Malignant neoplasm of lower lobe of left lung (CMS/HCC); Benign hypertension 02/13/2025 11:00 AM CDT Office Visit [facility] INFECTIOUS DISEASE [facility] [address] [place] [address] Mian Acevedo MD Multilobar lung infiltrate (Primary Dx) 02/11/2025 Abstract [facility] Oncology and Hematology - [place] [address] [place] [address] Thomas Matamoros MD 02/09/2025 Orders Only [facility] Oncology and Hematology - [place] [address] [place] [address] Thomas Matamoros MD 02/06/2025 Orders Only [facility] Oncology and Hematology - [place] [address] [place] [address] Thomas Matamoros MD Malignant neoplasm of lower lobe of left lung (CMS/HCC) (Primary Dx); Benign hypertension 02/04/2025 External Device Data STL ABSTRACTION Provider, Abstract 02/02/2025 Refill [facility] Oncology and Hematology [facility] [address] [place] [address] Thomas Matamoros MD 02/02/2025 Orders Only [facility] Oncology and Hematology - [place] [address] [place] [address] Thomas Matamoros MD Need for hepatitis B screening test (Primary Dx) 01/30/2025 Abstract [facility] Pulmonology [facility] [address] [place] [address] Dewayne West MD 01/28/2025 4:30 PM CDT Telephone Check Up [facility] Oncology and Hematology [facility] [address] [place] [address] Thomas Matamoros MD 01/28/2025 Telephone [facility] Oncology and Hematology [facility] [address] [place] [address] Thomas Matamoros MD Follow up Visit 01/27/2025 Orders Only [facility] Oncology and Hematology - [place] [address] [place] [address] Thomas Matamoros MD Malignant neoplasm of lower lobe of left lung (CMS/HCC) (Primary Dx) from Last 3 Months Immunizations Immunization Administration Dates Next Due (PFIZER JEFFERSON)(12 YR UP PRIMA RY SERIES) COVID-19 VACCINE - EMERGENCY USE AUTHORIZATION, MRNA, JEFFERSON(PF) 30 MCG/0.3 ML IM SUSP 11/28/2021 (PFIZER)(12 YR UP) COVID-19 VACCINE - EMERGENCY USE AUTHORIZATION, MRNA, [id number](PF) 30 MCG/0.3 ML IM SUSP 04/08/2021,03/18/2021 (PNEUMOVAX [...] 1 45.9 Started: [birth year]/18/1981 Smokeless Tobacco: Never Tobacco Cessation:Ready to Q uit: Not Asked; Counseling Given: Not Answered Alcohol Use Standard Drinks/Week Comments Never 0 (1 standard drink = 0.6 oz pur e alcohol) Sex and Gender Information Value Date Recorded Sex Assigned at Not on file Legal Sex Male 12:17 PM CDT Gender Identity Not on file Sexual Orientation Not on file Last Filed Vital Signs Vital Sign Reading Time Taken Comments Blood Pressure 127/85 04/13/2025 1:24 PM CDT Pulse 77 04/13/2025 1:24 PM CDT Temperature 36.6 C (97.8 F) 04/13/2025 1:24 PM CDT Respiratory Rate 16 04/13/2025 1:24 PM CDT Oxygen Saturation 90% 04/13/2025 1:24 PM CDT Inhaled Oxygen Concentration - - Weight 59.9 kg (132 lb) 04/13/2025 1:24 PM CDT Height 172.7 cm (5' 8) 02/13/2025 11:09 AM CDT Body Mass Index 20.07 02/13/2025 11:09 AM CDT Plan of Treatment Upcoming Encounters Date Type Department Care Team (Late st Contact Info) Description 05/05/2025 9:00 AM PROGRAM ANALYST Office Visit [facility] Oncology and Hematology [facility] [address] [place] [address] Shea Oliva MD [address] [place] [address] Health Maintenance Due Date Last Done Comments DTAP/TDAP/TD VACCINES (1 - Tdap) 1982 COLORECTAL SCREENING 2008 Colorectal Cancer Screening 2008 FIT-DNA Q 3 years 2008 FIT/FOBT Q 1 year 2008 Flex Sig/CT Colonography Q 5 years 2008 ZOSTER VACCINE (1 of 2) 2013 INFLUENZA VACCINE (#1) 2025 4, 03/19/2020, 02/26/2020, Additional history exists COVID-19 Vaccine (6 - 2024-2 6 season) 2025 11/28/2021, 04/08/2021, 03/18/2021, Additional history exists RSV VACCINE (60+ or ) (1 - 1-dose 75+ series) 2038 Procedures Procedure Name Priority Date/Time Associated Diagnosis Comments COMPREHENSIVE METABOLIC PANEL Routine 04/13/2025 7:54 AM CDT COMPREHENSIVE METABOLIC PANEL Routine 03/02/2025 1:44 PM CDT BASIC METABOLIC PANEL Routine 03/02/2025 11:47 AM CDT BASIC METABOLIC PANEL Routine 02/09/2025 2:34 PM CDT COMPREHENSIVE METABOLIC PANEL Routine 02/09/2025 2:22 PM CDT from Last 3 Months Results * COMPREHENSIVE METABOLIC PANEL (04/13/2025 7:54 AM CDT) Only the most recent of3 resultswithin the time period is included. Blood Thomas Matamoros MD CHEMISTRY ORDERABLES Final Resu lt * BASIC METABOLIC PANEL (03/02/2025 11:47 AM CDT) Only the most recent of2 resultswithin the time period is included. Blood us Thomas Matamoros MD CHEMISTRY ORDERABLES Final Resu lt from Last 3 Months Insurance BCBS OUT OF STATE BCBS OUT OF STATE
== END 2025-04-27 09:04 | disposition home or self-care (01) ==
PROVIDERS: PCP Internal Medicine; Visit Provider Internal Medicine Hematology & Oncology
DX: C34.32 Malignant neoplasm of lower lobe, left bronchus or lung (principal); N28.1 Cyst of kidney, acquired; N40.0 Benign prostatic hyperplasia without lower urinary tract symptoms
CPT/HCPCS: 71260; 74177; Q9967

== ENCOUNTER 2025-06-05 16:45 | Observation (INO) | payer BC, SELFPAY ==
--- NOTE | ~2025-06-05 | XR_ITS ---
EXAMINATION: XR chest 1V portable DATE: 06/07/2025 09:50 INDICATION: Follow-up evaluation of pneumonia. TECHNIQUE: A single frontal view of the chest was obtained. COMPARISON: CT angiogram dated 06/05/2025 FINDINGS: Heart size is unchanged. Airspace opacities of left lung are unchanged in appearance from the CT examination dated 06/05/2025. Patchy airspace opacity of right suprahilar region is also unchanged in appearance. Port catheter tip in the superior vena cava. IMPRESSION: 1. Bilateral pulmonary airspace opacities, left more than the right. Findings are essentially unchanged from CT examination of 06/05/2025. Reviewed, dictated and finalized at location T. SFORMER MAKER IMPRESSION: 1. Bilateral pulmonary airspace opacities, left more than the right. Findings a re essentially unchanged from CT examination of 06/05/2025.
--- NOTE | ~2025-06-05 | CT_ITS ---
CTA chest PE protocol HISTORY:sob, increasing oxygen requirements, lung CA . COMPARISON: None. TECHNIQUE: Following the noncontrasted greeting card maker, axial images of the thorax were obtained following infusion of 100 cc of Isovue 370. Post-processing on an independent workstation was performed to reconstruct MIP images for evaluation of the thoracic vasculature. FINDINGS: There is no pulmonary embolism, aortic dissection, thoracic aneurysm or pericardial fluid. Left lower lobe consolidation is noted. There are patchy interlobular or air space opacity and interlobular septal thickening scattered bilaterally. No pleural effusion or pneumothorax is noted. There is no axillary, mediastinal or hilar adenopathy. Limited evaluation of the upper abdomen demonstrates no gross abnormalities. Review of bone windows demonstrates no osteoblastic or lytic lesions. IMPRESSION: There is no pulmonary embolism, aortic dissection, pericardial fluid or thoracic aneurysm. Extensive consolidation within the left lower lobe is noted. There are patchy interlobular or air space opacity and interlobular septal thickening throughout the remainder of the lungs may be related to known history of lung cancer. Superimposed pneumonia and/or edema cannot be excluded. All CT scans at this facility are performed using low dose modulation techniques as appropriate to perform exam including the following: automated exposure control; use of iterative reconstruction technique; adjustment of the mA and/or kV according to patient size (this includes techniques or standardized protocols for targeted exams where dose is matched to indication/reason for exam). Reviewed, dictated and finalized at location S. SPINNER IMPRESSION: There is no pulmonary embolism, aortic dissection, pericardial fluid or thoraci c aneurysm. Extensive consolidation within the left lower lobe is noted. There are patchy i nterlobular or air space opacity and interlobular septal thickening throughout the remainder of the lungs may be related to known history of lung cancer. Supe rimposed pneumonia and/or edema cannot be excluded. All CT scans at this facility are performed using low dose modulation techniqu es as appropriate to perform exam including the following: automated exposure c ontrol; use of iterative reconstruction technique; adjustment of the mA and/or kV according to patient size (this includes techniques or standardized protocol s for targeted exams where dose is matched to indication/reason for exam).
[2025-06-05 16:47] VITALS: BP 114/85; PULSE 62; RESP 20; TEMP 36.9; O2SAT 90
--- NOTE | 2025-06-05 17:56 | ECG_ITS ---
Test Date: 2025-06-05 18:14:58 Measurements Intervals [place] Rate: 85 P: 80 MN: 126 QRS: 74 QRSD: 88 T: 73 QT: 346 QTc: 413 Interpretive Statements SINUS RHYTHM DELAYED PRECORDIAL R/S TRANSITION ST ELEVATION IN ANT/INF LEADS- PROBABLY EARLY REPOLARIZATION ABNORMALITY BASELINE ARTIFACT- I, II, III, AVR, AVL ,AVF, V1-V3 BORDERLINE ECG Compared to ECG 01/19/2025 12:42:01 No significant changes Electronically Signed On 06-05-2025 21:05:25 CLAY THROWER by Farshad Snell D.O.
[2025-06-05 18:10] VITALS: O2SAT 91
[2025-06-05 18:14] LABS: Hematocrit 39.4 % (42.0-52.0); Hemoglobin 13.2 g/dL (14.0-18.0); Immature Granulocyte Percent A 0.6 % (0-0.5); Lymphocytes Absolute Auto 1.44 K/mm3 (0.9-3.2); Mean Corpuscular HGB Conc 33.5 g/dl (32-36); Mean Corpuscular Hemoglobin 33.7 pg (26-34); Mean Corpuscular Volume 100.5 fl (80-100); Nucleated Red Blood Cells Absolute Auto 0.000 K/mm3 (0.0-0.012); Nucleated Red Blood Cells Perc 0.0 % (0.0-0.2); Platelet Count Result 313 k/mm3 (150-375); Red Blood Count 3.92 M/mm3 (4.6-6.20); White Blood Count 12.5 K/mm3 (4.5-10.0)
--- NOTE | 2025-06-05 18:32 | ED_ITS ---
HPI - SOB/Dyspnea General Chief Complaint: Shortness of Breath/Dyspnea <Catalina Brito PA-C - Last Filed: 06/06/25 02:04> Stated Complaint: stage 4 lung cancer-SOb <SATHYA Ontiveros Last Filed: 06/06/25 02:04> Time Seen by Provider: 06/05/25 17:56 <SATHYA Ontiveros Last Filed: 06/06/25 02:04> Source: patient <SATHYA Ontiveros Last Filed: 06/06/25 02:04> Mode of arrival: wheelchair <SATHYA Ontiveros Last Filed: 06/06/25 02:04> Limitations: no limitations <SATHYA Ontiveros Last Filed: 06/06/25 02:04> History of Present Illness HPI Narrative: This is a 60-year-old male that presents to the emergency department for increasing shortness of breath. History of COPD, metastatic lung cancer. On palliative chemotherapy. He usually wears 2 L nasal cannula. He has had worsening shortness of breath, cough. Denies fevers. <SATHYA Ontiveros Last Filed: 06/06/25 02:04> Related Data Home Medications: Home Medications ?Medication ?Instructions ?Recorded ?Confirmed ?Last Taken ?Type hydrocodone 5 mg-acetaminophen 325 2 tablet PO Q6-8H P RN pain 01/19/25 06/06/25 01/19/25 History mg tablet ondansetron HCl 4 mg tablet 4 mg PO DAILY PRN nausea a nd 06/06/25 06/06/25 Unknown History vomiting <SATHYA Ontiveros Last Filed: 06/06/25 02:04> Allergies/Adverse Reactions: Allergies Allergy/AdvReac Type Severity Reaction Status Date / Time No Known Allergies Allergy Unknown Verified 06/06/25 02:01 <SATHYA Ontiveros Last Filed: 06/06/25 02:04> Review of Systems 2 Review of Systems: All systems reviewed & are unremarkable except as noted in HPI and below <SATHYA Ontiveros Last Filed: 06/06/25 02:04> [facility] Past Medical History Medical History: Medical History Multiple pulmonary nodules determined by computed tomography of lung Bipolar 1 disorder JEFFREY (generalized anxiety disorder) Atrial fibrillation <Catalina Brito PA-C - Last Filed: 06/06/25 02:04> Surgical History Surgical History: Surgical History No history of previous surgery <Catalina Brito PA-C - Last Filed: 06/06/25 02:04> Family History Family History: Family History Mother Hypertension Father , Age 43. 4 PPD smoker. Acute myocardial infarction <Catalina Brito PA-C - Last Filed: 06/06/25 02:04> Social History Social History: Social History Smoking packs per day: 1 Smoking cigarettes per day: 20.0 Years smoked: 45 Smoking pack-years: 45.00 Smoking status: Former smoker Tobacco type: cigarettes Second hand tobacco smoke exposure: Yes Smoking end date: 01/19/25 Alcohol intake: former Substance use: current Substance use type: marijuana Other substance usage details: THC Last use: 11/05/24 Lack of Transportation: No Lack of Food: Never True Current Housing: I Have Housing Concerned About Future Housing: No Difficulty Paying Gas/Electric Bills: No Difficulty Paying for Meds: No Currently Unemployed: No Education: High School Diploma/GED Difficulty w/ Childcare or Family Care: No Spiritual care concerns: No <SATHYA Ontiveros Last Filed: 06/06/25 02:04> Exam 2 Narrative: GENERAL: Chronically ill-appearing, well-nourished, and in no acute distress. HEAD: Normocephalic, atraumatic. EYES: EOMI. ENT: Nares clear, no rhinorrhea or epistaxis. Mucous membranes moist. Oropharynx without tonsillar hypertrophy exudate or other lesions. Bilateral cerumen impaction NECK: Supple. No adenopathy or masses. CHEST: No respiratory distress. Left lung sounds are diminished. No wheezes or rhonchi HEART: Regular rate and rhythm. No murmur heard. Normal peripheral pulses. EXTREMITIES: Normal range of motion. No edema. SKIN: Warm, dry, no rash. NEURO: No focal deficits. Alert and oriented x3. PSYCH: Normal mood and affect <Catalina Brito PA-C - Last Filed: 06/06/25 02:04> Course COMPOSITION PROFESSOR/PA Physician Supervision This visit was performed by both a physician and an Advanced Practice Provider. I performed all aspects of the Medical Decision Making as documented. <Dinesh Bearden MD - Last Filed: 06/06/25 05:46> Vital Signs Vital signs: Vital Signs Temperature 36.9 C 06/05/25 16:47 Pulse Rate 62 06/05/25 16:47 Respiratory Rate 20 06/05/25 16:47 Blood Pressure 114/85 06/05/25 16:47 Pulse Oximetry 90 06/05/25 16:47 Oxygen Delivery Room Air 06/05/25 16:47 Temperature 36.9 C 06/05/25 16:47 Pulse Rate 86 06/06/25 02:56 Respiratory Rate 20 06/06/25 02:56 Blood Pressure 106/68 06/05/25 23:29 Pulse Oximetry 92 06/05/25 23:29 Oxygen Delivery Nasal Cannula 06/05/25 18:10 Oxygen Flow Rate 3 06/05/25 18:10 <Catalina Brito PA-C - Last Filed: 06/06/25 02:04> Vital Signs Temperature 36.9 C 06/05/25 16:47 Pulse Rate 62 06/05/25 16:47 Respiratory Rate 20 06/05/25 16:47 Blood Pressure 114/85 06/05/25 16:47 Pulse Oximetry 90 06/05/25 16:47 Oxygen Delivery Room Air 06/05/25 16:47 Temperature 36.9 C 06/05/25 16:47 Pulse Rate 86 06/06/25 02:56 Respiratory Rate 20 06/06/25 02:56 Blood Pressure 106/68 06/05/25 23:29 Pulse Oximetry 92 06/05/25 23:29 Oxygen Delivery Nasal Cannula 06/05/25 18:10 Oxygen Flow Rate 3 06/05/25 18:10 <Dinesh Bearden MD - Last Filed: 06/06/25 05:46> [facility] Narrative Medical decision making narrative: Patient presents to the emergency department for worsening shortness of breath, cough. History of COPD, advanced lung cancer, has received palliative chemotherapy. Oxygen saturation 89-90 on 3 L nasal cannula, this was increased to 5 L. patient is afebrile and nontoxic appearing. CBC with leukocytosis to 12.5. Metabolic panel without concerning findings. Influenza and COVID screens are negative. CTA chest PE obtained for further evaluation. Showing findings of his known lung cancer, possible superimposed pneumonia. Blood cultures obtained, patient started on IV antibiotics. Will be admitted to the hospitalist service for further management <Catalina Brito PA-C - Last Filed: 06/06/25 02:04> Differential Diagnosis Differential Diagnosis: Pneumonia, PE, lung cancer <Catalina Brito PA-C - Last Filed: 06/06/25 02:04> Medical Records I have reviewed the following patient records and this information was taken into consideration when formulating the assessment and plan.: previous hospitalizations <Catalina Brito PA-C - Last Filed: 06/06/25 02:04> Lab Data [facility] Lab Attestation statement: I personally reviewed the patient's lab results. <Catalina Brito PA-C - Last Filed: 06/06/25 02:04> Result diagrams: 06/05/25 18:07 06/05/25 18:07 <Catalina Brito PA-C - Last Filed: 06/06/25 02:04> Labs: Lab Results 06/05/25 06/05/25 Range/Units 18:07 19:57 WBC 12.5 H (4.5-10.0) K/mm3 RBC 3.92 L (4.6-6.20) M/mm3 Hgb 13.2 L (14.0-18.0) g/dL Hct 39.4 L (42.0-52.0) % MCV 100.5 H (80-100) fl MCH 33.7 (26-34) pg MCHC 33.5 (32-36) g/dl RDW 13.8 (11.5-14.5) % Plt Count 313 (150-375) k/mm3 MPV 9.0 (7.4-10.4) fl Immature Gran % (Auto) 0.6 H (0-0.5) % Neut % (Auto) 78.3 H (45.5-73.1) % Lymph % (Auto) 11.6 L (18.3-44.2) % [place] % (Auto) 8.7 H (2.6-8.5) % Eos % (Auto) 0.6 (0-4.4) % Baso % (Auto) 0.2 (0.2-1.2) % Lymph # (Auto) 1.44 (0.9-3.2) K/mm3 [place] # (Auto) 1.1 H (0.1-0.6) K/mm3 Eos # (Auto) 0.1 (0-0.3) K/mm3 Baso # (Auto) 0.0 (0.0-0.1) K/mm3 Abs Immat Gran (auto) 0.08 H (0.00-0.031) K/mm3 Absolute Neuts (auto) 9.8 H (1.3-6.7) K/mm3 Absolute Nucleated RBC 0.000 (0.0-0.012) K/mm3 Nucleated RBC % 0.0 (0.0-0.2) % PT 13.4 (11.1-14.7) Seconds INR 1.0 APTT 24.1 (22.3-36.8) Seconds Sodium 136 L (137-145) mmol/L Potassium 4.5 (3.4-5.0) mmol/L Chloride 105 (98-107) mmol/L Carbon Dioxide 21 L (22-30) mmol/L Anion Gap 10 (4-12) mmol/L BUN 21 H (9-20) mg/dL Creatinine 1.20 (0.7-1.3) mg/dL Estim Creat Clear Calc 48 ml/min Estimated GFR > 60 (59 - ) Glucose 135 H (65-110) mg/dL Calcium 9.7 (8.4-10.2) mg/dL Total Bilirubin 0.6 (0.2-1.3) mg/dL AST 39 (17-59) U/L ALT 18 (6-50) U/L Alkaline Phosphatase 98 (38-126) U/L Total Protein 7.7 (6.3-8.2) g/dL Albumin 3.8 (3.5-5.1) g/dL Influenza A (RT-PCR) Negative (Negative) Influenza B (RT-PCR) Negative (Negative) RSV (RT-PCR) Negative (Negative) SARS-CoV-2 RNA (RT-PCR) Negative (Negative) <Catalina Brito PA-C - Last Filed: 06/06/25 02:04> Lab Results 06/05/25 06/05/25 Range/Units 18:07 19:57 WBC 12.5 H (4.5-10.0) K/mm3 RBC 3.92 L (4.6-6.20) M/mm3 Hgb 13.2 L (14.0-18.0) g/dL Hct 39.4 L (42.0-52.0) % MCV 100.5 H (80-100) fl MCH 33.7 (26-34) pg MCHC 33.5 (32-36) g/dl RDW 13.8 (11.5-14.5) % Plt Count 313 (150-375) k/mm3 MPV 9.0 (7.4-10.4) fl Immature Gran % (Auto) 0.6 H (0-0.5) % Neut % (Auto) 78.3 H (45.5-73.1) % Lymph % (Auto) 11.6 L (18.3-44.2) % [place] % (Auto) 8.7 H (2.6-8.5) % Eos % (Auto) 0.6 (0-4.4) % Baso % (Auto) 0.2 (0.2-1.2) % Lymph # (Auto) 1.44 (0.9-3.2) K/mm3 [place] # (Auto) 1.1 H (0.1-0.6) K/mm3 Eos # (Auto) 0.1 (0-0.3) K/mm3 Baso # (Auto) 0.0 (0.0-0.1) K/mm3 Abs Immat Gran (auto) 0.08 H (0.00-0.031) K/mm3 Absolute Neuts (auto) 9.8 H (1.3-6.7) K/mm3 Absolute Nucleated RBC 0.000 (0.0-0.012) K/mm3 Nucleated RBC % 0.0 (0.0-0.2) % PT 13.4 (11.1-14.7) Seconds INR 1.0 APTT 24.1 (22.3-36.8) Seconds Sodium 136 L (137-145) mmol/L Potassium 4.5 (3.4-5.0) mmol/L Chloride 105 (98-107) mmol/L Carbon Dioxide 21 L (22-30) mmol/L Anion Gap 10 (4-12) mmol/L BUN 21 H (9-20) mg/dL Creatinine 1.20 (0.7-1.3) mg/dL Estim Creat Clear Calc 48 ml/min Estimated GFR > 60 (59 - ) Glucose 135 H (65-110) mg/dL Calcium 9.7 (8.4-10.2) mg/dL Total Bilirubin 0.6 (0.2-1.3) mg/dL AST 39 (17-59) U/L ALT 18 (6-50) U/L Alkaline Phosphatase 98 (38-126) U/L Total Protein 7.7 (6.3-8.2) g/dL Albumin 3.8 (3.5-5.1) g/dL Influenza A (RT-PCR) Negative (Negative) Influenza B (RT-PCR) Negative (Negative) RSV (RT-PCR) Negative (Negative) SARS-CoV-2 RNA (RT-PCR) Negative (Negative) <Dinesh Bearden MD - Last Filed: 06/06/25 05:46> Imaging Data Radiologist's impression: ITS Impressions Chest CTA 06/05/25 19:36 IMPRESSION: There is no pulmonary embolism, aortic dissection, pericardial fluid or thoracic aneurysm. Extensive consolidation within the left lower lobe is noted. There are patchy interlobular or air space opacity and interlobular septal thickening throughout the remainder of the lungs may be related to known history of lung cancer. Superimposed pneumonia and/or edema cannot be excluded. All CT scans at this facility are performed using low dose modulation techniques as appropriate to perform exam including the following: automated exposure control; use of iterative reconstruction technique; adjustment of the mA and/or kV according to patient size (this includes techniques or standardized protocols for targeted exams where dose is matched to indication/reason for exam). <Catalina Brito PA-C - Last Filed: 06/06/25 02:04> ITS Impressions Chest CTA 06/05/25 19:36 IMPRESSION: There is no pulmonary embolism, aortic dissection, pericardial fluid or thoracic aneurysm. Extensive consolidation within the left lower lobe is noted. There are patchy interlobular or air space opacity and interlobular septal thickening throughout the remainder of the lungs may be related to known history of lung cancer. Superimposed pneumonia and/or edema cannot be excluded. All CT scans at this facility are performed using low dose modulation techniques as appropriate to perform exam including the following: automated exposure control; use of iterative reconstruction technique; adjustment of the mA and/or kV according to patient size (this includes techniques or standardized protocols for targeted exams where dose is matched to indication/reason for exam). <Dinesh Bearden MD - Last Filed: 06/06/25 05:46> ECG Data EKG #1: ECG completion date: 06/05/25 <Catalina Brito PA-C - Last Filed: 06/06/25 02:04> normal rate, sinus rhythm, no ST changes and normal QT <Catalina Brito PA-C - Last Filed: 06/06/25 02:04> Critical Care Time Critical Care Time Critical Care Time: Yes <Catalina Brito PA-C - Last Filed: 06/06/25 02:04> Time Type: Intermittent <Catalina Brito PA-C - Last Filed: 06/06/25 02:04> Initial evaluation, discuss w/ involved parties, attempting to gather old records: 10 minutes <Catalina Brito PA-C - Last Filed: 06/06/25 02:04> Documenting medical record: 5 minutes <SATHYA Ontiveros Last Filed: 06/06/25 02:04> Review of results (EKG's, labs, imaging): 5 minutes <Catalina Brito PA-C - Last Filed: 06/06/25 02:04> Serial repeat bedside evaluation: 10 minutes <Catalina Brito PA-C - Last Filed: 06/06/25 02:04> Discussing case with multiple memebers of the care team and consultants: 5 minutes <Catalina Brito PA-C - Last Filed: 06/06/25 02:04> Total Critical Care Time: 35 <Catalina Brito PA-C - Last Filed: 06/06/25 02:04> 35 <Dinesh Bearden MD - Last Filed: 06/06/25 05:46> Discharge Plan Discharge Clinical Impression: Acute on chronic hypoxic respiratory failure, Pneumonia Lung cancer Qualifiers: Laterality: unspecified laterality Lung location: unspecified part of lung Q ualified Code(s): C34.90 - Malignant neoplasm of unspecified part of unspecified bronchus or lung <Catalina Brito PA-C - Last Filed: 06/06/25 02:04> Patient Disposition: Still a Patient <Catalina Brito PA-C - Last Filed: 06/06/25 02:04> Condition: Serious <Catalina Brito PA-C - Last Filed: 06/06/25 02:04>
[2025-06-05] MEDS: MAGNESIUM SULF 2 GM/WATER 50ML 2 GM/50 ML BAG IVPB (18:33)
[2025-06-05 18:36] LABS: Alanine Aminotransferase 18 U/L (6-50); Albumin Level 3.8 g/dL (3.5-5.1); Alkaline Phosphatase 98 U/L (38-126); Anion Gap 10 mmol/L (4-12); Aspartate Amino Transferase 39 U/L (17-59); Bilirubin,Total 0.6 mg/dL (0.2-1.3); Blood Urea Nitrogen 21 mg/dL (9-20); Calcium 9.7 mg/dL (8.4-10.2); Carbon Dioxide 21 mmol/L (22-30); Chloride 105 mmol/L (98-107); Estimated CRCL calculation 48 ml/min; Estimated Glomerular Filt Rate > 60; Glucose 135 mg/dL (65-110); Potassium 4.5 mmol/L (3.4-5.0); Sodium 136 mmol/L (137-145); Total Protein 7.7 g/dL (6.3-8.2)
[2025-06-05 18:42] LABS: INR 1.0; Prothrombin Time 13.4 Seconds (11.1-14.7)
[2025-06-05 18:43] LABS: Partial Thromboplastin Time 24.1 Seconds (22.3-36.8)
[2025-06-05 20:27] VITALS: BP 121/90; PULSE 92; RESP 25; O2SAT 90
[2025-06-05 20:40] LABS: Influenza A QL RT-PCR Negative (Negative); Influenza B QL RT-PCR Negative (Negative); RSV RNA, RT-PCR Negative (Negative); SARS-CoV-2 RNA PCR Negative (Negative)
[2025-06-05] MEDS: cefTRIAXone 1 GM in SODIUM CHLORIDE 0.9% IV 50 ML 100 ML IVPB (21:41)
[2025-06-05] MEDS: AZITHROMYCIN IV 500 MG in SODIUM CHLORIDE 0.9% IV 250 ML IVPB (22:12)
[2025-06-05 23:29] VITALS: BP 106/68; PULSE 83; RESP 24; O2SAT 92
--- NOTE | 2025-06-05 23:43 | WPCEDHO ---
ED Hand Off Checklist All vitals saved:Y IV Site documented:Y All med administrations documented:Y Triage Note Triage Note Pt c/o SOB and cough. Hx of stage 06/05/25 21:21 4 lung cancer. States had a bronch in NOV to clean lungs and remove fluid. States wears oxygen at home but hasn't had any bc it hasn't been refilled. Hx of broken ribs on right side Agree with triage assessment. Allergies No Known Allergies Allergy (Unknown, Verified 06/05/25 16:50) Family History (Last Reviewed 02/10/25 @ 11:27 by Marcel Montano MA) Mother Hypertension Father Acute myocardial infarction Administered/Completed Medications Discontinued Medications Magnesium Sulfate (Magnesium Sulf 2 Gm/Water 50ml) 2 gm in 50 mls @ 25 mls/hr IVPB ONCE STA Stop: 06/05/25 20:25 Last Infusion: 06/05/25 20:23 Dose: Infused Documented By: Admin: 06/05/25 18:33 Dose: 25 mls/hr Documented By: TAVO Co-signed By: DUC Ceftriaxone Sodium 1 gm/ (Sodium Chloride) 50 mls @ 100 mls/hr IVPB ONCE STA Stop: 06/05/25 21:48 Last Infusion: 06/05/25 22:04 Dose: Infused Documented By: Admin: 06/05/25 21:41 Dose: 100 mls/hr Documented By: TAVO Azithromycin 500 mg/ Sodium (Chloride) 250 mls @ 250 mls/hr IVPB ONCE STA Stop: 06/05/25 22:18 Last Infusion: 06/05/25 23:40 Dose: Infused Documented By: Admin: 06/05/25 22:12 Dose: 250 mls/hr Documented By: DOLORES Methylprednisolone Sodium Succinate (Methylprednisolone Sod Succ 125 Mg Vial) 125 mg IV PUSH ONCE STA Stop: 06/05/25 18:27 Last Admin: 06/05/25 18:32 Dose: 125 mg Documented By: TAVO Notes 06/05/25 23:43 ED Hand Off by Kelly Auguste ED Hand Off Checklist All vitals saved: IV Site documented: All med administrations documented: Triage Note Triage Note Pt c/o SOB and cough. Hx of stage 06/05/25 21:21 4 lung cancer. States had a bronch in NOV to clean lungs and remove fluid. States wears oxygen at home but hasn't had any bc it hasn't been refilled. Hx of broken ribs on right side Agree with triage assessment. Allergies No Known Allergies Allergy (Unknown, Verified 06/05/25 16:50) Family History (Last Reviewed 02/10/25 @ 11:27 by Marcel Montano MA) Mother Hypertension Father Acute myocardial infarction Administered/Completed Medications Discontinued Medications Magnesium Sulfate (Magnesium Sulf 2 Gm/Water 50ml) 2 gm in 50 mls @ 25 mls/hr IVPB ONCE STA Stop: 06/05/25 20:25 Last Infusion: 06/05/25 20:23 Dose: Infused Documented By: Admin: 06/05/25 18:33 Dose: 25 mls/hr Documented By: TAVO Co-signed By: DUC Ceftriaxone Sodium 1 gm/ (Sodium Chloride) 50 mls @ 100 mls/hr IVPB ONCE STA Stop: 06/05/25 21:48 Last Infusion: 06/05/25 22:04 Dose: Infused Documented By: Admin: 06/05/25 21:41 Dose: 100 mls/hr Documented By: TAVO Azithromycin 500 mg/ Sodium (Chloride) 250 mls @ 250 mls/hr IVPB ONCE STA Stop: 06/05/25 22:18 Last Infusion: 06/05/25 23:40 Dose: Infused Documented By: Admin: 06/05/25 22:12 Dose: 250 mls/hr Documented By: DOLORES Methylprednisolone Sodium Succinate (Methylprednisolone Sod Succ 125 Mg Vial) 125 mg IV PUSH ONCE STA Stop: 06/05/25 18:27 Last Admin: 06/05/25 18:32 Dose: 125 mg Documented By: TAVO Interventions/Assessments IV / Saline Lock, Insert Start: 06/05/25 17:56 Freq: STAT Status: Active Protocol: Document 06/05/25 18:10 TAVO (Rec: 06/05/25 18:10 TAVO [id number]) IV Assessment Peripheral Access Left Forearm IV Catheter Access Initiated IV Insertion Date 06/05/25 IV Insertion Time 18:10 Catheter Gauge 18 IV Site Assessment WNL IV Care and WNL Maintenance PA: Respiratory Assessment Start: 06/05/25 16:45 Freq: Status: Active Protocol: Document 06/05/25 18:10 TAVO (Rec: 06/05/25 18:22 [facility] [id number]) Respiratory Assessment Symptoms Cough,Shortness of Breath at Rest,Shortness of Breath With Exertion Effort Normal Pattern Regular Oxygen Delivery Oxygen Delivery Nasal Cannula Oxygen Flow Rate (L/ 3 min) Pulse Oximetry (90- 91 100 %) Last Vital Signs Temperature 98.5 F 06/05/25 16:47 Pulse Rate 83 06/05/25 23:29 Respiratory Rate 24 H 06/05/25 23:29 Pulse Oximetry 92 06/05/25 23:29 Blood Pressure 106/68 06/05/25 23:29 Blood Pressure Mean 80 06/05/25 23:29 Blood Pressure Position Sitting 06/05/25 16:47 Oxygen Delivery Nasal Cannula 06/05/25 18:10 Oxygen Flow Rate 3 06/05/25 18:10 Weight 59 kg 06/05/25 21:21 Last Result - Abnormals Only WBC 12.5 K/mm3 (4.5-10.0) H 06/05/25 18:07 RBC 3.92 M/mm3 (4.6-6.20) L 06/05/25 18:07 Hgb 13.2 g/dL (14.0-18.0) L 06/05/25 18:07 Hct 39.4 % (42.0-52.0) L 06/05/25 18:07 MCV 100.5 fl (80-100) H 06/05/25 18:07 Immature Gran % (Auto) 0.6 % (0-0.5) H 06/05/25 18:07 Neut % (Auto) 78.3 % (45.5-73.1) H 06/05/25 18:07 Lymph % (Auto) 11.6 % (18.3-44.2) L 06/05/25 18:07 [place] % (Auto) 8.7 % (2.6-8.5) H 06/05/25 18:07 [place] # (Auto) 1.1 K/mm3 (0.1-0.6) H 06/05/25 18:07 Abs Immat Gran (auto) 0.08 K/mm3 (0.00-0.031) H 06/05/25 18:07 Absolute Neuts (auto) 9.8 K/mm3 (1.3-6.7) H 06/05/25 18:07 Sodium 136 mmol/L (137-145) L 06/05/25 18:07 Carbon Dioxide 21 mmol/L (22-30) L 06/05/25 18:07 BUN 21 mg/dL (9-20) H 06/05/25 18:07 Glucose 135 mg/dL (65-110) H 06/05/25 18:07 Most Recent Suicide Severity Rating Suicide Severity Rating NO RISK INDICATED 06/05/25 21:21 Initialized on 06/05/25 23:43 - END OF NOTE Interventions/Assessments IV / Saline Lock, Insert Start: 06/05/25 17:56 Freq: STAT Status: Active Protocol: Document 06/05/25 18:10 KLM (Rec: 06/05/25 18:10 KLM [id number]) IV Assessment Peripheral Access Left Forearm IV Catheter Access Initiated IV Insertion Date 06/05/25 IV Insertion Time 18:10 Catheter Gauge 18 IV Site Assessment WNL IV Care and WNL Maintenance PA: Respiratory Assessment Start: 06/05/25 16:45 Freq: Status: Active Protocol: Document 06/05/25 18:10 KLM (Rec: 06/05/25 18:22 KL [id number]) Respiratory Assessment Symptoms Cough,Shortness of Breath at Rest,Shortness of Breath With Exertion Effort Normal Pattern Regular Oxygen Delivery Oxygen Delivery Nasal Cannula Oxygen Flow Rate (L/ 3 min) Pulse Oximetry (90- 91 100 %) Last Vital Signs Temperature 98.5 F 06/05/25 16:47 Pulse Rate 83 06/05/25 23:29 Respiratory Rate 24 H 06/05/25 23:29 Pulse Oximetry 92 06/05/25 23:29 Blood Pressure 106/68 06/05/25 23:29 Blood Pressure Mean 80 06/05/25 23:29 Blood Pressure Position Sitting 06/05/25 16:47 Oxygen Delivery Nasal Cannula 06/05/25 18:10 Oxygen Flow Rate 3 06/05/25 18:10 Weight 59 kg 06/05/25 21:21 Last Result - Abnormals Only WBC 12.5 K/mm3 (4.5-10.0) H 06/05/25 18:07 RBC 3.92 M/mm3 (4.6-6.20) L 06/05/25 18:07 Hgb 13.2 g/dL (14.0-18.0) L 06/05/25 18:07 Hct 39.4 % (42.0-52.0) L 06/05/25 18:07 MCV 100.5 fl (80-100) H 06/05/25 18:07 Immature Gran % (Auto) 0.6 % (0-0.5) H 06/05/25 18:07 Neut % (Auto) 78.3 % (45.5-73.1) H 06/05/25 18:07 Lymph % (Auto) 11.6 % (18.3-44.2) L 06/05/25 18:07 [place] % (Auto) 8.7 % (2.6-8.5) H 06/05/25 18:07 [place] # (Auto) 1.1 K/mm3 (0.1-0.6) H 06/05/25 18:07 Abs Immat Gran (auto) 0.08 K/mm3 (0.00-0.031) H 06/05/25 18:07 Absolute Neuts (auto) 9.8 K/mm3 (1.3-6.7) H 06/05/25 18:07 Sodium 136 mmol/L (137-145) L 06/05/25 18:07 Carbon Dioxide 21 mmol/L (22-30) L 06/05/25 18:07 BUN 21 mg/dL (9-20) H 06/05/25 18:07 Glucose 135 mg/dL (65-110) H 06/05/25 18:07 Most Recent Suicide Severity Rating Suicide Severity Rating NO RISK INDICATED 06/05/25 21:21
[2025-06-06] VITALS (12 sets, daily range): BP systolic 111–145; BP diastolic 84–90; PULSE 72–99; RESP 18–22; TEMP 36.4–37.6; O2SAT 91–93
--- NOTE | 2025-06-06 01:43 | ADMGEN ---
This patient, Alen Spain, was admitted to 3 [facility] Surg Room 332-02. Arrived to unit at 0120.Patient oriented to hospital policies and general routines including ID bracelet, bed and alarms, visiting hours, pain management, procedures, bathroom and other care routines, personal items, smoking policy, room service/diet, and visiting hours. Information on how to activate the Rapid Response Team has been discussed. Patient are encouraged to report perceived risks to care and to ask questions if they do not understand what they are told or what they should do.
[2025-06-06] MEDS: IPRATROPIUM 0.5 MG/ALBUTEROL SULFATE 2.5 MG (BASE) AMPUL.NEB 3 ML INHALATION ×4 (02:56→21:01)
--- NOTE | 2025-06-06 07:44 | P.HP_ITS ---
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 He wears oxygen 2l per nc at baseline. On 01/16/2025 the patient had bronchoscopy with EBUS at [facility] for further staging.? Per Dr. Matamoros note this demonstrated extensive adenocarcinoma involving left upper lobe, left lower lobe, right lower lobe and bilateral hilar lymph nodes.? PET scan was done on November 29 that showed no extrathoracic metastases. Following with DR Matamoros and DR Mccain. MARCK: 03/02/2025: Outpatient oncology follow-up with Dr. Matamoros. palliative chemotherapy with Carboplatinum, Alimta and Keytruda cycle 1 started 02/09/2025. came to the office for follow-up in cycle 2 of chemotherapy. He has been tolerating chemotherapy well. Denies nausea or vomiting. He was tired and fatigued from day for today 10 after chemo but now feeling better. He is breathing better and has not been using oxygen at this time he has gained 2 lb. Proceed with cycle 2 of 4 of chemotherapy today. Follow-up in 3 weeks. Imaging studies will be done after cycle 4 of chemotherapy. Continue Zofran as needed. 04/13/2025: Oncology outpatient note. Current treatment palliative chemotherapy with carboplatin, Alimta and Keytruda started 02/09/2025. Patient came to the office for follow-up. He is feeling better and more energetic. He is eating better and has gained 5 lb. Breathing has improved. No chest pain or shortness of breath. Plan: Labs showed stable findings. Patient has been feeling better eating better and gaining weight. Breathing has improved. He will receive cycle 4 of 4 of chemotherapy today and follow up with me in [address] scan chest abdomen and pelvis will be done in 2 weeks. Based on the CT scan we will decide about maintenance treatment with Keytruda. In ED: Chest CTA 06/05/25 19:36 IMPRESSION: There is no pulmonary embolism, aortic dissection, pericardial fluid or thoracic aneurysm. Extensive consolidation within the left lower lobe is noted. There are patchy interlobular or air space opacity and interlobular septal thickening throughout the remainder of the lungs may be related to known history of lung cancer. Superimposed pneumonia and/or edema cannot be excluded. Flu/RSV/Covid- negative labs: WBC 12.5, hg/hct 13.2/39.4, [id number], cr/bun 1.. Review of Systems Review of Systems: All systems reviewed & are unremarkable except as noted in HPI and below PMFSH Past Medical History Medical History Multiple pulmonary nodules determined by computed tomography of lung Bipolar 1 disorder JEFFREY (generalized anxiety disorder) Atrial fibrillation Surgical History Surgical History No history of previous surgery Family History Family History Mother Hypertension Father , Age 43. 4 PPD smoker. Acute myocardial infarction Social History Social History Smoking packs per day: 1 Smoking cigarettes per day: 20.0 Years smoked: 45 Smoking pack-years: 45.00 Smoking status: Former smoker Tobacco type: cigarettes Second hand tobacco smoke exposure: Yes Smoking end date: 01/19/25 Alcohol intake: former Substance use: current Substance use type: marijuana Other substance usage details: THC Last use: 11/05/24 Lack of Transportation: No Lack of Food: Never True Current Housing: I Have Housing Concerned About Future Housing: No Difficulty Paying Gas/Electric Bills: No Difficulty Paying for Meds: No Currently Unemployed: No Education: High School Diploma/GED Difficulty w/ Childcare or Family Care: No Spiritual care concerns: No Meds Home Medications and Allergies Home Medications ?Medication ?Instructions ?Recorded ?Confirmed ?Type albuterol sulfate 90 mcg/actuation 1 - 2 puff inhalati on Q4-6H PRN 08/29/24 06/06/25 Rx aerosol inhaler shortness of breath or wheez ing #8.5 grams hydrocodone 5 mg-acetaminophen 325 2 tablet PO Q6-8H P RN pain 01/19/25 06/06/25 History mg tablet fluticasone fur. 100 mcg-umeclid See Rx Instructions . Route 05/15/25 06/06/25 Rx 62.5 mcg-vilant 25 mcg .COMPLEX #60 ea inhalat.powder (Trelegy Ellipta) ondansetron HCl 4 mg tablet 4 mg PO DAILY PRN nausea a nd 06/06/25 06/06/25 History vomiting Allergies Allergy/AdvReac Type Severity Reaction Status Date / Time No Known Allergies Allergy Unknown Verified 06/06/25 06:41 Vital Signs Vital Signs - 24 hr 06/05/25 16:47 06/05/25 18:10 06/05/25 20:27 Temperature 98.5 F Pulse Rate 62 92 Respiratory Rate 20 25 H Blood Pressure 114/85 121/90 Pulse Oximetry 90 91 90 Oxygen Delivery Room Air Nasal Cannula Oxygen Flow Rate 3 06/05/25 23:29 06/06/25 02:56 06/06/25 06:00 Temperature 97.6 F Pulse Rate 83 86 99 Respiratory Rate 24 H 20 Blood Pressure 106/68 145/90 H Pulse Oximetry 92 93 Oxygen Delivery Oxygen Flow Rate Exam Const: General: comfortable Resp: Effort & Inspection: normal respiratory effort Auscultation: diminished lung sounds Cardio: Rate: regular rate Rhythm: regular rhythm GI: GI Palp: Yes Soft to palpation Auscultation: normal bowel sounds Skin: General skin exam: normal color Neuro: Speech: normal speech Sensory Exam: normal sensation Extrem: General: normal to inspection Psych: Affect: normal affect Results Labs Labs: Short CBC 06/05/25 Range/Units 18:07 WBC 12.5 H (4.5-10.0) K/mm3 Hgb 13.2 L (14.0-18.0) g/dL Hct 39.4 L (42.0-52.0) % Plt Count 313 (150-375) k/mm3 [facility] 06/05/25 18:07 Sodium 136 L Potassium 4.5 Chloride 105 Carbon Dioxide 21 L BUN 21 H Creatinine 1.20 Glucose 135 H Calcium 9.7 Liver Function 06/05/25 Range/Units 18:07 Total Bilirubin 0.6 (0.2-1.3) mg/dL AST 39 (17-59) U/L ALT 18 (6-50) U/L Alkaline Phosphatase 98 (38-126) U/L Albumin 3.8 (3.5-5.1) g/dL Quality VTE Prophylaxis VTE prophylaxis: pharmacologic ordered Assessment and Plan Assessment and plan (1) JEFFREY (generalized anxiety disorder): Code(s): F41.1 - Generalized anxiety disorder Status: Acute (2) Bipolar 1 disorder: Code(s): F31.9 - Bipolar disorder, unspecified Status: Acute (3) Atrial fibrillation: Code(s): I48.91 - Unspecified atrial fibrillation Status: Acute (4) Dyslipidemia: Code(s): E78.5 - Hyperlipidemia, unspecified Status: Acute (5) Adenocarcinoma of left lung: Code(s): C34.92 - Malignant neoplasm of unspecified part of left bronchus or lung Status: Acute (6) Pneumonia: Qualifiers: Laterality: left Lung location: unspecified part of lung Pneumonia type: due to unspecified organism Qualified Code(s): J18.9 - Pneumonia, unspeci fied organism Code(s): J18.9 - Pneumonia, unspecified organism Status: Acute (7) Shortness of breath: Code(s): R06.02 - Shortness of breath Status: Acute (8) COPD (chronic obstructive pulmonary disease): Code(s): J44.9 - Chronic obstructive pulmonary disease, unspecified Status: Acute Plan 1 y.o male with PMH/of COPD, adenocarcinoma left lower lobe (on palliative chemotherapy) admitted form ed for shortness of breath and increased cough. He wears oxygen 2l per nc at baseline. On 01/16/2025 the patient had bronchoscopy with EBUS at [facility] for further staging.? Per Dr. Matamoros note this demonstrated extensive adenocarcinoma involving left upper lobe, left lower lobe, right lower lobe and bilateral hilar lymph nodes.? PET scan was done on November 29 that showed no extrathoracic metastases. Chest CTA 06/05/25 19:36 IMPRESSION: There is no pulmonary embolism, aortic dissection, pericardial fluid or thoracic aneurysm. Extensive consolidation within the left lower lobe is noted. There are patchy interlobular or air space opacity and interlobular septal thickening throughout the remainder of the lungs may be related to known history of lung cancer. Superimposed pneumonia and/or edema cannot be excluded. Flu/RSV/Covid- negative WBC 12.5, hg/hct 13.2/39.4, [id number], cr/bun 1.20/21. Pt was started on antibiotics- rocephin and azithro-will continue it -duo nebs mucinex daily labs will add chest xrya for tomorrow lovenox for dvt prophylaxis pt is full code Prior Studies I have reviewed the following patient records and this information was taken into consideration when formulating the assessment and plan.: previous labs, previous ER visits, previous hospitalizations and previous clinic visits Time Spent with Patient Time with patient: 45 - 74 minutes Hospitalist MIPS Advance Care Plan I have confirmed that the patient's Advanced Care Plan is present, code status is documented, or surrogate decision maker is listed in patient medical record.: Yes Medication Reconciliation I have utilized all available resources to obtain, update and review the patients current medications (includes all prescriptions, OTC, herbals, cannabis, and nutritional supplements).: Yes
[2025-06-06] MEDS: guaiFENesin 12 HR 600 MG TABCR 1200 MG PO ×2 (08:44→22:03)
[2025-06-06] MEDS: BENZONATATE 100 MG CAPSULE PO (16:03)
[2025-06-06] MEDS: cefTRIAXone 1 GM in SODIUM CHLORIDE 0.9% IV 50 ML 100 ML IVPB (22:03)
[2025-06-06] MEDS: AZITHROMYCIN IV 500 MG in SODIUM CHLORIDE 0.9% IV 250 ML IVPB (22:40)
[2025-06-06] MEDS: ONDANSETRON HCL ODT 4 MG TABLET PO (22:57)
[2025-06-07] MEDS: IPRATROPIUM 0.5 MG/ALBUTEROL SULFATE 2.5 MG (BASE) AMPUL.NEB 3 ML INHALATION (02:33)
--- NOTE | 2025-06-07 02:34 | PCRCNOTE ---
Pt refused 020 tx, states it makes him cough
[2025-06-07 06:00] VITALS: BP 135/73; PULSE 102; RESP 20; TEMP 37.4; O2SAT 94
[2025-06-07 06:36] LABS: Hematocrit 40.4 % (42.0-52.0); Hemoglobin 13.7 g/dL (14.0-18.0); Mean Corpuscular HGB Conc 33.9 g/dl (32-36); Mean Corpuscular Hemoglobin 33.8 pg (26-34); Mean Corpuscular Volume 99.8 fl (80-100); Platelet Count Result 340 k/mm3 (150-375); Red Blood Count 4.05 M/mm3 (4.6-6.20); White Blood Count 14.8 K/mm3 (4.5-10.0)
[2025-06-07 07:01] LABS: Anion Gap 10 mmol/L (4-12); Blood Urea Nitrogen 19 mg/dL (9-20); Calcium 9.6 mg/dL (8.4-10.2); Carbon Dioxide 22 mmol/L (22-30); Chloride 103 mmol/L (98-107); Estimated CRCL calculation 62 ml/min; Estimated Glomerular Filt Rate > 60; Glucose 87 mg/dL (65-110); Potassium 3.8 mmol/L (3.4-5.0); Sodium 135 mmol/L (137-145)
[2025-06-07 07:55] VITALS: O2SAT 94
[2025-06-07] MEDS: ONDANSETRON HCL ODT 4 MG TABLET PO (07:56)
[2025-06-07] MEDS: guaiFENesin 12 HR 600 MG TABCR 1200 MG PO (07:57)
--- NOTE | 2025-06-07 12:08 | PCRCNOTE ---
Window of time for administration has passed. See next scheduled administration.
--- NOTE | 2025-06-07 12:29 | PM.DS ---
DS: Admitting Diagnosis Discharge Date 06/07 Admitting Diagnosis sob,cough DS: Discharge Diagnosis Discharge Diagnosis (1) JEFFREY (generalized anxiety disorder): Code(s): F41.1 - Generalized anxiety disorder Status: Acute (2) Bipolar 1 disorder: Code(s): F31.9 - Bipolar disorder, unspecified Status: Acute (3) Atrial fibrillation: Code(s): I48.91 - Unspecified atrial fibrillation Status: Acute (4) Dyslipidemia: Code(s): E78.5 - Hyperlipidemia, unspecified Status: Acute (5) Adenocarcinoma of left lung: Code(s): C34.92 - Malignant neoplasm of unspecified part of left bronchus or lung Status: Acute (6) Pneumonia: Qualifiers: Laterality: left Lung location: unspecified part of lung Pneumonia type: due to unspecified organism Qualified Code(s): J18.9 - Pneumonia, unspecified organism Code(s): J18.9 - Pneumonia, unspecified organism Status: Acute (7) Shortness of breath: Code(s): R06.02 - Shortness of breath Status: Acute (8) COPD (chronic obstructive pulmonary disease): Code(s): J44.9 - Chronic obstructive pulmonary disease, unspecified Status: Acute DS: Summary Hospital Course Hospital Course: 60 y.o male with PMH/of COPD, adenocarcinoma left lower lobe (on palliative chemotherapy) admitted form ed for shortness of breath and increased cough. He wears oxygen 2l per nc at baseline. On 01/16/2025 the patient had bronchoscopy with EBUS at [facility] for further staging.? Per Dr. Matamoros note this demonstrated extensive adenocarcinoma involving left upper lobe, left lower lobe, right lower lobe and bilateral hilar lymph nodes.? PET scan was done on November 29 that showed no extrathoracic metastases. Chest CTA 06/05/25 19:36 IMPRESSION: There is no pulmonary embolism, aortic dissection, pericardial fluid or thoracic aneurysm. Extensive consolidation within the left lower lobe is noted. There are patchy interlobular or air space opacity and interlobular septal thickening throughout the remainder of the lungs may be related to known history of lung cancer. Superimposed pneumonia and/or edema cannot be excluded. Flu/RSV/Covid- negative WBC 12.5, hg/hct 13.2/39.4, [id number], cr/bun 1.20/21. Pt was started on antibiotics- rocephin and azithro -duo nebs mucinex. 06/07- he reports that he didnot sleep well at all due to having a roommate. He is feeling a lot better and wants to go home. His BC are not back yet and he is aware that if it is positive, he would have to come back. He is advised to stay to ensure prelim BC negative but he insisting on leaving. Discussed in great details with him and RN present at the bedside, pt wants ot go home. He has oncology sarah on sunday. Status at Discharge Functional status at discharge: independent ambulation Overall status at discharge: patient is progressing back to baseline Time Spent with Patient Time attestation: Total time spent providing and/or coordinating discharge services: Time spent: Greater than 30 minutes Exam Const: General: comfortable Resp: Effort & Inspection: normal respiratory effort Auscultation: diminished lung sounds Cardio: Rate: regular rate Rhythm: regular rhythm GI: Auscultation: normal bowel sounds Skin: General skin exam: normal color Neuro: Speech: normal speech Sensory Exam: normal sensation Extrem: General: normal to inspection Psych: Affect: normal affect DS: Data Data Completed and Pending Labs on day of discharge: Labs from last 24 hours 06/07/25 05:48 WBC 14.8 H RBC 4.05 L Hgb 13.7 L Hct 40.4 L MCV 99.8 MCH 33.8 MCHC 33.9 RDW 13.5 Plt Count 340 MPV 9.4 Sodium 135 L Potassium 3.8 Chloride 103 Carbon Dioxide 22 Anion Gap 10 BUN 19 Creatinine 0.95 Estim Creat Clear Calc 62 Estimated GFR > 60 Glucose 87 Calcium 9.6 Discharge Plan Discharge Attending physician on discharge: Derek Jones Discharging Clinician: Nitza Keen Patient Disposition: Home Activity: october shower Diet: as tolerated and regular Patient Instructions: Antibiotic Form Patient Language: Amharic Stand Alone Forms: General Discharge Information Follow-up/Referrals: Thomas Matamoros MD [Physician, Hematology] - 1 Week Isaiah Ruano MD [Primary Care Provider, Internal Medicine] - 1 Week Discharge Medications: New azithromycin [Zithromax] 500 mg tablet 500 mg PO DAILY 3 Days Qty: 3 0RF amoxicillin-pot clavulanate 875-125 mg tablet 1 tablet PO Q12H Qty: 12 0RF Continued hydrocodone-acetaminophen 5-325 mg tablet 2 tablet PO Q6-8H PRN (Reason: pain) albuterol sulfate 90 mcg/actuation HFA aerosol inhaler 1 - 2 puff inhalation Q4-6H PRN (Reason: shortness of breath or wheezing) Qty: 8.5 2RF Patient Comments: . ondansetron HCl 4 mg tablet 4 mg PO DAILY PRN (Reason: nausea and vomiting) Trelegy Ellipta 100-62.5-25 mcg blister with device See Rx Instructions .ROUTE .COMPLEX Qty: 60 6RF Dose Instruction: INHALE ONE (1) PUFF BY MOUTH AT THE SAME TIME EACH DAY RINSE AND SPIT AFTER EACH USE Rx Instructions: INHALE ONE (1) PUFF BY MOUTH AT THE SAME TIME EACH DAY RINSE AND SPIT AFTER EACH USE Date of admission: 06/05/25 21:53 Primary Care Provider: Isaiah Ruano Admitting Provider: Verenice Scherer Attending physician on admission: Vereince Scherer Condition: Serious Quality VTE Prophylaxis VTE prophylaxis: pharmacologic ordered
== END 2025-06-07 14:20 | disposition home or self-care (01) ==
LOC: ANHED 18:16 → ANH3MEDSUR 06-06 02:04 → ANHIMU 06-09 07:25
PROVIDERS: Nurse Practitioner; Admitting Provider Internal Medicine; Emergency Provider Physician Assistant; PCP Internal Medicine; Visit Provider Internal Medicine
DX: J18.9 Pneumonia, unspecified organism (principal); C34.32 Malignant neoplasm of lower lobe, left bronchus or lung; J44.9 Chronic obstructive pulmonary disease, unspecified; I48.91 Unspecified atrial fibrillation; E78.5 Hyperlipidemia, unspecified; F41.1 Generalized anxiety disorder; F31.9 Bipolar disorder, unspecified; F12.90 Cannabis use, unspecified, uncomplicated; Z20.822 Contact with and (suspected) exposure to COVID-19; Z87.891 Personal history of nicotine dependence; Z99.81 Dependence on supplemental oxygen; Z92.21 Personal history of antineoplastic chemotherapy; Z79.891 Long term (current) use of opiate analgesic
CPT/HCPCS: 36415; 71045; 71275; 80048; 80053; 85025; 85027; 85610; 85730; 87637; 93005; 94640; 96365; 96366; 96367; 96375; 99285; A9270; J0456; J0696; J2919; J3475; J7050; Q9967